=== PATIENT | male | born 1935 | race Caucasian/White ===

== ENCOUNTER → 2016-08-30 | Outpatient (CLI) | payer MEDICARE ==
[~2016-08-30] MED LIST: ADVA115A INH; ALBU0.08 INH; ALLO300T2 PO; ANAS1TAB PO; ASPI-110 PO; ASPI81TA81; CARV6.252 PO; CENTTAB PO; CEPH500C PO; CHOL1TAB42 PO; CIPR-9 PO; COMMODE 3-IN-11 MIS; CORT1SOL LEFT EAR; COZA25TA PO; FIBEPOW; FURO1TAB60 PO; FURO20TA PO; FURO40TA PO; GABA100C4 PO; GABA400C5 PO; GETGO ROLLING W1 MI1; GNP5TAB6 PO; HUMA100I3 SQ; HUMALOG SQ; HYDR-3533 PO; IRBE75TA5 PO; L-ME1CAP2; LANTINJ SQ; LANTUS2P SQ; LEVO.075 PO; MAGN400T2 PO; NAME5TAB2 PO; NIAC500T18 PO; NIAC500T67; NORC5TAB PO; OMEP20TA PO; POLY17S PO; POTA1TAB4 PO; PRED10 PO; PRED20 PO; QUET1TAB7 PO; SENN1TAB PO; SPIR25TA PO; SPIRPOW; TAMS0.4C4 PO; TAMS5CAP PO; TRAM50TA PO; WHEEMIS3; XARE10TA PO; XARE15TA PO
[2016-08-30 13:05] LABS: BLOOD, URINE SMALL (NEG); GLUCOSE,URINE NEG (NEG); KETONE, URINE NEG (NEG); NITRITE,URINE NEG (NEG); PH, URINE 6.5 (5.0-8.5); URINE COLOR LIGHT-YELLOW (YELLW/STRAW)
== END ==
LOC: CLAB 12:20
PROVIDERS: ATTEND Allergy & Immunology
DX: M47.817 Spondylosis without myelopathy or radiculopathy, lumbosacral region (principal)
CPT/HCPCS: 81001

== ENCOUNTER → 2016-09-19 | Outpatient (CLI) | payer MEDICARE ==
[2016-09-19 10:08] LABS: BLOOD, URINE NEG (NEG); GLUCOSE,URINE NEG (NEG); HYALINE CAST, URINE 4 /lpf (RARE); KETONE, URINE NEG (NEG); NITRITE,URINE NEG (NEG); URINE COLOR YELLOW (YELLW/STRAW)
[2016-09-19 10:10] LABS: AUTOMATED NEUTROPHIL # 5.3 TH/MM3 (1.8-7.7); BASOPHIL % 0.6 % (0.0-2.0); EOSINOPHIL # 0.1 TH/MM3 (0-0.4); EOSINOPHIL % 0.9 % (0.0-4.0); HEMATOCRIT 33.6 % (39.0-51.0); HEMO FLAGS DIFF FINAL; LYMPHOCYTE # 1.7 TH/MM3 (1.0-4.8); MEAN CELL VOLUME 88.4 FL (80.0-100.0); MEAN CORPUSCULAR HEMOGLOBIN 28.7 PG (27.0-34.0); MEAN CORPUSCULAR HGB CONC 32.5 % (32.0-36.0); MONO % 7.2 % (0.0-8.0); NEUT % 69.3 % (16.0-70.0); PLATELET COUNT 192 TH/MM3 (150-450); RED BLOOD COUNT 3.81 MIL/MM3 (4.50-5.90); RED CELL DISTRIBUTION WIDTH 16.7 % (11.6-17.2); WHITE BLOOD COUNT 7.7 TH/MM3 (4.0-11.0)
[2016-09-19 10:28] LABS: MAGNESIUM 2.1 MG/DL (1.5-2.5)
[2016-09-19 10:39] LABS: ALKALINE PHOSPHATASE 111 U/L (45-117); ALT (GPT) 21 U/L (12-78); ANION GAP 6 MEQ/L (5-15); AST (GOT) 12 U/L (15-37); BICARBONATE 33.8 MEQ/L (21.0-32.0); BLOOD UREA NITROGEN 49 MG/DL (7-18); CHLORIDE 98 MEQ/L (98-107); GLOMERULAR FILTRATION RATE 42 ML/MIN (>89); GLUCOSE,FASTING 187 MG/DL (74-99); POTASSIUM 4.4 MEQ/L (3.5-5.1); SODIUM (NA) 138 MEQ/L (136-145); TOTAL BILIRUBIN ADULT 0.4 MG/DL (0.2-1.0)
== END ==
LOC: CLAB 09:24
DX: H60.311 Diffuse otitis externa, right ear (principal); I12.9 Hypertensive chronic kidney disease with stage 1 through stage 4 chronic kidney disease, or unspecified chronic kidney disease; N18.3 Chronic kidney disease, stage 3 (moderate)
CPT/HCPCS: 36415; 80053; 81001; 82570; 83735; 83970; 84100; 84156; 84443; 84550; 85025

== ENCOUNTER → 2016-11-08 | Outpatient (CLI) | payer MEDICARE ==
[2016-11-08 11:53] LABS: AUTOMATED NEUTROPHIL # 5.1 TH/MM3 (1.8-7.7); BASOPHIL # 0.1 TH/MM3 (0-0.2); BASOPHIL % 0.7 % (0.0-2.0); EOSINOPHIL # 0.1 TH/MM3 (0-0.4); EOSINOPHIL % 1.4 % (0.0-4.0); HEMATOCRIT 34.8 % (39.0-51.0); HEMO FLAGS DIFF FINAL; LYMPH % 22.9 % (9.0-44.0); LYMPHOCYTE # 1.7 TH/MM3 (1.0-4.8); MEAN CELL VOLUME 91.3 FL (80.0-100.0); MEAN CORPUSCULAR HEMOGLOBIN 30.6 PG (27.0-34.0); MEAN CORPUSCULAR HGB CONC 33.5 % (32.0-36.0); MONO % 6.9 % (0.0-8.0); NEUT % 68.1 % (16.0-70.0); PLATELET COUNT 166 TH/MM3 (150-450); RED BLOOD COUNT 3.81 MIL/MM3 (4.50-5.90); RED CELL DISTRIBUTION WIDTH 20.5 % (11.6-17.2); WHITE BLOOD COUNT 7.4 TH/MM3 (4.0-11.0)
[2016-11-08 12:10] LABS: ALT (GPT) 24 U/L (12-78); ANION GAP 7 MEQ/L (5-15); AST (GOT) 21 U/L (15-37); BICARBONATE 32.4 MEQ/L (21.0-32.0); BLOOD UREA NITROGEN 42 MG/DL (7-18); CHLORIDE 101 MEQ/L (98-107); GLOMERULAR FILTRATION RATE 46 ML/MIN (>89); GLUCOSE,FASTING 173 MG/DL (74-99); POTASSIUM 4.3 MEQ/L (3.5-5.1); SODIUM (NA) 140 MEQ/L (136-145)
[2016-11-08 12:12] LABS: ALKALINE PHOSPHATASE 82 U/L (45-117); TOTAL BILIRUBIN ADULT 0.5 MG/DL (0.2-1.0)
== END ==
LOC: CLAB 11:18
PROVIDERS: ATTEND Allergy & Immunology
DX: M47.817 Spondylosis without myelopathy or radiculopathy, lumbosacral region (principal)
CPT/HCPCS: 36415; 80053; 84550; 85025

== ENCOUNTER → 2016-11-22 | Outpatient (CLI) | payer MEDICARE ==
[2016-11-22 14:29] LABS: ALKALINE PHOSPHATASE 79 U/L (45-117); ALT (GPT) 25 U/L (12-78); ANION GAP 6 MEQ/L (5-15); AST (GOT) 19 U/L (15-37); BICARBONATE 34.4 MEQ/L (21.0-32.0); BLOOD UREA NITROGEN 47 MG/DL (7-18); CHLORIDE 99 MEQ/L (98-107); GLOMERULAR FILTRATION RATE 40 ML/MIN (>89); GLUCOSE,FASTING 160 MG/DL (74-99); SODIUM (NA) 139 MEQ/L (136-145); TOTAL BILIRUBIN ADULT 0.6 MG/DL (0.2-1.0)
== END ==
LOC: CLAB 13:03
PROVIDERS: ATTEND Internal Medicine Interventional Cardiology
DX: R53.83 Other fatigue (principal); R60.9 Edema, unspecified
CPT/HCPCS: 36415; 80053; 82607; 84443

== ENCOUNTER 2016-11-28 11:35 | Emergency (ER) | payer MEDICARE ==
[~2016-11-28] VITALS: Ht 170.2 cm; Wt 106.0 kg
[~2016-11-28 11:35] MED LIST changes: -ALBU0.08 INH; -ASPI-110 PO; -ASPI81TA81; -CEPH500C PO; -COMMODE 3-IN-11 MIS; -COZA25TA PO; -FIBEPOW; -FURO20TA PO; -FURO40TA PO; -GABA400C5 PO; -GETGO ROLLING W1 MI1; -GNP5TAB6 PO; -HUMA100I3 SQ; -HYDR-3533 PO; -L-ME1CAP2; -LANTINJ SQ; -NAME5TAB2 PO; -NIAC500T67; -POLY17S PO; -PRED10 PO; -PRED20 PO; -QUET1TAB7 PO; -SENN1TAB PO; -SPIR25TA PO; -SPIRPOW; -TAMS0.4C4 PO; -WHEEMIS3; -XARE10TA PO
[2016-11-28 11:40] VITALS: BP 148/97; PULSE 87; RESP 15; TEMP 98.6
[2016-11-28] MEDS ORDERED: MORPHINE SULFATE 8 MG/ML INJ IV PUSH ONE (12:00)
[2016-11-28] MEDS ORDERED: ONDANSETRON HCL 4 MG/2 ML VIAL IV PUSH ONE (12:00)
--- NOTE | 2016-11-28 12:02 | PD ---
HPI Chief Complaint: Injury Time Seen by Provider: 11:58 Travel History International Travel<30 days: No Contact w/Intl Traveler<30days: No Traveled to known affect area: No History of Present Illness HPI 81-year-old male that presents to the ED for evaluation of injury to his right foot. Per patient he was in the shower today about 2 hours ago and the shower bear fell into his right foot. Per patient he has a bruise and pain on the area since. He denies any prior injury. He does take surrounding the. He denies any head injury or loss of consciousness. He denies any open wounds. He states that the pain is 6 out of 10 and comes and goes. Denies any numbness, tilling, weakness. No prior injuries or surgeries to this foot. He has not done anything for this. Per patient she has an appointment with his urologist who he follow up with and then came here to get checked on his foot. He has an allergy to contrast media. He has not taken anything for this. He is able to ambulate but with some limp. Denies any other medical problems at this time. No other injuries reported. Touching as well as weightbearing makes the pain worse. PFSH Past Medical History Hx Anticoagulant Therapy: Yes Arthritis: Yes Asthma: No Blood Disorders: No Anxiety: No Depression: No Heart Rhythm Problems: No Cancer: Yes (SKIN) Cardiac Catheterization: Yes Cardiovascular Problems: Yes High Cholesterol: Yes Chemotherapy: No Chest Pain: No Congestive Heart Failure: No COPD: Yes Cerebrovascular Accident: Yes Diabetes: Yes Patient Takes Glucophage: No Diminished Hearing: Yes Endocrine: Yes Gastrointestinal Disorders: No Glaucoma: No Gout: Yes Genitourinary: No Hepatitis: Yes (HX OF) Hiatal Hernia: Yes Hypertension: Yes Immune Disorder: No Implanted Vascular Access Dvce: Yes (ST MAGY [id number]) Kidney Stones: Yes Musculoskeletal: Yes (RHEUMATOID ARTHRITIS, gout) Neurologic: No Psychiatric: No Reproductive: No Respiratory: Yes Integumentary: No Immunizations Current: Yes Radiation Therapy: No Renal Failure: Yes (decreased renal function) Sleep Apnea: Yes Thyroid Disease: No Past Surgical History Appendectomy: Yes Body Medical Devices: PACER Cardiac Surgery: Yes (2008 ANGIOPLASTY; AORTIC VALVE REPLACEMENT, pacemaker right side) Cholecystectomy: Yes Coronary Artery Bypass Graft: Yes Genitourinary Surgery: Yes (TURP) Joint Replacement: Yes (RAFFI HIP, KNEE AND SHOULDER) Pacemaker: Yes (DEMAND PACEMAKER -[id number]) Thoracic Surgery: Yes Valve Replacement: Yes (AORTIC VALVE - BOVINE -2007) Other Surgery: Yes (LEFT SHOULDER RAFFI KNEES RAFFI HIPS CABG APPENDECTONSILLECT CHOLESTECTOMY) Social History Alcohol Use: No Tobacco Use: No (in 20"s cigs) Substance Use: No Allergies-Medications (Allergen,Severity, Reaction): Coded Allergies: Contrast Media (Verified Allergy, Severe, SWELLING AND SHORTNESS OF BREATH , 08/15/16) Iodine (Verified Allergy, Severe, SWELLING, 08/15/16) Shellfish (Verified Allergy, Severe, 08/15/16) Reported Meds & Prescriptions Reported Meds & Active Scripts Active Lortab (Hydrocodone-Acetaminophen) 5-325 Mg Tab 1 Tab PO Q6H PRN [place] (Hydrocodone-Acetaminophen) 5-325 mg Tab 1 Tab PO Q6H PRN Reported Spironolactone 25 Mg Tab 25 Mg PO DAILY Aspir-81 (Aspirin) 81 Mg Tabdr Synthroid (Levothyroxine Sodium) 75 Mcg Tab 75 Mcg PO DAILY Irbesartan 75 Mg Tab 75 Mg PO DAILY Gabapentin 100 Mg Cap 100 Mg PO HS Synthroid (Levothyroxine Sodium) 75 Mcg Tab 75 Mcg PO DAILY Lantus Inj (Insulin Glargine) 100 Unit/Ml Inj 22 Units SQ HS Humalog Inj (Insulin Human Lispro) 1,000 Unit/10 Ml Vial 0 SQ ACHS Max dose at bedtime:( )units; sugars< 70,(0)units; sugars 150-199,(1)unit; sugars 200-249,(3)units; sugars 250-299,(5)units; sugars 300-349,(7)units; sugars more than 349,(9)units. Centrum Silver (Multiple Vitamins W/ Minerals) 1 Tab 1 Tab PO DAILY Vitamin D-3 (Cholecalciferol) 2,000 Unit Tab 1 Tab PO DAILY Anastrozole 1 Mg Tab 1 Mg PO DAILY Lasix (Furosemide) 40 Mg Tab 40 Mg PO BID Omeprazole 20 Mg Tab 20 Mg PO BID Niacin (Niacinamide) 500 Mg Tab 250 Mg PO BID Flomax (Tamsulosin HCl) 0.4 Mg Cap 0.4 Mg PO DAILY Tramadol (Tramadol HCl) 50 Mg Tab 100 Mg PO TID PRN Allopurinol 300 Mg Tab 300 Mg PO BID Magnesium Oxide 400 Mg Tab 400 Mg PO DAILY Carvedilol 6.25 Mg Tab 6.25 Mg PO BID Xarelto (Rivaroxaban) 15 Mg Tab 15 Mg PO DAILY Advair Hfa 12 GM Inh (Fluticasone-Salmeterol 12 GM Inh) 115-21 Mcg/Act Aer 2 Puff INH BID Review of Systems Except as stated in HPI: all other systems reviewed are Neg Physical Exam Narrative GENERAL: SKIN: Warm and dry. HEAD: Atraumatic. Normocephalic. EYES: Pupils equal and round. No scleral icterus. No injection or drainage. ENT: No nasal bleeding or discharge. Mucous membranes pink and moist. Tongue is midline. No uvula deviation. NECK: Trachea midline. No JVD. CARDIOVASCULAR: Regular rate and rhythm. RESPIRATORY: No accessory muscle use. Clear to auscultation. Breath sounds equal bilaterally. GASTROINTESTINAL: Abdomen soft, non-tender, nondistended. Hepatic and splenic margins not palpable. MUSCULOSKELETAL: Extremities without clubbing, cyanosis, or edema. No obvious deformities. Full range of motion of the lower extremities bilaterally. Pupils pulses bilaterally. Patient does have a 2 cm hematoma on the dorsal aspect on the distal aspect of the right foot. Slightly tender to touch. Pupils pulses bilaterally. No obvious bony deformity noted. Good capillary refill of all toes. 2+ pulses on the dorsalis pedis as well as the posterior tibialis NEUROLOGICAL: Awake and alert. No obvious cranial nerve deficits. Motor grossly within normal limits. Five out of 5 muscle strength in the arms and legs. Normal speech. PSYCHIATRIC: Appropriate mood and affect; insight and judgment normal. Data Data Last Documented VS Vital Signs Date Time Temp Pulse Resp B/P Pulse Ox O2 Delivery O2 Flow Rate FiO2 11/28/16 11:50 96 Room Air 11/28/16 11:40 98.6 87 15 148/97 2 Orders Foot, Complete ([id number]) (11/28/16 11:54) Ice/Cold Pack (11/28/16 11:54) Morphine Inj (Morphine Inj) (11/28/16 12:00) Ondansetron Inj (Zofran Inj) (11/28/16 12:00) MDM Medical Decision Making Medical Screen Exam Complete: Yes Emergency Medical Condition: Yes Medical Record Reviewed: Yes Interpretation(s) Last Impressions Foot X-Ray 11/28/16 1154 Signed Impressions: Service Date/Time: Monday, November 28, 2016 12:41 - CONCLUSION: 1. There is no evidence of acute fracture. Bong Romeo MD Differential Diagnosis Hematoma versus fracture versus bruise versus contusion Narrative Course 81-year-old male to presents to the ED for evaluation of right foot pain. Patient was properly examined and was found to have signs and symptoms concerning for possible fracture. X-rays were done. Patient was given pain medication IV. Patient was given ice to apply to the area. X-ray showed no sign of acute bony injury. Patient was reassured. At this time I recommend ice and elevation. Patient agrees with plan. Patient was sent home with a prescription for Lortab to use as needed. I recommend Tylenol for pain as well. Use walker as needed. See ED for any worsening symptoms. Follow with PCP. All questions were answered to the best of my ability. Diagnosis Primary Impression: Traumatic hematoma of right foot Qualified Code: S90.31XA - Traumatic hematoma of right foot, initial encounter Patient Instructions: Narcotic given in the ED, General Instructions Additional Instructions: Take medications as prescribed. Follow-up with PCP. See ED for any worsening symptoms. Do not drink or drive while taking pain medication. Apply ice as needed for pain Med/Other Pt SpecificInfo: Prescription(s) given Scripts Hydrocodone-Acetaminophen (Lortab)5-325 Mg Tab1 Tab PO Q6H PRN (PAIN) #15 TAB Prov:Naya Tanner DO 11/28/16 Disposition: 01 DISCHARGE HOME Condition: Stable Chidi Ellington Nov 28, 2016 12:02
[2016-11-28] MEDS ORDERED: SPIR25TA PO (12:03)
[2016-11-28] MEDS ORDERED: LEVO.075 PO (12:03)
[2016-11-28] MEDS ORDERED: ASPI81TA81 (12:03)
[2016-11-28] MEDS ORDERED: IRBE75TA5 PO (12:03)
[2016-11-28] MEDS ORDERED: HYDR-3533 PO (13:23)
--- NOTE | 2016-11-28 13:51 | PD ---
Physical Exam Narrative I, Dr. Tanner, have reviewed the advance practice practitioner's documentation and am in agreement, met with the patient face to face, made the diagnosis, and the medical decision making was done by me. *My assessment and Findings: Right foot pain vs. fracture vs. contusion vs. hematoma 81yo M with right foot pain s/p dropping his shower piece on his right foot today. Denies any head trauma, LOC. Denies any other injuries. Right foot: + Hematoma on dorsum of right foot. DP 2+. Sensation intact. FROM right ankle. +Edema. Pt was given morphine and zofran. Xray right foot negative. Return precautions given. Data Data Last Documented VS Vital Signs Date Time Temp Pulse Resp B/P Pulse Ox O2 Delivery O2 Flow Rate FiO2 11/28/16 15:48 96 Nasal Cannula 2 11/28/16 11:40 98.6 87 15 148/97 Orders Foot, Complete ([id number]) (11/28/16 11:54) Ice/Cold Pack (11/28/16 11:54) Morphine Inj (Morphine Inj) (11/28/16 12:00) Ondansetron Inj (Zofran Inj) (11/28/16 12:00) MDM Supervised Visit with ZOHAIB: Yes Diagnosis Primary Impression: Contusion of right foot Qualified Code: S90.31XA - Contusion of right foot, initial encounter Scripts Hydrocodone-Acetaminophen (Lortab)5-325 Mg Tab1 Tab PO Q6H PRN (PAIN) #15 TAB Prov:Naya Tanner DO 11/28/16 Naya Tanner DO Nov 28, 2016 13:51
--- NOTE | 2016-11-28 14:18 | RADRPT ---
EXAM DATE/TIME: 11/28/2016 12:41 [facility] COMPARISON: FOOT RIGHT COMPLETE ([id number]), January 22, 2013, 12:58. INDICATIONS : Right foot pain after shower head fell on foot today. MEDICAL HISTORY : Chronic obstructive pulmonary disease. Myocardial infarction. Diabetes mellitus type II. Stroke. Gout. SURGICAL HISTORY : Pacemaker. ENCOUNTER: Initial ACUITY: 1 day PAIN SCORE: 10/10 LOCATION: Right top of foot. FINDINGS: There is prominent soft tissue swelling over the dorsum of the foot. There is no evidence of acute fr acture. Bony mineralization is normal. An inferior calcaneal spur is present. There is osteoarthritis at the tarsometatarsal junction CONCLUSION: 1. There is no evidence of acute fracture. Bong Romeo MD on November 28, 2016 at 14:16 Board Certified Radiologist. This report was verified electronically.
[2017-02-05] MEDS ORDERED: WHEEMIS3 (13:54)
[2017-02-05] MEDS ORDERED: GETGO ROLLING W1 MI1 (13:54)
[2017-02-05] MEDS ORDERED: COMMODE 3-IN-11 MIS (13:54)
[2017-02-06] MEDS ORDERED: FURO20TA PO (09:06)
[2017-02-06] MEDS ORDERED: PRED10 PO (09:06)
[2017-02-06] MEDS ORDERED: GNP5TAB6 PO (09:06)
[2017-02-06] MEDS ORDERED: LANTINJ SQ (09:06)
[2017-02-06] MEDS ORDERED: SPIR25TA PO (09:06)
[2017-02-06] MEDS ORDERED: ALLO300T2 PO (09:06)
[2017-02-06] MEDS ORDERED: TAMS0.4C4 PO (09:06)
[2017-02-06] MEDS ORDERED: GABA100C4 PO (09:06)
[2017-02-06] MEDS ORDERED: OMEP20TA PO (09:06)
[2017-02-06] MEDS ORDERED: ASPI-110 PO (09:06)
[2017-02-06] MEDS ORDERED: SENN1TAB PO (09:06)
[2017-02-06] MEDS ORDERED: NAME5TAB2 PO (09:06)
[2017-02-06] MEDS ORDERED: IRBE75TA5 PO (09:06)
[2017-02-06] MEDS ORDERED: XARE15TA PO (09:06)
[2017-02-06] MEDS ORDERED: CARV6.252 PO (09:06)
[2017-02-06] MEDS ORDERED: MAGN400T2 PO (09:06)
[2017-02-06] MEDS ORDERED: QUET1TAB7 PO (09:06)
[2017-02-06] MEDS ORDERED: HYDR-3533 PO (09:06)
[2017-02-06] MEDS ORDERED: LEVO.075 PO (09:06)
== END 2016-11-28 15:49 | disposition home or self-care (01) ==
LOC: NEPC 11:35
DX: S90.31XA Contusion of right foot, initial encounter (principal); E11.9 Type 2 diabetes mellitus without complications; I10 Essential (primary) hypertension; E78.00 Pure hypercholesterolemia, unspecified; G47.30 Sleep apnea, unspecified; H91.90 Unspecified hearing loss, unspecified ear; W20.8XXA Other cause of strike by thrown, projected or falling object, initial encounter; Y93.E1 Activity, personal bathing and showering; Z79.4 Long term (current) use of insulin; Z79.01 Long term (current) use of anticoagulants; Z87.39 Personal history of other diseases of the musculoskeletal system and connective tissue; Z86.79 Personal history of other diseases of the circulatory system; Z85.828 Personal history of other malignant neoplasm of skin; Z87.09 Personal history of other diseases of the respiratory system; Z87.448 Personal history of other diseases of urinary system
CPT/HCPCS: 73630; 96374; 96375; 99283; J2270; J2405

== ENCOUNTER 2016-12-01 20:25 | Emergency (ER) | payer MEDICARE ==
[~2016-12-01] VITALS: Ht 170.2 cm; Wt 109.6 kg
[~2016-12-01 20:25] MED LIST changes: +ASPI81TA81; -CIPR-9 PO; -CORT1SOL LEFT EAR; +HYDR-3533 PO; -POTA1TAB4 PO; +SPIR25TA PO
[2016-12-01 20:29] VITALS: BP 113/68; PULSE 83; RESP 18; TEMP 97.6; O2SAT 96
[2016-12-01] MEDS ORDERED: LIDOCAINE HCL 1% 30 ML VIAL INFIL ONE (21:00)
--- NOTE | 2016-12-01 21:12 | PD ---
HPI Chief Complaint: Injury Time Seen by Provider: 20:47 Travel History International Travel<30 days: No Contact w/Intl Traveler<30days: No Traveled to known affect area: No History of Present Illness HPI This 81-year-old male is complaining of pain in his right foot. On Sunday he dropped a metal showerhead on his foot. He developed a lot of pain. He went to [place] and had an x-ray was negative. He has had increased swelling of the foot and pain. He has been taking Lortab for the pain. He has not had fever or chills. He does have diabetes. He has history of heart valve surgery and is on Xarelto and aspirin. He does bruise easily. PFSH Past Medical History Hx Anticoagulant Therapy: Yes Arthritis: Yes Asthma: No Blood Disorders: No Anxiety: No Depression: No Heart Rhythm Problems: No Cancer: Yes (SKIN) Cardiac Catheterization: Yes Cardiovascular Problems: Yes (valve, pace maker) High Cholesterol: Yes Chemotherapy: No Chest Pain: No Congestive Heart Failure: No COPD: Yes Cerebrovascular Accident: Yes Diabetes: Yes Patient Takes Glucophage: No Diminished Hearing: Yes Endocrine: Yes Gastrointestinal Disorders: No Glaucoma: No Gout: Yes Genitourinary: No Hepatitis: Yes (HX OF) Hiatal Hernia: Yes Hypertension: Yes Immune Disorder: No Implanted Vascular Access Dvce: Yes (ST MAGY [id number]) Kidney Stones: Yes Musculoskeletal: Yes (RHEUMATOID ARTHRITIS, gout) Neurologic: No Psychiatric: No Reproductive: No Respiratory: Yes (copd) Integumentary: No Immunizations Current: Yes Radiation Therapy: No Renal Failure: Yes (decreased renal function) Sleep Apnea: Yes Thyroid Disease: No Tetanus Vaccination: < 5 Years Influenza Vaccination: Yes Past Surgical History Appendectomy: Yes Body Medical Devices: PACER Cardiac Surgery: Yes (2008 ANGIOPLASTY; AORTIC VALVE REPLACEMENT, pacemaker right side) Cholecystectomy: Yes Coronary Artery Bypass Graft: Yes Eye Surgery: Yes (Cataracts) Genitourinary Surgery: Yes (TURP) Joint Replacement: Yes (RAFFI HIP, KNEE AND SHOULDER) Pacemaker: Yes (DEMAND PACEMAKER -[id number]) Thoracic Surgery: Yes Valve Replacement: Yes (AORTIC VALVE - BOVINE -2008) Other Surgery: Yes (LEFT SHOULDER RAFFI KNEES RAFFI HIPS CABG APPENDECTONSILLECT CHOLESTECTOMY) Social History Alcohol Use: No Tobacco Use: No (in 20"s cigs) Substance Use: No Allergies-Medications (Allergen,Severity, Reaction): Coded Allergies: Contrast Media (Verified Allergy, Severe, SWELLING AND SHORTNESS OF BREATH , 12/01/16) Iodine (Verified Allergy, Severe, SWELLING, 12/01/16) Shellfish (Verified Allergy, Severe, 12/01/16) Reported Meds & Prescriptions Reported Meds & Active Scripts Active Lortab (Hydrocodone-Acetaminophen) 5-325 Mg Tab 1 Tab PO Q6H PRN Reported Spironolactone 25 Mg Tab 25 Mg PO DAILY Aspir-81 (Aspirin) 81 Mg Tabdr Irbesartan 75 Mg Tab 75 Mg PO DAILY Gabapentin 100 Mg Cap 100 Mg PO HS Synthroid (Levothyroxine Sodium) 75 Mcg Tab 75 Mcg PO DAILY Lantus Inj (Insulin Glargine) 100 Unit/Ml Inj 22 Units SQ HS Humalog Inj (Insulin Human Lispro) 1,000 Unit/10 Ml Vial 0 SQ ACHS Max dose at bedtime:( )units; sugars< 70,(0)units; sugars 150-199,(1)unit; sugars 200-249,(3)units; sugars 250-299,(5)units; sugars 300-349,(7)units; sugars more than 349,(9)units. Centrum Silver (Multiple Vitamins W/ Minerals) 1 Tab 1 Tab PO DAILY Anastrozole 1 Mg Tab 1 Mg PO DAILY Lasix (Furosemide) 40 Mg Tab 40 Mg PO BID Omeprazole 20 Mg Tab 20 Mg PO BID Niacin (Niacinamide) 500 Mg Tab 250 Mg PO BID Flomax (Tamsulosin HCl) 0.4 Mg Cap 0.4 Mg PO DAILY Tramadol (Tramadol HCl) 50 Mg Tab 100 Mg PO TID PRN Allopurinol 300 Mg Tab 300 Mg PO DAILY Magnesium Oxide 400 Mg Tab 400 Mg PO DAILY Carvedilol 6.25 Mg Tab 6.25 Mg PO BID Xarelto (Rivaroxaban) 15 Mg Tab 15 Mg PO DAILY Review of Systems General / Constitutional: No: Fever, Chills Eyes: No: Diploplia HENT: No: Headaches Cardiovascular: No: Chest Pain or Discomfort Respiratory: No: Shortness of Breath Gastrointestinal: No: Vomiting, Diarrhea Musculoskeletal: Positive: Pain Skin: No Rash Endocrine: No: Heat Intolerance, Cold Intolerance Hematologic/Lymphatic: Positive: Easy Bruising Physical Exam Narrative GENERAL: Well-developed male SKIN: Focused skin assessment warm/dry. Multiple ecchymoses vomited HEAD: Atraumatic. Normocephalic. EYES: Pupils equal and round. No scleral icterus. No injection or drainage. ENT: No nasal bleeding or discharge. Mucous membranes pink and moist. NECK: Trachea midline. No JVD. MUSCULOSKELETAL: No obvious deformities. No clubbing. No cyanosis. No edema. On the dorsum of the right foot there is a swollen erythematous area that is fluctuant to palpation. It measures about 2 cm in diameter is quite tender it is not erythematous. There is no lymphangitis NEUROLOGICAL: Awake and alert. No obvious cranial nerve deficits. Motor grossly within normal limits. Normal speech. PSYCHIATRIC: Appropriate mood and affect; insight and judgment normal. Data Data Last Documented VS Vital Signs Date Time Temp Pulse Resp B/P Pulse Ox O2 Delivery O2 Flow Rate FiO2 12/01/16 20:29 97.6 83 18 113/68 96 Orders Lidocaine 1% Inj (Xylocaine 1% Inj) (12/01/16 21:00) [facility] Medical Decision Making Medical Screen Exam Complete: Yes Emergency Medical Condition: Yes Medical Record Reviewed: Yes Differential Diagnosis Differential includes hematoma of the foot, abscess of contusion of foot Narrative Course X-ray from [facility] [place] was negative for fracture. Concern is that this may represent an abscess as it did feel fluctuant anesthetized the area and made incision. The blood was obtained there was no evidence of any pus. This is a hematoma. As much blood as possible was expressed from the wound and a pressure dressing applied Procedures Procedure Narrative After verbal consent was obtained the area of maximum fluctuance was anesthetized with a 1% lidocaine. A 1 cm incision was made and only blood was obtained. Bleeding was controlled with pressure and is dressing applied Diagnosis Primary Impression: Traumatic hematoma of right foot Qualified Code: S90.31XD - Traumatic hematoma of right foot, subsequent encounter Additional Instructions: Keep foot elevated Scripts Hydrocodone-Acetaminophen (Lortab)5-325 Mg Tab1-2 Tab PO Q6H PRN (PAIN) #30 TAB Ref 0 Prov:Gerhard Mendes MD 12/01/16 Disposition: 01 DISCHARGE HOME Condition: Stable Gerhard Mendes MD Dec 01, 2016 21:12
[2016-12-01] MEDS ORDERED: HYDR-3533 PO (21:19)
[2016-12-01 21:45] VITALS: BP 143/61; PULSE 82; RESP 20; O2SAT 97
[2016-12-01 22:11] VITALS: TEMP 97.8
[2017-02-05] MEDS ORDERED: WHEEMIS3 (13:54)
[2017-02-05] MEDS ORDERED: COMMODE 3-IN-11 MIS (13:54)
[2017-02-05] MEDS ORDERED: GETGO ROLLING W1 MI1 (13:54)
[2017-02-06] MEDS ORDERED: XARE15TA PO (09:06)
[2017-02-06] MEDS ORDERED: SPIR25TA PO (09:06)
[2017-02-06] MEDS ORDERED: IRBE75TA5 PO (09:06)
[2017-02-06] MEDS ORDERED: GABA100C4 PO (09:06)
[2017-02-06] MEDS ORDERED: GNP5TAB6 PO (09:06)
[2017-02-06] MEDS ORDERED: LEVO.075 PO (09:06)
[2017-02-06] MEDS ORDERED: ASPI-110 PO (09:06)
[2017-02-06] MEDS ORDERED: CARV6.252 PO (09:06)
[2017-02-06] MEDS ORDERED: PRED10 PO (09:06)
[2017-02-06] MEDS ORDERED: LANTINJ SQ (09:06)
[2017-02-06] MEDS ORDERED: NAME5TAB2 PO (09:06)
[2017-02-06] MEDS ORDERED: QUET1TAB7 PO (09:06)
[2017-02-06] MEDS ORDERED: MAGN400T2 PO (09:06)
[2017-02-06] MEDS ORDERED: SENN1TAB PO (09:06)
[2017-02-06] MEDS ORDERED: TAMS0.4C4 PO (09:06)
[2017-02-06] MEDS ORDERED: HYDR-3533 PO (09:06)
[2017-02-06] MEDS ORDERED: FURO20TA PO (09:06)
[2017-02-06] MEDS ORDERED: OMEP20TA PO (09:06)
[2017-02-06] MEDS ORDERED: ALLO300T2 PO (09:06)
== END 2016-12-01 22:11 | disposition home or self-care (01) ==
LOC: PHED 20:25
DX: S90.31XD Contusion of right foot, subsequent encounter (principal); E11.9 Type 2 diabetes mellitus without complications; E78.00 Pure hypercholesterolemia, unspecified; J44.9 Chronic obstructive pulmonary disease, unspecified; I10 Essential (primary) hypertension; Z79.01 Long term (current) use of anticoagulants; Z95.0 Presence of cardiac pacemaker; Z95.2 Presence of prosthetic heart valve; Z86.73 Personal history of transient ischemic attack (TIA), and cerebral infarction without residual deficits; Z87.891 Personal history of nicotine dependence; W20.8XXD Other cause of strike by thrown, projected or falling object, subsequent encounter; Y93.E1 Activity, personal bathing and showering; Y92.002 Bathroom of unspecified non-institutional (private) residence as the place of occurrence of the external cause; Y99.8 Other external cause status
CPT/HCPCS: 10140

== ENCOUNTER 2017-01-18 18:13 | Inpatient (IN) | payer MEDICARE ==
[~2017-01-18] VITALS: Ht 172.7 cm; Wt 104.5 kg
[2017-01-18 18:05] VITALS: O2SAT 95
[~2017-01-18 18:13] MED LIST changes: -ADVA115A INH; -CHOL1TAB42 PO; -NORC5TAB PO
[2017-01-18] MEDS ORDERED: RESP: ALBUTEROL 2.5 MG/IPRATROPIUM 0.5 MG NEB (SCH) ONE (18:20)
--- NOTE | 2017-01-18 18:40 | RADRPT ---
EXAM DATE/TIME: 01/18/2017 18:11 [facility] COMPARISON: No previous studies available for comparison. INDICATIONS : Trauma alert; fall. MEDICAL HISTORY : Unobtainable. SURGICAL HISTORY : Unobtainable. ENCOUNTER: Initial ACUITY: 1 day PAIN SCORE: Non-responsive. LOCATION: Bilateral pelvis FINDINGS: A single frontal view of the pelvis demonstrates no evidence of fracture. The bony pelvic ring is in tact. Bony mineralization is normal. The soft tissues are intact. Bilateral total hip arthroplasties are noted. No evidence of dislocation or fracture or hardware fail ure/loosening. CONCLUSION: Intact pelvis. Ben Gtz MD on January 18, 2017 at 18:38 Board Certified Radiologist. This report was verified electronically.
--- NOTE | 2017-01-18 18:41 | RADRPT ---
EXAM DATE/TIME: 01/18/2017 18:11 [facility] COMPARISON: No previous studies available for comparison. INDICATIONS : Trauma alert; fall. MEDICAL HISTORY : Unobtainable. SURGICAL HISTORY : Unobtainable. ENCOUNTER: Initial ACUITY: 1 day PAIN SCORE: Non-responsive. LOCATION: Bilateral chest FINDINGS: There is mild consolidation and/or contusion of the left lung. There is small left pleural effusion s uspected as well. I believe there are several left posterolateral rib fractures. No evidence of mediastinal widening. Patient has had previous median sternotomy. Cardiac pacer presen t. CONCLUSION: Probable left rib fractures. Mild contusion/consolidation and small effusion on the left. Ben Gtz MD on January 18, 2017 at 18:39 Board Certified Radiologist. This report was verified electronically.
[2017-01-18] MEDS ORDERED: diphenhydrAMINE HCL 50 MG/ML VIAL ONE (18:54)
[2017-01-18 18:55] LABS: I-STAT POTASSIUM 5.1 MMOL/L (3.5-4.9)
[2017-01-18] MEDS ORDERED: DEXAMETHASONE SOD PHOS 20 MG/5 ML VIAL IV PUSH ONE (19:00)
[2017-01-18 19:01] LABS: AUTOMATED NEUTROPHIL # 6.8 TH/MM3 (1.8-7.7); BASOPHIL # 0.1 TH/MM3 (0-0.2); BASOPHIL % 0.9 % (0.0-2.0); EOSINOPHIL # 0.1 TH/MM3 (0-0.4); EOSINOPHIL % 1.2 % (0.0-4.0); HEMATOCRIT 36.5 % (39.0-51.0); HEMO FLAGS DIFF FINAL; LYMPH % 21.7 % (9.0-44.0); LYMPHOCYTE # 2.2 TH/MM3 (1.0-4.8); MEAN CELL VOLUME 96.5 FL (80.0-100.0); MEAN CORPUSCULAR HEMOGLOBIN 31.8 PG (27.0-34.0); MONO % 8.2 % (0.0-8.0); PLATELET COUNT 190 TH/MM3 (150-450); RED BLOOD COUNT 3.79 MIL/MM3 (4.50-5.90); RED CELL DISTRIBUTION WIDTH 16.5 % (11.6-17.2)
[2017-01-18 19:06] LABS: APTT (PATIENT) 30.6 SEC (24.3-30.1); INTERNATIONAL NORMALIZED RATIO 1.1 RATIO; PROTHROMBIN TIME - PATIENT 12.4 SEC (9.8-11.6)
[2017-01-18] MEDS ORDERED: IOHEXOL 350 MG/ML 10 ML VIAL (for RAD DIAG) IV ONE (19:08)
[2017-01-18] MEDS ORDERED: MIDAZOLAM HCL 5 MG/ML VIAL (1 ML) ONE (19:10)
[2017-01-18] MEDS ORDERED: fentaNYL CITRATE 250 MCG/5 ML AMP ONE (19:11)
--- NOTE | 2017-01-18 19:17 | RADRPT ---
EXAM DATE/TIME: 01/18/2017 18:51 [facility] COMPARISON: No previous studies available for comparison. INDICATIONS : Trauma alert, fall. RADIATION DOSE: 62.18 CTDIvol (mGy) MEDICAL HISTORY : Non-responsive. SURGICAL HISTORY : Non-responsive. ENCOUNTER: Initial ACUITY: 1 day PAIN SCALE: Non-responsive LOCATION: cranial TECHNIQUE: Multiple contiguous axial images were obtained of the head. Using automated exposure control and adj ustment of the mA and/or kV according to patient size, radiation dose was kept as low as reasonably a chievable to obtain optimal diagnostic quality images. FINDINGS: CEREBRUM: The ventricles are normal for age. No evidence of midline shift, mass lesion, hemorrhage or acute in farction. No extra-axial fluid collections are seen. POSTERIOR FOSSA: The cerebellum and brainstem are intact. The 4th ventricle is midline. The cerebellopontine angle i s unremarkable. EXTRACRANIAL: The visualized portion of the orbits is intact. SKULL: The calvaria is intact. No evidence of skull fracture. CONCLUSION: No bleed or other acute intracranial abnormality. Ben Gtz MD on January 18, 2017 at 19:15 Board Certified Radiologist. This report was verified electronically.
[2017-01-18] MEDS ORDERED: LIDOCAINE 1%/EPINEPHrine 1:100,000 SOLN 50 ML VIAL ONE (19:18)
[2017-01-18 19:20] VITALS: O2SAT 99
--- NOTE | 2017-01-18 19:25 | RADRPT ---
EXAM DATE/TIME: 01/18/2017 19:03 [facility] COMPARISON: No previous studies available for comparison. INDICATIONS : Trauma alert, fall. IV CONTRAST: 75 cc Omnipaque 350 (iohexol) IV ; Cumulative dose for multiple exams. RADIATION DOSE: 20.50 CTDIvol (mGy) ; Combined studies - Thorax/Abdomen/Pelvis MEDICAL HISTORY : Non-responsive. SURGICAL HISTORY : Non-responsive. ENCOUNTER: Initial ACUITY: 1 day PAIN SCALE: Non-responsive LOCATION: chest Patient was premedicated for underlying contrast media allergy. TECHNIQUE: Volumetric scanning of the chest was performed. Using automated exposure control and adjustment of t he mA and/or kV according to patient size, radiation dose was kept as low as reasonably achievable to obtain optimal diagnostic quality images. FINDINGS: Small pneumothorax and small hemothorax on the left. Mild parenchymal consolidation of the left lung, mainly at the base. No mediastinal shift demonstrated. Mild atelectasis of the right lung base. Left fifth through ninth ribs are fractured laterally. Displacement is minimal. No mediastinal hematoma. Coronary artery calcification noted patient has had previous median sternoto my. CONCLUSION: Minimally displaced displaced left rib fractures as above. There is a mild left pulmonary contusion, small left anterior/apical pneumothorax and small dependently layering hemothorax. Ben Gtz MD on January 18, 2017 at 19:20 Board Certified Radiologist. This report was verified electronically.
--- NOTE | 2017-01-18 19:26 | RADRPT ---
EXAM DATE/TIME: 01/18/2017 18:51 [facility] COMPARISON: No previous studies available for comparison. INDICATIONS : Trauma alert, fall. RADIATION DOSE: 26.64 CTDIvol (mGy) MEDICAL HISTORY : Non-responsive. SURGICAL HISTORY : Non-responsive. ENCOUNTER: Initial ACUITY: 1 day PAIN SCALE: Non-responsive LOCATION: neck TECHNIQUE: Volumetric scanning of the cervical spine was performed. Multiplanar reconstructions in the sagittal, coronal and oblique axial planes were performed. Using automated exposure control and adjustment o f the mA and/or kV according to patient size, radiation dose was kept as low as reasonably achievable to obtain optimal diagnostic quality images. FINDINGS: Cervical spine alignment within normal limits. Vertebral bodies have normal height. No cortical break or trabecular disruption demonstrated. Multilevel disc space narrowing with uncovertebral and facet osteoarthritis, most severe at C5/C6, C6 /C7 and C7/T1. Juxtavertebral soft tissues are within normal limits. CONCLUSION: 1. No fracture or subluxation demonstrated of the cervical spine. 2. Multilevel degenerative changes, very severe at C5/C6 and C6/C7 and C7/T1. Ben Gtz MD on January 18, 2017 at 19:24 Board Certified Radiologist. This report was verified electronically.
--- NOTE | 2017-01-18 19:27 | RADRPT ---
EXAM DATE/TIME: 01/18/2017 18:51 [facility] COMPARISON: No previous studies available for comparison. INDICATIONS : Trauma alert, fall. RADIATION DOSE: 65.64 CTDIvol (mGy) MEDICAL HISTORY : Non-responsive. SURGICAL HISTORY : Non-responsive. ENCOUNTER: Initial ACUITY: 1 day PAIN SCORE: Non-responsive LOCATION: facial TECHNIQUE: Volumetric scanning of the facial bones was performed. Using automated exposure control and adjustme nt of the mA and/or kV according to patient size, radiation dose was kept as low as reasonably achiev able to obtain optimal diagnostic quality images. FINDINGS: ORBITS: The orbital and infraorbital osseous structures are intact. The retroconal structures have a normal configuration. No radiopaque foreign bodies are seen. NASAL BONE: The nasal bone and maxillary spine are intact ZYGOMATIC ARCHES: Symmetric without evidence of fracture. SINUSES: The maxillary, ethmoid and frontal sinuses are intact. No air-fluid levels seen. NASAL CAVITY: The nasal septum is intact and midline. The lacrimal ducts are intact. SOFT TISSUES: No radiopaque foreign bodies seen. No soft-tissue swelling is seen. INTRACRANIAL: No intracranial air seen. CRIBIFORM PLATE: Grossly intact. CONCLUSION: Intact facial bones. Ben Gtz MD on January 18, 2017 at 19:26 Board Certified Radiologist. This report was verified electronically.
[2017-01-18 19:30] VITALS: O2SAT 95
--- NOTE | 2017-01-18 19:31 | RADRPT ---
EXAM DATE/TIME: 01/18/2017 19:03 [facility] COMPARISON: CT THORAX W CONTRAST, January 18, 2017, 19:03. INDICATIONS : Trauma alert, fall. IV CONTRAST: 75 cc Omnipaque 350 (iohexol) IV ; Cumulative dose for multiple exams. ORAL CONTRAST: No oral contrast ingested. RADIATION DOSE: 16.64 CTDIvol (mGy) MEDICAL HISTORY : Non-responsive. SURGICAL HISTORY : Non-responsive. ENCOUNTER: Initial ACUITY: 1 day PAIN SCALE: Non-responsive LOCATION: abdomen Patient was premedicated for underlying contrast media allergy. TECHNIQUE: Volumetric scanning of the abdomen and pelvis was performed. Using automated exposure control and ad justment of the mA and/or kV according to patient size, radiation dose was kept as low as reasonably achievable to obtain optimal diagnostic quality images. FINDINGS: LIVER: Homogeneous density without lesion. There is no dilation of the biliary tree. No calcified gallston es. SPLEEN: Normal size without lesion. PANCREAS: Within normal limits. KIDNEYS: Intact. 8 mm cyst on the left. ADRENAL GLANDS: Within normal limits. VASCULAR: Intact aorta. Diffuse aortoiliac atherosclerosis. No aneurysm. BOWEL/MESENTERY: The stomach, small bowel, and colon demonstrate no acute abnormality. There is no free intraperitone al air or fluid. ABDOMINAL WALL: Within normal limits. RETROPERITONEUM: There is no lymphadenopathy. BLADDER: No wall thickening or mass. REPRODUCTIVE: Within normal limits. INGUINAL: There is no lymphadenopathy or hernia. MUSCULOSKELETAL: No fracture seen of the visualized osseous structures. There are degenerative changes of the spine. P bart has had previous bilateral hip arthroplasties with associated metallic streak artifact. CONCLUSION: No visceral organ injury or other acute abnormality within the abdomen or pelvis. Ben Gtz MD on January 18, 2017 at 19:27 Board Certified Radiologist. This report was verified electronically.
[2017-01-18] MEDS ORDERED: BISACODYL 10 MG SUPP RECTAL PRN (19:45)
[2017-01-18] MEDS ORDERED: SODIUM CHLORIDE 0.9% FLUSH 10 ML FLUSH IV FLUSH PRN (19:45)
[2017-01-18] MEDS ORDERED: MISCELLANEOUS NURSING INFORMATION XX SCH (19:45)
[2017-01-18] MEDS ORDERED: LACTULOSE SYRUP 20 GM/30 ML CUP PO PRN (19:45)
[2017-01-18] MEDS ORDERED: SENNOSIDES 8.6 MG TAB PO PRN (19:45)
[2017-01-18] MEDS ORDERED: MAGNESIUM HYDROXIDE SUSP 30 ML CUP PO PRN (19:45)
[2017-01-18] MEDS ORDERED: CHLORHEXIDINE GLUCONATE 2 % 1 PACK (2 CLOTHS) TOP PRN (19:45)
--- NOTE | 2017-01-18 19:48 | PD ---
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 Patient notes pain to his left chest after a fall. Quality pain is sharp. It is severe in nature. Patient is holding that area. He denies other complaints but significant history is limited on initial evaluation secondary to pain and clinical acuity. PFSH Past Medical History Narrative Medical htn, dm- very limited on initial evaluation Past Surgical History Narrative Surgical valve replacement, very limited on initial evaluation Social History Tobacco Use: No (uto) Allergies-Medications (Allergen,Severity, Reaction): Coded Allergies: Contrast Media (Verified Allergy, Severe, SWELLING AND SHORTNESS OF BREATH , 12/01/16) Iodine (Verified Allergy, Severe, SWELLING, 12/01/16) Shellfish (Verified Allergy, Severe, 12/01/16) Reported Meds & Prescriptions Reported Meds & Active Scripts Active Lortab (Hydrocodone-Acetaminophen) 5-325 Mg Tab 1-2 Tab PO Q6H PRN Lortab (Hydrocodone-Acetaminophen) 5-325 Mg Tab 1 Tab PO Q6H PRN Reported Spironolactone 25 Mg Tab 25 Mg PO DAILY Aspir-81 (Aspirin) 81 Mg Tabdr Irbesartan 75 Mg Tab 75 Mg PO DAILY Gabapentin 100 Mg Cap 100 Mg PO HS Synthroid (Levothyroxine Sodium) 75 Mcg Tab 75 Mcg PO DAILY Lantus Inj (Insulin Glargine) 100 Unit/Ml Inj 22 Units SQ HS Humalog Inj (Insulin Human Lispro) 1,000 Unit/10 Ml Vial 0 SQ ACHS Max dose at bedtime:( )units; sugars< 70,(0)units; sugars 150-199,(1)unit; sugars 200-249,(3)units; sugars 250-299,(5)units; sugars 300-349,(7)units; sugars more than 349,(9)units. Centrum Silver (Multiple Vitamins W/ Minerals) 1 Tab 1 Tab PO DAILY Anastrozole 1 Mg Tab 1 Mg PO DAILY Lasix (Furosemide) 40 Mg Tab 40 Mg PO BID Omeprazole 20 Mg Tab 20 Mg PO BID Niacin (Niacinamide) 500 Mg Tab 250 Mg PO BID Flomax (Tamsulosin HCl) 0.4 Mg Cap 0.4 Mg PO DAILY Tramadol (Tramadol HCl) 50 Mg Tab 100 Mg PO TID PRN Allopurinol 300 Mg Tab 300 Mg PO DAILY Magnesium Oxide 400 Mg Tab 400 Mg PO DAILY Carvedilol 6.25 Mg Tab 6.25 Mg PO BID Xarelto (Rivaroxaban) 15 Mg Tab 15 Mg PO DAILY Review of Systems ROS Limitations: Clinical Condition Physical Exam Exam Limitations: Clinical Condition Narrative General: 81 y/o patient who appears uncomfortable Skin: Warm and dry Eyes: Pupils equal NECK: C-collar in place Cardiovascular: Regular rate and rhythm Respiratory: Increased respiratory effort noted, clear to auscultation bilaterally at apices Abdomen: soft, tender left upper quadrant, nondistended Neuro: awake, moves all extremities, clear speech Data Data Last Documented VS Orders Albuterol-Ipratropium Neb (Duoneb Neb) (01/18/17 18:20) I-Stat Profile (01/18/17 18:17) I-Stat Creatinine (01/18/17 18:17) Complete Blood Count With Diff (01/18/17 18:17) Prothrombin Time / Inr (Pt) (01/18/17 18:17) Act Partial Throm Time (Ptt) (01/18/17 18:17) Type And Screen (01/18/17 18:17) Chest, Single Ap (01/18/17 18:17) Pelvis, Ap Only (Routine) (01/18/17 18:17) Ct Brain W/O Iv Contrast(Rout) (01/18/17 18:17) Ct Cerv Spine W/O Contrast (01/18/17 18:17) Ct Abd/Pel W Iv Contrast(Rout) (01/18/17 18:17) Ct Thorax/ Chest W Iv Contrast (01/18/17 18:17) Ct Facial Bones W/O Iv Cont (01/18/17 18:17) Iv Access Insert/Monitor (01/18/17 18:17) Ecg Monitoring (01/18/17 18:17) Oximetry (01/18/17 18:17) Oxygen Administration (01/18/17 18:17) Fentanyl Inj (Fentanyl Inj) (01/18/17 18:41) Dexamethasone Inj (Decadron Inj) (01/18/17 19:00) Collar [place] (01/18/17 ) Diphenhydramine Inj (Benadryl Inj) (01/18/17 18:54) Iohexol 350 Inj (Omnipaque 350 Inj) (01/18/17 19:08) Midazolam Inj (Versed Inj) (01/18/17 19:10) Fentanyl Inj (Fentanyl Inj) (01/18/17 19:11) Lidocai-Epi 1%-1:100,000 Inj (Xylocaine- (01/18/17 19:18) Admit Order (Ed Use Only) (01/18/17 19:30) Chest, Single Ap (01/18/17 ) Labs Laboratory Tests Test 01/18/17 18:32 Blood Type O POSITIVE Antibody Screen NEGATIVE MDM Medical Decision Making Medical Screen Exam Complete: Yes Emergency Medical Condition: Yes Interpretation(s) Last 24 hours Impressions Pelvis X-Ray 01/18/171816 Signed Impressions: Service Date/Time: December 18:11 - CONCLUSION: Intact pelvis. Ben Gtz MD Maxillofacial CT 01/18/171816 Signed Impressions: Service Date/Time: December 18:51 - CONCLUSION: Intact facial bones. Ben Gtz MD Head CT 01/18/171816 Signed Impressions: Service Date/Time: December 18:51 - CONCLUSION: No bleed or other acute intracranial abnormality. Ben Gtz MD Chest X-Ray 01/18/171816 Signed Impressions: Service Date/Time: December 18:11 - CONCLUSION: Probable left rib fractures. Mild contusion/consolidation and small effusion on the left. Ben Gtz MD Chest CT 01/18/171816 Signed Impressions: Service Date/Time: December 19:03 - CONCLUSION: Minimally displaced displaced left rib fractures as above. There is a mild left pulmonary contusion, small left anterior/apical pneumothorax and small dependently layering hemothorax. Ben tGz MD Cervical Spine CT 01/18/171816 Signed Impressions: Service Date/Time: December 18:51 - CONCLUSION: 1. No fracture or subluxation demonstrated of the cervical spine. 2. Multilevel degenerative changes, very severe at C5/C6 and C6/C7 and C7/T1. Ben Gtz MD Abdomen/Pelvis CT 01/18/17 1817 Signed Impressions: Service Date/Time: December 19:03 - CONCLUSION: No visceral organ injury or other acute abnormality within the abdomen or pelvis. Ben Gtz MD Chest X-Ray 01/18/17 0000 Signed Impressions: Service Date/Time: December 19:35 - CONCLUSION: Left chest tube with tip projecting over the hilum. Mild and not significantly changed parenchymal consolidation of the left lung but no hemothorax or pneumothorax demonstrated. Ben Gtz MD I stats reviewed Differential Diagnosis Fracture, pneumothorax, contusion, bleed, syncope Narrative Course Patient arrived as a trauma alert and was evaluated in the trauma bay of the trauma surgeon. Patient had stable oxygenation with nasal cannula. Mainly noting left chest pain. Patient given Decadron with iodine allergy for CTs. Patient's workup found multiple rib fractures and pneumothorax. When patient came back from CT scan provided patient with procedural sedation with fentanyl and Versed for chest tube placement by trauma surgeon. Patient will be admitted to the ICU for close monitoring. Patient updated. Critical Care Narrative Aggregate critical care time was 45 minutes. Time to perform other separately billable procedures was not included in the critical care time. My time did not include minutes spent treating any other patients simultaneously or on activities that did not directly contribute to the patient's treatment. The services I provided to this patient were to treat and/or prevent clinically significant deterioration that could result in: respiratory failure I provided critical care services requiring my management, as noted below: Chart data review, documentation time, medication orders and management, vital sign assessments/reviewing monitor data, ordering and reviewing lab tests, ordering and interpreting/reviewing x-rays and diagnostic studies, care of the patient and discussion of the patient with the admitting physicians. Procedures Procedure Narrative After the risks and benefits were discussed the following procedure was performed: MODERATE SEDATION: The patient was placed on a monitoring engineer and pulse oximetry/ end tidal co2 monitoring. An ambu bag and suction was immediately available at bedside. The patient was monitored by the nurse/RT. Oxygen saturation, heart rate and blood pressure were monitored. Procedural sedation was acheived using 1 mg of Versed, 50 mcg of fentanyl. The patient was observed until awake and alert. Procedural Sedation time in attendance was 18 minutes. Physician Communication Physician Communication dr gomez was in department with another trauma alert and saw this patient on arrival dr gomez requested sedation for chest tube dr gomez agrees to icu admit Diagnosis Primary Impression: Pneumothorax Qualified Code: J93.9 - Pneumothorax, unspecified type Additional Impressions: Rib fractures Qualified Code: S22.42XA - Closed fracture of multiple ribs of left side, initial encounter Fall Qualified Code: W19.XXXA - Fall, initial encounter Pulmonary contusion Qualified Code: S27.321A - Contusion of left lung, initial encounter Admitting Information Admitting Physician Requests: Admit Izabella Ayala MD January 18, 2017 19:48
--- NOTE | 2017-01-18 19:51 | RADRPT ---
EXAM DATE/TIME: 01/18/2017 19:35 [facility] COMPARISON: CHEST SINGLE AP, January 18, 2017, 18:11. INDICATIONS : Trauma alert, post chest tube placement. MEDICAL HISTORY : None. SURGICAL HISTORY : None. ENCOUNTER: Initial ACUITY: 1 day PAIN SCORE: 10/10 LOCATION: Left chest. FINDINGS: Left chest tube placed in the interim, tip projecting over the left hilum. There is mild left parench ymal consolidation again noted. No significant effusion or pneumothorax demonstrated. Left fifth thro ugh ninth rib fractures, minimally displaced. CONCLUSION: Left chest tube with tip projecting over the hilum. Mild and not significantly changed parenchymal co nsolidation of the left lung but no hemothorax or pneumothorax demonstrated. Ben Gtz MD on January 18, 2017 at 19:48 Board Certified Radiologist. This report was verified electronically.
[2017-01-18 20:00] VITALS: BP 141/94; PULSE 112; RESP 32; TEMP 98.7; O2SAT 96
[2017-01-18 20:18] LABS: BLOOD, URINE NEG (NEG); GLUCOSE,URINE NEG (NEG); HYALINE CAST, URINE 36 /lpf (RARE); KETONE, URINE NEG (NEG); NITRITE,URINE NEG (NEG); PH, URINE 5.5 (5.0-8.5); SQUAMOUS EPITHELIAL CELL URINE <1 /hpf (0-5); URINE COLOR YELLOW (YELLW/STRAW)
[2017-01-18 20:19] LABS: COMMENT (UR) CATH-CULT NOT IND; CULTURE IF INDICATED CATH CULTURE NOT IND
--- NOTE | 2017-01-18 20:50 | PD.CONS ---
HPI Service Critical Care Medicine Consult Requested By Trauma Service Reason for Consult Chest Trauma / Pulmonary Contusion / Bi-Basilar Consolidation Primary Care Physician Non-Staff History of Present Illness 81 y/o man with advanced osteoarthritis fell on left side causing multiple lateral rib fractures, left pneumothorax, and lung contusion. There are bi- basilar areas of consolidation. His lab and UA indicate moderate to severe dehydration. CT Head and neck negative for acute injury but severe degenerative cervical disease. CT abdomen benign. Facial bones benign. Review of Systems Constitutional: DENIES: Diaphoretic episodes, Fatigue, Fever, Weight gain, Weight loss, Chills, Dizziness, Change in appetite, Night Sweats Endocrine: DENIES: Heat/cold intolerance, Polydipsia, Polyuria, Polyphagia Eyes: DENIES: Blurred vision, Diplopia, Eye inflammation, Eye pain, Vision loss , Photosensitivity, Double Vision Ears, nose, mouth, throat: DENIES: Tinnitus, Hearing loss, Vertigo, Nasal discharge, Oral lesions, Throat pain, Hoarseness, Ear Pain, Running Nose, Epistaxis, Sinus Pain, Toothache, Odynophagia Gastrointestinal: DENIES: Abdominal pain, Black stools, Bloody stools, Constipation, Diarrhea, Nausea, Vomiting, Difficulty Swallowing, Anorexia Neurologic: COMPLAINS OF: Poor Balance, DENIES: Abnormal gait, Headache, Localized weakness, Paresthesias, Seizures, Speech Problems, Tremor Psychiatric: DENIES: Anxiety, Confusion, Mood changes, Depression, Hallucinations, Agitation, Suicidal Ideation, Homicidal Ideation, Delusions ROS Considerable left chest wall pain. No abdominal pain. Past Family Social History Allergies: Coded Allergies: Iodine (Verified Allergy, Severe, Anaphylaxis, 01/18/17) throat swells Shellfish (Verified Allergy, Severe, Anaphylaxis, 01/18/17) throat swells Past Medical History Past Medical History Medical History: Unable to Obtain Past Surgical History Surgical History: Unable to Obtain Allergies-Medications Allergies-Medications (Allergen,Severity, Reaction): Coded Allergies: UNOBTAINABLE (Unverified , 01/18/17) Physical Exam Vital Signs Vital Signs Date Time Temp Pulse Resp B/P Pulse Ox O2 Delivery O2 Flow Rate FiO2 01/18/17 19:30 95 Nasal Cannula 4.00 01/18/17 19:20 15.00 100 01/18/17 19:20 99 01/18/17 18:05 95 5.00 Physical Exam Gen: Ill - appearing, elderly man. Head: Normal. Neck: No tenderness or discomfort to palpation or motion. Cervical collar removed. Airway widely patent. Lungs: Clear, no wheezes or crackles. Splinting with inspiration, but acceptable mario alberto air movement. Heart: Distant tones. RRR. No JVD. Abdomen: Soft, nontender, no guarding, BS active. Extremities: Warm, well perfused. Neuro: Anxious. Conversant, cooperative. Follows commands. Moves 4 limbs. Laboratory Laboratory Tests Test 01/18/17 01/18/17 18:32 20:00 White Blood Count 10.0 Red Blood Count 3.79 Hemoglobin 12.1 Bedside Hemoglobin 12.6 Hematocrit 36.5 Bedside Hematocrit 37.0 Mean Corpuscular Volume 96.5 Mean Corpuscular Hemoglobin 31.8 Mean Corpuscular Hemoglobin 33.0 Concent Red Cell Distribution Width 16.5 Platelet Count 190 Mean Platelet Volume 7.8 Neutrophils (%) (Auto) 68.0 Lymphocytes (%) (Auto) 21.7 Monocytes (%) (Auto) 8.2 Eosinophils (%) (Auto) 1.2 Basophils (%) (Auto) 0.9 Neutrophils # (Auto) 6.8 Lymphocytes # (Auto) 2.2 Monocytes # (Auto) 0.8 Eosinophils # (Auto) 0.1 Basophils # (Auto) 0.1 CBC Comment DIFF FINAL Differential Comment Prothrombin Time 12.4 Prothromb Time International 1.1 Ratio Activated Partial 30.6 Thromboplast Time Bedside Sodium 136 Bedside Potassium 5.1 Bedside Chloride 96 Bedside Blood Urea Nitrogen 67 Bedside Creatinine 1.7 Bedside Glucose 206 Blood Type O POSITIVE Antibody Screen NEGATIVE Urine Color YELLOW Urine Turbidity CLEAR Urine pH 5.5 Urine Specific [place] 1.032 Urine Protein TRACE Urine Glucose (UA) NEG Urine Ketones NEG Urine Occult Blood NEG Urine Nitrite NEG Urine Bilirubin NEG Urine Urobilinogen LESS THAN 2.0 Urine Leukocyte Esterase NEG Urine RBC LESS THAN 1 Urine WBC LESS THAN 1 Urine Squamous Epithelial <1 Cells Urine Hyaline Casts 36 Microscopic Urinalysis Comment CATH-CULT NOT IND Result Diagram: 01/18/171831 Assessment and Plan Assessment and Plan Assessment: 1. Fall. 2. Left lateral rib fractures 5 total. 3. Left traumatic pneumothorax. 4. Left lung contusions. 5. Bi-basilar lung consolidations. Plan: 1. IS q2h. 2. Bronchodilators. 3. D/C cervical collar - no neck tenderness or discomfort to exam. CT negative for acute injury. 4. Aggressive hydration tonight. Overall impression: Severe chest trauma in elderly man. There appears to be a chronicity to the basilar infiltrates - possibly chronic aspiration. Watch closely for fever, cough. Airway widely patent and respiratory effort comfortable. Alonzo Euceda MD January 18, 2017 20:50
[2017-01-18] MEDS ORDERED: FAMOTIDINE 20 MG/2 ML VIAL IV PUSH SCH (21:00)
[2017-01-18] MEDS: DOCUSATE SODIUM 50 MG/SENNA 8.6 MG TAB PO SCH (21:00)
--- NOTE | 2017-01-18 21:46 | HHI.HP ---
History of Present Illness Primary Care Physician Non-Staff Admission Diagnosis pneumothorax Diagnoses: History of Present Illness 81-year-old male with complex past medical history including including oxygen dependency was brought here as a trauma alert after a fall. Patient is diaphoretic complaints of left thoracic pain his oxygen saturation is with 5 L oxygen around the mid 90s, he remained hemodynamically stable neurologically intact and was brought to CT scan for a trauma workup. Review of Systems Constitutional: DENIES: Diaphoretic episodes, Fatigue, Fever, Weight gain, Weight loss, Chills, Dizziness, Change in appetite, Night Sweats Endocrine: DENIES: Heat/cold intolerance, Polydipsia, Polyuria, Polyphagia Eyes: DENIES: Blurred vision, Eye pain Ears, nose, mouth, throat: DENIES: Tinnitus, Hearing loss, Vertigo, Nasal discharge, Oral lesions, Throat pain, Hoarseness, Ear Pain, Running Nose, Epistaxis, Sinus Pain, Toothache, Odynophagia Respiratory: DENIES: Apneas, Cough, Snoring, Wheezing, Hemoptysis, Sputum production, Shortness of breath Cardiovascular: DENIES: Chest pain, Palpitations, Syncope, Dyspnea on Exertion , PND, Lower Extremity Edema, Orthopnea, Claudication Gastrointestinal: DENIES: Abdominal pain, Black stools, Bloody stools, Constipation, Diarrhea, Nausea, Vomiting, Difficulty Swallowing, Anorexia Genitourinary: DENIES: Sexual dysfunction, Urinary frequency, Urinary incontinence, Urgency, Hematuria, Dysuria, Nocturia, Penile Discharge, Testicular Pain, Testicular Swelling Musculoskeletal: DENIES: Joint pain, Muscle aches, Stiffness, Joint Swelling, Back pain, Neck pain Integumentary: DENIES: Abnormal pigmentation, Nail changes, Pruritus, Rash Hematologic/lymphatic: DENIES: Bruising, Lymphadenopathy Immunologic/allergic: DENIES: Eczema, Urticaria Psychiatric: DENIES: Anxiety, Confusion, Mood changes, Depression, Hallucinations, Agitation, Suicidal Ideation, Homicidal Ideation, Delusions Past Family Social History Allergies: Coded Allergies: Iodine (Verified Allergy, Severe, Anaphylaxis, 01/18/17) throat swells Shellfish (Verified Allergy, Severe, Anaphylaxis, 01/18/17) throat swells Past Medical History osteo arthritis ,[id number] otherwise limited historian Past Surgical History b Lateral hip replacement Reported Medications xarelto,carvedilol Family History cannot remember Social History no etoh or drugs Physical Exam Vital Signs Vital Signs Date Time Temp Pulse Resp B/P Pulse Ox O2 Delivery O2 Flow Rate FiO2 01/18/17 19:30 95 Nasal Cannula 4.00 01/18/17 19:20 15.00 100 01/18/17 19:20 99 01/18/17 18:05 95 5.00 Physical Exam GENERAL: This is a well-nourished, well-developed patient, in mild distress SKIN: No rashes, ecchymoses or lesions. Cool and dry. HEAD: Atraumatic. Normocephalic. No temporal or scalp tenderness. EYES: Pupils equal round and reactive. Extraocular motions intact. No scleral icterus. No injection or drainage. ENT: Nose without bleeding, purulent drainage or septal hematoma.. Airway patent. NECK: Trachea midline. No JVD or lymphadenopathy. Supple, nontender, no meningeal signs. CARDIOVASCULAR: Regular rate and rhythm without murmurs, gallops, or rubs. RESPIRATORY: Clear to auscultation. Breath sounds equal bilaterally. mild wheezes, rales. GASTROINTESTINAL: Abdomen soft, non-tender, nondistended. No hepato-splenomegaly , or palpable masses. No guarding.small umblical hernia MUSCULOSKELETAL: Extremities without clubbing, cyanosis, or edema. No joint tenderness, effusion, or edema noted.. NEUROLOGICAL: Awake and alert. Cranial nerves II through XII intact. Motor and sensory grossly within normal limits. Five out of 5 muscle strength in all muscle groups. Normal speech. Laboratory Laboratory Tests Test 01/18/17 01/18/17 18:32 20:00 White Blood Count 10.0 Red Blood Count 3.79 Hemoglobin 12.1 Bedside Hemoglobin 12.6 Hematocrit 36.5 Bedside Hematocrit 37.0 Mean Corpuscular Volume 96.5 Mean Corpuscular Hemoglobin 31.8 Mean Corpuscular Hemoglobin 33.0 Concent Red Cell Distribution Width 16.5 Platelet Count 190 Mean Platelet Volume 7.8 Neutrophils (%) (Auto) 68.0 Lymphocytes (%) (Auto) 21.7 Monocytes (%) (Auto) 8.2 Eosinophils (%) (Auto) 1.2 Basophils (%) (Auto) 0.9 Neutrophils # (Auto) 6.8 Lymphocytes # (Auto) 2.2 Monocytes # (Auto) 0.8 Eosinophils # (Auto) 0.1 Basophils # (Auto) 0.1 CBC Comment DIFF FINAL Differential Comment Prothrombin Time 12.4 Prothromb Time International 1.1 Ratio Activated Partial 30.6 Thromboplast Time Bedside Sodium 136 Bedside Potassium 5.1 Bedside Chloride 96 Bedside Blood Urea Nitrogen 67 Bedside Creatinine 1.7 Bedside Glucose 206 Blood Type O POSITIVE Antibody Screen NEGATIVE Urine Color YELLOW Urine Turbidity CLEAR Urine pH 5.5 Urine Specific [place] 1.032 Urine Protein TRACE Urine Glucose (UA) NEG Urine Ketones NEG Urine Occult Blood NEG Urine Nitrite NEG Urine Bilirubin NEG Urine Urobilinogen LESS THAN 2.0 Urine Leukocyte Esterase NEG Urine RBC LESS THAN 1 Urine WBC LESS THAN 1 Urine Squamous Epithelial <1 Cells Urine Hyaline Casts 36 Microscopic Urinalysis Comment CATH-CULT NOT IND Result Diagram: 01/18/171831 Imaging Last Impressions Pelvis X-Ray 01/18/171816 Signed Impressions: Service Date/Time: December 18:11 - CONCLUSION: Intact pelvis. Ben Gtz MD Maxillofacial CT 01/18/171816 Signed Impressions: Service Date/Time: December 18:51 - CONCLUSION: Intact facial bones. Ben Gtz MD Head CT 01/18/171816 Signed Impressions: Service Date/Time: December 18:51 - CONCLUSION: No bleed or other acute intracranial abnormality. Ben Gtz MD Chest X-Ray 01/18/171816 Signed Impressions: Service Date/Time: December 18:11 - CONCLUSION: Probable left rib fractures. Mild contusion/consolidation and small effusion on the left. Ben Gtz MD Chest CT 01/18/171816 Signed Impressions: Service Date/Time: December 19:03 - CONCLUSION: Minimally displaced displaced left rib fractures as above. There is a mild left pulmonary contusion, small left anterior/apical pneumothorax and small dependently layering hemothorax. Ben Gtz MD Cervical Spine CT 01/18/171816 Signed Impressions: Service Date/Time: December 18:51 - CONCLUSION: 1. No fracture or subluxation demonstrated of the cervical spine. 2. Multilevel degenerative changes, very severe at C5/C6 and C6/C7 and C7/T1. Ben Gtz MD Abdomen/Pelvis CT 01/18/17 1817 Signed Impressions: Service Date/Time: December 19:03 - CONCLUSION: No visceral organ injury or other acute abnormality within the abdomen or pelvis. Ben Gtz MD Assessment and Plan Assessment and Plan Multiple left-sided rib fractures 5-9 Moderate-sized pneumothorax small size hemopneumothorax Pulmonary contusion left side Likely chronic renal failure Admit to ICU Pain control Supplemental oxygen IV fluid hydration Pulmonary toilet Chest tube thoracostomy performed in the trauma bay-moderate sedation Given patient's multiple comorbidities ,O2 dependency this is morbid injury pattern Patient is certainly high risk for orotracheal intubation and mechanical ventilation-closely observed Analy Trevizo MD January 18, 2017 21:46
--- NOTE | 2017-01-18 21:50 | PD.OP ---
Operative Report Pneumothorax hemothorax left thorax Postoperative Diagnosis: Pneumothorax hemothorax left thorax Procedure: Chest tube thoracostomy Anesthesia: Fentanyl ,versed standard monitor Surgeon: Analy Trevizo Corner Former(s): none Operation and Findings: 81-year-old male with multiple rib fractures moderate-sized pneumothorax small hemothorax on the left side -proceeded to chest tube thoracostomy. Patient's left chest was sterilely prepped and draped using the usual technique. 10 cc of lidocaine was given as local anesthesia. 5 the ICR- transverse incision was placed, incision carried out subcutaneous tissue until rib margin was felt ,penetration was performed superior to the rib, pleural space was entered and 32 [place] chest tube was inserted and secured to skin with 0 silk. Postprocedure x-ray shows good placement of the chest tube. Analy Trevizo MD January 18, 2017 21:50
--- NOTE | 2017-01-18 21:53 | PD.PROCEDR ---
Central Line Procedure REASON FOR PROCEDURE Central venous access-Critically ill trauma patient PROCEDURE PERFORMED Central line placement: [ right femoral vein] CONSENT emergency procedure ANESTHESIA Local injection of 1% Lidocaine DESCRIPTION OF THE PROCEDURE The patient was placed in supine, mild Trendelenburg position. The area left inguinal was exposed and cleansed with ChloraPrep, times two. Large sterile drape was used to cover the patient, with the site exposed, under sterile conditions including cap, face mask, sterile gown, and sterile gloves. On single attempt, the introducer needle was inserted with negative pressure in syringe and venous flash was obtained. The guide wire was then advanced without any restriction and the needle was removed. The dilator was used without any complications. Using Seldinger technique the [3tlc ] catheter was advanced over the guide wire to a depth of [20 ] centimeters. The guide wire was removed. All ports were aspirated with dark venous blood return and flushed easily with sterile saline. All ports were capped. Antibiotic disc was placed around central line at puncture site. The central line was secured to the skin with two interrupted 2.0 silk sutures. The area was bandaged with sterile see-through central line bandage. RADIOLOGICAL DATA landmark technique used COMPLICATIONS: No apparent complications ESTIMATED BLOOD LOSS: Less than 1 cc. Analy Trevizo MD January 18, 2017 21:53
[2017-01-18 22:00] VITALS: PULSE 108
[2017-01-18] MEDS: SODIUM CHLORIDE 0.9% FLUSH 10 ML FLUSH IV FLUSH SCH (23:04)
[2017-01-18] MEDS: SODIUM CHLOR 0.9% 1000 ML INJ 1,000 ML IV SCH (23:04)
[2017-01-19] VITALS (14 sets, daily range): BP systolic 120–163; BP diastolic 64–95; PULSE 100–112; RESP 19–30; TEMP 97.3–98.8; O2SAT 94–100
[2017-01-19 04:26] LABS: BICARBONATE 30.1 MEQ/L (21.0-32.0); POTASSIUM 4.7 MEQ/L (3.5-5.1)
[2017-01-19] MEDS: RESP: ALBUTEROL 2.5 MG/IPRATROPIUM 0.5 MG NEB (SCH) INH ×4 (04:34→22:23)
[2017-01-19] MEDS: CHLORHEXIDINE GLUCONATE 2 % 1 PACK (2 CLOTHS) TOP SCH (04:34)
--- NOTE | 2017-01-19 04:47 | RADRPT ---
EXAM DATE/TIME: 01/19/2017 04:00 [facility] COMPARISON: No previous studies available for comparison. INDICATIONS : Evaluate for pneumothorax. MEDICAL HISTORY : None. SURGICAL HISTORY : None. ENCOUNTER: Subsequent ACUITY: 2 days PAIN SCORE: Non-responsive. LOCATION: chest FINDINGS: A single view of the chest demonstrates the right subclavian pacer, left-sided chest tube and sternal wires are intact. Persistent consolidation left lung base. No visible pneumothorax. Small lung findi ngs remain. The cardiomediastinal contours are unremarkable. Osseous structures are intact. CONCLUSION: Mild increase consolidation left lower lobe Nabil Shah MD on January 19, 2017 at 4:45 Board Certified Radiologist. This report was verified electronically.
[2017-01-19 04:49] LABS: PROTHROMBIN TIME - PATIENT 11.4 SEC (9.8-11.6)
[2017-01-19 06:53] LABS: AUTOMATED NEUTROPHIL # 9.6 TH/MM3 (1.8-7.7); BASOPHIL % 0.2 % (0.0-2.0); HEMATOCRIT 33.9 % (39.0-51.0); HEMO FLAGS DIFF FINAL; LYMPH % 3.7 % (9.0-44.0); LYMPHOCYTE # 0.4 TH/MM3 (1.0-4.8); MEAN CELL VOLUME 96.6 FL (80.0-100.0); MEAN CORPUSCULAR HEMOGLOBIN 31.1 PG (27.0-34.0); MEAN CORPUSCULAR HGB CONC 32.1 % (32.0-36.0); MONO % 1.7 % (0.0-8.0); NEUT % 94.4 % (16.0-70.0); PLATELET COUNT 153 TH/MM3 (150-450); RED BLOOD COUNT 3.51 MIL/MM3 (4.50-5.90); RED CELL DISTRIBUTION WIDTH 16.1 % (11.6-17.2); WHITE BLOOD COUNT 10.1 TH/MM3 (4.0-11.0)
[2017-01-19] MEDS ORDERED: DEXTROSE 50% IN WATER 50 ML VIAL(D50) IV PRN (07:45)
[2017-01-19] MEDS ORDERED: GLUCAGON 1 MG/ML VIAL OTHER PRN (07:45)
[2017-01-19] MEDS ORDERED: METHOCARBAMOL 500 MG TAB PO SCH (09:00)
[2017-01-19] MEDS: INSULIN NovoLIN REGULAR SUPPLEMENTAL SCALE SQ SCH ×3 (11:00→20:01)
[2017-01-19] MEDS ORDERED: LANTUS2P SQ (11:04)
[2017-01-19] MEDS ORDERED: GABA400C5 PO (11:04)
[2017-01-19] MEDS ORDERED: MAGN400T2 PO (11:04)
[2017-01-19] MEDS ORDERED: LEVO.075 PO (11:04)
[2017-01-19] MEDS ORDERED: NIAC500T67 (11:04)
[2017-01-19] MEDS ORDERED: OMEP20TA PO (11:04)
[2017-01-19] MEDS ORDERED: FURO40TA PO (11:04)
[2017-01-19] MEDS ORDERED: CARV6.252 PO (11:04)
[2017-01-19] MEDS ORDERED: TAMS0.4C4 PO (11:04)
[2017-01-19] MEDS ORDERED: SPIRPOW (11:04)
[2017-01-19] MEDS ORDERED: ALLO300T2 PO (11:04)
[2017-01-19] MEDS ORDERED: ASPI-110 PO (11:04)
[2017-01-19] MEDS ORDERED: CEPH500C PO (11:04)
[2017-01-19] MEDS ORDERED: IRBE75TA5 PO (11:04)
[2017-01-19] MEDS ORDERED: XARE10TA PO (11:04)
[2017-01-19] MEDS ORDERED: FIBEPOW (11:04)
[2017-01-19] MEDS ORDERED: L-ME1CAP2 (11:04)
[2017-01-19] MEDS ORDERED: HUMA100I3 SQ (11:05)
[2017-01-19] MEDS: LIDOCAINE HCL 5% PATCH T-DERMAL SCH (12:11)
[2017-01-19] MEDS: ACETAMINOPHEN 1000 MG/100 ML VIAL IV SCH ×3 (12:13→22:57)
[2017-01-19] MEDS: SODIUM CHLOR 0.9% 1000 ML INJ 1,000 ML IV SCH ×2 (12:14→19:43)
[2017-01-19] MEDS: SODIUM CHLORIDE 0.9% FLUSH 10 ML FLUSH IV FLUSH SCH ×2 (12:14→19:42)
[2017-01-19] MEDS: DOCUSATE SODIUM 50 MG/SENNA 8.6 MG TAB PO SCH ×2 (12:15→19:42)
[2017-01-19] MEDS: FAMOTIDINE 20 MG TAB PO SCH ×2 (12:15→19:42)
[2017-01-19] MEDS: POLYETHYLENE GLYCOL 17 GM PKG PO SCH (12:18)
--- NOTE | 2017-01-19 14:23 | MB ---
cc: ROMA LAMBERT DATE OF CONSULTATION 01/19/2017 REASON FOR CONSULTATION Mr. Calderon is an 81 year-old white male with multiple medical problems. He lost balance and fell at home. He broke seven ribs and this lead to pneumothorax. He underwent placement of a left chest tube. He has refused procedures and had to be Siegel Acted. He complains of left chest discomfort secondary to pneumothorax, rib fractures and chest tubes. He has not had any angina. He has minimal dyspnea at this time. PAST MEDICAL HISTORY Positive for: 1. Atrial flutter with rapid ventricular response. 2. Coronary artery disease with coronary artery stenting 3. History of aortic valve replacement 4. Hypertension 5. History of atrial flutter/ablation in 2012. 6. Tonsillectomy 7. Pacemaker placement 8. Appendectomy 9. Cholecystectomy 10. Right wrist surgery 11. Left shoulder surgery 12. Knee surgery 13. Hip replacement 14. Pacemaker change out in 2015 MEDICATIONS AT HOME Included: 1. Xarelto 15 mg a day 2. Carvedilol 3. Tramadol 4. Magnesium 5. Allopurinol 6. Niaspan 7. Lasix 8. Irbesartan 9. Flomax 10. Lantus insulin 11. Vitamin D3 12. Multivitamin 13. Anastrozole 14. Humalog 15. Synthroid 16. Aspirin 17. Omeprazole 18. Gabapentin 19. Spironolactone ALLERGIES SHELLFISH AND IODINE. SOCIAL HISTORY The patient does not smoke. He does not drink alcohol. FAMILY HISTORY Negative for heart disease. REVIEW OF SYSTEMS Otherwise negative. PHYSICAL EXAM Blood pressure 154/95, pulse 110 and regular. HEAD, EYES, EARS, NOSE, AND THROAT: Negative. 2+carotid upstrokes. No bruits. LUNGS: Clear. HEART: Regular with no murmur, gallop, rub. ABDOMEN: Soft, obese, no bruits. EXTREMITIES: With trace edema. 1 to 2+ distal pulses. NEUROLOGIC: Grossly nonfocal. EKG showed sinus rhythm and ventricular pacing. LABS Hemoglobin 10.9, potassium 4.7, creatinine 1.5. DIAGNOSIS 1. Recent fall resulting in rib fracture and left sided pneumothorax. 2. Non-cardiac chest pain 3. Coronary artery disease, history of LAD stenting. 4. Sick sinus syndrome, status post [facility] [facility] pacemaker placement. 5. Status post aortic valve replacement. 6. History of GI bleeding. 7. History of TIA. 8. Atrial flutter, status post ablation. 9. Hypertension 10. Renal insufficiency 11. Mild to moderate carotid stenosis. DISPOSITION Mr. Calderon will be admitted to the ICU. At this time, he has had no angina or heart failure symptoms. I will follow him for cardiology during his hospitalization. I will also see him back in our office after discharge. I recommend to restart his Xarelto 15 mg a day as soon as possible once his chest tube is removed and the risk of bleeding is minimal. MD JAMIL Dinero/FOREIGN /1:26 PM /2:00 PM MTDAnuj
--- NOTE | 2017-01-19 14:28 | HHI.CCPN ---
Subjective Brief History 81-year-old gentleman who fell on his left side sustained multiple left rib fractures and left hemopneumothorax. Patient was resuscitated its prior to run trauma alert. Had a chest tube placed Patient is now in the ICU for observation I have had a long discussion with the patient and brother neuropsychologist to evaluated the patient as well. Patient this point very hostile and unhappy that he has to be in the hospital and has been very hostile toward a neuropsychologist. He wants to leave hospital and I tried to explain to him that the injuries are such that he cannot leave Patient's family is at the bedside trying to convince him to the same There is no question my mind that the patient has somewhat demented and combination is impaired to neurocognitive deficits related to the age 24 Hour Review/Hospital Course Patient doing well at this time Awake alert and oriented with bilateral breath sounds Very noncompliant with care refuses pain medication refuses his home medications and basically wants to leave the hospital Patient has some limited neurocognitive deficits consistent with dementia He is at high risk of developing pneumonia and ending up on the ventilator in face of his lung contusion however right now is doing ok Objective Vital Signs Date Time Temp Pulse Resp B/P Pulse Ox O2 Delivery O2 Flow Rate FiO2 01/19/17 12:43 28 01/19/17 12:00 98.5 107 163/77 100 01/19/17 11:44 Nasal Cannula 4.00 01/18/17 19:20 100 Intake and Output 01/18/17 01/18/17 01/19/17 08:00 16:00 00:00 Intake Total 1000 ml Balance 1000 ml Result Diagram: 01/19/17 0400 01/19/17 0400 Imaging Last 24 hours Impressions Chest X-Ray 01/19/17 0000 Signed Impressions: Service Date/Time: Thursday, January 19, 2017 04:00 - CONCLUSION: Mild increase consolidation left lower lobe Nabil Shah MD Pelvis X-Ray 01/18/171816 Signed Impressions: Service Date/Time: December 18:11 - CONCLUSION: Intact pelvis. Ben Gtz MD Maxillofacial CT 01/18/171816 Signed Impressions: Service Date/Time: December 18:51 - CONCLUSION: Intact facial bones. Ben Gtz MD Head CT 01/18/171816 Signed Impressions: Service Date/Time: December 18:51 - CONCLUSION: No bleed or other acute intracranial abnormality. Ben Gtz MD Chest X-Ray 01/18/171816 Signed Impressions: Service Date/Time: December 18:11 - CONCLUSION: Probable left rib fractures. Mild contusion/consolidation and small effusion on the left. Ben Gtz MD Chest CT 01/18/171816 Signed Impressions: Service Date/Time: December 19:03 - CONCLUSION: Minimally displaced displaced left rib fractures as above. There is a mild left pulmonary contusion, small left anterior/apical pneumothorax and small dependently layering hemothorax. Ben Gtz MD Cervical Spine CT 01/18/171816 Signed Impressions: Service Date/Time: December 18:51 - CONCLUSION: 1. No fracture or subluxation demonstrated of the cervical spine. 2. Multilevel degenerative changes, very severe at C5/C6 and C6/C7 and C7/T1. Ben Gtz MD Abdomen/Pelvis CT 01/18/171816 Signed Impressions: Service Date/Time: December 19:03 - CONCLUSION: No visceral organ injury or other acute abnormality within the abdomen or pelvis. Ben Gtz MD Exam [employer] Awake alert and oriented Mcintosh Coma Scale 15 Hemodynamic/Cardiac Hemodynamically intact Pulmonary/Respiratory Bilateral breath sounds decreased over the left lung field and splinting Chest tube with minimal drainage and no air leak Patient has left lower lobe consolidation consistent with a contusion and probably some aspiration Patient is a high risk candidate for pneumonia at this point especially in the face of his refusal of therapy noncompliance Abdomen/GI Nutrition Abdomen is soft patient's back diet Assessment and Plan Attestation Transfer patient to floor Aggressive physical therapy Pain management The exam, history, and the medical decision-making described in the above note were completed with the assistance of the mid-level provider. I reviewed and agree with the findings presented. I attest that I had a [id number] encounter with the patient on the same day, and personally performed and documented my assessment and findings in the medical record. Critical care time 38 minutes. Debra Lala MD January 19, 2017 14:28
[2017-01-19] MEDS ORDERED: PILL SPLITTER OTHER PRN (15:00)
[2017-01-19] MEDS: LOSARTAN 25 MG TAB PO SCH (15:27)
[2017-01-19] MEDS: FUROSEMIDE 40 MG TAB PO SCH ×2 (15:27→19:42)
[2017-01-19] MEDS: ALLOPURINOL 300 MG TAB PO SCH (15:27)
[2017-01-19] MEDS: CARVEDILOL 6.25 MG TAB PO SCH ×2 (15:28→19:43)
[2017-01-19] MEDS: MORPHINE SULFATE 4 MG/ML INJ IV PUSH PRN ×3 (18:01→22:56)
[2017-01-19 18:22] LABS: CREATINE KINASE 122 U/L (39-308)
[2017-01-19 18:34] LABS: CKMB 1.1 NG/ML (0.5-3.6)
[2017-01-19] MEDS: GABAPENTIN 400 MG CAP PO SCH (19:42)
[2017-01-19] MEDS: METHOCARBAMOL 500 MG TAB PO SCH (19:42)
[2017-01-19] MEDS: TAMSULOSIN HCL 0.4 MG CAP PO SCH (19:42)
[2017-01-20] VITALS (7 sets, daily range): BP systolic 117–169; BP diastolic 64–81; PULSE 93–106; RESP 13–21; TEMP 95.9–97.5; O2SAT 94–100
[2017-01-20] MEDS: RESP: ALBUTEROL 2.5 MG/IPRATROPIUM 0.5 MG NEB (SCH) INH ×4 (03:50→20:44)
[2017-01-20] MEDS: CHLORHEXIDINE GLUCONATE 2 % 1 PACK (2 CLOTHS) TOP SCH (04:00)
[2017-01-20] MEDS: LEVOTHYROXINE SODIUM 75 MCG TAB PO SCH (06:00)
[2017-01-20] MEDS: ACETAMINOPHEN 1000 MG/100 ML VIAL IV SCH (06:11)
[2017-01-20] MEDS: METHOCARBAMOL 500 MG TAB PO SCH ×2 (06:11→11:07)
[2017-01-20] MEDS: INSULIN NovoLIN REGULAR SUPPLEMENTAL SCALE SQ SCH ×4 (07:00→21:00)
[2017-01-20] MEDS: ALLOPURINOL 300 MG TAB PO SCH (07:35)
[2017-01-20] MEDS: FUROSEMIDE 40 MG TAB PO SCH ×2 (07:35→15:56)
[2017-01-20] MEDS: DOCUSATE SODIUM 50 MG/SENNA 8.6 MG TAB PO SCH (07:35)
[2017-01-20] MEDS: CARVEDILOL 6.25 MG TAB PO SCH ×2 (07:35→21:00)
[2017-01-20] MEDS: LOSARTAN 25 MG TAB PO SCH (07:35)
[2017-01-20] MEDS: SODIUM CHLOR 0.9% 1000 ML INJ 1,000 ML IV SCH (07:36)
[2017-01-20] MEDS: POLYETHYLENE GLYCOL 17 GM PKG PO SCH (07:36)
[2017-01-20] MEDS: FAMOTIDINE 20 MG TAB PO SCH (07:37)
[2017-01-20] MEDS: SODIUM CHLORIDE 0.9% FLUSH 10 ML FLUSH IV FLUSH SCH (07:37)
[2017-01-20] MEDS: LIDOCAINE HCL 5% PATCH T-DERMAL SCH (07:37)
--- NOTE | 2017-01-20 12:51 | HHI.PR ---
Subjective Subjective Notes PTD: 2 Patient asleep in bed. No distress noted. Objective Vitals/I&O Vital Signs Date Time Temp Pulse Resp B/P Pulse Ox O2 Delivery O2 Flow Rate FiO2 01/20/17 08:00 96.7 93 13 117/64 98 01/20/17 07:58 Nasal Cannula 3.00 01/18/17 19:20 100 Labs Laboratory Tests Test 01/18/17 01/18/17 01/18/17 01/19/17 18:32 19:48 20:00 04:00 Bedside Hemoglobin 12.6 G/DL Bedside Hematocrit 37.0 % Activated Partial 30.6 SEC Thromboplast Time Bedside Sodium 136 MMOL/L Bedside Potassium 5.1 MMOL/L Bedside Chloride 96 MMOL/L Bedside Blood Urea Nitrogen 67 MG/DL Bedside Creatinine 1.7 MG/DL Bedside Glucose 206 MG/DL Blood Type O POSITIVE Antibody Screen NEGATIVE Nasal Screen MRSA (PCR) MRSA NOT DETECTED Urine Color YELLOW Urine Turbidity CLEAR Urine pH 5.5 Urine Specific [place] 1.032 Urine Protein TRACE mg/dL Urine Glucose (UA) NEG mg/dL Urine Ketones NEG mg/dL Urine Occult Blood NEG Urine Nitrite NEG Urine Bilirubin NEG Urine Urobilinogen LESS THAN 2.0 MG/DL Urine Leukocyte Esterase NEG Urine RBC LESS THAN 1 /hpf Urine WBC LESS THAN 1 /hpf Urine Squamous Epithelial <1 /hpf Cells Urine Hyaline Casts 36 /lpf Microscopic Urinalysis Comment CATH-CULT NOT IND White Blood Count 10.1 TH/MM3 Red Blood Count 3.51 MIL/MM3 Hemoglobin 10.9 GM/DL Hematocrit 33.9 % Mean Corpuscular Volume 96.6 FL Mean Corpuscular Hemoglobin 31.1 PG Mean Corpuscular Hemoglobin 32.1 % Concent Red Cell Distribution Width 16.1 % Platelet Count 153 TH/MM3 Mean Platelet Volume 7.8 FL Neutrophils (%) (Auto) 94.4 % Lymphocytes (%) (Auto) 3.7 % Monocytes (%) (Auto) 1.7 % Eosinophils (%) (Auto) 0.0 % Basophils (%) (Auto) 0.2 % Neutrophils # (Auto) 9.6 TH/MM3 Lymphocytes # (Auto) 0.4 TH/MM3 Monocytes # (Auto) 0.2 TH/MM3 Eosinophils # (Auto) 0.0 TH/MM3 Basophils # (Auto) 0.0 TH/MM3 CBC Comment DIFF FINAL Differential Comment Prothrombin Time 11.4 SEC Prothromb Time International 1.0 RATIO Ratio Sodium Level 139 MEQ/L Potassium Level 4.7 MEQ/L Chloride Level 103 MEQ/L Carbon Dioxide Level 30.1 MEQ/L Anion Gap 6 MEQ/L Blood Urea Nitrogen 44 MG/DL Creatinine 1.52 MG/DL Estimat Glomerular Filtration 40 ML/MIN Rate Random Glucose 271 MG/DL Calcium Level 9.5 MG/DL Total Creatine Kinase 122 U/L Creatine Kinase MB 1.1 NG/ML Troponin I LESS THAN 0.02 NG/ML Radiology Last Impressions Chest X-Ray 01/19/17 0000 Signed Impressions: Service Date/Time: Thursday, January 19, 2017 04:00 - CONCLUSION: Mild increase consolidation left lower lobe Nabil Shah MD Pelvis X-Ray 01/18/171816 Signed Impressions: Service Date/Time: December 18:11 - CONCLUSION: Intact pelvis. Ben Gtz MD Maxillofacial CT 01/18/171816 Signed Impressions: Service Date/Time: December 18:51 - CONCLUSION: Intact facial bones. Ben Gtz MD Head CT 01/18/171816 Signed Impressions: Service Date/Time: December 18:51 - CONCLUSION: No bleed or other acute intracranial abnormality. Ben Gtz MD Chest CT 01/18/171816 Signed Impressions: Service Date/Time: December 19:03 - CONCLUSION: Minimally displaced displaced left rib fractures as above. There is a mild left pulmonary contusion, small left anterior/apical pneumothorax and small dependently layering hemothorax. Ben Gtz MD Cervical Spine CT 01/18/171816 Signed Impressions: Service Date/Time: December 18:51 - CONCLUSION: 1. No fracture or subluxation demonstrated of the cervical spine. 2. Multilevel degenerative changes, very severe at C5/C6 and C6/C7 and C7/T1. Ben Gtz MD Abdomen/Pelvis CT 01/18/171816 Signed Impressions: Service Date/Time: December 19:03 - CONCLUSION: No visceral organ injury or other acute abnormality within the abdomen or pelvis. Ben Gtz MD Narrative Exam GENERAL: This is a 81-year-old male sound asleep in bed. No distress noted. SKIN: Warm and dry. HEAD: Atraumatic. Normocephalic. EYES: PERRLA ENT: No nasal bleeding or discharge. Mucous membranes pink and moist. NECK: Trachea midline. No JVD. CARDIOVASCULAR: Regular rate and rhythm. RESPIRATORY: No accessory muscle use. Lungs are clear to auscultation. Breath sounds equal bilaterally. No distress or dyspnea. Left lateral chest tube in place to Pleur-evac drainage system. No air leak noted. Placed to waterseal on rounds. GASTROINTESTINAL: BS + x 4 quads. Abdomen soft, non-tender, nondistended. MUSCULOSKELETAL: Extremities without cyanosis, or edema. + peripheral pulses x 4 extremities. Warm with good capillary refill and sensation. MAEW. NEUROLOGICAL: Asleep. A/P Problem List: (1) Pneumothorax (2) Rib fractures (3) Fall Assessment and Plan NULATO: This is a 81-year-old male who sustained a fall. He fell onto his left side. He takes Xaralto at home. PMHx: Advanced arthritis, COPD with O2 dependence, hypothyroidism, PACEMAKER, CAD, stents, Afib, Ablation, AVR, HLD, HTN, GERD, CRF, DM, gout. INJURIES: LEFT rib fxs (5-9) LEFT PTX with small hemothorax w/ CT placement LEFT pulmonary contusion Bibasilar lung consolidation Procedures: 01/18 left chest tube placed Consults: CCM. Cardiology. Diet: Regular heart healthy diet. Tolerating po diet. Encourage good po intake with each meal. Pulmonary: Encourage good pulmonary toileting. IS at bedside and pt encouraged to use. Rationale for use explained to patient, and verbalized understanding. Left lateral chest tube in place to Pleur-evac drainage system. Decreased to water seal. Daily dressings to chest tube . Follow up chest x-ray in the morning. PAIN Management: Percocet 5 mg q 4 h PRN. Morphine 4 mg q2h for breakthrough pain. Robaxin 500q8h. Neurontin 400 hs. lidocaine patch. Restart home medications. Activity: OOB. PT and OT ordered. GI prophylaxis: Pepcid po. Bowel regimen: Bhargavi-colace and MOM PRN. MiraLAX daily. Lactulose. Senna PRN. LBM: 0. DVT prophylaxis: Mechanical VTE with SCDs. Chemical management TBD. ( Tentative plan to restart Xarelto once chest tube has been removed.) DC Planning: Case management consulted for assistance with final discharge disposition. Emotional support provided to patient at bedside and plan of care discussed. Discussed with RN at bedside. Patient is hemodynamically stable and being managed on the med/surg floor. - LEFT rib fxs (5-9) - LEFT PTX with small hemothorax w/ CT placement - LEFT pulmonary contusion - Bibasilar lung consolidation Left chest tube placed - to Pleur-evac drainage system Chest x-ray - mild increasing consolidation left lower lobe Follow-up chest x-ray in the AM Discuss and encouraged the importance of Good pulmonary toileting CDB Respiratory rate even and unlabored. Good Pain control - Percocet, morphine, Robaxin, Neurontin, and lidocaine patch PT ordered Encourage out of bed Afebrile VSS Problem Qualifiers (1) Pneumothorax: Qualified Code: S27.0XXA - Traumatic pneumothorax, initial encounter (2) Rib fractures: Qualified Code: S22.42XA - Closed fracture of multiple ribs of left side, initial encounter (3) Fall: Qualified Code: W19.XXXA - Fall, initial encounter Ashleigh Stevens January 20, 2017 12:51
[2017-01-21] VITALS (8 sets, daily range): BP systolic 113–145; BP diastolic 43–70; PULSE 90–115; RESP 17–20; TEMP 95.9–99.1; O2SAT 93–98
[2017-01-21] MEDS: TAMSULOSIN HCL 0.4 MG CAP PO SCH ×2 (00:27→20:41)
[2017-01-21] MEDS: GABAPENTIN 400 MG CAP PO SCH ×2 (00:27→20:42)
[2017-01-21] MEDS: FAMOTIDINE 20 MG TAB PO SCH ×3 (00:27→20:42)
[2017-01-21] MEDS: METHOCARBAMOL 500 MG TAB PO SCH ×4 (00:27→20:41)
[2017-01-21] MEDS: SODIUM CHLORIDE 0.9% FLUSH 10 ML FLUSH IV FLUSH SCH ×3 (00:28→20:42)
[2017-01-21] MEDS: DOCUSATE SODIUM 50 MG/SENNA 8.6 MG TAB PO SCH ×3 (00:28→20:42)
[2017-01-21] MEDS: RESP: ALBUTEROL 2.5 MG/IPRATROPIUM 0.5 MG NEB (SCH) INH ×5 (03:32→21:42)
--- NOTE | 2017-01-21 06:25 | RADRPT ---
EXAM DATE/TIME: 01/21/2017 05:31 [facility] COMPARISON: CHEST SINGLE AP, January 19, 2017, 4:00. INDICATIONS : Evaluate left side chest tube. MEDICAL HISTORY : None. SURGICAL HISTORY : None. ENCOUNTER: Subsequent ACUITY: 3 days PAIN SCORE: 7/10 LOCATION: Bilateral chest FINDINGS: Pacer leads overlying right atrium and right ventricle. Left chest tube present without significant p neumothorax. Mild basilar airspace disease. Previous median sternotomy. Postoperative left shoulder r eplacement. CONCLUSION: 1. Left chest tube without pneumothorax. Pacer leads unchanged. Mild basilar airspace disease similar to January 19. Julio Ogden MD on January 21, 2017 at 6:21 Board Certified Radiologist. This report was verified electronically.
[2017-01-21] MEDS: LEVOTHYROXINE SODIUM 75 MCG TAB PO SCH (07:00)
[2017-01-21] MEDS: INSULIN NovoLIN REGULAR SUPPLEMENTAL SCALE SQ SCH ×4 (07:09→20:50)
[2017-01-21] MEDS: FUROSEMIDE 40 MG TAB PO SCH ×2 (08:06→16:01)
[2017-01-21] MEDS: ALLOPURINOL 300 MG TAB PO SCH (08:07)
[2017-01-21] MEDS: CARVEDILOL 6.25 MG TAB PO SCH ×2 (08:07→20:42)
[2017-01-21] MEDS: LOSARTAN 25 MG TAB PO SCH (08:07)
[2017-01-21] MEDS: POLYETHYLENE GLYCOL 17 GM PKG PO SCH (08:12)
[2017-01-21] MEDS: LIDOCAINE HCL 5% PATCH T-DERMAL SCH (08:13)
[2017-01-21] MEDS ORDERED: BISACODYL EC 5 MG TABEC PO ONE (09:00)
[2017-01-21] MEDS ORDERED: BISACODYL 10 MG SUPP RECTAL ONE (09:00)
--- NOTE | 2017-01-21 12:04 | HHI.PR ---
Subjective Subjective Notes PTD: 3 Patient remains confused. No complaints offered. at bedside. Objective Vitals/I&O Vital Signs Date Time Temp Pulse Resp B/P Pulse Ox O2 Delivery O2 Flow Rate FiO2 01/21/17 09:57 97 Nasal Cannula 3.00 01/21/17 08:00 97.7 104 17 124/60 01/18/17 19:20 100 Labs Laboratory Tests Test 01/18/17 01/18/17 01/18/17 01/19/17 18:32 19:48 20:00 04:00 Bedside Hemoglobin 12.6 G/DL Bedside Hematocrit 37.0 % Activated Partial 30.6 SEC Thromboplast Time Bedside Sodium 136 MMOL/L Bedside Potassium 5.1 MMOL/L Bedside Chloride 96 MMOL/L Bedside Blood Urea Nitrogen 67 MG/DL Bedside Creatinine 1.7 MG/DL Bedside Glucose 206 MG/DL Blood Type O POSITIVE Antibody Screen NEGATIVE Nasal Screen MRSA (PCR) MRSA NOT DETECTED Urine Color YELLOW Urine Turbidity CLEAR Urine pH 5.5 Urine Specific [place] 1.032 Urine Protein TRACE mg/dL Urine Glucose (UA) NEG mg/dL Urine Ketones NEG mg/dL Urine Occult Blood NEG Urine Nitrite NEG Urine Bilirubin NEG Urine Urobilinogen LESS THAN 2.0 MG/DL Urine Leukocyte Esterase NEG Urine RBC LESS THAN 1 /hpf Urine WBC LESS THAN 1 /hpf Urine Squamous Epithelial <1 /hpf Cells Urine Hyaline Casts 36 /lpf Microscopic Urinalysis Comment CATH-CULT NOT IND White Blood Count 10.1 TH/MM3 Red Blood Count 3.51 MIL/MM3 Hemoglobin 10.9 GM/DL Hematocrit 33.9 % Mean Corpuscular Volume 96.6 FL Mean Corpuscular Hemoglobin 31.1 PG Mean Corpuscular Hemoglobin 32.1 % Concent Red Cell Distribution Width 16.1 % Platelet Count 153 TH/MM3 Mean Platelet Volume 7.8 FL Neutrophils (%) (Auto) 94.4 % Lymphocytes (%) (Auto) 3.7 % Monocytes (%) (Auto) 1.7 % Eosinophils (%) (Auto) 0.0 % Basophils (%) (Auto) 0.2 % Neutrophils # (Auto) 9.6 TH/MM3 Lymphocytes # (Auto) 0.4 TH/MM3 Monocytes # (Auto) 0.2 TH/MM3 Eosinophils # (Auto) 0.0 TH/MM3 Basophils # (Auto) 0.0 TH/MM3 CBC Comment DIFF FINAL Differential Comment Prothrombin Time 11.4 SEC Prothromb Time International 1.0 RATIO Ratio Sodium Level 139 MEQ/L Potassium Level 4.7 MEQ/L Chloride Level 103 MEQ/L Carbon Dioxide Level 30.1 MEQ/L Anion Gap 6 MEQ/L Blood Urea Nitrogen 44 MG/DL Creatinine 1.52 MG/DL Estimat Glomerular Filtration 40 ML/MIN Rate Random Glucose 271 MG/DL Calcium Level 9.5 MG/DL Total Creatine Kinase 122 U/L Creatine Kinase MB 1.1 NG/ML Troponin I LESS THAN 0.02 NG/ML Radiology Last Impressions Chest X-Ray 01/19/17 0000 Signed Impressions: Service Date/Time: Thursday, January 19, 2017 04:00 - CONCLUSION: Mild increase consolidation left lower lobe Nabil Shah MD Pelvis X-Ray 01/18/171816 Signed Impressions: Service Date/Time: December 18:11 - CONCLUSION: Intact pelvis. Ben Gtz MD Maxillofacial CT 01/18/171816 Signed Impressions: Service Date/Time: December 18:51 - CONCLUSION: Intact facial bones. Ben Gtz MD Head CT 01/18/171816 Signed Impressions: Service Date/Time: December 18:51 - CONCLUSION: No bleed or other acute intracranial abnormality. Ben Gtz MD Chest CT 01/18/171816 Signed Impressions: Service Date/Time: December 19:03 - CONCLUSION: Minimally displaced displaced left rib fractures as above. There is a mild left pulmonary contusion, small left anterior/apical pneumothorax and small dependently layering hemothorax. Ben Gtz MD Cervical Spine CT 01/18/171816 Signed Impressions: Service Date/Time: December 18:51 - CONCLUSION: 1. No fracture or subluxation demonstrated of the cervical spine. 2. Multilevel degenerative changes, very severe at C5/C6 and C6/C7 and C7/T1. Ben Gtz MD Abdomen/Pelvis CT 01/18/171816 Signed Impressions: Service Date/Time: December 19:03 - CONCLUSION: No visceral organ injury or other acute abnormality within the abdomen or pelvis. Ben Gtz MD Narrative Exam GENERAL: This is a 81-year-old male in bed. No distress noted. SKIN: Warm and dry. HEAD: Atraumatic. Normocephalic. EYES: PERRLA ENT: No nasal bleeding or discharge. Mucous membranes pink and moist. NECK: Trachea midline. No JVD. CARDIOVASCULAR: Regular rate and rhythm. RESPIRATORY: No accessory muscle use. Lungs are clear to auscultation. Breath sounds equal bilaterally. No distress or dyspnea. Left lateral chest tube in place to Pleur-evac drainage system - waterseal. No air leak noted. Plan for removal. GASTROINTESTINAL: BS + x 4 quads. Abdomen soft, non-tender, nondistended. Solares catheter in place to bedside drainage bag MUSCULOSKELETAL: Extremities without cyanosis, or edema. + peripheral pulses x 4 extremities. Warm with good capillary refill and sensation. MAEW. NEUROLOGICAL: Awake, but confused at times. Normal speech and pattern. A/P Problem List: (1) Pneumothorax (2) Rib fractures (3) Fall Assessment and Plan [place]: This is a 81-year-old male who sustained a fall. He fell onto his left side. He takes Xaralto at home. PMHx: Advanced arthritis, COPD with O2 dependence, hypothyroidism, PACEMAKER, CAD, stents, Afib, Ablation, AVR, HLD, HTN, GERD, CRF, DM, gout. INJURIES: LEFT rib fxs (5-9) LEFT PTX with small hemothorax w/ CT placement LEFT pulmonary contusion Bibasilar lung consolidation Procedures: 01/18 left chest tube placed Consults: CCM. Cardiology. Diet: Regular heart healthy diet. Tolerating po diet. Encourage good po intake with each meal. Pulmonary: Encourage good pulmonary toileting. IS at bedside and pt encouraged to use. Rationale for use explained to patient, and verbalized understanding. Left lateral chest tube in place to Pleur-evac drainage system to water seal . Chest x-ray this morning shows no PTX. Left chest tube removed at bedside without incident. Vaseline gauze and 4 x 4 applied. Secured with Elastoplast tape. Patient tolerated procedure well. Follow up chest x-ray in the morning to evaluate post chest tube removal. Follow-up labs in the morning. PAIN Management: Percocet 5 mg q 4 h PRN. Morphine 4 mg q2h for breakthrough pain. Robaxin 500q8h. Neurontin 400 hs. lidocaine patch. Activity: OOB. PT and OT ordered. GI prophylaxis: Pepcid po. Bowel regimen: Bhargavi-colace and MOM PRN. MiraLAX daily. Lactulose. Senna PRN. LBM: 0. Intensified with bisacodyl P0/AL 1 dose today. DVT prophylaxis: Mechanical VTE with SCDs. Chemical management resumed with Xarelto post chest tube removal. DC Planning: Case management consulted for assistance with final discharge disposition. Emotional support provided to patient at bedside and plan of care discussed. Discussed with RN at bedside. Patient is hemodynamically stable and being managed on the med/surg floor. - LEFT rib fxs (5-9) - LEFT PTX with small hemothorax w/ CT placement - LEFT pulmonary contusion - Bibasilar lung consolidation Left chest tube placed - to Pleur-evac drainage system Chest x-ray - mild increasing consolidation left lower lobe Left lateral chest tube removed at bedside today Follow-up chest x-ray in the AM Discuss and encouraged the importance of Good pulmonary toileting CDB Respiratory rate even and unlabored. Good Pain control - Percocet, morphine, Robaxin, Neurontin, and lidocaine patch PT ordered Encourage out of bed Afebrile VSS Attending Statement The exam, history, and the medical decision-making described in the above note were completed with the assistance of the mid-level provider. I reviewed and agree with the findings presented. I attest that I had a [id number] encounter with the patient on the same day, and personally performed and documented my assessment and findings in the medical record. s/p chest injury, pulmonary status stable, mildly confused, continue supportive care, pulmonary toilet d/w at bedside Problem Qualifiers (1) Pneumothorax: Qualified Code: J93.9 - Pneumothorax, unspecified type (2) Rib fractures: Qualified Code: S22.42XA - Closed fracture of multiple ribs of left side, initial encounter (3) Fall: Qualified Code: W19.XXXA - Fall, initial encounter Ashleigh Stevens January 21, 2017 12:04 Fabian Brown MD January 23, 2017 17:31
[2017-01-21] MEDS ORDERED: RIVAROXABAN 10 MG TAB PO SCH (13:15)
[2017-01-21] MEDS ORDERED: RIVAROXABAN 10 MG TAB PO ONE (17:00)
[2017-01-22] VITALS (10 sets, daily range): BP systolic 106–153; BP diastolic 49–67; PULSE 102–108; RESP 17–21; TEMP 96.4–98.3; O2SAT 92–100
[2017-01-22] MEDS: RESP: ALBUTEROL 2.5 MG/IPRATROPIUM 0.5 MG NEB (SCH) INH ×4 (04:00→20:21)
[2017-01-22] MEDS: METHOCARBAMOL 500 MG TAB PO SCH ×4 (04:29→20:51)
[2017-01-22] MEDS: LEVOTHYROXINE SODIUM 75 MCG TAB PO SCH (06:36)
--- NOTE | 2017-01-22 06:37 | RADRPT ---
EXAM DATE/TIME: 01/22/2017 04:45 [facility] COMPARISON: CHEST SINGLE AP, January 21, 2017, 5:31. INDICATIONS : Pneumothorax. MEDICAL HISTORY : Cardiovascular disease. SURGICAL HISTORY : Pacemaker. Open heart. ENCOUNTER: Subsequent ACUITY: 3 days PAIN SCORE: 0/10 LOCATION: Bilateral chest FINDINGS: Left chest tube appears to been retracted since previous exam. There is no evidence of pneumothorax. Mild persistent left base parenchymal opacity. Pacemaker device is noted with control pack over the r ight chest. Cardiac contours are stable. CONCLUSION: Interval migration of left chest tube. Otherwise stable. Ben Avina MD on January 22, 2017 at 6:34 Board Certified Radiologist. This report was verified electronically.
[2017-01-22 06:43] LABS: AUTOMATED NEUTROPHIL # 9.3 TH/MM3 (1.8-7.7); BASOPHIL % 0.4 % (0.0-2.0); EOSINOPHIL # 0.2 TH/MM3 (0-0.4); EOSINOPHIL % 1.3 % (0.0-4.0); HEMATOCRIT 23.8 % (39.0-51.0); HEMO FLAGS DIFF FINAL; LYMPH % 11.5 % (9.0-44.0); LYMPHOCYTE # 1.4 TH/MM3 (1.0-4.8); MEAN CORPUSCULAR HEMOGLOBIN 30.5 PG (27.0-34.0); MEAN CORPUSCULAR HGB CONC 32.4 % (32.0-36.0); NEUT % 78.8 % (16.0-70.0); PLATELET COUNT 124 TH/MM3 (150-450); RED BLOOD COUNT 2.54 MIL/MM3 (4.50-5.90); RED CELL DISTRIBUTION WIDTH 15.7 % (11.6-17.2); WHITE BLOOD COUNT 11.8 TH/MM3 (4.0-11.0)
[2017-01-22] MEDS: INSULIN NovoLIN REGULAR SUPPLEMENTAL SCALE SQ SCH ×4 (06:43→22:29)
[2017-01-22 07:16] LABS: ALKALINE PHOSPHATASE 63 U/L (45-117); ALT (GPT) 20 U/L (12-78); ANION GAP 6 MEQ/L (5-15); AST (GOT) 34 U/L (15-37); BICARBONATE 31.7 MEQ/L (21.0-32.0); BLOOD UREA NITROGEN 50 MG/DL (7-18); CHLORIDE 100 MEQ/L (98-107); GLOMERULAR FILTRATION RATE 32 ML/MIN (>89); POTASSIUM 3.9 MEQ/L (3.5-5.1); SODIUM (NA) 138 MEQ/L (136-145); TOTAL BILIRUBIN ADULT 0.6 MG/DL (0.2-1.0)
[2017-01-22] MEDS: RIVAROXABAN 15 MG TAB PO SCH (09:00)
[2017-01-22] MEDS: CARVEDILOL 6.25 MG TAB PO SCH ×2 (09:00→20:52)
[2017-01-22] MEDS: LOSARTAN 25 MG TAB PO SCH (09:00)
[2017-01-22] MEDS: LIDOCAINE HCL 5% PATCH T-DERMAL SCH (09:00)
[2017-01-22] MEDS: FUROSEMIDE 40 MG TAB PO SCH ×2 (09:21→17:09)
[2017-01-22] MEDS: POLYETHYLENE GLYCOL 17 GM PKG PO SCH (09:21)
[2017-01-22] MEDS: SODIUM CHLORIDE 0.9% FLUSH 10 ML FLUSH IV FLUSH SCH ×2 (09:21→20:52)
[2017-01-22] MEDS: ALLOPURINOL 300 MG TAB PO SCH (09:22)
[2017-01-22] MEDS: DOCUSATE SODIUM 50 MG/SENNA 8.6 MG TAB PO SCH ×2 (09:22→20:54)
[2017-01-22] MEDS: FAMOTIDINE 20 MG TAB PO SCH ×2 (09:23→20:53)
--- NOTE | 2017-01-22 10:16 | HHI.PR ---
Subjective Subjective Notes PTD: 4 Patient resting comfortably in bed on rounds. Patient is on a 50% Ventimask. Spoke with the respiratory therapist. Sats were 74% on nasal cannula, therefore O2 increased. Patient arouses easily, no complaints offered. Denies shortness of breath. No distress noted. Objective Vitals/I&O Vital Signs Date Time Temp Pulse Resp B/P Pulse Ox O2 Delivery O2 Flow Rate FiO2 01/22/17 09:28 Room Air 01/22/17 08:00 97.0 102 19 107/67 100 01/21/17 16:15 3.00 01/18/17 19:20 100 Labs Laboratory Tests Test 01/22/17 06:00 White Blood Count 11.8 Red Blood Count 2.54 Hemoglobin 7.7 Hematocrit 23.8 Mean Corpuscular Volume 94.0 Mean Corpuscular Hemoglobin 30.5 Mean Corpuscular Hemoglobin 32.4 Concent Red Cell Distribution Width 15.7 Platelet Count 124 Mean Platelet Volume 7.3 Neutrophils (%) (Auto) 78.8 Lymphocytes (%) (Auto) 11.5 Monocytes (%) (Auto) 8.0 Eosinophils (%) (Auto) 1.3 Basophils (%) (Auto) 0.4 Neutrophils # (Auto) 9.3 Lymphocytes # (Auto) 1.4 Monocytes # (Auto) 0.9 Eosinophils # (Auto) 0.2 Basophils # (Auto) 0.0 CBC Comment DIFF FINAL Differential Comment Sodium Level 138 Potassium Level 3.9 Chloride Level 100 Carbon Dioxide Level 31.7 Anion Gap 6 Blood Urea Nitrogen 50 Creatinine 1.99 Estimat Glomerular Filtration 32 Rate Random Glucose 237 Calcium Level 9.8 Total Bilirubin 0.6 Aspartate Amino Transf 34 (AST/SGOT) Alanine Aminotransferase 20 (ALT/SGPT) Alkaline Phosphatase 63 Total Protein 5.4 Albumin 2.7 Radiology Last Impressions Chest X-Ray 01/19/17 0000 Signed Impressions: Service Date/Time: Thursday, January 19, 2017 04:00 - CONCLUSION: Mild increase consolidation left lower lobe Nabil Shah MD Pelvis X-Ray 01/18/171816 Signed Impressions: Service Date/Time: December 18:11 - CONCLUSION: Intact pelvis. Ben Gtz MD Maxillofacial CT 01/18/171816 Signed Impressions: Service Date/Time: December 18:51 - CONCLUSION: Intact facial bones. Ben Gtz MD Head CT 01/18/171816 Signed Impressions: Service Date/Time: December 18:51 - CONCLUSION: No bleed or other acute intracranial abnormality. Ben Gtz MD Chest CT 01/18/171816 Signed Impressions: Service Date/Time: December 19:03 - CONCLUSION: Minimally displaced displaced left rib fractures as above. There is a mild left pulmonary contusion, small left anterior/apical pneumothorax and small dependently layering hemothorax. Ben Gtz MD Cervical Spine CT 01/18/171816 Signed Impressions: Service Date/Time: December 18:51 - CONCLUSION: 1. No fracture or subluxation demonstrated of the cervical spine. 2. Multilevel degenerative changes, very severe at C5/C6 and C6/C7 and C7/T1. Ben Gtz MD Abdomen/Pelvis CT 01/18/171816 Signed Impressions: Service Date/Time: December 19:03 - CONCLUSION: No visceral organ injury or other acute abnormality within the abdomen or pelvis. Ben Gtz MD Narrative Exam GENERAL: This is a 81-year-old male in bed. No distress noted. SKIN: Warm and dry. HEAD: Atraumatic. Normocephalic. EYES: PERRLA ENT: No nasal bleeding or discharge. Mucous membranes pink and moist. NECK: Trachea midline. No JVD. CARDIOVASCULAR: Regular rate and rhythm. RESPIRATORY: 50% Ventimask. No accessory muscle use. Lungs are clear to auscultation. Breath sounds equal bilaterally. No distress or dyspnea. GASTROINTESTINAL: BS + x 4 quads. Abdomen soft, non-tender, nondistended. Solares catheter in place to bedside drainage bag MUSCULOSKELETAL: Extremities without cyanosis, or edema. + peripheral pulses x 4 extremities. Warm with good capillary refill and sensation. MAEW. NEUROLOGICAL: Awake, but confused at times. Normal speech and pattern. A/P Assessment and Plan [place]: This is a 81-year-old male who sustained a fall. He fell onto his left side. He takes Xaralto at home. PMHx: Advanced arthritis, COPD with O2 dependence, hypothyroidism, PACEMAKER, CAD, stents, Afib, Ablation, AVR, HLD, HTN, GERD, CRF, DM, gout. INJURIES: LEFT rib fxs (5-9) LEFT PTX with small hemothorax w/ CT placement LEFT pulmonary contusion Bibasilar lung consolidation Procedures: 01/18 left chest tube placed Consults: [facility]. Cardiology. Pulmonology. Diet: Regular heart healthy diet. Tolerating po diet. Encourage good po intake with each meal. Pulmonary: Encourage good pulmonary toileting. IS at bedside and pt encouraged to use. Rationale for use explained to patient, and verbalized understanding. Chest x-ray this morning post chest tube removal = no pneumothorax. Sats = 74% on nasal cannula. Increased to Ventimask 50%. Obtain Stat ABG - pH = 7.43, PCO2 =44, PO2= 7, sats = 92% on a 50% Ventimask Consulted pulmonology - patient sees Dr. Ebony Merritt. - Appreciate pulmonary input. (added steriods) H & H = 7.7 / 23.8. Transfuse 1 unit packed red blood cells now. PAIN Management: Percocet 5 mg q 4 h PRN. Morphine 4 mg q2h for breakthrough pain. Robaxin 500q8h. Neurontin 400 hs. Lidocaine patch. Activity: OOB. PT and OT ordered. GI prophylaxis: Pepcid po. Bowel regimen: Bhargavi-colace and MOM PRN. MiraLAX daily. Lactulose. Senna PRN. LBM: 01/22. DVT prophylaxis: Mechanical VTE with SCDs. Chemical management resumed with Xarelto 15 mg daily (clarified pts home dose with ) DC Planning: Case management consulted for assistance with final discharge disposition. PT and OT both recommend rehabilitation placement. Emotional support provided to patient at bedside and plan of care discussed. Discussed with RN at bedside. Patient is hemodynamically stable and being managed on the med/surg floor. - LEFT rib fxs (5-9) - LEFT PTX with small hemothorax w/ CT placement - LEFT pulmonary contusion - Bibasilar lung consolidation Left chest tube placed - to Pleur-evac drainage system Chest x-ray post chest tube removal shows no PTX Discuss and encouraged the importance of Good pulmonary toileting CDB Respiratory rate even and unlabored. Sats 74% this morning - increased to 2-50% Ventimask Stat ABG Consulted pulmonology - patient sees Dr. Ebony Merritt. Good Pain control - Percocet, morphine, Robaxin, Neurontin, and lidocaine patch PT ordered Encourage out of bed Afebrile VSS - Post trauma blood loss anemia H&H equals 7.7/23.8 Transfuse 1 unit PRBCs today Follow-up H&H post blood administration The exam, history, and the medical decision-making described in the above note were completed with the assistance of the mid-level provider. I reviewed and agree with the findings presented. I attest that I had a [id number] encounter with the patient on the same day, and personally performed and documented my assessment and findings in the medical record. Ashleigh Stevens January 22, 2017 10:16 Yovanny Painter MD Feb 20, 2017 10:57 Qualified Code: S22.42XA - Closed fracture of multiple ribs of left side, initial encounter (3) Fall: Qualified Code: W19.XXXA - Fall, initial encounter Ashleigh Stevens January 22, 2017 10:16
[2017-01-22] MEDS ORDERED: SODIUM CHLOR 0.9% 250 ML INJ 250 ML IV ONE (10:45)
[2017-01-22 10:58] LABS: BLOOD GAS BASE EXCESS 4.3 mmol/L (-2-2); BLOOD GAS CARBOXYHEMOGLOBIN 1.6 % (0-4); BLOOD GAS HCO3 28 mmol/L (22-26); BLOOD GAS METHEMOGLOBIN 0.7 % (0-2); BLOOD GAS O2 HGB SATURATION 92 % (90-100); BLOOD GAS OXYGEN CONTENT 14.3 Vol % (12.0-20.0); BLOOD GAS PCO2 44 mmHg (38-42); BLOOD GAS PO2 71 mmHg (61-120); TEMP CORR TO 98.6
[2017-01-22 10:59] LABS: CRITICAL VALUE NO; DRAW SITE RT RADIAL; FIO2 50 %; NUMBER OF ARTERIAL PUNCTURES 1; OXYGEN DEVICE Venti Mask; STAT NO; ULNAR PULSE PRESENT
[2017-01-22] MEDS: methylPREDNISolone SOD SUCC 40 MG/1 ML VIAL IV PUSH SCH ×2 (14:44→20:55)
--- NOTE | 2017-01-22 14:54 | MB ---
cc: BLANCO FULTON DATE OF CONSULTATION: 01/22/[address] Painter. REASON FOR CONSULTATION Shortness of breath and hypoxia. HISTORY OF PRESENT ILLNESS Kishor Calderon is a elderly male who had a fall and he had multiple left rib fractures and a left pneumothorax, he had Pulmonary contusion. He had a chest tube placed. The chest tube was removed yesterday. He is getting short of breath. He is on Venti-mask. He has cough and he coughed up small amount of blood tinged sputum today. Did not have fever or chills. He has some chest pain. He had a chest x-ray done which shows no pneumothorax. He has mild left basilar parenchymal opacities, pacemaker is in place. The CBC showed WBC count 11.8, hemoglobin 7.7, hematocrit 23.8, MCV 94, platelet count 124. His INR is 1.0, sodium 130, potassium 3.9, chloride 100, CO2 32, BUN 50, creatinine 1.99. Blood gas on 50% Venti-mask pH 7.43, pCO2 44, pO2 71, bicarb 28. PAST MEDICAL HISTORY Past medical history significant for: 1. History of aortic valve replacement with a bovine valve. 2. Hypertension. 3. Diabetes mellitus. 4. Cholecystectomy. 5. Hip surgery. 6. Knee surgery. 7. Shoulder surgery. MEDICATIONS He is currently takin. Xarelto 15 mg a day. 2. Famotidine 10 mg a day. 3. Levothyroxine 75 mcg a day. 4. Neurontin 400 mg at nighttime. 5. Flomax 0.4 mg at nighttime. 6. Robaxin 500 mg q. 8-hours. 7. Cozaar 12.5 mg a day. 8. Allopurinol 300 mg a day. 9. Coreg 6.25 twice a day. 10. Lasix 40 mg twice a day. 11. Morphine for pain. 12. Albuterol/Atrovent nebulizer treatment. ALLERGIES IODINE AND SHELLFISH. SOCIAL HISTORY He has history of smoking which he quit 20 years ago. He is for the 4th time, now for 10 years. He has one child. 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 REVIEW OF SYSTEMS Normally he is up, around and active. Weight is stable. No malignancy. No DVT or pulmonary embolism. No seizure, stroke or epilepsy. No liver or gallbladder problem. It does have chronic kidney disease. PHYSICAL EXAMINATION GENERAL: Obese elderly male, mild shortness of breath. VITAL SIGNS: Blood pressure 106/49, heart rate 103, respirations 19, temperature 97.1. HEENT: Pupils are equal and reactive. He has bilateral cataract surgery done. Oral mucosa normal. NECK: Supple. JVP not raised. CHEST: He has few basilar rales. CVS: S1, S2 normal. ABDOMEN: Benign. EXTREMITIES: 1+ pedal edema. He has recent right ankle surgery. IMPRESSION 1. Shortness of breath, mild hypoxia secondary to pulmonary contusion. 2. Multiple rib fractures. 3. Pneumothorax status post chest tube removal, pneumothorax has resolved. 4. COPD. 5. Aortic valve replacement. 6. Pacemaker placement. 7. Diabetes mellitus. 8. Hypertension. PLAN I have discussed with the patient and his , we will supplement his oxygen to keep saturation greater than 90%. Give him aerosol treatment, also give him short course of steroids. Monitor his hemoptysis. Further treatment will depend on the course in the hospital. Thank you Dr. Painetr for this consultation. MD TAMMI Foote/BUBBA /12:59 PM /2:12 PM NORA
[2017-01-22] MEDS: GABAPENTIN 400 MG CAP PO SCH (20:53)
[2017-01-22] MEDS: TAMSULOSIN HCL 0.4 MG CAP PO SCH (20:53)
[2017-01-23] VITALS (7 sets, daily range): BP systolic 112–143; BP diastolic 65–80; PULSE 100–113; RESP 17–24; TEMP 95.7–99.3; O2SAT 95–98
[2017-01-23 00:16] LABS: HEMATOCRIT 28.7 % (39.0-51.0); REVIEW FLAG FINAL
[2017-01-23] MEDS: oxyCODONE/ACETAMINOPHEN 5 MG/325 MG TAB PO PRN ×2 (01:31→01:34)
[2017-01-23] MEDS: LEVOTHYROXINE SODIUM 75 MCG TAB PO SCH (05:07)
[2017-01-23] MEDS: METHOCARBAMOL 500 MG TAB PO SCH ×3 (05:08→20:00)
[2017-01-23] MEDS: methylPREDNISolone SOD SUCC 40 MG/1 ML VIAL IV PUSH SCH ×3 (05:08→23:25)
[2017-01-23] MEDS: INSULIN NovoLIN REGULAR SUPPLEMENTAL SCALE SQ SCH ×4 (05:33→22:47)
[2017-01-23 05:55] LABS: AUTOMATED NEUTROPHIL # 10.5 TH/MM3 (1.8-7.7); BASOPHIL % 0.1 % (0.0-2.0); HEMATOCRIT 29.2 % (39.0-51.0); HEMO FLAGS DIFF FINAL; LYMPH % 5.4 % (9.0-44.0); LYMPHOCYTE # 0.6 TH/MM3 (1.0-4.8); MEAN CELL VOLUME 94.9 FL (80.0-100.0); MEAN CORPUSCULAR HEMOGLOBIN 32.3 PG (27.0-34.0); MONO % 1.7 % (0.0-8.0); NEUT % 92.8 % (16.0-70.0); PLATELET COUNT 153 TH/MM3 (150-450); RED BLOOD COUNT 3.08 MIL/MM3 (4.50-5.90); RED CELL DISTRIBUTION WIDTH 15.7 % (11.6-17.2); WHITE BLOOD COUNT 11.4 TH/MM3 (4.0-11.0)
[2017-01-23 06:16] LABS: ALT (GPT) 21 U/L (12-78); ANION GAP 9 MEQ/L (5-15); AST (GOT) 32 U/L (15-37); BICARBONATE 28.8 MEQ/L (21.0-32.0); BLOOD UREA NITROGEN 50 MG/DL (7-18); CHLORIDE 97 MEQ/L (98-107); GLOMERULAR FILTRATION RATE 39 ML/MIN (>89); SODIUM (NA) 135 MEQ/L (136-145)
[2017-01-23 06:18] LABS: ALKALINE PHOSPHATASE 72 U/L (45-117); TOTAL BILIRUBIN ADULT 0.9 MG/DL (0.2-1.0)
--- NOTE | 2017-01-23 06:39 | RADRPT ---
EXAM DATE/TIME: 01/23/2017 05:35 [facility] COMPARISON: CHEST SINGLE AP, January 22, 2017, 4:45. INDICATIONS : Short of breath, pain left chest MEDICAL HISTORY : Cardiovascular disease. trauma, pneumothorax SURGICAL HISTORY : Pacemaker. CABG. chest tube, left shoulder ENCOUNTER: Subsequent ACUITY: 4 - 6 days PAIN SCORE: 8/10 LOCATION: Bilateral chest FINDINGS: Pacemaker device is noted with control pack over the right chest. Lungs are symmetrically aerated and grossly clear. Cardiac contours are satisfactory. Sternotomy wires are present. Left total shoulder arthroplasty is noted. CONCLUSION: Satisfactory chest appearance. Ben Avina MD on January 23, 2017 at 6:36 Board Certified Radiologist. This report was verified electronically.
[2017-01-23] MEDS: DOCUSATE SODIUM 50 MG/SENNA 8.6 MG TAB PO SCH ×2 (09:24→21:00)
[2017-01-23] MEDS: LIDOCAINE HCL 5% PATCH T-DERMAL SCH (09:24)
[2017-01-23] MEDS: CARVEDILOL 6.25 MG TAB PO SCH ×2 (09:25→21:00)
[2017-01-23] MEDS: LOSARTAN 25 MG TAB PO SCH (09:25)
[2017-01-23] MEDS: FAMOTIDINE 20 MG TAB PO SCH ×2 (09:25→21:00)
[2017-01-23] MEDS: SODIUM CHLORIDE 0.9% FLUSH 10 ML FLUSH IV FLUSH SCH ×2 (09:25→22:31)
[2017-01-23] MEDS: POLYETHYLENE GLYCOL 17 GM PKG PO SCH (09:25)
[2017-01-23] MEDS: RIVAROXABAN 15 MG TAB PO SCH (09:25)
[2017-01-23] MEDS: FUROSEMIDE 40 MG TAB PO SCH ×2 (09:25→18:06)
[2017-01-23] MEDS: ALLOPURINOL 300 MG TAB PO SCH (09:25)
--- NOTE | 2017-01-23 10:10 | HHI.PR ---
Subjective Subjective Notes PTD: 5 Patient lying in bed. at bedside. states that patient was awake all night. Patient remains very confused. Objective Vitals/I&O Vital Signs Date Time Temp Pulse Resp B/P Pulse Ox O2 Delivery O2 Flow Rate FiO2 01/23/17 08:00 97.0 105 20 124/80 98 01/22/17 21:00 Nasal Cannula 4.00 Humidified 01/22/17 20:21 21 Labs Laboratory Tests Test 01/22/17 01/22/17 01/22/17 01/22/17 10:34 10:43 11:02 23:42 Crossmatch Leukocyte-Reduced Red Blood Cells Blood Bank Comment Blood Gas Puncture Site RT RADIAL Blood Gas Patient Temperature 98.6 Blood Gas HCO3 28 Blood Gas Base Excess 4.3 Blood Gas Oxygen Saturation 92 Arterial Blood pH 7.43 Arterial Blood Partial 44 Pressure CO2 Arterial Blood Partial 71 Pressure O2 Arterial Blood Oxygen Content 14.3 Arterial Blood 1.6 Carboxyhemoglobin Arterial Blood Methemoglobin 0.7 Blood Gas Hemoglobin 11.0 Oxygen Delivery Device Venti Mask Blood Gas Inspired Oxygen 50 Blood Type O POSITIVE Antibody Screen NEGATIVE Hemoglobin 9.8 Hematocrit 28.7 Test 01/23/17 05:30 White Blood Count 11.4 Red Blood Count 3.08 Hemoglobin 9.9 Hematocrit 29.2 Mean Corpuscular Volume 94.9 Mean Corpuscular Hemoglobin 32.3 Mean Corpuscular Hemoglobin 34.0 Concent Red Cell Distribution Width 15.7 Platelet Count 153 Mean Platelet Volume 8.0 Neutrophils (%) (Auto) 92.8 Lymphocytes (%) (Auto) 5.4 Monocytes (%) (Auto) 1.7 Eosinophils (%) (Auto) 0.0 Basophils (%) (Auto) 0.1 Neutrophils # (Auto) 10.5 Lymphocytes # (Auto) 0.6 Monocytes # (Auto) 0.2 Eosinophils # (Auto) 0.0 Basophils # (Auto) 0.0 CBC Comment DIFF FINAL Differential Comment Sodium Level 135 Potassium Level 4.0 Chloride Level 97 Carbon Dioxide Level 28.8 Anion Gap 9 Blood Urea Nitrogen 50 Creatinine 1.70 Estimat Glomerular Filtration 39 Rate Random Glucose 309 Calcium Level 10.3 Total Bilirubin 0.9 Aspartate Amino Transf 32 (AST/SGOT) Alanine Aminotransferase 21 (ALT/SGPT) Alkaline Phosphatase 72 Total Protein 6.2 Albumin 2.9 Radiology Last Impressions Chest X-Ray 01/19/17 0000 Signed Impressions: Service Date/Time: Thursday, January 19, 2017 04:00 - CONCLUSION: Mild increase consolidation left lower lobe Nabil Shah MD Pelvis X-Ray 01/18/171816 Signed Impressions: Service Date/Time: December 18:11 - CONCLUSION: Intact pelvis. Ben Gtz MD Maxillofacial CT 01/18/171816 Signed Impressions: Service Date/Time: December 18:51 - CONCLUSION: Intact facial bones. Ben Gtz MD Head CT 01/18/171816 Signed Impressions: Service Date/Time: December 18:51 - CONCLUSION: No bleed or other acute intracranial abnormality. Ben Gtz MD Chest CT 01/18/171816 Signed Impressions: Service Date/Time: December 19:03 - CONCLUSION: Minimally displaced displaced left rib fractures as above. There is a mild left pulmonary contusion, small left anterior/apical pneumothorax and small dependently layering hemothorax. Ben Gtz MD Cervical Spine CT 01/18/171816 Signed Impressions: Service Date/Time: December 18:51 - CONCLUSION: 1. No fracture or subluxation demonstrated of the cervical spine. 2. Multilevel degenerative changes, very severe at C5/C6 and C6/C7 and C7/T1. Ben Gtz MD Abdomen/Pelvis CT 01/18/171816 Signed Impressions: Service Date/Time: December 19:03 - CONCLUSION: No visceral organ injury or other acute abnormality within the abdomen or pelvis. Ben Gtz MD Narrative Exam GENERAL: This is a 81-year-old male in bed. No distress noted. SKIN: Warm and dry. HEAD: Atraumatic. Normocephalic. EYES: PERRLA ENT: No nasal bleeding or discharge. Mucous membranes pink and moist. NECK: Trachea midline. No JVD. CARDIOVASCULAR: Regular rate and rhythm. RESPIRATORY: O2 nasal cannula. No accessory muscle use. Lungs are clear to auscultation. Breath sounds equal bilaterally. No distress or dyspnea. GASTROINTESTINAL: BS + x 4 quads. Abdomen soft, non-tender, nondistended. Solares catheter in place to bedside drainage bag MUSCULOSKELETAL: Bilateral Extremities with scattered ecchymosis. + peripheral pulses x 4 extremities. Warm with good capillary refill and sensation. MAEW. NEUROLOGICAL: Awake, but very confused. Normal speech and pattern. A/P Problem List: (1) Pneumothorax (2) Rib fractures (3) Fall Assessment and Plan [place]: This is a 81-year-old male who sustained a fall. He fell onto his left side. He takes Xaralto at home. PMHx: Advanced arthritis, COPD with O2 dependence, hypothyroidism, PACEMAKER, CAD, stents, Afib, Ablation, AVR, HLD, HTN, GERD, CRF, DM, gout. INJURIES: LEFT rib fxs (5-9) LEFT PTX with small hemothorax w/ CT placement LEFT pulmonary contusion Bibasilar lung consolidation Procedures: 01/18 left chest tube placed 01/22: CT removed at bedside. Consults: CCM. Cardiology. Pulmonology. Hospitalist. Request hospitalist consult to assist in medical management. Diet: Regular heart healthy diet. Tolerating po diet. Encourage good po intake with each meal. Pulmonary: Encourage good pulmonary toileting. IS at bedside and pt encouraged to use. Rationale for use explained to patient, and verbalized understanding. Chest x-ray this morning - stable. H & H = 9.9 / 29.2. (Post PRBC 1 yesterday) PAIN Management: Percocet 5 mg q 4 h PRN. Morphine 4 mg q2h for breakthrough pain. Robaxin 500q8h. Neurontin 400 hs. Lidocaine patch. Activity: OOB. PT and OT ordered. GI prophylaxis: Pepcid po. Bowel regimen: Bhargavi-colace and MOM PRN. MiraLAX daily. Lactulose. Senna PRN. LBM: 01/22. DVT prophylaxis: Mechanical VTE with SCDs. Chemical management resumed with Xarelto 15 mg daily (clarified pts home dose with ) DC Planning: Case management consulted for assistance with final discharge disposition. PT and OT both recommend rehabilitation placement. Patient remains very confused, and is worried she feels she cannot take care of him at home in this manner. Requested case management to talk to his and consider long-term placement for him. Emotional support provided to patient at bedside and plan of care discussed. Discussed with RN at bedside. Patient is hemodynamically stable and being managed on the med/surg floor. - LEFT rib fxs (5-9) - LEFT PTX with small hemothorax w/ CT placement - LEFT pulmonary contusion - Bibasilar lung consolidation Left chest tube placed - to Pleur-evac drainage system Chest x-ray post chest tube removal shows no PTX Discuss and encouraged the importance of Good pulmonary toileting CDB Returned to O2 nasal cannula. Respiratory rate even and unlabored. Consulted pulmonology - patient sees Dr. Ebony Merritt. Good Pain control - Percocet, morphine, Robaxin, Neurontin, and lidocaine patch PT ordered Encourage out of bed Afebrile VSS - Post trauma blood loss anemia H&H equals 9.9 / 29.9 - post PRBC 1 yesterday Problem Qualifiers (1) Pneumothorax: Qualified Code: J93.9 - Pneumothorax, unspecified type (2) Rib fractures: Qualified Code: S22.42XA - Closed fracture of multiple ribs of left side, initial encounter (3) Fall: Qualified Code: W19.XXXA - Fall, initial encounter Ashleigh Stevens January 23, 2017 10:10
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
--- NOTE | 2017-01-23 14:10 | PD.CONS ---
HPI Service [facility] Hospitalists Consult Requested By Dr. Ware Reason for Consult Medical management Primary Care Physician Cm Everett Diagnoses: History of Present Illness This is an 81-year-old elderly male with significant past medical history of TIA , a flutter post-ablation, COPD oxygen dependent , CAD and stent, hypertension, hyperlipidemia, type 2 diabetes, aortic valve replacement. Patient presented to the emergency room on 01/18/2017 after he had a fall sustaining multiple lateral rib fractures, left thorax and lung contusion. There were also areas of bibasilar areas of consolidation. Patient was noted dehydrated. Patient was admitted to trauma services, had a left chest tube place which has now been removed.. His hemoglobin did drop to 7.7 and he received 1 unit of packed cells , hemoglobin came up to 9.9. Patient has been evaluated by cardiology Dr. angel for complaint of chest pain which is been treated medically and the cause was likely musculoskeletal. He has been restarted on Xarelto. Pulmonology also following, he has been put on IV Solu-Medrol and continued on oxygen. Hospital services are requested for medical management and increased confusion. Unable to obtain any information from the patient as he is confused. Attempt to call bed the phone number provided was incorrect. Discussed with the nursing staff, apparently patient has been extremely confused and having visual hallucinations since yesterday. Laboratory workup completed today is essentially unremarkable other than renal function that appears to be improving. Chest x-ray completed yesterday is negative. Patient did have an initial CT of the head on admission which was normal. Review of Systems ROS Limitations: Altered Mental Status Past Family Social History Past Medical History Hypertension Diabetes COPD CAD and stent Hyperlipidemia Aortic valve replacementbovine valve Kidney stones Rheumatoid arthritissees Dr. Soto Gout Skin cancermelanoma of back Neuropathy aflutter and ablation PPM TIA 2015 Past Surgical History Open cholecystectomy Open appendectomy CABG TURP Pacemaker placement Aortic valve replacement Partial left shoulder replacement Bilateral total hip replacements Bilateral total knee replacements Right wrist fusion Reported Medications Reported Meds & Active Scripts Active Lortab (Hydrocodone-Acetaminophen) 5-325 Mg Tab 1-2 Tab PO Q6H PRN Lortab (Hydrocodone-Acetaminophen) 5-325 Mg Tab 1 Tab PO Q6H PRN Reported Spironolactone 25 Mg Tab 25 Mg PO DAILY Aspir-81 (Aspirin) 81 Mg Tabdr Irbesartan 75 Mg Tab 75 Mg PO DAILY Gabapentin 100 Mg Cap 100 Mg PO HS Synthroid (Levothyroxine Sodium) 75 Mcg Tab 75 Mcg PO DAILY Lantus Inj (Insulin Glargine) 100 Unit/Ml Inj 22 Units SQ HS Humalog Inj (Insulin Human Lispro) 1,000 Unit/10 Ml Vial 0 SQ ACHS Max dose at bedtime:( )units; sugars< 70,(0)units; sugars 150-199,(1)unit; sugars 200-249,(3)units; sugars 250-299,(5)units; sugars 300-349,(7)units; sugars more than 349,(9)units. Centrum Silver (Multiple Vitamins W/ Minerals) 1 Tab 1 Tab PO DAILY Anastrozole 1 Mg Tab 1 Mg PO DAILY Lasix (Furosemide) 40 Mg Tab 40 Mg PO BID Omeprazole 20 Mg Tab 20 Mg PO BID Niacin (Niacinamide) 500 Mg Tab 250 Mg PO BID Flomax (Tamsulosin HCl) 0.4 Mg Cap 0.4 Mg PO DAILY Tramadol (Tramadol HCl) 50 Mg Tab 100 Mg PO TID PRN Allopurinol 300 Mg Tab 300 Mg PO DAILY Magnesium Oxide 400 Mg Tab 400 Mg PO DAILY Carvedilol 6.25 Mg Tab 6.25 Mg PO BID Xarelto (Rivaroxaban) 15 Mg Tab 15 Mg PO DAILY Humalog Kwikpen Pen Inj (Insulin Lispro (Human) Inj) 300 Unit/3 Ml Pen 1 Units SQ DAILY PRN Lantus Inj (Insulin Glargine) 100 Unit/Ml Inj 50 SQ HS PRN Cephalexin 500 Mg Cap 500 Mg PO Q8H Aspirin 81 (Aspirin) 81 Mg Tabdr 81 Mg PO DAILY Fiber 1 Pow Pow Metanx (c-Oafrvqrhonbn-Nkseo) 1 Cap Gabapentin 400 Mg Cap 400 Cap PO HS Spironolactone (Spironolactone, Micronized) 1 Gm Powder Synthroid (Levothyroxine Sodium) 75 Mcg Tab 75 Mcg PO DAILY Irbesartan 75 Mg Tab 37.5 Mg PO DAILY Furosemide 40 Mg Tab 40 Mg PO BID Omeprazole 20 Mg Tab 20 Mg PO DAILY Niacin (Niacinamide) 500 Mg Tablet 250 Mg DAILY Tamsulosin (Tamsulosin HCl) 0.4 Mg Cap 0.4 Mg PO HS Allopurinol 300 Mg Tab 300 Mg PO DAILY Magnesium Oxide 400 Mg Tab 400 Mg PO DAILY Carvedilol 6.25 Mg Tab 6.25 Mg PO BID Xarelto (Rivaroxaban) 10 Mg Tab 5 Mg PO DAILY Allergies: Coded Allergies: Contrast Media (Verified Allergy, Severe, SWELLING AND SHORTNESS OF BREATH , 12/01/16) Iodine (Verified Allergy, Severe, SWELLING, 12/01/16) Shellfish (Verified Allergy, Severe, 12/01/16) Active Ordered Medications Inpatient Medications Acetaminophen (Ofirmev Inj) 1,000 mg Q6H IV Last administered on 01/20/17 06: 11; Start 01/19/17 at 09:00; Stop 01/20/17 at 08:59; Status DC Albuterol/ Ipratropium (Duoneb Neb) 1 ampule Q6HR NEB INH Last administered on 01/22/17 20:21; Start 01/18/17 at 22:00; Stop 01/22/17 at 22:00; Status DC Allopurinol (Zyloprim) 300 mg DAILY PO Last administered on 01/23/17 09:25; Start 01/19/17 at 14:45 Bisacodyl (Dulcolax Ec) 10 mg ONCE ONCE PO Last administered on 01/21/17 10: 47; Start 01/21/17 at 09:00; Stop 01/21/17 at 09:01; Status DC Bisacodyl (Dulcolax Supp) 10 mg ONCE ONCE RECTAL Last administered on 10:42; Start 01/21/17 at 09:00; Stop 01/21/17 at 09:01; Status DC Carvedilol (Coreg) 6.25 mg BID PO Last administered on 01/23/17 09:25; Start 01/19/17 at 14:45 Chlorhexidine Gluconate (Chlorhexidine 2% Cloth) 3 pack UNSCH PRN TOP HYGIENIC CARE; Start 01/18/17 at 19:45; Stop 01/20/17 at 12:36; Status DC Dexamethasone Sodium Phosphate 10 mg 10 mg ONCE ONCE IV PUSH ; Start 01/18/17 at 19:00; Stop 01/18/17 at 19:01; Status DC Dextrose (D50w (Vial) Inj) 50 ml UNSCH PRN IV HYPOGLYCEMIA-SEE COMMENTS; Start 01/19/17 at 07:45 Famotidine (Pepcid Inj) 20 mg Q12HR IV PUSH Last administered on 01/18/17 23: 04; Start 01/18/17 at 21:00; Stop 01/19/17 at 07:38; Status DC Famotidine (Pepcid) 10 mg BID PO Last administered on 01/23/17 09:25; Start at 21:00 Fentanyl Citrate (fentaNYL INJ) 50 mcg Q1H PRN IV PUSH PAIN SCALE 1 TO 10 Last administered on 01/19/17 06:38; Start 01/18/17 at 20:00; Stop 01/19/17 at 14:12 ; Status DC Furosemide (Lasix) 40 mg BID@09,18 PO Last administered on 01/23/17 09:25; Start 01/19/17 at 14:45 Gabapentin (Neurontin) 400 mg HS PO Last administered on 01/22/17 20:53; Start 01/19/17 at 21:00 Glucagon (Glucagon Inj) 1 mg UNSCH PRN OTHER HYPOGLYCEMIA-SEE COMMENTS; Start 01/19/17 at 07:45 Haloperidol Lactate (Haldol Inj) 2 mg Q6H PRN IM AGITATION ; Start 01/23/17 at 14:15; Status UNV Insulin Human Regular (NovoLIN R SUPPLEMENTAL SCALE) 1 ACHS SLIDING SCALE SQ Last administered on 01/23/17 13:21; Start 01/19/17 at 11:00 Lactulose (Lactulose Liq) 30 ml DAILY PRN PO SEVERE CONSITIPATION; Start at 19:45 Levothyroxine Sodium (Synthroid) 75 mcg DAILY@0600 PO Last administered on 01/23 05:07; Start 01/20/17 at 06:00 Lidocaine HCl (Lidoderm 5% Patch.12 Hr) 1 patch DAILY T-DERMAL Last administered on 01/23/17 09:24; Start 01/19/17 at 09:00 Losartan Potassium (Cozaar) 12.5 mg DAILY PO Last administered on 01/23/17 09: 25; Start 01/19/17 at 15:00 Magnesium Hydroxide (Milk Of Magnesia Liq) 30 ml Q12H PRN PO MILD - MODERATE CONSTIPATION; Start 01/18/17 at 19:45 Methocarbamol (Robaxin) 500 mg Q8H PO Last administered on 01/23/17 13:14; Start 01/19/17 at 20:00 Methylprednisolone Sodium Succinate (SoluMEDROL INJ) 40 mg Q8HR IV PUSH Last administered on 01/23/17 13:12; Start 01/22/17 at 14:00 Miscellaneous (Pill Splitter) 1 ea UNSCH PRN OTHER SEE LABEL COMMENTS; Start at 15:00 Miscellaneous Information 1 Q361D XX Last administered on 01/18/17 23:04; Start 01/18/17 at 19:45; Stop 01/20/17 at 12:36; Status DC Morphine Sulfate (Morphine Inj) 4 mg Q2H PRN IV PUSH breaktrough Last administered on 01/19/17 22:56; Start 01/19/17 at 14:15 Ondansetron HCl (Zofran Inj) 4 mg Q6H PRN IV NAUSEA OR VOMITING; Start at 19:45 Oxycodone/ Acetaminophen (Percocet 5-325 Mg) 1 tab Q4H PRN PO pain 1-10 Last administered on 01/23/17 01:31; Start 01/19/17 at 14:15 Polyethylene Glycol (Miralax) 17 gm DAILY PO Last administered on 01/23/17 09: 25; Start 01/19/17 at 09:00 Rivaroxaban (Xarelto) 15 mg DAILY PO Last administered on 01/23/17 09:25; Start 01/22/17 at 09:00 Rivaroxaban 10 mg 10 mg ONCE ONCE PO Last administered on 01/21/17 17:12; Start 01/21/17 at 17:00; Stop 01/21/17 at 17:09; Status DC Senna/Docusate Sodium (Bhargavi-Colace) 1 tab BID PO Last administered on 09:24; Start 01/18/17 at 21:00 Sennosides (Senokot) 17.2 mg Q12H PRN PO MODERATE - SEVERE CONSTIPATION; Start 01/18/17 at 19:45 Sodium Chloride (NS 1000 ml Inj) 1,000 ml @ 84 mls/hr [id number] IV Last administered on 01/20/17 07:36; Start 01/18/17 at 20:00; Stop 01/20/17 at 12:36 ; Status DC Sodium Chloride (NS 250 ml Inj) 250 ml @ 15 mls/hr ONCE ONCE IV Last administered on 01/22/17 10:45; Start 01/22/17 at 10:45; Stop 01/23/17 at 03:24 ; Status DC Sodium Chloride (NS Flush) 2 ml BID IV FLUSH Last administered on 01/23/17 09: 25; Start 01/18/17 at 21:00 Tamsulosin HCl (Flomax) 0.4 mg HS PO Last administered on 01/22/17 20:53; Start 01/19/17 at 21:00 Family History unable to obtain Social History per EMR-no alcohol abuse/drug abuse. was a smoker, 1 pack a week. No longer smoking Physical Exam Vital Signs Vital Signs Date Time Temp Pulse Resp B/P Pulse Ox O2 Delivery O2 Flow Rate FiO2 01/23/17 08:00 97.0 105 20 124/80 98 01/23/17 04:00 96.6 113 17 112/67 97 01/23/17 00:00 95.7 100 17 143/80 97 01/22/17 21:00 97 Nasal Cannula 4.00 Humidified 01/22/17 20:21 92 21 01/22/17 20:00 106 01/22/17 20:00 97.0 107 17 153/65 97 01/22/17 16:00 98.3 105 19 142/67 98 01/22/17 14:10 97.1 105 17 129/58 98 Physical Exam GENERAL: This is a well-nourished, well-developed patient, in no apparent distress. SKIN: Bruising arms and legs. Dressing to right foot. HEAD: Atraumatic. Normocephalic. No temporal or scalp tenderness. EYES: Pupils equal round and reactive. Extraocular motions intact. No scleral icterus. No injection or drainage. ENT: Nose without bleeding, purulent drainage or septal hematoma. Throat without erythema, tonsillar hypertrophy or exudate. Uvula midline. Airway patent. NECK: Trachea midline. No JVD or lymphadenopathy. Supple, nontender, no meningeal signs. CARDIOVASCULAR: Regular rate and rhythm without murmurs, gallops, or rubs. RESPIRATORY: Diminished at bases. Left chest wall with dressing intact. GASTROINTESTINAL: Abdomen soft, non-tender, nondistended. No hepato-splenomegaly , or palpable masses. No guarding. MUSCULOSKELETAL: Extremities without clubbing, cyanosis, or edema. Pedal pulses 1+ bilat. No joint tenderness, effusion, or edema noted. No calf tenderness. Negative Homans sign bilaterally. NEUROLOGICAL: Awake, disoriented, doesn't know where he is. Follows simple commands. Speech clear. Attempting to get out of bed. Laboratory Laboratory Tests Test 01/22/17 01/23/17 23:42 05:30 Hemoglobin 9.8 9.9 Hematocrit 28.7 29.2 White Blood Count 11.4 Red Blood Count 3.08 Mean Corpuscular Volume 94.9 Mean Corpuscular Hemoglobin 32.3 Mean Corpuscular Hemoglobin 34.0 Concent Red Cell Distribution Width 15.7 Platelet Count 153 Mean Platelet Volume 8.0 Neutrophils (%) (Auto) 92.8 Lymphocytes (%) (Auto) 5.4 Monocytes (%) (Auto) 1.7 Eosinophils (%) (Auto) 0.0 Basophils (%) (Auto) 0.1 Neutrophils # (Auto) 10.5 Lymphocytes # (Auto) 0.6 Monocytes # (Auto) 0.2 Eosinophils # (Auto) 0.0 Basophils # (Auto) 0.0 CBC Comment DIFF FINAL Differential Comment Sodium Level 135 Potassium Level 4.0 Chloride Level 97 Carbon Dioxide Level 28.8 Anion Gap 9 Blood Urea Nitrogen 50 Creatinine 1.70 Estimat Glomerular Filtration 39 Rate Random Glucose 309 Calcium Level 10.3 Total Bilirubin 0.9 Aspartate Amino Transf 32 (AST/SGOT) Alanine Aminotransferase 21 (ALT/SGPT) Alkaline Phosphatase 72 Total Protein 6.2 Albumin 2.9 Result Diagram: 01/23/1752901/23/17529 Imaging Last Impressions Chest X-Ray 01/23/17 0600 Signed Impressions: Service Date/Time: Monday, January 23, 2017 05:35 - CONCLUSION: Satisfactory chest appearance. Ben Avina MD Pelvis X-Ray 01/18/171816 Signed Impressions: Service Date/Time: December 18:11 - CONCLUSION: Intact pelvis. Ben Gtz MD Maxillofacial CT 01/18/171816 Signed Impressions: Service Date/Time: December 18:51 - CONCLUSION: Intact facial bones. Ben Gtz MD Head CT 01/18/171816 Signed Impressions: Service Date/Time: December 18:51 - CONCLUSION: No bleed or other acute intracranial abnormality. Ben Gtz MD Chest CT 01/18/171816 Signed Impressions: Service Date/Time: December 19:03 - CONCLUSION: Minimally displaced displaced left rib fractures as above. There is a mild left pulmonary contusion, small left anterior/apical pneumothorax and small dependently layering hemothorax. Ben Gtz MD Cervical Spine CT 01/18/171816 Signed Impressions: Service Date/Time: , January 18, 2017 18:51 - CONCLUSION: 1. No fracture or subluxation demonstrated of the cervical spine. 2. Multilevel degenerative changes, very severe at C5/C6 and C6/C7 and C7/T1. Ben Gtz MD Abdomen/Pelvis CT 01/18/171816 Signed Impressions: Service Date/Time: December 19:03 - CONCLUSION: No visceral organ injury or other acute abnormality within the abdomen or pelvis. Ben Gtz MD A/P Diagnosis: (1) Altered mental status (2) Fall (3) Rib fractures (4) CKD (chronic kidney disease) stage 3, GFR 30-59 ml/min (5) Acute renal failure (6) CAD (coronary artery disease) (7) DM (diabetes mellitus screen) (8) History of DVT (deep vein thrombosis) (9) Hx of CABG (10) History of CVA (cerebrovascular accident) (11) Pulmonary contusion Assessment and Plan Thank you for this consultation, we will assist with medical management 81-year-old elderly male status post fall causing multiple lateral rib fractures and left pneumothorax requiring chest tube that has now been resolved. Also noted with lung contusion. Unclear as to the mechanics of the fall Post fall with rib fractures and pneumothorax Continue to monitor -Trauma service is following patient -IS every 2 while awake -Increase activity, physical therapy for evaluation -Continue with pain management, use by mouth narcotics and sedative IV Altered mental status, etiology unclear, possibly metabolic encephalopathy, rule out CVA, possible delirium. -Neuro checks We will check TSH, cortisol level, ammonia, B12 UA/UC CT of the head -We'll use Haldol 2 mg IM every 6 when necessary for severe agitation -Frequent reorientation -Decreased gabapentin 200 mg by mouth daily at bedtime Acute renal injury, superimposed on chronic kidney disease Renal function improving Encourage by mouth intake Follow BMP COPD, stable Continue with supplemental oxygen Continue with IV Solu-Medrol Continue with DuoNeb's History of TIA Continue with Xarelto History of a flutter, currently sinus tach Continue with Xarelto Continue Coreg 6.25 mg by mouth twice a day Hypertension, stable Continue home medications Monitor blood pressure closely Type 2 diabetes Continue with Accu-Cheks before meals and at bedtime and insulin therapy Blood glucose poorly controlled-add Levemir 10 units subcutaneous daily at bedtime Home medications reviewed Continue with Xarelto for DVT prophylaxis Continue with PT OT Continue mobilizing patient and reorient frequently Patient will likely need SNF placement Plan of care has been discussed with the attending and RN. Further management of the patient will be dependent on the hospital course This patient was seen by myself and Dr. Valenzuela, this consultation is written on her behalf Problem Qualifiers (1) Altered mental status: Qualified Code: R41.0 - Delirium (2) Fall: Qualified Code: W19.XXXA - Fall, initial encounter (3) Rib fractures: Qualified Code: S22.42XA - Closed fracture of multiple ribs of left side, initial encounter (4) Acute renal failure: Qualified Code: N17.9 - Acute renal failure, unspecified acute renal failure type (5) CAD (coronary artery disease): Qualified Code: I25.10 - Coronary artery disease involving [place] coronary artery of [place] heart without angina pectoris (6) Pulmonary contusion: Qualified Code: S27.321A - Contusion of left lung, initial encounter Tanja Bryan January 23, 2017 14:10
[2017-01-23 14:37] LABS: BACTERIA, URINE RARE /hpf; BLOOD, URINE NEG (NEG); GLUCOSE,URINE 300 mg/dL (NEG); HYALINE CAST, URINE 16 /lpf (RARE); KETONE, URINE NEG (NEG); MUCUS URINE FEW /lpf (OCC); NITRITE,URINE NEG (NEG); URINE COLOR YELLOW (YELLW/STRAW)
[2017-01-23 14:38] LABS: COMMENT (UR) CATH-CULTURE IND; CULTURE IF INDICATED CATH CULTURE IND
--- NOTE | 2017-01-23 15:58 | RADRPT ---
EXAM DATE/TIME: 01/23/2017 15:33 [facility] COMPARISON: CT BRAIN W/O CONTRAST, January 18, 2017, 18:51. INDICATIONS : Altered mental status. RADIATION DOSE: 47.16 CTDIvol (mGy) MEDICAL HISTORY : Hypertension. Chronic obstructive pulmonary disease. CVA. SURGICAL HISTORY : Cholecystectomy. ENCOUNTER: Initial ACUITY: 1 day PAIN SCALE: 0/10 LOCATION: cranial TECHNIQUE: Multiple contiguous axial images were obtained of the head. Using automated exposure control and adj ustment of the mA and/or kV according to patient size, radiation dose was kept as low as reasonably a chievable to obtain optimal diagnostic quality images. FINDINGS: CEREBRUM: The ventricles are normal for age. Stable bilateral cortical atrophy. No evidence of midline shift, mass lesion, hemorrhage or acute infarction. No extra-axial fluid collections are seen. POSTERIOR FOSSA: The cerebellum and brainstem are intact. The 4th ventricle is midline. The cerebellopontine angle i s unremarkable. EXTRACRANIAL: The visualized portion of the orbits is intact. SKULL: The calvaria is intact. No evidence of skull fracture. CONCLUSION: Stable examination compared to the prior study. No focal or acute intracranial hemorrhage. Brendan Marrero MD on January 23, 2017 at 15:55 Board Certified Radiologist. This report was verified electronically.
[2017-01-23] MEDS: HALOPERIDOL LACTATE 5 MG/ML AMP IM PRN (16:25)
[2017-01-23] MEDS: ONDANSETRON HCL 4 MG/2 ML VIAL IV PRN (18:37)
--- NOTE | 2017-01-23 19:25 | HHI.PR ---
Subjective Remarks 81 YOWM with Rib fracture,PTX, pulm contusion Feels much better Weaned to RA Anxious to go home at BS Objective Vital Signs Vital Signs Date Time Temp Pulse Resp B/P Pulse Ox O2 Delivery O2 Flow Rate FiO2 01/23/17 16:00 96.8 106 20 128/72 98 01/23/17 12:00 96.9 100 20 136/71 95 01/23/17 08:00 97.0 105 20 124/80 98 01/23/17 04:00 96.6 113 17 112/67 97 01/23/17 00:00 95.7 100 17 143/80 97 01/22/17 21:00 97 Nasal Cannula 4.00 Humidified 01/22/17 20:21 92 21 01/22/17 20:00 106 01/22/17 20:00 97.0 107 17 153/65 97 I/O 01/22/17 01/22/17 01/22/17 01/23/17 01/23/17 01/23/17 07:00 15:00 23:00 07:00 15:00 23:00 Intake Total 240 ml 180 ml 607 ml 340 ml 800 ml Output Total 2000 ml 875 ml 1250 ml 900 ml 1200 ml Balance -1760 ml -695 ml -643 ml -560 ml -400 ml Intake Oral 240 ml 180 ml 240 ml 240 ml 800 ml IV Total 367 ml 100 ml Output Urine Total 2000 ml 875 ml 1250 ml 900 ml 1200 ml # Bowel Movements 0 0 Result Diagram: 01/23/1752901/23/17529 Objective Remarks GENERAL: Elderly male ,NAD SKIN: Warm and dry. HEAD: Normocephalic. EYES: No scleral icterus. No injection or drainage. NECK: Supple, trachea midline. No JVD or lymphadenopathy. CARDIOVASCULAR: Regular rate and rhythm without murmurs, gallops, or rubs. RESPIRATORY: Breath sounds equal bilaterally. No accessory muscle use. GASTROINTESTINAL: Abdomen soft, non-tender, nondistended. MUSCULOSKELETAL: No cyanosis, or edema. BACK: Nontender without obvious deformity. No CVA tenderness. A/P Assessment and Plan Ribs Fracture Pulm contusion PTX resolved Hypoxia improved COPD DM PLAN: Aerosol nebs IV Solumedrol pain controll DC plans for home. Romeo Payne MD January 23, 2017 19:25
[2017-01-23 19:47] LABS: BLOOD GAS CARBOXYHEMOGLOBIN 1.5 % (0-4); BLOOD GAS HCO3 25 mmol/L (22-26); BLOOD GAS METHEMOGLOBIN 0.7 % (0-2); BLOOD GAS O2 HGB SATURATION 85 % (90-100); BLOOD GAS OXYGEN CONTENT 14.2 Vol % (12.0-20.0); BLOOD GAS PCO2 35 mmHg (38-42); BLOOD GAS PO2 52 mmHg (61-120); BLOOD GAS TOTAL HGB 11.8 G/DL (12.0-16.0); TEMP CORR TO 98.6
[2017-01-23 19:48] LABS: CRITICAL VALUE YES; DRAW SITE RT RADIAL; LITER FLOW 7 L/M; NUMBER OF ARTERIAL PUNCTURES 2; OXYGEN DEVICE SIMPLE MASK; STAT YES; ULNAR PULSE PRESENT
--- NOTE | 2017-01-23 19:56 | HHI.FPPN ---
Addendum to progress note ADDENDUM Reason for addendum: Additonal documentation Additional information Subjective: Residents responded to a [facility] overhead page pm. Patient is an 81y/o male in the hospital for multiple lateral rib fractures, left pneumothorax, and lung contusion that developed respiratory distress after vomiting stool-like material. He has a past medical history of COPD with O2 dependence, CAD, pacemaker, A. fib. Recently had a chest tube removed on 01/22 for a pneumothorax. Chest X-ray this a.m. was stable. Patient denied chest pain on review of systems Objective: General: 81 year old male of stated age appears in moderate respiratory distress, on simple mask Cardiac: Regular rate and rhythm Respiratory: Some wheezing in bilateral airfields Abdomen: Obese abdomen but soft to palpation Neuro: Awake but confused Assessment/Plan: -Stat EKG and chest x-ray -Stat ABG -Albuterol nebulizer and DuoNebs -CT abdomen and pelvis per hospital team -Transferred to the surgical ICU -Patient's hospital team was consulted for further management Mckenzie Streeter MD R1 January 23, 2017 19:56
--- NOTE | 2017-01-23 20:03 | RADRPT ---
EXAM DATE/TIME: 01/23/2017 19:26 [facility] COMPARISON: CHEST SINGLE AP, January 23, 2017, 5:35. INDICATIONS : Short of breath. MEDICAL HISTORY : None. SURGICAL HISTORY : Pacemaker. ENCOUNTER: Initial ACUITY: 1 day PAIN SCORE: 0/10 LOCATION: Bilateral chest FINDINGS: A single portable frontal view the chest is blurred by motion artifact. The patient's chin and soft t issues obscure the apices bilaterally. Low lung volumes noted. Heart is enlarged. No discrete infiltr ate or effusion. Bronchovascular crowding due to the degree of inspiration. Right-sided pacing device . Median sternotomy wires. Left humeral head prosthesis. Cholecystectomy clips. CONCLUSION: Cardiomegaly. No acute infiltrate or effusion. Kishor Nj Jr., MD on January 23, 2017 at 20:00 Board Certified Radiologist. This report was verified electronically.
--- NOTE | 2017-01-23 20:23 | RADRPT ---
EXAM DATE/TIME: 01/23/2017 19:58 [facility] COMPARISON: CT ABDOMEN & PELVIS W/O CONTRAST, March 03, 2015, 16:38. INDICATIONS : Vomiting. ORAL CONTRAST: No oral contrast ingested. RADIATION DOSE: 16.73 CTDIvol (mGy) MEDICAL HISTORY : Diabetes mellitus type 2. Hypertension. Renal calculi.Arthritis. SURGICAL HISTORY : Appendectomy. CABGCholecystectomy.TURP. Aortic valve. Bilateral hip replacement. ENCOUNTER: Initial ACUITY: 1 day PAIN SCALE: 2/10 LOCATION: upper quadrant TECHNIQUE: Volumetric scanning of the abdomen and pelvis was performed. Using automated exposure control and ad justment of the mA and/or kV according to patient size, radiation dose was kept as low as reasonably achievable to obtain optimal diagnostic quality images. FINDINGS: LOWER LUNGS: A small left pleural effusion with bibasilar atelectasis. The atelectasis is more pronounced on the l eft. LIVER: Homogeneous density without lesion. There is no dilation of the biliary tree. Prior cholecystectomy. SPLEEN: Normal size without lesion. PANCREAS: Within normal limits. KIDNEYS: Normal in size and shape. There is no mass, stone, or hydronephrosis. ADRENAL GLANDS: Within normal limits. VASCULAR: There is no aortic aneurysm. BOWEL/MESENTERY: Dilated air filled and fluid filled small bowel. The small bowel slowly tapers within the distal aspe ct just proximal to the terminal ileum. No focal transition observed. No striking lesion or mass. The colon is decompressed. Scattered colonic diverticuli. No acute inflammatory change seen throughout t he abdomen. No free air or free fluid. ABDOMINAL WALL: Umbilical hernia containing omental fat. RETROPERITONEUM: There is no lymphadenopathy. BLADDER: No wall thickening or mass. REPRODUCTIVE: Within normal limits. INGUINAL: There is no lymphadenopathy or hernia. MUSCULOSKELETAL: Bilateral hip implants obscures some of the pelvis. The degenerative lumbar spine. CONCLUSION: 1. Dilated small bowel which slowly tapers just proximal to the terminal ileum. No obstructing mass o r lesion observed. No free air or free fluid. 2. Prior cholecystectomy. 3. Small left effusion with bibasilar atelectasis. 4. Umbilical hernia containing fat. Kishor Nj Jr., MD on January 23, 2017 at 20:17 Board Certified Radiologist. This report was verified electronically.
[2017-01-23] MEDS: RESP: ALBUTEROL 2.5 MG/IPRATROPIUM 0.5 MG NEB (SCH) INH (20:53)
[2017-01-23] MEDS: GABAPENTIN 100 MG CAP PO SCH (21:00)
[2017-01-23] MEDS: TAMSULOSIN HCL 0.4 MG CAP PO SCH (21:00)
[2017-01-23] MEDS ORDERED: GABAPENTIN 400 MG CAP PO SCH (21:00)
[2017-01-23] MEDS: SODIUM CHLOR 0.9% 1000 ML INJ 1,000 ML IV SCH (22:30)
[2017-01-23] MEDS: INSULIN DETEMIR 100 UNITS/ML VIAL SQ SCH (22:46)
[2017-01-23] MEDS: REMOVE OLD LIDOCAINE PATCH T-DERMAL SCH (23:26)
[2017-01-24] VITALS (15 sets, daily range): BP systolic 76–149; BP diastolic 53–76; PULSE 84–113; RESP 12–21; TEMP 96.4–99; O2SAT 93–100
[2017-01-24] MEDS: HALOPERIDOL LACTATE 5 MG/ML AMP IM PRN (00:10)
[2017-01-24] MEDS: RESP: ALBUTEROL 2.5 MG/IPRATROPIUM 0.5 MG NEB (SCH) INH ×7 (00:35→23:17)
[2017-01-24] MEDS: MORPHINE SULFATE 4 MG/ML INJ IV PUSH PRN ×2 (00:38→23:51)
[2017-01-24] MEDS ORDERED: SODIUM CHLOR 0.9% 1000 ML INJ 2,000 ML IV SCH (04:00)
[2017-01-24] MEDS: METHOCARBAMOL 500 MG TAB PO SCH ×3 (04:00→21:11)
[2017-01-24] MEDS: methylPREDNISolone SOD SUCC 40 MG/1 ML VIAL IV PUSH SCH ×3 (06:16→22:04)
[2017-01-24] MEDS: LEVOTHYROXINE SODIUM 75 MCG TAB PO SCH (06:16)
[2017-01-24] MEDS: INSULIN NovoLIN REGULAR SUPPLEMENTAL SCALE SQ SCH ×4 (06:18→21:48)
[2017-01-24] MEDS ORDERED: ALBUMIN HUMAN 5% 25 GM/500 ML BOTTLE IV SCH (06:30)
[2017-01-24] MEDS ORDERED: NOREPINEPHRINE-DEXTROSE DRIP 250 ML IV ONE (06:57)
[2017-01-24 07:04] LABS: BLOOD GAS BASE EXCESS 1.1 mmol/L (-2-2); BLOOD GAS CARBOXYHEMOGLOBIN 1.3 % (0-4); BLOOD GAS HCO3 26 mmol/L (22-26); BLOOD GAS METHEMOGLOBIN 0.8 % (0-2); BLOOD GAS O2 HGB SATURATION 97 % (90-100); BLOOD GAS OXYGEN CONTENT 13.3 Vol % (12.0-20.0); BLOOD GAS PCO2 47 mmHg (38-42); BLOOD GAS PO2 147 mmHg (61-120); BLOOD GAS TOTAL HGB 9.5 G/DL (12.0-16.0); CRITICAL VALUE NO; TEMP CORR TO 98.6
[2017-01-24 07:05] LABS: DRAW SITE LT RADIAL; LITER FLOW 6 L/M; NUMBER OF ARTERIAL PUNCTURES 1; OXYGEN DEVICE MASK; STAT NO; ULNAR PULSE PRESENT
[2017-01-24 07:14] LABS: AUTOMATED NEUTROPHIL # 14.8 TH/MM3 (1.8-7.7); BASOPHIL % 0.1 % (0.0-2.0); HEMATOCRIT 28.2 % (39.0-51.0); HEMO FLAGS DIFF FINAL; LYMPH % 5.7 % (9.0-44.0); MEAN CELL VOLUME 95.4 FL (80.0-100.0); MEAN CORPUSCULAR HGB CONC 32.5 % (32.0-36.0); MONO % 6.6 % (0.0-8.0); NEUT % 87.6 % (16.0-70.0); PLATELET COUNT 185 TH/MM3 (150-450); RED BLOOD COUNT 2.95 MIL/MM3 (4.50-5.90); RED CELL DISTRIBUTION WIDTH 16.1 % (11.6-17.2); WHITE BLOOD COUNT 16.9 TH/MM3 (4.0-11.0)
[2017-01-24 07:27] LABS: BICARBONATE 32.2 MEQ/L (21.0-32.0); POTASSIUM 4.2 MEQ/L (3.5-5.1)
[2017-01-24] MEDS ORDERED: NOREPINEPHRINE 4 MG/D5W 250 ML IV SCH (08:00)
[2017-01-24] MEDS ORDERED: SODIUM CHLOR 0.9% 1000 ML INJ 1,000 ML IV ONE ×2 (08:00→08:45)
--- NOTE | 2017-01-24 08:16 | HHI.PR ---
Subjective Remarks Resting in the bed O2 mask on Lethargic occasionally opens his eyes randomly in room Color pale Temperature high noted, 99.3 Tachycardic at rest (hSu Ayala) Objective Objective Results - Vital Signs Date Time Temp Pulse Resp B/P Pulse Ox O2 Delivery O2 Flow Rate FiO2 01/24/17 07:44 100 Simple Mask 6.00 01/24/17 06:00 110 01/24/17 04:00 97.5 107 16 101/61 98 01/24/17 04:00 107 01/24/17 02:00 110 01/24/17 00:43 25 01/24/17 00:37 97 Simple Mask 6.00 01/24/17 00:00 103 01/24/17 00:00 99.0 113 19 130/76 93 01/23/17 22:00 104 01/23/17 22:00 96 Simple Mask 6.00 01/23/17 20:15 99.3 102 24 114/65 98 01/23/17 20:15 102 01/23/17 19:00 98 Simple Mask 6.00 01/23/17 16:00 96.8 106 20 128/72 98 01/23/17 12:00 96.9 100 20 136/71 95 01/23/17 09:15 Nasal Cannula 4.00 I/O 01/23/17 01/23/17 01/23/17 01/24/17 01/24/17 01/24/17 07:00 15:00 23:00 07:00 15:00 23:00 Intake Total 340 ml 800 ml 172 ml 1560 ml Output Total 900 ml 1200 ml 500 ml 600 ml Balance -560 ml -400 ml -328 ml 960 ml Intake Oral 240 ml 800 ml 0 ml 0 ml IV Total 100 ml 172 ml 1560 ml Output Urine Total 900 ml 1200 ml 200 ml 100 ml Gastric Drainage Total 300 ml 500 ml # Bowel Movements 0 0 0 (Shu Ayala) Result Diagram: 01/24/17 0600 01/24/17 0600 ROS General: Fatigue, Weakness, Other (10 point ROS done positives noted other systems negative or unremarkable) Pulmonary: SOB (low volumes), Other (using O2 per mask) GI: Other (NG draining brown liquid) /CEMENT [employer]ER: Other (to the catheter still in) Neuro/MS: Other (lethargy) Skin: Other (pale with thin turgor) (Shu Ayala) Physical Exam Physical Exam PHYSICAL EXAMINATION GENERAL: This is a elderly male resting in the bed, head of bed elevated 30 He is lethargic HEAD: Normocephalic Facial features appear symmetric. OROPHARYNGEAL: Oropharynx without erythema or edema. Dry mucous membranes NECK: Supple Trachea midline without deviation. CARDIAC: Regular rhythm, regular rate, S1 and S2 are heard. Distant LUNGS: Diminished to auscultation bilaterally. With low volumes. No acute wheeze or rhonchi noted ABDOMEN: Soft, taut,nontender, Bowel sounds are heard No rebound. No guarding. NG tube draining brown liquid, Solares catheter in EXTREMITIES: Trace edema. Pulses intact NEUROLOGICAL: Lethargic and randomly opens eyes to voice. SKIN:Warm , pale, dry (Shu Ayala) A/P Assessment and Plan (1) Altered mental status (2) Fall (3) Rib fractures (4) CKD (chronic kidney disease) stage 3, GFR 30-59 ml/min (5) Acute renal failure (6) CAD (coronary artery disease) (7) DM (diabetes mellitus screen) (8) History of DVT (deep vein thrombosis) (9) Hx of CABG (10) History of CVA (cerebrovascular accident) (11) Pulmonary contusion Labs reviewed, mild leukocytosis probably secondary to steroids, blood sugar 174 also may be elevated due to steroids Acute kidney injury with chronic kidney disease continues with BUNs 64 and creatinine 2.6 Post fall with rib fractures and pneumothorax -IS every 2 while awake -Increase activity, physical therapy for evaluation, patient is still very debilitated and weak Questionable swallow and possible aspiration, we'll have speech eval and make recommendations Altered mental status continues with lethargy. We'll randomly open eyes to voice and family -Neuro checks Solares catheter, UA positive, culture to follow -We'll use Haldol 2 mg IM every 6 when necessary for severe agitation -Frequent reorientation -Decreased gabapentin 200 mg by mouth daily at bedtime Acute renal injury, superimposed on chronic kidney disease Renal function improving, continue with IV fluids COPD, stable Continue with supplemental oxygen IV Solu-Medrol, Frank's appreciate pulm consult and input History of a flutter, currently sinus tach, heart rate continues to be 110 at rest, paced rhythm Continue with Xarelto Continue Coreg 6.25 mg by mouth twice a day Hypertension, stable IV drip to stablize, Norepi. Monitor blood pressure closely, continues this a.m. to have low normal BP 101/ 61 Type 2 diabetes Continue with Accu-Cheks before meals and at bedtime and insulin therapy Continue with Xarelto for DVT prophylaxis Continue with PT OT Patient will likely need SNF placement if he does not improve Discussed discharge planning and goals of care for patient. Patient is discussing possible CODE STATUS changes. is tearful this morning, after speaking with patient's physician this morning. Condition is serious and guarded. Palliative care consult for their expert opinion to assist patient with information so she can make good decisions. is waiting on daughter to call in assist with this information. Plan of care has been discussed with RN. seen by myself and Dr. Valenzuela, (Shu Ayala) Assessment and Plan patient seen and examined still confused sitting in chair NG tube to low intermittent suction NPO on levo, low BP hold coreg and Losartan change I/v fluids to D5NS start clindamycin consult ID for Antibiotic management discussed with ...still thinking about code status palliative care following (Mary Valenzuela MD) Shu Ayala January 24, 2017 08:16 Mary Valenzuela MD January 24, 2017 15:20
[2017-01-24] MEDS: SODIUM CHLORIDE 0.9% FLUSH 10 ML FLUSH IV FLUSH SCH ×2 (08:29→22:03)
--- NOTE | 2017-01-24 08:29 | RADRPT ---
EXAM DATE/TIME: 01/24/2017 07:03 [facility] COMPARISON: CHEST SINGLE AP, January 23, 2017, 19:26. INDICATIONS : Short of breath. MEDICAL HISTORY : Diabetes mellitus type 2. Hypertension. Renal calculi. Arthritis. SURGICAL HISTORY : Appendectomy. CABG. Cholecystectomy. TURP. Aortic valve. Bilateral hip replacement. ENCOUNTER: Subsequent ACUITY: 4 - 6 days PAIN SCORE: Non-responsive. LOCATION: Bilateral chest FINDINGS: Nasogastric tube, pacer in good position. Left shoulder arthroplasty is present. Mild interstitial edema is present. This has improved from 01/23/17. Heart remains enlarged. CONCLUSION: 1. Improvement with less interstitial edema. 2. There is no pneumothorax. Sony Ibarra MD FACR on January 24, 2017 at 7:48 Board Certified Radiologist. This report was verified electronically.
[2017-01-24] MEDS: SODIUM CHLOR 0.9% 1000 ML INJ 1,000 ML IV SCH (08:50)
[2017-01-24] MEDS: LOSARTAN 25 MG TAB PO SCH (09:00)
[2017-01-24] MEDS: DOCUSATE SODIUM 50 MG/SENNA 8.6 MG TAB PO SCH ×2 (09:13→21:11)
[2017-01-24] MEDS: CARVEDILOL 6.25 MG TAB PO SCH (09:13)
[2017-01-24] MEDS: ALLOPURINOL 300 MG TAB PO SCH (09:13)
[2017-01-24] MEDS: POLYETHYLENE GLYCOL 17 GM PKG PO SCH (09:13)
[2017-01-24] MEDS: FAMOTIDINE 20 MG TAB PO SCH ×2 (09:14→21:10)
[2017-01-24] MEDS: RIVAROXABAN 15 MG TAB PO SCH (09:14)
[2017-01-24] MEDS: QUEtiapine FUMARATE 25 MG TAB PO SCH ×2 (09:15→21:11)
[2017-01-24] MEDS: FUROSEMIDE 20 MG/2 ML VIAL IV PUSH SCH (09:15)
[2017-01-24] MEDS: LIDOCAINE HCL 5% PATCH T-DERMAL SCH (09:17)
--- NOTE | 2017-01-24 09:18 | EKG ---
Date Performed: 01/23/2017 Time Performed: 19:43:28 PTAGE: 81 years EKG: SINUS TACHYCARDIA RIGHT BUNDLE BRANCH BLOCK LEFT ANTERIOR FASCICULAR BLOCK ABNORMAL ECG PREVIOUS TRACING : 06/19/2016 10.44 DOCTOR: Nabil Johns Interpretating Date/Time 01/24/2017 09:15:28
[2017-01-24] MEDS: CEFEPIME INJ 1,000 MG in SODIUM CHLORIDE 0.9% INJ 100 ML IV SCH (11:20)
--- NOTE | 2017-01-24 11:24 | PD.CONS ---
Consult Service Palliative Care Consult Requested By Dr Valenzuela Primary Care Physician Reason for Consultation a. To assist with evaluation and management of symptoms including: Dyspnea, anxiety b. To assist medical decision maker(s) with: better understanding of current medical conditions; weighing benefits/burdens of medical treatment options; making medical treatment decisions. HPI History of Present Illness this 81-year-old male presented to the ED on 01/18/17 status post fall, via EMS. Was called as trauma due to age, respirations. Reporting pain to the left chest, severe and sharp. Denied other complaints. * In the ED patient noted to be stable on nasal cannula. Still reporting left- sided chest pain. Imaging: CXR notes probable left rib fractures with mild contusion and consolidation left. Chest CT notable for minimally displaced less rib fractures, left pulmonary contusion small left anterior apical pneumothorax, small dependently layering hemothorax. And CT negative for fracture, multilevel degenerative changes severe at C5, C6, C7. CT abdomen pelvis benign. *Chest tube was placed to the left. Patient was admitted to the ICU for further evaluation and management. * Patient felt to possibly have chronic aspiration secondary to recent in basilar infiltrates. ++ Aggressive pulmonary toileting. + chronic renal failure. Due to advanced age and significant injury patient high risk for oral tracheal intubation and mechanical vent. * Cardiology was consulted: Notes patient with mild to moderate carotid stenosis. Patient with no angina or heart failure symptoms. Will follow as needed from a cardiovascular standpoint. Recommend resuming Xarelto when chest tube is removed and risk of bleeding is minimal. * 01/22 difficulty maintaining O2 sats, 74% on nasal cannula, change to 50% Venturi mask. He is awake, has no complaints denies shortness of breath. Pulmonology is consulted. Steroids have been added per pulmonology. H&H trending down 7.7/23.8, transfused 1 unit RBC. PT and OT following; patient recommended for rehabilitation. PT notes patient has difficulty following commands, requires repetition and repeated direction some agitation reported ( reporting to PT this is normal behavior for him also reporting patient with previous falls in the home setting) requiring assistance for short ambulation, minimal assist for in bed mobility. * 01/23transferred out of the ICU. Hospitalist consulted for medical management , increased confusion. prn Haldol added for severe agitation. B12, additional labs pending. Rule out CVACT brain= stable exam compared to prior study no focal or acute hemorrhage. CXR with no acute infiltrate or effusion. In the evening on 01/23 patient was called as HALICAT due to respiratory distress following episode of emesis of stool-like material medical team responded and him in mild respiratory distress on a simple mask with a regular cardiac rhythm , some wheezing. He was awake but confused. Transferred back to the ICU. * 01/24 Patient febrile. Tachycardic. Lethargic. Still on simple mask O2.+ UA positive, culture pending. Blood cultures pending. CODE STATUS was discussed with patient's . Repeat CXR= mild interstitial edema, improvement. No pneumothorax. Palliative care was consulted to assist with clarification of goals of treatment. Patient seen in room. He is lethargic, intermittently awake.. Limited ability to participate. Nursing and daughter informed me that has gone home to rest she has been up with patient all night for many days. Met with daughter at length at bedside, she will speak with later, and find out when would be best for to meet with palliative as well. Patient is partially oriented, he does know he is in the hospital, knows he is here for fractured rib however easily loses focus, repeats "ready to go home" does not appear to have any insight into gravity of conditions. --- Later notified patient has returned met with her at length at bedside. . Function/Cognitive Trajectory Previously lives at home with his . Apparently also recently referred for home health care following admission at [facility] 2 or 3 weeks ago. Patient was apparently referred [facility] a few different times. He had 2 ED presentations here November 28, December 01 of this year for foot pain following an injury in the shower to the same foot. Ambulatory at home without assistive devices. Family reports frequent falls. O2 dependent for "long time ". Review of Systems ROS Limitations: Altered Mental Status, Poor Historian (fluctuating mental status) Constitutional: COMPLAINS OF: Pain (Lt rib per reports) Respiratory: COMPLAINS OF: Shortness of breath Past Family Social History Coded Allergies: Contrast Media (Verified Allergy, Severe, SWELLING AND SHORTNESS OF BREATH , 01/23/17) Iodine (Verified Allergy, Severe, SWELLING, 01/23/17) Shellfish (Verified Allergy, Severe, 01/23/17) Past Medical History Prior left sixth rib fracture 2014 Hypertension Diabetes [address] [employer] pacemaker Atrial flutter status post ablation 2012 CAD status post stenting History of GI bleed History TIA COPD . Past Surgical History Coronary artery stenting Aortic valve replacement Tonsillectomy Pacemaker placement, ([employer] )with exchange in 2016 Appendectomy Cholecystectomy Right wrist surgery Left shoulder surgery Bilateral Hip replacement Bilateral total knee replacement . Reported Medications Lortab (Hydrocodone-Acetaminophen) 5-325 Mg Tab 1-2 Tab PO Q6H PRN Lortab (Hydrocodone-Acetaminophen) 5-325 Mg Tab 1 Tab PO Q6H PRN Spironolactone 25 Mg Tab 25 Mg PO DAILY Aspir-81 (Aspirin) 81 Mg Tabdr Irbesartan 75 Mg Tab 75 Mg PO DAILY Gabapentin 100 Mg Cap 100 Mg PO HS Synthroid (Levothyroxine Sodium) 75 Mcg Tab 75 Mcg PO DAILY Lantus Inj (Insulin Glargine) 100 Unit/Ml Inj 22 Units SQ HS Humalog Inj (Insulin Human Lispro) 1,000 Unit/10 Ml Vial 0 SQ ACHS Max dose at bedtime:( )units; sugars< 70,(0)units; sugars 150-199,(1)unit; sugars 200-249,(3)units; sugars 250-299,(5)units; sugars 300-349,(7)units; sugars more than 349,(9)units. Centrum Silver (Multiple Vitamins W/ Minerals) 1 Tab 1 Tab PO DAILY Anastrozole 1 Mg Tab 1 Mg PO DAILY Lasix (Furosemide) 40 Mg Tab 40 Mg PO BID Omeprazole 20 Mg Tab 20 Mg PO BID Niacin (Niacinamide) 500 Mg Tab 250 Mg PO BID Flomax (Tamsulosin HCl) 0.4 Mg Cap 0.4 Mg PO DAILY Tramadol (Tramadol HCl) 50 Mg Tab 100 Mg PO TID PRN Allopurinol 300 Mg Tab 300 Mg PO DAILY Magnesium Oxide 400 Mg Tab 400 Mg PO DAILY Carvedilol 6.25 Mg Tab 6.25 Mg PO BID Xarelto (Rivaroxaban) 15 Mg Tab 15 Mg PO DAILY . Current Medications Medications (Trade) Dose Ordered Sig/Leida Route Start Time Stop Time Status Last Admin (NS Flush) 2 ml UNSCH PRN IV FLUSH 01/18/17 19:45 (NS Flush) 2 ml BID IV FLUSH 01/18/17 21:00 01/24/17 08:29 (Zofran Inj) 4 mg Q6H PRN IV 01/18/17 19:45 01/23/17 18:37 (Bhargavi-Colace) 1 tab BID PO 01/18/17 21:00 01/24/17 09:13 (Milk Of Magnesia Liq) 30 ml Q12H PRN PO 01/18/17 19:45 (Senokot) 17.2 mg Q12H PRN PO 01/18/17 19:45 (Dulcolax Supp) 10 mg DAILY PRN RECTAL 01/18/17 19:45 (Lactulose Liq) 30 ml DAILY PRN PO 01/18/17 19:45 (Miralax) 17 gm DAILY PO 01/19/17 09:00 01/24/17 09:13 (Lidoderm 5% Patch.12 Hr) 1 patch DAILY T-DERMAL 01/19/17 09:00 01/24/17 09:17 (D50w (Vial) Inj) 50 ml UNSCH PRN IV 01/19/17 07:45 (Glucagon Inj) 1 mg UNSCH PRN OTHER 01/19/17 07:45 (Robaxin) 500 mg Q8H PO 01/19/17 20:00 01/23/17 13:14 (Morphine Inj) 4 mg Q2H PRN IV PUSH 01/19/17 14:15 01/24/17 00:38 (Percocet 5-325 Mg) 1 tab Q4H PRN PO 01/19/17 14:15 01/23/17 01:31 (Zyloprim) 300 mg DAILY PO 01/19/17 14:45 01/24/17 09:13 (Coreg) 6.25 mg BID PO 01/19/17 14:45 01/24/17 09:13 (Synthroid) 75 mcg DAILY@0600 PO 01/20/17 06:00 01/24/17 06:16 (Flomax) 0.4 mg HS PO 01/19/17 21:00 01/22/17 20:53 (Cozaar) 12.5 mg DAILY PO 01/19/17 15:00 01/23/17 09:25 (Pill Splitter) 1 ea UNSCH PRN OTHER 01/19/17 15:00 01/24/17 09:14 (Pepcid) 10 mg BID PO 01/20/17 21:00 01/24/17 09:14 (Xarelto) 15 mg DAILY PO 01/22/17 09:00 01/24/17 09:14 (SoluMEDROL INJ) 40 mg Q8HR IV PUSH 01/22/17 14:00 01/24/17 06:16 (Levemir Inj) 10 units HS SQ 01/23/17 21:00 01/23/17 22:46 Gabapentin 200 mg 200 mg HS PO 01/23/17 21:00 (NS 1000 ml Inj) 1,000 ml @ 84 mls/hr [id number] IV 01/23/17 21:00 01/24/17 08:50 Miscellaneous Information 1 1 HS T-DERMAL 01/23/17 21:00 01/23/17 23:26 Norepinephrine Bitartrate 250 ml @ 0 mls/hr TITRATE IV 01/24/17 08:00 (Maxipime Inj/NS Inj) 100 ml @ 200 mls/hr DAILY IV 01/24/17 09:15 (SEROquel) 25 mg BID PO 01/24/17 09:15 (Lasix Inj) 20 mg DAILY IV PUSH 01/24/17 09:15 Family History Per EMR: mother at 89 with cancer. Father at age 60 with heart problems. Substance Use Tobacco: Former smoker, quit 30 years ago. 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 Psychosocial History . originally from [facility] [place]. 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 Retired to [place] 10+ yrs ago, has always traveled to [facility] for racing events. Has 2 adult children, 1 stepchild. Living Will: Completed, but not made available Health Care Surrogate: Completed, but not made available Documented care wishes: details in the usual verbiage requesting to not have artificial prolonging measures in the event of a terminal or end-stage condition of which she would not make a reasonable recovery. It is dated 2009 Ethical and Legal Issues Mental status fluctuates this is likely multifactorial related to his multiple medical conditions. . Reported to have a living will but is not ready to provide copies. She would be appropriate legal proxy, family reports she is designated decision maker. Physical Exam Vital Signs Date Time Temp Pulse Resp B/P Pulse Ox O2 Delivery O2 Flow Rate FiO2 01/24/17 10:00 106 01/24/17 08:00 105 01/24/17 08:00 96.6 105 12 76/53 100 01/24/17 07:44 100 Simple Mask 6.00 01/24/17 07:00 100 Simple Mask 6.00 21 01/24/17 06:00 110 01/24/17 04:00 97.5 107 16 101/61 98 01/24/17 04:00 107 01/24/17 02:00 110 01/24/17 00:43 25 01/24/17 00:37 97 Simple Mask 6.00 01/24/17 00:00 103 01/24/17 00:00 99.0 113 19 130/76 93 01/23/17 22:00 104 01/23/17 22:00 96 Simple Mask 6.00 01/23/17 20:15 99.3 102 24 114/65 98 01/23/17 20:15 102 01/23/17 19:00 98 Simple Mask 6.00 01/23/17 16:00 96.8 106 20 128/72 98 01/23/17 12:00 96.9 100 20 136/71 95 01/23/17 01/24/17 19:00 07:00 Intake Total 800 ml 1732 ml Output Total 1200 ml 1100 ml Balance -400 ml 632 ml Intake Oral 800 ml 0 ml IV Total 1732 ml Output Urine Total 1200 ml 300 ml Gastric Drainage Total 800 ml # Bowel Movements 0 0 Exam CONSTITUTIONAL/GENERAL: This is an adequately nourished patient, lethargic, no apparent distress TUBES/LINES/DRAINS: Peripheral IV left upper extremity, Solares catheter, simple mask O2, SCD left lower extremity, NGT SKIN: No jaundice, rashes, or lesions. Multiple areas of ecchymosis lateral lower extremities, bilateral upper extremities. Left cheek with bandaid intact. + acewrap dressing rt ankle/foot clean and dry. + chronic vascular changes BLE. HEAD: Atraumatic. Normocephalic. EYES: Pupils equal and round and reactive. Extraocular motions intact. No scleral icterus. No injection or drainage. Fundi not examined. ENT: Hard of hearing. Nose without bleeding or purulent drainage. + dried secretions around mouth. NECK: Trachea midline. thick neck. Supple, nontender. No palpable thyroid enlargement or nodularity. CARDIOVASCULAR: Regular rate and rhythm. No JVD. Peripheral pulses symmetric- pedal pulses faint. RESPIRATORY/CHEST: Symmetric, unlabored respirations on simple FM. Clear to auscultation, diminished air movement throughout. Lt chest dressing clean and dry. GASTROINTESTINAL: Abdomen soft,obese/round, non-tender, nondistended. No palpable masses. No guarding. Bowel sounds hypoactive. NGT to wall sx GENITOURINARY: Without palpable bladder distension. Solares catheter in place. MUSCULOSKELETAL: Extremities without clubbing, cyanosis. Edema upper and lower extremities. + dressing RLE. No mottling or clubbing. NEUROLOGICAL: Awake at times, lethargic at times. Oriented x2. Follows simple commands. Moves all 4 extremities. Poor insight to hospitalization. PSYCHIATRIC: No obvious anxiety/depression. no apparent hallucinations or other psychotic thought process. Diagnostic Tests Laboratory Laboratory Tests Test 01/22/17 01/22/17 01/22/17 01/22/17 06:00 10:34 10:43 11:02 White Blood Count 11.8 TH/MM3 (4.0-11.0) Red Blood Count 2.54 MIL/MM3 (4.50-5.90) Hemoglobin 7.7 GM/DL (13.0-17.0) Hematocrit 23.8 % (39.0-51.0) Mean Corpuscular Volume 94.0 FL (80.0-100.0) Mean Corpuscular Hemoglobin 30.5 PG (27.0-34.0) Mean Corpuscular Hemoglobin 32.4 % Concent (32.0-36.0) Red Cell Distribution Width 15.7 % (11.6-17.2) Platelet Count 124 TH/MM3 (150-450) Mean Platelet Volume 7.3 FL (7.0-11.0) Neutrophils (%) (Auto) 78.8 % (16.0-70.0) Lymphocytes (%) (Auto) 11.5 % (9.0-44.0) Monocytes (%) (Auto) 8.0 % (0.0-8.0) Eosinophils (%) (Auto) 1.3 % (0.0-4.0) Basophils (%) (Auto) 0.4 % (0.0-2.0) Neutrophils # (Auto) 9.3 TH/MM3 (1.8-7.7) Lymphocytes # (Auto) 1.4 TH/MM3 (1.0-4.8) Monocytes # (Auto) 0.9 TH/MM3 (0-0.9) Eosinophils # (Auto) 0.2 TH/MM3 (0-0.4) Basophils # (Auto) 0.0 TH/MM3 (0-0.2) CBC Comment DIFF FINAL Differential Comment Sodium Level 138 MEQ/L (136-145) Potassium Level 3.9 MEQ/L (3.5-5.1) Chloride Level 100 MEQ/L (98-107) Carbon Dioxide Level 31.7 MEQ/L (21.0-32.0) Anion Gap 6 MEQ/L (5-15) Blood Urea Nitrogen 50 MG/DL (7-18) Creatinine 1.99 MG/DL (0.60-1.30) Estimat Glomerular Filtration 32 ML/MIN (>89) Rate Random Glucose 237 MG/DL (74-106) Calcium Level 9.8 MG/DL (8.5-10.1) Total Bilirubin 0.6 MG/DL (0.2-1.0) Aspartate Amino Transf 34 U/L (15-37) (AST/SGOT) Alanine Aminotransferase 20 U/L (12-78) (ALT/SGPT) Alkaline Phosphatase 63 U/L (45-117) Total Protein 5.4 GM/DL (6.4-8.2) Albumin 2.7 GM/DL (3.4-5.0) Crossmatch Leukocyte-Reduced Red Blood Cells Blood Bank Comment Blood Gas Puncture Site RT RADIAL Blood Gas Patient Temperature 98.6 Blood Gas HCO3 28 mmol/L (22-26) Blood Gas Base Excess 4.3 mmol/L (-2-2) Blood Gas Oxygen Saturation 92 % (90-100) Arterial Blood pH 7.43 (7.380-7.420) Arterial Blood Partial 44 mmHg (38-42) Pressure CO2 Arterial Blood Partial 71 mmHg Pressure O2 (61-120) Arterial Blood Oxygen Content 14.3 Vol % (12.0-20.0) Arterial Blood 1.6 % (0-4) Carboxyhemoglobin Arterial Blood Methemoglobin 0.7 % (0-2) Blood Gas Hemoglobin 11.0 G/DL (12.0-16.0) Oxygen Delivery Device Venti Mask Blood Gas Inspired Oxygen 50 % Blood Type O POSITIVE Antibody Screen NEGATIVE Test 01/22/17 01/23/17 01/23/17 01/23/17 23:42 05:30 14:19 14:22 Hemoglobin 9.8 GM/DL 9.9 GM/DL (13.0-17.0) (13.0-17.0) Hematocrit 28.7 % 29.2 % (39.0-51.0) (39.0-51.0) White Blood Count 11.4 TH/MM3 (4.0-11.0) Red Blood Count 3.08 MIL/MM3 (4.50-5.90) Mean Corpuscular Volume 94.9 FL (80.0-100.0) Mean Corpuscular Hemoglobin 32.3 PG (27.0-34.0) Mean Corpuscular Hemoglobin 34.0 % Concent (32.0-36.0) Red Cell Distribution Width 15.7 % (11.6-17.2) Platelet Count 153 TH/MM3 (150-450) Mean Platelet Volume 8.0 FL (7.0-11.0) Neutrophils (%) (Auto) 92.8 % (16.0-70.0) Lymphocytes (%) (Auto) 5.4 % (9.0-44.0) Monocytes (%) (Auto) 1.7 % (0.0-8.0) Eosinophils (%) (Auto) 0.0 % (0.0-4.0) Basophils (%) (Auto) 0.1 % (0.0-2.0) Neutrophils # (Auto) 10.5 TH/MM3 (1.8-7.7) Lymphocytes # (Auto) 0.6 TH/MM3 (1.0-4.8) Monocytes # (Auto) 0.2 TH/MM3 (0-0.9) Eosinophils # (Auto) 0.0 TH/MM3 (0-0.4) Basophils # (Auto) 0.0 TH/MM3 (0-0.2) CBC Comment DIFF FINAL Differential Comment Sodium Level 135 MEQ/L (136-145) Potassium Level 4.0 MEQ/L (3.5-5.1) Chloride Level 97 MEQ/L (98-107) Carbon Dioxide Level 28.8 MEQ/L (21.0-32.0) Anion Gap 9 MEQ/L (5-15) Blood Urea Nitrogen 50 MG/DL (7-18) Creatinine 1.70 MG/DL (0.60-1.30) Estimat Glomerular Filtration 39 ML/MIN (>89) Rate Random Glucose 309 MG/DL (74-106) Calcium Level 10.3 MG/DL (8.5-10.1) Total Bilirubin 0.9 MG/DL (0.2-1.0) Aspartate Amino Transf 32 U/L (15-37) (AST/SGOT) Alanine Aminotransferase 21 U/L (12-78) (ALT/SGPT) Alkaline Phosphatase 72 U/L (45-117) Total Protein 6.2 GM/DL (6.4-8.2) Albumin 2.9 GM/DL (3.4-5.0) Vitamin B12 Level 1174 PG/ML (193-986) Ammonia 15 MCMOL/L (11-32) Thyroid Stimulating Hormone 0.969 uIU/ML 3rd Gen (0.358-3.740) Random Cortisol 16.6 MCG/DL Urine Color YELLOW (YELLW/STRAW) Urine Turbidity CLEAR (CLEAR) Urine pH 5.0 (5.0-8.5) Urine Specific [place] 1.012 (1.002-1.035) Urine Protein NEG mg/dL (NEG-TRACE) Urine Glucose (UA) 300 mg/dL (NEG) Urine Ketones NEG mg/dL (NEG) Urine Occult Blood NEG (NEG) Urine Nitrite NEG (NEG) Urine Bilirubin NEG (NEG) Urine Urobilinogen LESS THAN 2.0 MG/DL (LESS THAN 2.0) Urine Leukocyte Esterase TRACE (NEG) Urine RBC 1 /hpf (0-3) Urine WBC 3 /hpf (0-5) Urine Bacteria RARE /hpf (NONE) Urine Hyaline Casts 16 /lpf (RARE) Urine Mucus FEW /lpf (OCC) Microscopic Urinalysis Comment CATH-CULTURE IND Test 01/23/17 01/24/17 01/24/17 19:40 06:00 06:39 Blood Gas Puncture Site RT RADIAL LT RADIAL Blood Gas Patient Temperature 98.6 98.6 Blood Gas HCO3 25 mmol/L 26 mmol/L (22-26) (22-26) Blood Gas Base Excess 1.0 mmol/L 1.1 mmol/L (-2-2) (-2-2) Blood Gas Oxygen Saturation 85 % (90-100) 97 % (90-100) Arterial Blood pH 7.46 7.36 (7.380-7.420) (7.380-7.420) Arterial Blood Partial 35 mmHg (38-42) 47 mmHg (38-42) Pressure CO2 Arterial Blood Partial 52 mmHg 147 mmHg Pressure O2 (61-120) (61-120) Arterial Blood Oxygen Content 14.2 Vol % 13.3 Vol % (12.0-20.0) (12.0-20.0) Arterial Blood 1.5 % (0-4) 1.3 % (0-4) Carboxyhemoglobin Arterial Blood Methemoglobin 0.7 % (0-2) 0.8 % (0-2) Blood Gas Hemoglobin 11.8 G/DL 9.5 G/DL (12.0-16.0) (12.0-16.0) Oxygen Delivery Device SIMPLE MASK MASK Blood Gas Liter Flow 7 L/M 6 L/M White Blood Count 16.9 TH/MM3 (4.0-11.0) Red Blood Count 2.95 MIL/MM3 (4.50-5.90) Hemoglobin 9.1 GM/DL (13.0-17.0) Hematocrit 28.2 % (39.0-51.0) Mean Corpuscular Volume 95.4 FL (80.0-100.0) Mean Corpuscular Hemoglobin 31.0 PG (27.0-34.0) Mean Corpuscular Hemoglobin 32.5 % Concent (32.0-36.0) Red Cell Distribution Width 16.1 % (11.6-17.2) Platelet Count 185 TH/MM3 (150-450) Mean Platelet Volume 8.4 FL (7.0-11.0) Neutrophils (%) (Auto) 87.6 % (16.0-70.0) Lymphocytes (%) (Auto) 5.7 % (9.0-44.0) Monocytes (%) (Auto) 6.6 % (0.0-8.0) Eosinophils (%) (Auto) 0.0 % (0.0-4.0) Basophils (%) (Auto) 0.1 % (0.0-2.0) Neutrophils # (Auto) 14.8 TH/MM3 (1.8-7.7) Lymphocytes # (Auto) 1.0 TH/MM3 (1.0-4.8) Monocytes # (Auto) 1.1 TH/MM3 (0-0.9) Eosinophils # (Auto) 0.0 TH/MM3 (0-0.4) Basophils # (Auto) 0.0 TH/MM3 (0-0.2) CBC Comment DIFF FINAL Differential Comment Sodium Level 141 MEQ/L (136-145) Potassium Level 4.2 MEQ/L (3.5-5.1) Chloride Level 101 MEQ/L (98-107) Carbon Dioxide Level 32.2 MEQ/L (21.0-32.0) Anion Gap 8 MEQ/L (5-15) Blood Urea Nitrogen 64 MG/DL (7-18) Creatinine 2.60 MG/DL (0.60-1.30) Estimat Glomerular Filtration 24 ML/MIN (>89) Rate Random Glucose 174 MG/DL (74-106) Calcium Level 9.8 MG/DL (8.5-10.1) Blood Gas Ventilator Setting Result Diagram: 01/24/17 0600 01/24/17 0600 Microbiology Microbiology Date/Time Procedure Status Source Growth 01/23/17 14:22 Urine Culture Received Urine Catheterized Urine Pending 01/24/17 10:20 Aerobic Blood Culture Received Blood Peripheral Pending 01/24/17 10:20 Anaerobic Blood Culture Received Blood Peripheral Pending 01/24/17 10:27 Aerobic Blood Culture Received Blood Peripheral Pending 01/24/17 10:27 Anaerobic Blood Culture Received Blood Peripheral Pending Imaging Last Impressions Chest X-Ray 01/23/17 0600 Signed Impressions: Service Date/Time: Monday, January 23, 2017 05:35 - CONCLUSION: Satisfactory chest appearance. Ben Avina MD Head CT 01/23/17 0000 Signed Impressions: Service Date/Time: Monday, January 23, 2017 15:33 - CONCLUSION: Stable examination compared to the prior study. No focal or acute intracranial hemorrhage. Brendan Marrero MD Abdomen/Pelvis CT 01/23/17 0000 Signed Impressions: Service Date/Time: Monday, January 23, 2017 19:58 - CONCLUSION: 1. Dilated small bowel which slowly tapers just proximal to the terminal ileum. No obstructing mass or lesion observed. No free air or free fluid. 2. Prior cholecystectomy. 3. Small left effusion with bibasilar atelectasis. 4. Umbilical hernia containing fat. Kishor Nj Jr., MD Pelvis X-Ray 01/18/171816 Signed Impressions: Service Date/Time: December 18:11 - CONCLUSION: Intact pelvis. Ben Gtz MD Maxillofacial CT 01/18/171816 Signed Impressions: Service Date/Time: , January 18, 2017 18:51 - CONCLUSION: Intact facial bones. Ben Gtz MD Chest CT 01/18/171816 Signed Impressions: Service Date/Time: December 19:03 - CONCLUSION: Minimally displaced displaced left rib fractures as above. There is a mild left pulmonary contusion, small left anterior/apical pneumothorax and small dependently layering hemothorax. Ben Gtz MD Cervical Spine CT 01/18/171816 Signed Impressions: Service Date/Time: December 18:51 - CONCLUSION: 1. No fracture or subluxation demonstrated of the cervical spine. 2. Multilevel degenerative changes, very severe at C5/C6 and C6/C7 and C7/T1. Ben Gtz MD Patient/Family Conference Present at Family Conference: daughter, Family Conference Time (mins): 60 Family Conference Location: Bedside Issues Discussed: Met with daughter at bedside. has gone home to rest. Will need additional meeting with . Discussion included the following: * Palliative care role, purpose, approach * Additional medical, psychosocial, and spiritual history * Patients general health, functional status, and cognitive changes in the months leading up to the current hospitalization * Patient/family understanding of the current medical problems * Patient/family understanding of prognosis; review multiple potential complications/setbacks that could occur due to patient's advanced age, multiple chronic medical conditions * Patients goals of care as best understood from advance directives and/or conversations and/or values-patient has a living will, is reluctant to bring it in at this time * CODE STATUS * Legal decision maker * Current medical treatment options and benefits/burdens of those options * Questions answered to the best of my ability * Palliative care contact information provided Spoke with daughter and son-in-law at length at bedside. Patient with limited ability to participate. Much review of conditions, underlying medical history, hospital course thus far. Much review of overall prognosis patient is high risk for ongoing complications and issues secondary to acute on chronic problems. Daughter indicates patient also felt to have a very mild/early dementia with some very mild cognitive changes. Patient has been overwhelmed staying at the hospital bedside for most of the day and night, she has gone home to rest. Daughter indicates is reluctant to read or bring in his living will. Daughter appears to have a good understanding of conditions and overall prognosis. She will talk to later today after she awakens, is currently home sleeping. They will notify palliative if they're able to meet again today, otherwise will plan follow-up meeting with and daughter and patient tomorrow. 1500 Later in the day met with patient at length at the bedside. Discussed the above bulleted point items. She appears distressed over patient condition-- indicates she has not been eating well or sleeping well since his hospitalization. Supportive listening provided recommended she care for herself as well. She appears to have a reasonable understanding of conditions and prognosis. She has been hoping that he would improve. Review of CODE STATUS overall prognosis. She is provided copy of his living will document which details in the usual verbiage requesting to not have artificial prolonging measures in the event of a terminal or end-stage condition of which she would not make a reasonable recovery. It is dated 2009. She was hoping this document would include specifics regarding CODE STATUS. We reviewed what resuscitation entails and that if the patient did end up on a ventilator or warranted further cardiac interventions that would make his prognosis worse in further diminish any potential recovery. She wishes to talk more to his children as she indicates that she is not their mother, and wishes to include the and any important decisions. She will talk more in the next day about CODE STATUS with family and advised nursing or medical team if she wishes for DNR status. Plan to follow-up with her tomorrow. Assessment and Plan Disease Oriented Problem List: (1) COPD (chronic obstructive pulmonary disease) (2) Pneumothorax (3) CKD (chronic kidney disease) stage 4, GFR 15-29 ml/min (4) Chest pain (5) CAD (coronary artery disease) (6) Altered mental status (7) Pulmonary contusion (8) SOB (shortness of breath) (9) Diabetes Symptom Scale: (1) Dyspnea (2) Pain (3) Anxiety (4) Confusion Pertinent Non-Medical Issues Psychosocial:. originally from [facility] [place]. 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 Retired to [place] 10+ yrs ago , has always traveled to [facility] for racing events. Has 2 adult children, 1 stepchild. Spiritual: Legal:Mental status fluctuates this is likely multifactorial related to his multiple medical conditions. . Reported to have a living will but is not ready to provide copies. She would be appropriate legal proxy, family reports she is designated decision maker. Ethical issues impacting care: Important Contacts Elizabeth Calderon([phone]) Daughter . Prognosis This patient was admitted on 01/18 after reported mechanical fall with left rib pain. He had findings of multiple left-sided rib fractures as well as pneumothorax requiring chest tube placement. He has multiple chronic medical conditions, as well as family reports of a mild/early dementia diagnoses. He has had recent recurrent falls. Given advanced age, multiple chronic medical conditions, and now acute rib injury patient remains very high risk for further pulmonary and other complications and continued decline. If he is able to get through acute hospitalization will likely require rehabilitation and potentially long-term care placement. Code Status: Full Code Plan * Legal decision maker:Mental status fluctuates this is likely multifactorial related to his multiple medical conditions. . Reported to have a living will but is not ready to provide copies. She would be appropriate legal proxy, family reports she is designated decision maker. * Goals: Met with patient daughter at length today. Patient has been overwhelmed staying at the hospital bedside for most of the day and night, she has gone home to rest. Daughter indicates is reluctant to read or bring in his living will. Daughter appears to have a good understanding of conditions and overall prognosis. She will talk to later today after she awakens, is currently home sleeping. They will notify palliative if they're able to meet again today, otherwise will plan follow-up meeting with and daughter and patient tomorrow. -----1500 later met again with patient at bedside. She wishes to talk more to his children as she indicates that she is not their mother, and wishes to include them in any important decisions. She will talk more in the next day about CODE STATUS with family and advised nursing or medical team if she wishes for DNR status. Palliative follow-up with tomorrow 01/25. * CODE STATUS: Full code * SYMPTOMS: --Dyspnea-admitted with rib pain status post fall. + Initially required chest tubes has since been removed. Long history of COPD, O2 dependent in the home setting. CXR stable, mild interstitial edema. High FiO2 requirements, requiring simple mass 6 L. Could potentially require intubation/mechanical vent. --Pain-frequent fall history. Most recent fall resulting in multiple left rib fractures. Recent removal of chest tube. Cautious use of opiates due to fragile neuro/respiratory status; as well as potential to worsen confusion/ delirium. Has prn morphine 4mg IV (used x1 today) , percocet 5m (last dose yesterday). --anxiety/confusion- possible dx early/mild dementia. + episodes agitation/ confusion during hospital course likely multifactorialpoor oxygenation, kidney disease, medications. Cautious use of opioids and benzodiazepines as this could potentially worsen an acute delirium. Consider low-dose Haldol prn for agitation. * Palliative care will continue to follow during hospital course as condition evolves, to assist patient/decision-maker with understanding of medical conditions, weighing benefits/burdens of treatment options, for clarification of goals of treatment. Additionally will assist with any symptoms of palliative concern . Thank you for the opportunity to participate in the care of Mr. Calderon. Attestation To help prompt me to consider important information that might be impacting today's encounter and assessment, information from prior notes written by myself or my colleagues may have been "brought forward" into today's note. My signature on this note, however, is an attestation that I personally performed the exam, history, and/or decision-making noted today, and, unless otherwise indicated, the interactions with patient, family, and staff as well as the review of records all occurred today. I also attest that the listed assessment and stated plan reflect my best clinical judgment today based on the combination of historical information, prior notes, and today's exam/ interactions. When time spent is documented, it refers only to time spent today by the signer, or if indicated, combined time spent today by collaborating physician/nurse practitioner. Tamela Rodriguez January 24, 2017 11:24
[2017-01-24] MEDS: DEXT 5%-NACL 0.9% 1000 ML INJ 1,000 ML IV SCH (15:32)
[2017-01-24] MEDS: CLINDAMYCIN INJ 300 MG in SODIUM CHLORIDE 0.9% INJ 100 ML IV SCH ×2 (16:57→23:52)
--- NOTE | 2017-01-24 17:03 | HHI.CCPN ---
Subjective Brief History 81-year-old gentleman who fell on his left side sustained multiple left rib fractures and left hemopneumothorax. Patient was resuscitated its prior to run trauma alert. Had a chest tube placed Patient is now in the ICU for observation I have had a long discussion with the patient and brother neuropsychologist to evaluated the patient as well. Patient this point very hostile and unhappy that he has to be in the hospital and has been very hostile toward a neuropsychologist. He wants to leave hospital and I tried to explain to him that the injuries are such that he cannot leave Patient's family is at the bedside trying to convince him to the same There is no question my mind that the patient has somewhat demented and combination is impaired to neurocognitive deficits related to the age 24 Hour Review/Hospital Course Patient doing well at this time Awake alert and oriented with bilateral breath sounds Very noncompliant with care refuses pain medication refuses his home medications and basically wants to leave the hospital Patient has some limited neurocognitive deficits consistent with dementia He is at high risk of developing pneumonia and ending up on the ventilator in face of his lung contusion however right now is doing ok 01/24/17 Patient was admitted by the week ago with left-sided rib fractures and small hemopneumothorax which was treated with chest tube in the meantime chest was removed Patient the apparently started deteriorating yesterday afternoon became tachypneic and slightly hypotensive as well as tachycardic Patient was transferred to ICU for further care He underwent battery of studies and was found to have gastroparesis with retention a large amount of gastric contents, had nasogastric tube placed with return of about thousand cc of gastric contents. Patient now somewhat somnolent and lethargic but improving hemodynamic parameters Appropriate services have been consult Objective Vital Signs Date Time Temp Pulse Resp B/P Pulse Ox O2 Delivery O2 Flow Rate FiO2 01/24/17 16:00 97 01/24/17 16:00 96.4 16 136/64 100 01/24/17 07:44 Simple Mask 6.00 01/24/17 07:00 21 Intake and Output 01/23/17 01/23/17 01/24/17 08:00 16:00 00:00 Intake Total 340 ml 800 ml 172 ml Output Total 900 ml 1200 ml 500 ml Balance -560 ml -400 ml -328 ml Result Diagram: 01/24/17 0600 01/24/17 0600 Other Results Laboratory Tests Test 01/23/17 01/24/17 19:40 06:39 Blood Gas Puncture Site RT RADIAL LT RADIAL Blood Gas Patient Temperature 98.6 98.6 Blood Gas HCO3 25 mmol/L 26 mmol/L (22-26) (22-26) Blood Gas Base Excess 1.0 mmol/L 1.1 mmol/L (-2-2) (-2-2) Blood Gas Oxygen Saturation 85 % (90-100) 97 % (90-100) Arterial Blood pH 7.46 7.36 (7.380-7.420) (7.380-7.420) Arterial Blood Partial 35 mmHg (38-42) 47 mmHg (38-42) Pressure CO2 Arterial Blood Partial 52 mmHg 147 mmHg Pressure O2 (61-120) (61-120) Arterial Blood Oxygen Content 14.2 Vol % 13.3 Vol % (12.0-20.0) (12.0-20.0) Arterial Blood 1.5 % (0-4) 1.3 % (0-4) Carboxyhemoglobin Arterial Blood Methemoglobin 0.7 % (0-2) 0.8 % (0-2) Blood Gas Hemoglobin 11.8 G/DL 9.5 G/DL (12.0-16.0) (12.0-16.0) Oxygen Delivery Device SIMPLE MASK MASK Blood Gas Liter Flow 7 L/M 6 L/M Blood Gas Ventilator Setting Exam IMPROVEMENT LEAD Patient is arousable but the remains somnolent and confused from ICU Moves all 4 extremities and answer simple questions appropriately however then goes tangent with non-connected sentences Hemodynamic/Cardiac Patient is hemodynamically stabilizing. Throughout the night patient several episodes of hypotension which were corrected by fluid administration and it was clear that patient had the volume deficit and intravascular hypovolemia. In face of patient's age and frail status cardiac status as well as comorbidities this fluid deficit had to be corrected somewhat slower than I would like to see it in order to prevent sudden increase in interstitial fluid causing pulmonary edema After 4 L of saline and 500 cc of 5% albumin patient's hemoglobin barely botched tell him that the majority of the fluid is gone extracellular Patient is now holding hemodynamic values and not requiring any vasopressors Pulmonary/Respiratory Bilateral breath sounds patient is on nasal cannula and has been saturating 100% Abdomen/GI Nutrition Abdomen is soft somewhat distended The CT scan shows diffuse ileus and the gastroparesis which is not uncommon in elderly patients, bedridden especially with diabetes and narcotics administration Nasogastric tube was placed in about thousand cc of gastric contents was readily obtained We will keep the NG tube in total patient's ileus resolves for this gentleman is a high risk of aspiration Right now I don't see any signs of aspiration but I would not be surprised patient's silently aspirating and sooner later this is going shop as a pulmonary infiltrate Renal/I&O Worsening renal function with prerenal hypovolemia and volume deficit. Patient is acting hyperdynamic and septic in the face of this antibiotics and started Assessment and Plan Attestation Patient with sudden worsening of clinical status hypotension and possible brewing sepsis Infectious disease has been consult didn't athlete marketing agent will see the patient Echocardiogram has been ordered this morning my don't see the results yet The exam, history, and the medical decision-making described in the above note were completed with the assistance of the mid-level provider. I reviewed and agree with the findings presented. I attest that I had a [id number] encounter with the patient on the same day, and personally performed and documented my assessment and findings in the medical record. Critical care time 40 minutes. Debra Lala MD January 24, 2017 17:03
--- NOTE | 2017-01-24 17:10 | EC ---
Study Study Date:01/24/2017 STUDY CONCLUSIONS SUMMARY - Left ventricle: The cavity size was normal. Wall thickness was normal. Systolic function was normal. The estimated ejection fraction was in the range of 50% to 55%. Wall motion was normal; there were no regional wall motion abnormalities. - Aortic valve: Valve area: 0.83cm^2 (Vmax). - Mitral valve: Mildly calcified annulus. - Pulmonic valve: Peak gradient: 17mm Hg (S). If LV function is below 40, please consider prescribing an ACEI or ARB or document rationale for non-use. PROCEDURE DATA STUDY STATUS: Elective. Procedure: Transthoracic echocardiography. Image quality was poor. Scanning was performed from the parasternal, apical, and subcostal acoustic windows. Study completion: The patient tolerated the procedure well. Transthoracic echocardiography. M-mode, complete 2D, complete spectral Doppler, and color Doppler. Height: Height: 67in. Weight: Weight: 232.5lb. Body mass index: BMI: 36.5kg/m^2. Body surface area: BSA: 2.16m^2. Patient status: Inpatient. CARDIAC ANATOMY LEFT VENTRICLE: The cavity size was normal. Wall thickness was normal. Systolic function was normal. The estimated ejection fraction was in the range of 50% to 55%. Wall motion was normal; there were no regional wall motion abnormalities. AORTIC VALVE: mean gradient = 19 mm hg c/w mild to moderate aortic valve stenosis Trileaflet; normal thickness leaflets. Doppler: Transvalvular velocity was within the normal range. There was no stenosis. No regurgitation. Valve area: 0.83cm^2 (Vmax). Indexed valve area: 0.38cm^2/m^2 (Vmax). Mean gradient: 16mm Hg (S). Peak gradient: 28mm Hg (S). AORTA: Aortic root: The aortic root was normal in size. MITRAL VALVE: Mildly calcified annulus. Doppler: Transvalvular velocity was within the normal range. There was no evidence for stenosis. No regurgitation. LEFT ATRIUM: The atrium was normal in size. RIGHT VENTRICLE: The cavity size was normal. Wall thickness was normal. PULMONIC VALVE: Doppler: Transvalvular velocity was within the normal range. There was no evidence for stenosis. No regurgitation. Peak gradient: 17mm Hg (S). TRICUSPID VALVE: Structurally normal valve. Doppler: Transvalvular velocity was within the normal range. Trace to mild regurgitation. PULMONARY ARTERY: The main pulmonary artery was normal-sized. Systolic pressure was within the normal range. RIGHT ATRIUM: The atrium was normal in size. PERICARDIUM: There was no pericardial effusion. SYSTEMIC VEINS: Inferior vena cava: The vessel was normal in size. Patient weight: 232.5lb _Ejection fraction:_ 65-75% _Fractional shortening:_ 32% up to 5Kg 5-11.5Kg 11.6-22.9Kg 23-45Kg 45-57Kg Aortic Root 7-13 <17 13-22 17-27 17-27 LA diam 6-13 <23 24-38 33-47 37-40 RVID 10-17 7-15 7-15 7-18 8-17 LVIDd 12-22 <32 24-38 33-47 37-40 LVPW 2-4 3-6 5-7 6-8 7-8 IVS 2-4 3-6 5-7 6-8 7-8 BASIC MEASUREMENTS ADULT NORMAL Left ventricle LV internal dimension, ED, chordal 49.5 mm 43-52 level, PLAX LV internal dimension, ES, chordal 37.7 mm 23-38 level, PLAX Fractional shortening, chordal level, *24 % >29 PLAX LV posterior wall thickness, ED 11.6 mm IVS/LVPW ratio, ED 0.99 <1.3 Ventricular septum Septal thickness, ED 11.5 mm Aortic valve Leaflet separation 22 mm 15-26 BASIC MEASUREMENTS ADULT NORMAL Aortic valve Leaflet separation 22 mm 15-26 Aorta Root diameter, ED 34 mm 20-37 Left atrium Anterior-posterior dimension, ES 37 mm 19-40 Anterior-posterior dimension index, ES 1.71 cm/m^2 <2.2 LA/aortic root ratio 1.09 DOPPLER MEASUREMENTS ADULT NORMAL Main pulmonary artery Pressure, S 22 mm Hg =30 Aortic valve Peak velocity, S 264 cm/s Mean velocity, S 184 cm/s VTI, S 53.6 cm Mean gradient, S 16 mm Hg Peak gradient, S 28 mm Hg Valve area, Vmax 0.83 cm^2 Valve area index, Vmax 0.38 cm^2/m^2 Tricuspid valve Regurgitant peak velocity 198 cm/s Peak RV-RA gradient, S 16 mm Hg Maximal regurgitant velocity 198 cm/s Systemic veins Estimated CVP 10 mm Hg Right ventricle RV pressure, S *39 mm Hg <30 Pulmonic valve Peak velocity, S 205 cm/s Peak gradient, S 17 mm Hg LEGEND: Mean values are shown as u=mean value. Asterisk (*) smith values outside specified normal range. Prepared and signed by Derek Weathers [id number]
--- NOTE | 2017-01-24 20:33 | HHI.PR ---
Subjective Remarks 81 YOWM with Rib fracture,PTX, pulm contusion Feels much better Was tr to [facility]SC Had abd distension NGT drained 1 lit Anxious to go home at BS Objective Vital Signs Vital Signs Date Time Temp Pulse Resp B/P Pulse Ox O2 Delivery O2 Flow Rate FiO2 01/24/17 18:09 96 01/24/17 16:00 97 01/24/17 16:00 96.4 97 16 136/64 100 01/24/17 14:00 84 01/24/17 12:00 97.9 94 16 137/65 100 01/24/17 12:00 94 01/24/17 10:00 106 01/24/17 08:00 105 01/24/17 08:00 96.6 105 12 76/53 100 01/24/17 07:44 100 Simple Mask 6.00 01/24/17 07:00 100 Simple Mask 6.00 21 01/24/17 06:00 110 01/24/17 04:00 97.5 107 16 101/61 98 01/24/17 04:00 107 01/24/17 02:00 110 01/24/17 00:43 25 01/24/17 00:37 97 Simple Mask 6.00 01/24/17 00:00 103 01/24/17 00:00 99.0 113 19 130/76 93 01/23/17 22:00 104 01/23/17 22:00 96 Simple Mask 6.00 I/O 01/23/17 01/23/17 01/23/17 01/24/17 01/24/17 01/24/17 07:00 15:00 23:00 07:00 15:00 23:00 Intake Total 340 ml 800 ml 172 ml 1560 ml 1804 ml Output Total 900 ml 1200 ml 500 ml 600 ml 700 ml Balance -560 ml -400 ml -328 ml 960 ml 1104 ml Intake Oral 240 ml 800 ml 0 ml 0 ml IV Total 100 ml 172 ml 1560 ml 1764 ml Other 40 ml Output Urine Total 900 ml 1200 ml 200 ml 100 ml 550 ml Gastric Drainage Total 300 ml 500 ml 150 ml # Bowel Movements 0 0 0 Result Diagram: 01/24/1759901/24/17 06 Objective Remarks GENERAL: Elderly male ,NAD SKIN: Warm and dry. HEAD: Normocephalic. EYES: No scleral icterus. No injection or drainage. NECK: Supple, trachea midline. No JVD or lymphadenopathy. CARDIOVASCULAR: Regular rate and rhythm without murmurs, gallops, or rubs. RESPIRATORY: Breath sounds equal bilaterally. No accessory muscle use. GASTROINTESTINAL: Abdomen soft, non-tender, nondistended. MUSCULOSKELETAL: No cyanosis, or edema. BACK: Nontender without obvious deformity. No CVA tenderness. A/P Assessment and Plan Ribs Fracture Pulm contusion PTX resolved Hypoxia improved COPD DM PLAN: Supplement 02 with VM to keep sat >90% Aerosol nebs IV Solumedrol pain controll NGT to suction Romeo Payne MD January 24, 2017 20:33
[2017-01-24] MEDS: REMOVE OLD LIDOCAINE PATCH T-DERMAL SCH (21:00)
[2017-01-24] MEDS: TAMSULOSIN HCL 0.4 MG CAP PO SCH (21:00)
[2017-01-24] MEDS: GABAPENTIN 100 MG CAP PO SCH (21:11)
[2017-01-24] MEDS: INSULIN DETEMIR 100 UNITS/ML VIAL SQ SCH (21:15)
[2017-01-24] MEDS: ONDANSETRON HCL 4 MG/2 ML VIAL IV PRN (23:51)
[2017-01-25] VITALS (14 sets, daily range): BP systolic 121–168; BP diastolic 61–86; PULSE 92–109; RESP 12–20; TEMP 97.1–98.9; O2SAT 91–100
[2017-01-25] MEDS: RESP: ALBUTEROL 2.5 MG/IPRATROPIUM 0.5 MG NEB (SCH) INH ×6 (03:34→23:09)
--- NOTE | 2017-01-25 04:49 | RADRPT ---
EXAM DATE/TIME: 01/25/2017 03:03 [facility] COMPARISON: CHEST SINGLE AP, January 24, 2017, 7:03. INDICATIONS : Short of breath. MEDICAL HISTORY : Diabetes mellitus type II. Hypertension SURGICAL HISTORY : CABG. Pacemaker. ENCOUNTER: Subsequent ACUITY: 1 week PAIN SCORE: Non-responsive. LOCATION: Bilateral chest FINDINGS: Nasogastric tube is again noted. Pacemaker device is noted with control pack over the right chest. Ae ration is improved with improved lung volumes. Slight hazy opacity at the left base. Cardiac contours are grossly stable. CONCLUSION: Improving aeration Ben Avnia MD on January 25, 2017 at 4:46 Board Certified Radiologist. This report was verified electronically.
--- NOTE | 2017-01-25 04:50 | RADRPT ---
EXAM DATE/TIME: 01/25/2017 03:05 [facility] COMPARISON: CT ABDOMEN & PELVIS W/O CONTRAST, January 23, 2017, 19:58. INDICATIONS : Abdominal pain. MEDICAL HISTORY : Diabetes mellitus type II. Renal calculi. SURGICAL HISTORY : Cholecystectomy. Appendectomy. ENCOUNTER: Subsequent ACUITY: 1 week PAIN SCORE: Non-responsive. LOCATION: abdomen. FINDINGS: Nasogastric tube is present. There is gaseous distention of bowel loops throughout the abdomen and pe lvis, mostly small bowel. Loops are dilated to close to 4 cm. There are surgical clips in the right u p quadrant from previous cholecystectomy. A right groin central catheters present. Bilateral total hi p arthroplasties are noted. Severe degenerative change of the spine. CONCLUSION: Moderate gaseous distention of bowel throughout Ben Avina MD on January 25, 2017 at 4:47 Board Certified Radiologist. This report was verified electronically.
[2017-01-25 04:55] LABS: AUTOMATED NEUTROPHIL # 4.3 TH/MM3 (1.8-7.7); BASOPHIL % 0.1 % (0.0-2.0); HEMATOCRIT 25.9 % (39.0-51.0); HEMO FLAGS DIFF FINAL; LYMPH % 5.7 % (9.0-44.0); LYMPHOCYTE # 0.3 TH/MM3 (1.0-4.8); MEAN CELL VOLUME 95.4 FL (80.0-100.0); MEAN CORPUSCULAR HEMOGLOBIN 31.8 PG (27.0-34.0); MEAN CORPUSCULAR HGB CONC 33.3 % (32.0-36.0); MONO % 9.7 % (0.0-8.0); NEUT % 84.5 % (16.0-70.0); PLATELET COUNT 154 TH/MM3 (150-450); RED BLOOD COUNT 2.72 MIL/MM3 (4.50-5.90); WHITE BLOOD COUNT 5.1 TH/MM3 (4.0-11.0)
[2017-01-25] MEDS: METHOCARBAMOL 500 MG TAB PO SCH ×3 (05:31→19:56)
[2017-01-25] MEDS: CLINDAMYCIN INJ 300 MG in SODIUM CHLORIDE 0.9% INJ 100 ML IV SCH ×2 (05:31→10:16)
[2017-01-25] MEDS: methylPREDNISolone SOD SUCC 40 MG/1 ML VIAL IV PUSH SCH ×3 (05:31→22:11)
[2017-01-25] MEDS: LEVOTHYROXINE SODIUM 75 MCG TAB PO SCH (05:31)
[2017-01-25 05:33] LABS: ALKALINE PHOSPHATASE 55 U/L (45-117); ALT (GPT) 22 U/L (12-78); ANION GAP 7 MEQ/L (5-15); AST (GOT) 18 U/L (15-37); BICARBONATE 29.1 MEQ/L (21.0-32.0); BLOOD UREA NITROGEN 57 MG/DL (7-18); CHLORIDE 111 MEQ/L (98-107); GLOMERULAR FILTRATION RATE 44 ML/MIN (>89); POTASSIUM 3.9 MEQ/L (3.5-5.1); SODIUM (NA) 147 MEQ/L (136-145); TOTAL BILIRUBIN ADULT 0.5 MG/DL (0.2-1.0)
[2017-01-25] MEDS: DEXT 5%-NACL 0.9% 1000 ML INJ 1,000 ML IV SCH (05:41)
[2017-01-25] MEDS: INSULIN NovoLIN REGULAR SUPPLEMENTAL SCALE SQ SCH ×4 (06:16→21:00)
[2017-01-25] MEDS: POLYETHYLENE GLYCOL 17 GM PKG PO SCH (07:55)
[2017-01-25] MEDS: LIDOCAINE HCL 5% PATCH T-DERMAL SCH (07:55)
[2017-01-25] MEDS: SODIUM CHLORIDE 0.9% FLUSH 10 ML FLUSH IV FLUSH SCH ×2 (07:56→21:00)
[2017-01-25] MEDS: CEFEPIME INJ 1,000 MG in SODIUM CHLORIDE 0.9% INJ 100 ML IV SCH (07:56)
[2017-01-25] MEDS: FUROSEMIDE 20 MG/2 ML VIAL IV PUSH SCH (07:57)
[2017-01-25] MEDS: RIVAROXABAN 15 MG TAB PO SCH (07:58)
[2017-01-25] MEDS: DOCUSATE SODIUM 50 MG/SENNA 8.6 MG TAB PO SCH ×2 (07:58→19:57)
[2017-01-25] MEDS: ALLOPURINOL 300 MG TAB PO SCH (07:59)
[2017-01-25] MEDS: FAMOTIDINE 20 MG TAB PO SCH ×2 (08:01→19:56)
[2017-01-25] MEDS: QUEtiapine FUMARATE 25 MG TAB PO SCH ×2 (08:01→19:56)
--- NOTE | 2017-01-25 09:18 | HHI.PR ---
Subjective Remarks Resting in the bed O2 mask on, weaning today. patient randomly taken it off Drowsy but more responsive to verbal stimuli in room NGT clamp today Off Levophed Objective Objective Results - Vital Signs Date Time Temp Pulse Resp B/P Pulse Ox O2 Delivery O2 Flow Rate FiO2 01/25/17 08:00 97.2 98 12 167/79 100 01/25/17 08:00 97 01/25/17 07:00 100 Simple Mask 6.00 21 01/25/17 06:00 94 01/25/17 04:00 98 01/25/17 04:00 98.1 94 14 135/77 94 01/25/17 02:00 92 01/25/17 00:00 97.9 93 16 121/61 97 01/25/17 00:00 98 01/24/17 22:00 93 01/24/17 21:46 96 Simple Mask 6.00 01/24/17 20:00 98.9 96 21 149/72 96 01/24/17 20:00 93 01/24/17 19:00 99 Simple Mask 6.00 01/24/17 18:09 96 01/24/17 16:00 97 01/24/17 16:00 96.4 97 16 136/64 100 01/24/17 14:00 84 01/24/17 12:00 97.9 94 16 137/65 100 01/24/17 12:00 94 01/24/17 10:00 106 I/O 01/24/17 01/24/17 01/24/17 01/25/17 01/25/17 01/25/17 06:59 14:59 22:59 06:59 14:59 22:59 Intake Total 1560 ml 1804 ml 820 ml 542 ml Output Total 600 ml 700 ml 1350 ml 800 ml Balance 960 ml 1104 ml -530 ml -258 ml Intake Oral 0 ml IV Total 1560 ml 1764 ml 820 ml 542 ml Other 40 ml Output Urine Total 100 ml 550 ml 850 ml 750 ml Gastric Drainage Total 500 ml 150 ml 500 ml 50 ml # Bowel Movements 0 Result Diagram: 01/25/1734601/25/17346 ROS General: Fatigue, Weakness, Other (10 point ROS done positives noted) Cardiac: Edema (generalized extremity) Pulmonary: Cough (occasional), SOB (mild) GI: Other (NGT clamped) Neuro/MS: Confusion (pleasant, drowsy) Skin: Other (multiple bruising and very thin skin turgor) Physical Exam Physical Exam PHYSICAL EXAMINATION GENERAL: This is an elderly obese male resting in the bed opens his eyes to verbal stimuli HEAD: Normocephalic without any lesion or mass noted. Facial features appear symmetric. OROPHARYNGEAL: Oropharynx without erythema or edema., Dry NECK: Supple. Short obese Trachea midline without deviation. CARDIAC: Regular rhythm, regular rate, S1 and S2 distant LUNGS: Diminished to auscultation bilaterally. No wheeze, few rhonchi , decreased breath sounds. Volumes are low ABDOMEN: Soft, obese, nontender, Bowel sounds are Soft NGT clamped EXTREMITIES: Trace edema. Bruising noted on all extremities with thin turgor NEUROLOGICAL: Patient drowsy but does respond to verbal stimuli , trying to randomly talk SKIN:Warm , thin A/P Assessment and Plan (1) Altered mental status (2) Fall (3) Rib fractures (4) CKD (chronic kidney disease) stage 3, GFR 30-59 ml/min (5) Acute renal failure (6) CAD (coronary artery disease) (7) DM (diabetes mellitus screen) (8) History of DVT (deep vein thrombosis) (9) Hx of CABG (10) History of CVA (cerebrovascular accident) (11) Pulmonary contusion Labs reviewed, leukocytosis resolved WBC count 5.1 today Acute kidney injury improving, IV fluids D5NS over past 24 hours, blood sugars 174 and 254 with some hypernatremia Patient is now off Levophed and maintain him BP systolic in the point 40s 150s, pulse rate down below 100, predominantly in the 90s labs ordered for the a.m. Post fall with rib fractures and pneumothorax -Increase activity, physical therapy for evaluation, patient is still very debilitated and weak, turn cough and deep breathe in bed Questionable swallow and possible aspiration, we'll have speech eval and make recommendations. Feels patient can eat once NG tube was DC'd Altered mental status continues with drowsiness but improved today -Neuro checks continue for any acute issues Solares catheter, UA positive, culture negative the patient is on multiple IV antibiotics, planned within the next day or 2 to remove Solares catheter if patient continues to be alert mild pain management monitor for his drowsiness -Frequent reorientation, supportive care to Acute renal injury, superimposed on chronic kidney disease Renal function improving, continue with IV fluids COPD, stable Continue with supplemental oxygen, currently on mask plan to wean back to nasal cannula if at all possible. IV Solu-Medrol, Frank's appreciate pulm consult and input History of a flutter, currently sinus tach, heart rate continues to be 110 at rest, paced rhythm Continue with Xarelto Continue Coreg 6.25 mg by mouth twice a day Hypertension, stable IV drip to stablize, Norepi. Monitor blood pressure closely, continues this a.m. to have low normal BP 101/ 61 Type 2 diabetes Continue with Accu-Cheks before meals and at bedtime and insulin therapy Continue with Xarelto for DVT prophylaxis Continue with PT OT, should be able to work with patient today Right foot wrapped in dressing secured from previous I&D. Will do wound care consult to eval and treat for needed dressing changes as well as multiple skin tears. Patient will likely need SNF placement if he does not improve Discussed discharge planning and goals of care for patient. Palliative care consult done was able to speak to and daughter. Goals of care explained as well as discussion of CODE STATUS. PCP team plans to follow up today for any further questions or needs Plan of care has been discussed with RN. seen by myself and Jamie Fraser Susan M. ARNP Jan 25, 2017 09:18
[2017-01-25] MEDS ORDERED: SODIUM CHLOR 0.9% 1000 ML INJ 1,000 ML IV SCH (09:30)
[2017-01-25] MEDS ORDERED: BISACODYL 10 MG SUPP RECTAL ONE (09:30)
--- NOTE | 2017-01-25 14:00 | HHI.HCPN ---
Reason for visit a. To assist with evaluation and management of symptoms including: Dyspnea, anxiety, pain, dysphasia, confusion b. To assist medical decision maker(s) with: better understanding of current medical conditions; weighing benefits/burdens of medical treatment options; making medical treatment decisions. Subjective/Interval History Admitted 01/18 status post fall found to have 5 fractured ribs, small apical pneumothorax, dependently layering hemothorax, requiring chest tube which has since been removed, moderate to severe dehydration, bibasilar lung consolidation , concerning for chronic aspiration. He is seen today to support family with medical updates, evaluate symptoms and revisit CODE STATUS. Legal decision maker is the supported by her 2 step children, the patient's children from a previous marriage. The children are deferring to the for decision- making. * Cardiology was consulted: Notes patient with mild to moderate carotid stenosis. Patient with no angina or heart failure symptoms. Will follow as needed from a cardiovascular standpoint. Recommend resuming Xarelto, which he is taking due to a previous TIA, when chest tube is removed and risk of bleeding is minimal. * 01/22 difficulty maintaining O2 sats, 74% on nasal cannula, change to 50% Venturi mask. He is awake, has no complaints denies shortness of breath. Pulmonology is consulted. Steroids have been added per pulmonology. H&H trending down 7.7/23.8, transfused 1 unit RBC. PT and OT following; patient recommended for rehabilitation. PT notes patient has difficulty following commands, requires repetition and repeated direction some agitation reported ( reporting to PT this is normal behavior for him also reporting patient with previous falls in the home setting) requiring assistance for short ambulation, minimal assist for in bed mobility. * 01/23transferred out of the ICU. Hospitalist consulted for medical management , increased confusion. prn Haldol added for severe agitation. B12, additional labs pending. Rule out CVACT brain= stable exam compared to prior study no focal or acute hemorrhage. CXR with no acute infiltrate or effusion. In the evening on 01/23 patient was called as HALICAT due to respiratory distress following episode of emesis of stool-like material medical team responded and him in mild respiratory distress on a simple mask with a regular cardiac rhythm , some wheezing. He was awake but confused. Transferred back to the ICU. * 01/24 Patient febrile. Tachycardic. Lethargic. Still on simple mask O2.+ UA positive, culture pending. Blood cultures pending. CODE STATUS was discussed with patient's . Repeat CXR= mild interstitial edema, improvement. No pneumothorax. Palliative care was consulted to assist with clarification of goals of treatment. * 01/25 afebrile today requiring less oxygen with an improved chest x-ray. Blood and urine cultures show no growth thus far. NG tube remains clamped. Abdominal x-ray shows diffuse ileus and gastroparesis. Patient remains nothing by mouth except medications. Off Levophed, antihypertensives not yet resumed. On clindamycin and cefepime, sepsis protocol. His white blood cell count has declined to 5.1 from 16.9 yesterday, hemoglobin 8.6, hematocrit 25.9, platelet count 154. Chemistry shows sodium of 147, potassium 3.9, creatinine 1.53, BUN 57. His agitation has resolved and today he is pleasant and happy. Patient is up in chair today pleasant, mild confusion but cooperative and able to make his needs known. He complains of buttocks pain from sitting in the chair too long but otherwise doses off and arouses with stimulation. His NG tube was clamped and he denies any pain, including pain with deep inspiration. He is on 4 L nasal cannula without dyspnea or tachypnea. He remains NPO, NG tube clamped pending resolution of ileus. He has been cleared by speech therapy for thin liquids, mechanical soft diet. . Family/friend interactions and son-in-law at bedside. Did extensive education regarding code procedures and potential benefits and burdens. At this time the feels that the patient is improving and is intermittently more alert and she wishes to discuss this with him prior to choosing a CODE STATUS. Advance Directives Living Will: Completed, but not made available Health Care Surrogate: Completed, but not made available Advance Directive Specifics Documented care wishes: details in the usual verbiage requesting to not have artificial prolonging measures in the event of a terminal or end-stage condition of which she would not make a reasonable recovery. It is dated 2009 Objective Vital Signs Date Time Temp Pulse Resp B/P Pulse Ox O2 Delivery O2 Flow Rate FiO2 01/25/17 12:00 98.1 100 16 148/86 100 01/25/17 12:00 100 01/25/17 10:15 100 Nasal Cannula 4.00 6/1/17 10:00 98 01/25/17 09:32 100 Simple Mask 6.00 01/25/17 08:00 97.2 98 12 167/79 100 01/25/17 08:00 97 01/25/17 07:00 100 Simple Mask 6.00 21 01/25/17 06:00 94 01/25/17 04:00 98 01/25/17 04:00 98.1 94 14 135/77 94 01/25/17 02:00 92 01/25/17 00:00 97.9 93 16 121/61 97 01/25/17 00:00 98 01/24/17 22:00 93 01/24/17 21:46 96 Simple Mask 6.00 01/24/17 20:00 98.9 96 21 149/72 96 01/24/17 20:00 93 01/24/17 19:00 99 Simple Mask 6.00 01/24/17 18:09 96 01/24/17 16:00 97 01/24/17 16:00 96.4 97 16 136/64 100 01/24/17 14:00 84 Intake & Output 01/25/17 01/25/17 07:00 19:00 Intake Total 1362 ml Output Total 2150 ml Balance -788 ml IV Total 1362 ml Output Urine Total 1600 ml Gastric Drainage Total 550 ml Physical Exam CONSTITUTIONAL/GENERAL: This is an adequately nourished patient, lethargic, no apparent distress TUBES/LINES/DRAINS: Peripheral IV left upper extremity, Solares catheter, simple mask O2, SCD left lower extremity, NGT SKIN: No jaundice, rashes, or lesions. Multiple areas of ecchymosis lateral lower extremities, bilateral upper extremities. Left cheek with bandaid intact. + Gauze dressing rt ankle/foot clean and dry. + chronic vascular changes BLE. HEAD: Atraumatic. Normocephalic. Skin cancer to right forehead EYES: Pupils equal and round and reactive. Extraocular motions intact. No scleral icterus. No injection or drainage. Fundi not examined. ENT: Hard of hearing. NG tube to right nare. NECK: Trachea midline. thick neck. Supple, nontender. CARDIOVASCULAR: Regular rate and rhythm. No JVD. Peripheral pulses symmetric- pedal pulses faint. RESPIRATORY/CHEST: Symmetric, unlabored respirations on nasal cannula. Clear to auscultation, diminished air movement throughout. Lt chest dressing clean and dry. GASTROINTESTINAL: Abdomen soft,obese/round, non-tender, nondistended. Bowel sounds hypoactive. NGT clamped. GENITOURINARY: Without palpable bladder distension. Solares catheter in place. MUSCULOSKELETAL: Extremities without clubbing, cyanosis. Edema upper and lower extremities. + dressing BLE. No mottling or clubbing. NEUROLOGICAL: Awake at times, lethargic at times. Oriented x2. Follows simple commands. Moves all 4 extremities. Poor insight to hospitalization. PSYCHIATRIC: No obvious anxiety/depression. no apparent hallucinations or other psychotic thought process. Diagnostic Tests Laboratory Laboratory Tests Test 01/22/17 01/23/17 01/23/17 01/23/17 23:42 05:30 14:19 14:22 Hemoglobin 9.8 GM/DL 9.9 GM/DL (13.0-17.0) (13.0-17.0) Hematocrit 28.7 % 29.2 % (39.0-51.0) (39.0-51.0) White Blood Count 11.4 TH/MM3 (4.0-11.0) Red Blood Count 3.08 MIL/MM3 (4.50-5.90) Mean Corpuscular Volume 94.9 FL (80.0-100.0) Mean Corpuscular Hemoglobin 32.3 PG (27.0-34.0) Mean Corpuscular Hemoglobin 34.0 % Concent (32.0-36.0) Red Cell Distribution Width 15.7 % (11.6-17.2) Platelet Count 153 TH/MM3 (150-450) Mean Platelet Volume 8.0 FL (7.0-11.0) Neutrophils (%) (Auto) 92.8 % (16.0-70.0) Lymphocytes (%) (Auto) 5.4 % (9.0-44.0) Monocytes (%) (Auto) 1.7 % (0.0-8.0) Eosinophils (%) (Auto) 0.0 % (0.0-4.0) Basophils (%) (Auto) 0.1 % (0.0-2.0) Neutrophils # (Auto) 10.5 TH/MM3 (1.8-7.7) Lymphocytes # (Auto) 0.6 TH/MM3 (1.0-4.8) Monocytes # (Auto) 0.2 TH/MM3 (0-0.9) Eosinophils # (Auto) 0.0 TH/MM3 (0-0.4) Basophils # (Auto) 0.0 TH/MM3 (0-0.2) CBC Comment DIFF FINAL Differential Comment Sodium Level 135 MEQ/L (136-145) Potassium Level 4.0 MEQ/L (3.5-5.1) Chloride Level 97 MEQ/L (98-107) Carbon Dioxide Level 28.8 MEQ/L (21.0-32.0) Anion Gap 9 MEQ/L (5-15) Blood Urea Nitrogen 50 MG/DL (7-18) Creatinine 1.70 MG/DL (0.60-1.30) Estimat Glomerular Filtration 39 ML/MIN (>89) Rate Random Glucose 309 MG/DL (74-106) Calcium Level 10.3 MG/DL (8.5-10.1) Total Bilirubin 0.9 MG/DL (0.2-1.0) Aspartate Amino Transf 32 U/L (15-37) (AST/SGOT) Alanine Aminotransferase 21 U/L (12-78) (ALT/SGPT) Alkaline Phosphatase 72 U/L (45-117) Total Protein 6.2 GM/DL (6.4-8.2) Albumin 2.9 GM/DL (3.4-5.0) Vitamin B12 Level 1174 PG/ML (193-986) Ammonia 15 MCMOL/L (11-32) Thyroid Stimulating Hormone 0.969 uIU/ML 3rd Gen (0.358-3.740) Random Cortisol 16.6 MCG/DL Urine Color YELLOW (YELLW/STRAW) Urine Turbidity CLEAR (CLEAR) Urine pH 5.0 (5.0-8.5) Urine Specific [place] 1.012 (1.002-1.035) Urine Protein NEG mg/dL (NEG-TRACE) Urine Glucose (UA) 300 mg/dL (NEG) Urine Ketones NEG mg/dL (NEG) Urine Occult Blood NEG (NEG) Urine Nitrite NEG (NEG) Urine Bilirubin NEG (NEG) Urine Urobilinogen LESS THAN 2.0 MG/DL (LESS THAN 2.0) Urine Leukocyte Esterase TRACE (NEG) Urine RBC 1 /hpf (0-3) Urine WBC 3 /hpf (0-5) Urine Bacteria RARE /hpf (NONE) Urine Hyaline Casts 16 /lpf (RARE) Urine Mucus FEW /lpf (OCC) Microscopic Urinalysis Comment CATH-CULTURE IND Test 01/23/17 01/24/17 01/24/17 01/25/17 19:40 06:00 06:39 03:47 Blood Gas Puncture Site RT RADIAL LT RADIAL Blood Gas Patient Temperature 98.6 98.6 Blood Gas HCO3 25 mmol/L 26 mmol/L (22-26) (22-26) Blood Gas Base Excess 1.0 mmol/L 1.1 mmol/L (-2-2) (-2-2) Blood Gas Oxygen Saturation 85 % (90-100) 97 % (90-100) Arterial Blood pH 7.46 7.36 (7.380-7.420) (7.380-7.420) Arterial Blood Partial 35 mmHg (38-42) 47 mmHg (38-42) Pressure CO2 Arterial Blood Partial 52 mmHg 147 mmHg Pressure O2 (61-120) (61-120) Arterial Blood Oxygen Content 14.2 Vol % 13.3 Vol % (12.0-20.0) (12.0-20.0) Arterial Blood 1.5 % (0-4) 1.3 % (0-4) Carboxyhemoglobin Arterial Blood Methemoglobin 0.7 % (0-2) 0.8 % (0-2) Blood Gas Hemoglobin 11.8 G/DL 9.5 G/DL (12.0-16.0) (12.0-16.0) Oxygen Delivery Device SIMPLE MASK MASK Blood Gas Liter Flow 7 L/M 6 L/M White Blood Count 16.9 TH/MM3 5.1 TH/MM3 (4.0-11.0) (4.0-11.0) Red Blood Count 2.95 MIL/MM3 2.72 MIL/MM3 (4.50-5.90) (4.50-5.90) Hemoglobin 9.1 GM/DL 8.6 GM/DL (13.0-17.0) (13.0-17.0) Hematocrit 28.2 % 25.9 % (39.0-51.0) (39.0-51.0) Mean Corpuscular Volume 95.4 FL 95.4 FL (80.0-100.0) (80.0-100.0) Mean Corpuscular Hemoglobin 31.0 PG 31.8 PG (27.0-34.0) (27.0-34.0) Mean Corpuscular Hemoglobin 32.5 % 33.3 % Concent (32.0-36.0) (32.0-36.0) Red Cell Distribution Width 16.1 % 16.0 % (11.6-17.2) (11.6-17.2) Platelet Count 185 TH/MM3 154 TH/MM3 (150-450) (150-450) Mean Platelet Volume 8.4 FL 8.1 FL (7.0-11.0) (7.0-11.0) Neutrophils (%) (Auto) 87.6 % 84.5 % (16.0-70.0) (16.0-70.0) Lymphocytes (%) (Auto) 5.7 % 5.7 % (9.0-44.0) (9.0-44.0) Monocytes (%) (Auto) 6.6 % (0.0-8.0) 9.7 % (0.0-8.0) Eosinophils (%) (Auto) 0.0 % (0.0-4.0) 0.0 % (0.0-4.0) Basophils (%) (Auto) 0.1 % (0.0-2.0) 0.1 % (0.0-2.0) Neutrophils # (Auto) 14.8 TH/MM3 4.3 TH/MM3 (1.8-7.7) (1.8-7.7) Lymphocytes # (Auto) 1.0 TH/MM3 0.3 TH/MM3 (1.0-4.8) (1.0-4.8) Monocytes # (Auto) 1.1 TH/MM3 0.5 TH/MM3 (0-0.9) (0-0.9) Eosinophils # (Auto) 0.0 TH/MM3 0.0 TH/MM3 (0-0.4) (0-0.4) Basophils # (Auto) 0.0 TH/MM3 0.0 TH/MM3 (0-0.2) (0-0.2) CBC Comment DIFF FINAL DIFF FINAL Differential Comment Sodium Level 141 MEQ/L 147 MEQ/L (136-145) (136-145) Potassium Level 4.2 MEQ/L 3.9 MEQ/L (3.5-5.1) (3.5-5.1) Chloride Level 101 MEQ/L 111 MEQ/L (98-107) (98-107) Carbon Dioxide Level 32.2 MEQ/L 29.1 MEQ/L (21.0-32.0) (21.0-32.0) Anion Gap 8 MEQ/L (5-15) 7 MEQ/L (5-15) Blood Urea Nitrogen 64 MG/DL (7-18) 57 MG/DL (7-18) Creatinine 2.60 MG/DL 1.53 MG/DL (0.60-1.30) (0.60-1.30) Estimat Glomerular Filtration 24 ML/MIN (>89) 44 ML/MIN (>89) Rate Random Glucose 174 MG/DL 254 MG/DL (74-106) (74-106) Calcium Level 9.8 MG/DL 8.8 MG/DL (8.5-10.1) (8.5-10.1) Blood Gas Ventilator Setting Phosphorus Level 4.0 MG/DL (2.5-4.9) Magnesium Level 2.0 MG/DL (1.5-2.5) Total Bilirubin 0.5 MG/DL (0.2-1.0) Aspartate Amino Transf 18 U/L (15-37) (AST/SGOT) Alanine Aminotransferase 22 U/L (12-78) (ALT/SGPT) Alkaline Phosphatase 55 U/L (45-117) Total Protein 5.4 GM/DL (6.4-8.2) Albumin 2.8 GM/DL (3.4-5.0) Result Diagram: 01/25/17 0347 01/25/17 0347 Microbiology Microbiology Date/Time Procedure Status Source Growth 01/23/17 14:22 Urine Culture - Final Complete Urine Catheterized Urine NO GROWTH IN 48 HOURS. 01/24/17 10:20 Aerobic Blood Culture - Preliminary Resulted Blood Peripheral NO GROWTH IN 1 DAY 01/24/17 10:20 Anaerobic Blood Culture - Preliminary Resulted Blood Peripheral NO GROWTH IN 1 DAY 01/24/17 10:27 Aerobic Blood Culture - Preliminary Resulted Blood Peripheral NO GROWTH IN 1 DAY 01/24/17 10:27 Anaerobic Blood Culture - Preliminary Resulted Blood Peripheral NO GROWTH IN 1 DAY Imaging Last Impressions Chest X-Ray 01/25/17 0600 Signed Impressions: Service Date/Time: January 03:03 - CONCLUSION: Improving aeration Ben Avina MD Abdomen X-Ray 01/25/17 0600 Signed Impressions: Service Date/Time: January 03:05 - CONCLUSION: Moderate gaseous distention of bowel throughout Ben Avina MD Head CT 01/23/17 0000 Signed Impressions: Service Date/Time: Monday, January 23, 2017 15:33 - CONCLUSION: Stable examination compared to the prior study. No focal or acute intracranial hemorrhage. Brendan Marrero MD Abdomen/Pelvis CT 01/23/17 0000 Signed Impressions: Service Date/Time: Monday, January 23, 2017 19:58 - CONCLUSION: 1. Dilated small bowel which slowly tapers just proximal to the terminal ileum. No obstructing mass or lesion observed. No free air or free fluid. 2. Prior cholecystectomy. 3. Small left effusion with bibasilar atelectasis. 4. Umbilical hernia containing fat. Kishor Nj Jr., MD Pelvis X-Ray 01/18/171816 Signed Impressions: Service Date/Time: December 18:11 - CONCLUSION: Intact pelvis. Ben Gtz MD Maxillofacial CT 01/18/171816 Signed Impressions: Service Date/Time: December 18:51 - CONCLUSION: Intact facial bones. Ben Gtz MD Chest CT 01/18/171816 Signed Impressions: Service Date/Time: December 19:03 - CONCLUSION: Minimally displaced displaced left rib fractures as above. There is a mild left pulmonary contusion, small left anterior/apical pneumothorax and small dependently layering hemothorax. Ben Gtz MD Cervical Spine CT 01/18/171816 Signed Impressions: Service Date/Time: December 18:51 - CONCLUSION: 1. No fracture or subluxation demonstrated of the cervical spine. 2. Multilevel degenerative changes, very severe at C5/C6 and C6/C7 and C7/T1. Ben Gtz MD Assessment and Plan Disease Oriented Problem List: (1) COPD (chronic obstructive pulmonary disease) (2) Pneumothorax (3) CKD (chronic kidney disease) stage 4, GFR 15-29 ml/min (4) Chest pain (5) CAD (coronary artery disease) (6) Altered mental status (7) Pulmonary contusion (8) SOB (shortness of breath) (9) Diabetes Symptom Scale: (1) Dyspnea 0-10 Scale: Unable to quantify (2) Pain 0-10 Scale: Unable to quantify (3) Anxiety 0-10 Scale: Unable to quantify (4) Confusion 0-10 Scale: Unable to quantify (5) Dysphasia 0-10 Scale: Unable to quantify Pertinent Non-Medical Issues Psychosocial:. originally from [facility] [facility] [place]. 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 Retired to [place] 10+ yrs ago , has always traveled to [facility] for racing events. Has 2 adult children, 1 stepchild. Spiritual: Legal:Mental status fluctuates this is likely multifactorial related to his multiple medical conditions. . Reported to have a living will but is not ready to provide copies. She would be appropriate legal proxy, family reports she is designated decision maker. Ethical issues impacting care: Important Contacts Elizabeth Calderon([phone]) Daughter . Prognosis This patient was admitted on 01/18 after reported mechanical fall with left rib pain. He had findings of multiple left-sided rib fractures as well as pneumothorax requiring chest tube placement. He has multiple chronic medical conditions, as well as family reports of a mild/early dementia diagnoses. He has had recent recurrent falls. Given advanced age, multiple chronic medical conditions, and now acute rib injury patient remains very high risk for further pulmonary and other complications and continued decline. If he is able to get through acute hospitalization will likely require rehabilitation and potentially long-term care placement. Code Status: Full Code Plan * Legal decision maker: Intermittently confused, likely multifactorial due to his clinical condition. Discussed with who states she reviewed his living will and it did not provide her with the guidance she wished. She attempted to defer to the daughter who stated she did not wish to be the decision-maker. She would be appropriate legal proxy, family reports she is designated decision maker. She states the patient has been more alert and she wishes to discuss with him prior to considering a DNR status. * Goals: Met with patient daughter at length today. Patient has been overwhelmed staying at the hospital bedside for most of the day and night, she has gone home to rest. Daughter indicates is reluctant to read or bring in his living will. Daughter appears to have a good understanding of conditions and overall prognosis. She will talk to later today after she awakens, is currently home sleeping. They will notify palliative if they're able to meet again today, otherwise will plan follow-up meeting with and daughter and patient tomorrow. -----1500 later met again with patient at bedside. She wishes to talk more to his children as she indicates that she is not their mother, and wishes to include them in any important decisions. She will talk more in the next day about CODE STATUS with family and advised nursing or medical team if she wishes for DNR status. Palliative follow-up with tomorrow 01/25. Follow-up with family per above, met with and son-in-law. Discussed CODE STATUS with possible scenarios and states she is not ready to make any decision. I did make her aware of the legal obligations of the hospital to perform full resuscitative measures including CPR, compressions, intubation and mechanical ventilation. She is continuing to discuss with family and is hopeful that the patient will regain ability to assist in this decision-making. * CODE STATUS: Full code * SYMPTOMS: --Dyspnea-admitted with rib pain status post fall. + Initially required chest tubes has since been removed. Long history of COPD, O2 dependent in the home setting. CXR with improved aeration. Initially requiring simple mask now weaned to 4 L nasal cannula. Could potentially require intubation/mechanical vent. --Pain-frequent fall history. Most recent fall resulting in multiple left rib fractures. Recent removal of chest tube. Last opiate use 01/24. Denies pain at this visit. --anxiety/confusion- possible dx early/mild dementia. + episodes agitation/ confusion during hospital course likely multifactorialpoor oxygenation, kidney disease, medications. Receiving Seroquel 25 mg by mouth twice a day pleasant, happy today. Oriented to person and place. --Dysphasia-he is currently nothing by mouth except meds pending speech therapy evaluation. * Palliative care will continue to follow during hospital course as condition evolves, to assist patient/decision-maker with understanding of medical conditions, weighing benefits/burdens of treatment options, for clarification of goals of treatment. Additionally will assist with any symptoms of palliative concern . Attestation To help prompt me to consider important information that might be impacting today's encounter and assessment, information from prior notes written by myself or my colleagues may have been "brought forward" into today's note. My signature on this note, however, is an attestation that I personally performed the exam, history, and/or decision-making noted today, and, unless otherwise indicated, the interactions with patient, family, and staff as well as the review of records all occurred today. I also attest that the listed assessment and stated plan reflect my best clinical judgment today based on the combination of historical information, prior notes, and today's exam/ interactions. When time spent is documented, it refers only to time spent today by the signer, or if indicated, combined time spent today by collaborating physician/nurse practitioner. Perri Thorne Jan 25, 2017 2:00 pm
--- NOTE | 2017-01-25 14:17 | HHI.CCPN ---
Subjective Brief History 81-year-old gentleman who fell on his left side sustained multiple left rib fractures and left hemopneumothorax. Patient was resuscitated its prior to run trauma alert. Had a chest tube placed Patient is now in the ICU for observation I have had a long discussion with the patient and brother neuropsychologist to evaluated the patient as well. Patient this point very hostile and unhappy that he has to be in the hospital and has been very hostile toward a neuropsychologist. He wants to leave hospital and I tried to explain to him that the injuries are such that he cannot leave Patient's family is at the bedside trying to convince him to the same There is no question my mind that the patient has somewhat demented and combination is impaired to neurocognitive deficits related to the age 24 Hour Review/Hospital Course Patient doing well at this time Awake alert and oriented with bilateral breath sounds Very noncompliant with care refuses pain medication refuses his home medications and basically wants to leave the hospital Patient has some limited neurocognitive deficits consistent with dementia He is at high risk of developing pneumonia and ending up on the ventilator in face of his lung contusion however right now is doing ok 01/24/17 Patient was admitted by the week ago with left-sided rib fractures and small hemopneumothorax which was treated with chest tube in the meantime chest was removed Patient the apparently started deteriorating yesterday afternoon became tachypneic and slightly hypotensive as well as tachycardic Patient was transferred to ICU for further care He underwent battery of studies and was found to have gastroparesis with retention a large amount of gastric contents, had nasogastric tube placed with return of about thousand cc of gastric contents. Patient now somewhat somnolent and lethargic but improving hemodynamic parameters Appropriate services have been consult 01/25/17 Patient greatly improved since yesterday He is now awake alert but somewhat disoriented and confused although answering simple questions appropriately Was taken out of bed by physical therapy today was able to walk with a walker It is still unclear what exactly caused hypoxia and hypotension and his gentleman few days ago at its most likely aspiration due to paralytic ileus and gastroparesis brought on by combination of narcotics, limited mobility and diabetes mellitus as well as the age and inability to well protect the upper airway Nonetheless patient is doing much better now White count has decreased to normal levels patient is afebrile Objective Vital Signs Date Time Temp Pulse Resp B/P Pulse Ox O2 Delivery O2 Flow Rate FiO2 01/25/17 12:00 98.1 100 16 148/86 100 01/25/17 10:15 Nasal Cannula 4.00 01/25/17 07:00 21 Intake and Output 01/24/17 01/24/17 01/25/17 08:00 16:00 00:00 Intake Total 1560 ml 1804 ml 820 ml Output Total 600 ml 700 ml 1350 ml Balance 960 ml 1104 ml -530 ml Result Diagram: 01/25/17 0347 01/25/17 0347 Other Results Microbiology Date/Time Procedure Status Source Growth 01/23/17 14:22 Urine Culture - Final Complete Urine Catheterized Urine NO GROWTH IN 48 HOURS. Imaging Last 24 hours Impressions Chest X-Ray 01/25/17 06 Signed Impressions: Service Date/Time: January 03:03 - CONCLUSION: Improving aeration Ben Avina MD Abdomen X-Ray 01/25/17 06 Signed Impressions: Service Date/Time: January 03:05 - CONCLUSION: Moderate gaseous distention of bowel throughout Ben Avina MD Exam RESERVATION AGENT Awake alert but somewhat disoriented answering simple questions appropriately but trailing off Hemodynamic/Cardiac Hemodynamically stable with good blood pressure good hemodynamic values Pulmonary/Respiratory Bilateral good breath sounds and actually lungs appear to be clear Abdomen/GI Nutrition Abdomen is soft. Somewhat distended and no bowel movement Patient has paralytic ileus and gastroparesis brought on by like of mobility, long-standing diabetes mellitus with gastroparesis and narcotics administration in face of rib fractures Renal/I&O Good urine output and improving renal function Assessment and Plan Attestation The exam, history, and the medical decision-making described in the above note were completed with the assistance of the mid-level provider. I reviewed and agree with the findings presented. I attest that I had a [id number] encounter with the patient on the same day, and personally performed and documented my assessment and findings in the medical record. Critical care time 35 minutes. Debra Lala MD Jan 25, 2017 14:17
--- NOTE | 2017-01-25 14:59 | PD.ID.CON ---
History of Present Illness Service ID Consult Requested By Dr Lala Reason for Consult leukocytosis Primary Care Physician Diagnoses: History of Present Illness 81-year-old male with complex past medical history including including oxygen dependency was brought here as a trauma alert after a fall. He sustained multiple rib fractures and L sided pneumothorax. He had a chest tube placed which was discontinued on01/19 He was transferred to ICU 2days ago2/2 vomiting , resp distress and aspiration CXR showed hazy infiltrates CT abd/pel showed Dilated small bowel which slowly tapers just proximal to the terminal ileum. No obstructing mass or lesion observed His WBC went up to 16 K yday but is down to 5 today He was started on clindamycin+ cefepime He has no BM and still requirring NG t suctioning He is off pressorsand his UOPis adequate with improving creatinine Review of Systems Except as stated in HPI: all other systems reviewed are Neg Past Family Social History Allergies: Coded Allergies: Contrast Media (Verified Allergy, Severe, SWELLING AND SHORTNESS OF BREATH , 01/23/17) Iodine (Verified Allergy, Severe, SWELLING, 01/23/17) Shellfish (Verified Allergy, Severe, 01/23/17) Past Medical History Prior left sixth rib fracture 2014 Hypertension Diabetes 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 )with exchange in 2015 Appendectomy Cholecystectomy Right wrist surgery Left shoulder surgery Bilateral Hip replacement Bilateral total knee replacement Past Surgical History Coronary artery stenting Aortic valve replacement Tonsillectomy Pacemaker placement, ([employer] )with exchange in 2015 Appendectomy Cholecystectomy Right wrist surgery Left shoulder surgery Bilateral Hip replacement Bilateral total knee replacement Active Ordered Medications Medications where reviewed in EMR Antibiotics Include: clindamycin cefepime Family History mother - cancer father - hert disease Social History + remote tobacco: quite 30 rs ago no ETOH no illit drugs Physical Exam Vital Signs Vital Signs Date Time Temp Pulse Resp B/P Pulse Ox O2 Delivery O2 Flow Rate FiO2 01/25/17 14:00 102 01/25/17 12:00 98.1 100 16 148/86 100 01/25/17 12:00 100 01/25/17 10:15 100 Nasal Cannula 4.00 01/25/17 10:00 98 01/25/17 09:32 100 Simple Mask 6.00 01/25/17 08:00 97.2 98 12 167/79 100 01/25/17 08:00 97 01/25/17 07:00 100 Simple Mask 6.00 21 01/25/17 06:00 94 01/25/17 04:00 98 01/25/17 04:00 98.1 94 14 135/77 94 01/25/17 02:00 92 01/25/17 00:00 97.9 93 16 121/61 97 01/25/17 00:00 98 01/24/17 22:00 93 01/24/17 21:46 96 Simple Mask 6.00 01/24/17 20:00 98.9 96 21 149/72 96 01/24/17 20:00 93 01/24/17 19:00 99 Simple Mask 6.00 01/24/17 18:09 96 01/24/17 16:00 97 01/24/17 16:00 96.4 97 16 136/64 100 Physical Exam CONSTITUTIONAL/GENERAL: This is an obese elderly patient, in no apparent distress. TUBES/LINES/DRAINS: SKIN: No jaundice, rashes, or lesions. Ecchymoses on upper extremities. No wounds seen anteriorly. Skin temperature appropriate. Not diaphoretic. HEAD: Atraumatic. Normocephalic. EYES: Pupils equal and round and reactive. Extraocular motions intact. No scleral icterus. No injection or drainage. Fundi not examined. ENT: Hearing grossly normal. Nose without bleeding or purulent drainage. Oral muclsea without visible erythema, exudates, masses, or lesions. NECK: Trachea midline. Supple, nontender. CARDIOVASCULAR: Regular rate and rhythm without murmurs, gallops, or rubs. No JVD. Peripheral pulses symmetric. RESPIRATORY/CHEST: Symmetric, unlabored respirations. Clear to auscultation. Breath sounds equal bilaterally. No wheezes, rales, or rhonchi. GASTROINTESTINAL: Abdomen soft, non-tender, markedly distended,tympanic to palpation. No hepato-splenomegaly, or palpable masses. No guarding. Bowel sounds present. GENITOURINARY: Without palpable bladder distension. Solares catheter in place withclear yellow urine MUSCULOSKELETAL: Extremities without clubbing, cyanosis, or edema. No joint tenderness or effusion noted. No calf tenderness. No mottling or clubbing. LYMPHATICS: No palpable cervical or supraclavicular adenopathy. NEUROLOGICAL: Awake and alert. Motor and sensory grossly within normal limits. Follows commands. Speech . Moves all extremities. PSYCHIATRIC: No obvious anxiety/depression. no apparent hallucinations or other psychotic thought process. Laboratory Laboratory Tests Test 01/25/17 03:47 White Blood Count 5.1 Red Blood Count 2.72 Hemoglobin 8.6 Hematocrit 25.9 Mean Corpuscular Volume 95.4 Mean Corpuscular Hemoglobin 31.8 Mean Corpuscular Hemoglobin 33.3 Concent Red Cell Distribution Width 16.0 Platelet Count 154 Mean Platelet Volume 8.1 Neutrophils (%) (Auto) 84.5 Lymphocytes (%) (Auto) 5.7 Monocytes (%) (Auto) 9.7 Eosinophils (%) (Auto) 0.0 Basophils (%) (Auto) 0.1 Neutrophils # (Auto) 4.3 Lymphocytes # (Auto) 0.3 Monocytes # (Auto) 0.5 Eosinophils # (Auto) 0.0 Basophils # (Auto) 0.0 CBC Comment DIFF FINAL Differential Comment Sodium Level 147 Potassium Level 3.9 Chloride Level 111 Carbon Dioxide Level 29.1 Anion Gap 7 Blood Urea Nitrogen 57 Creatinine 1.53 Estimat Glomerular Filtration 44 Rate Random Glucose 254 Calcium Level 8.8 Phosphorus Level 4.0 Magnesium Level 2.0 Total Bilirubin 0.5 Aspartate Amino Transf 18 (AST/SGOT) Alanine Aminotransferase 22 (ALT/SGPT) Alkaline Phosphatase 55 Total Protein 5.4 Albumin 2.8 Date/Time Procedure Status Source Growth 01/24/17 10:27 Aerobic Blood Culture - Preliminary Resulted Blood Peripheral NO GROWTH IN 1 DAY 01/24/17 10:27 Anaerobic Blood Culture - Preliminary Resulted Blood Peripheral NO GROWTH IN 1 DAY 01/23/17 14:22 Urine Culture - Final Complete Urine Catheterized Urine NO GROWTH IN 48 HOURS. Result Diagram: 01/25/1734601/25/17346 Imaging Last Impressions Chest X-Ray 01/25/17 06 Signed Impressions: Service Date/Time: January 03:03 - CONCLUSION: Improving aeration Ben Avina MD Abdomen X-Ray 01/25/17 0600 Signed Impressions: Service Date/Time: January 03:05 - CONCLUSION: Moderate gaseous distention of bowel throughout Ben Avina MD Head CT 01/23/17 0000 Signed Impressions: Service Date/Time: Monday, January 23, 2017 15:33 - CONCLUSION: Stable examination compared to the prior study. No focal or acute intracranial hemorrhage. Brendan Marrero MD Abdomen/Pelvis CT 01/23/17 0000 Signed Impressions: Service Date/Time: Monday, January 23, 2017 19:58 - CONCLUSION: 1. Dilated small bowel which slowly tapers just proximal to the terminal ileum. No obstructing mass or lesion observed. No free air or free fluid. 2. Prior cholecystectomy. 3. Small left effusion with bibasilar atelectasis. 4. Umbilical hernia containing fat. Kishor Nj Jr., MD Pelvis X-Ray 01/18/171816 Signed Impressions: Service Date/Time: December 18:11 - CONCLUSION: Intact pelvis. Ben Gtz MD Maxillofacial CT 01/18/171816 Signed Impressions: Service Date/Time: December 18:51 - CONCLUSION: Intact facial bones. Ben Gtz MD Chest CT 01/18/171816 Signed Impressions: Service Date/Time: December 19:03 - CONCLUSION: Minimally displaced displaced left rib fractures as above. There is a mild left pulmonary contusion, small left anterior/apical pneumothorax and small dependently layering hemothorax. Ben Gtz MD Cervical Spine CT 01/18/171816 Signed Impressions: Service Date/Time: December 18:51 - CONCLUSION: 1. No fracture or subluxation demonstrated of the cervical spine. 2. Multilevel degenerative changes, very severe at C5/C6 and C6/C7 and C7/T1. Ben Gtz MD Assessment and Plan Assessment and Plan L side traumatic pneumothorax Ileus with vomiting ? AspirationPNA Leukocytosis - improved dc cefepime,clinda - zosyn - anticipate short abx couse monitor clinically - fu WBC Discussed Condition With @ b/s Mariya Chung MD Jan 25, 2017 14:59
[2017-01-25] MEDS: PIPERACIL-TAZO 3.375 GM PREMIX 50 ML IV SCH ×2 (15:18→20:25)
[2017-01-25] MEDS: SODIUM CHLOR 0.45% 1000 ML INJ 1,000 ML IV SCH (15:47)
[2017-01-25] MEDS: TAMSULOSIN HCL 0.4 MG CAP PO SCH (19:56)
[2017-01-25] MEDS: GABAPENTIN 100 MG CAP PO SCH (19:57)
[2017-01-25] MEDS: ACETAMINOPHEN 325 MG TAB PO PRN (19:57)
--- NOTE | 2017-01-25 20:25 | HHI.PR ---
Subjective Remarks 81 YOWM with Rib fracture,PTX, pulm contusion Feels much better Had abd distension NGT drained 1 lit, better now Anxious to go home On NC at BS Objective Vital Signs Vital Signs Date Time Temp Pulse Resp B/P Pulse Ox O2 Delivery O2 Flow Rate FiO2 01/25/17 19:35 91 21 01/25/17 18:00 109 01/25/17 16:00 104 01/25/17 16:00 97.1 104 13 168/86 96 01/25/17 14:00 102 01/25/17 12:00 98.1 100 16 148/86 100 01/25/17 12:00 100 01/25/17 10:15 100 Nasal Cannula 4.00 01/25/17 10:00 98 01/25/17 09:32 100 Simple Mask 6.00 01/25/17 08:00 97.2 98 12 167/79 100 01/25/17 08:00 97 01/25/17 07:00 100 Simple Mask 6.00 21 01/25/17 06:00 94 01/25/17 04:00 98 01/25/17 04:00 98.1 94 14 135/77 94 01/25/17 02:00 92 01/25/17 00:00 97.9 93 16 121/61 97 01/25/17 00:00 98 01/24/17 22:00 93 01/24/17 21:46 96 Simple Mask 6.00 I/O 01/24/17 01/24/17 01/24/17 01/25/17 01/25/17 01/25/17 07:00 15:00 23:00 07:00 15:00 23:00 Intake Total 1560 ml 1804 ml 820 ml 542 ml 978 ml Output Total 600 ml 700 ml 1350 ml 800 ml 1210 ml Balance 960 ml 1104 ml -530 ml -258 ml -232 ml Intake Oral 0 ml IV Total 1560 ml 1764 ml 820 ml 542 ml 778 ml Other 40 ml 200 ml Output Urine Total 100 ml 550 ml 850 ml 750 ml 1200 ml Gastric Drainage Total 500 ml 150 ml 500 ml 50 ml 10 ml # Bowel Movements 0 Result Diagram: 01/25/1734601/25/17346 Objective Remarks GENERAL: Elderly male ,NAD SKIN: Warm and dry. HEAD: Normocephalic. EYES: No scleral icterus. No injection or drainage. NECK: Supple, trachea midline. No JVD or lymphadenopathy. CARDIOVASCULAR: Regular rate and rhythm without murmurs, gallops, or rubs. RESPIRATORY: Breath sounds equal bilaterally. No accessory muscle use. GASTROINTESTINAL: Abdomen soft, non-tender, nondistended. MUSCULOSKELETAL: No cyanosis, or edema. BACK: Nontender without obvious deformity. No CVA tenderness. A/P Assessment and Plan Ribs Fracture Pulm contusion PTX resolved Hypoxia improved COPD DM PLAN: Supplement 02 , keep sat >92% Aerosol nebs IV Solumedrol pain controll NGT to suction Romeo Payne MD Jan 25, 2017 20:25
[2017-01-25] MEDS: INSULIN DETEMIR 100 UNITS/ML VIAL SQ SCH (21:51)
[2017-01-25] MEDS: REMOVE OLD LIDOCAINE PATCH T-DERMAL SCH (22:11)
--- NOTE | 2017-01-25 23:57 | PD.CONS ---
History of Present Illness Service Podiatry Consult Requested By Dai Reason for Consult R leg/foot ulcers Primary Care Physician Diagnoses: History of Present Illness 81-year-old male with history of chronic ulcers R leg/foot. Very poor historian. Currently bandaged Past Family Social History Allergies: Coded Allergies: Contrast Media (Verified Allergy, Severe, SWELLING AND SHORTNESS OF BREATH , 01/23/17) Iodine (Verified Allergy, Severe, SWELLING, 01/23/17) Shellfish (Verified Allergy, Severe, 01/23/17) Past Medical History DM HTN Past Surgical History aortic valve replacement with a bovine valve. Cholecystectomy. Hip surgery. Knee surgery. Shoulder surgery. Reported Medications 1. Xarelto 15 mg a day. 2. Famotidine 10 mg a day. 3. Levothyroxine 75 mcg a day. 4. Neurontin 400 mg at nighttime. 5. Flomax 0.4 mg at nighttime. 6. Robaxin 500 mg q. 8-hours. 7. Cozaar 12.5 mg a day. 8. Allopurinol 300 mg a day. 9. Coreg 6.25 twice a day. 10. Lasix 40 mg twice a day. 11. Morphine for pain. 12. Albuterol/Atrovent nebulizer treatment. Active Ordered Medications Current Medications Medications (Trade) Dose Ordered Sig/Leida Route Start Time Stop Time Status Last Admin (NS Flush) 2 ml UNSCH PRN IV FLUSH 01/18/17 19:45 (NS Flush) 2 ml BID IV FLUSH 01/18/17 21:00 01/25/17 21:00 (Zofran Inj) 4 mg Q6H PRN IV 01/18/17 19:45 01/24/17 23:51 (Bhargavi-Colace) 1 tab BID PO 01/18/17 21:00 01/25/17 19:57 (Milk Of Magnesia Liq) 30 ml Q12H PRN PO 01/18/17 19:45 (Senokot) 17.2 mg Q12H PRN PO 01/18/17 19:45 (Dulcolax Supp) 10 mg DAILY PRN RECTAL 01/18/17 19:45 (Lactulose Liq) 30 ml DAILY PRN PO 01/18/17 19:45 (Miralax) 17 gm DAILY PO 01/19/17 09:00 01/25/17 07:55 (Lidoderm 5% Patch.12 Hr) 1 patch DAILY T-DERMAL 01/19/17 09:00 01/25/17 07:55 (D50w (Vial) Inj) 50 ml UNSCH PRN IV 01/19/17 07:45 (Glucagon Inj) 1 mg UNSCH PRN OTHER 01/19/17 07:45 (Robaxin) 500 mg Q8H PO 01/19/17 20:00 01/25/17 19:56 (Zyloprim) 300 mg DAILY PO 01/19/17 14:45 01/25/17 07:59 (Synthroid) 75 mcg DAILY@0600 PO 01/20/17 06:00 01/25/17 05:31 (Flomax) 0.4 mg HS PO 01/19/17 21:00 01/25/17 19:56 (Pill Splitter) 1 ea UNSCH PRN OTHER 01/19/17 15:00 01/24/17 09:14 (Pepcid) 10 mg BID PO 01/20/17 21:00 01/25/17 19:56 (Xarelto) 15 mg DAILY PO 01/22/17 09:00 01/25/17 07:58 (SoluMEDROL INJ) 40 mg Q8HR IV PUSH 01/22/17 14:00 01/25/17 22:11 (Levemir Inj) 10 units HS SQ 01/23/17 21:00 01/25/17 21:51 (Neurontin) 200 mg HS PO 01/23/17 21:00 01/25/17 19:57 Miscellaneous Information 1 1 HS T-DERMAL 01/23/17 21:00 01/25/17 22:11 (Levophed-Dextrose Drip) 250 ml @ 0 mls/hr TITRATE IV 01/24/17 08:00 (SEROquel) 25 mg BID PO 01/24/17 09:15 01/25/17 19:56 (Lasix Inj) 20 mg DAILY IV PUSH 01/24/17 09:15 01/25/17 07:57 Acetaminophen 650 mg 650 mg Q4H PRN PO 01/25/17 09:30 01/25/17 19:57 Piperacillin Sod/ Tazobactam Sod 50 ml @ 100 mls/hr Q6H IV 01/25/17 15:00 01/25/17 20:25 (1/2 NS 1000 ml Inj) 1,000 ml @ 84 mls/hr [id number] IV 01/25/17 16:00 01/25/17 15:47 Social History He has history of smoking which he quit 20 years ago. He is for the 4th time, now for 10 years. He has one child. 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 Physical Exam Vital Signs Vital Signs Date Time Temp Pulse Resp B/P Pulse Ox O2 Delivery O2 Flow Rate FiO2 01/25/17 19:35 91 21 01/25/17 18:00 109 01/25/17 16:00 104 01/25/17 16:00 97.1 104 13 168/86 96 01/25/17 14:00 102 01/25/17 12:00 98.1 100 16 148/86 100 01/25/17 12:00 100 01/25/17 10:15 100 Nasal Cannula 4.00 01/25/17 10:00 98 01/25/17 09:32 100 Simple Mask 6.00 01/25/17 08:00 97.2 98 12 167/79 100 01/25/17 08:00 97 01/25/17 07:00 100 Simple Mask 6.00 21 01/25/17 06:00 94 01/25/17 04:00 98 01/25/17 04:00 98.1 94 14 135/77 94 01/25/17 02:00 92 01/25/17 00:00 97.9 93 16 121/61 97 01/25/17 00:00 98 Physical Exam R foot diminished pedal pulses and dorsal forefoot ulceration 1cm x 0.5cm x 0.2cm depth, fibrotic base. No erythema, no edema, no sign of infection. 2nd ulcer to R posterior calf. 1.5cm x 1cm x 0.1cm depth, granular base. Minimal serous drainage. No erythema, no edema, no sign of infection. Laboratory Laboratory Tests Test 01/25/17 03:47 White Blood Count 5.1 Red Blood Count 2.72 Hemoglobin 8.6 Hematocrit 25.9 Mean Corpuscular Volume 95.4 Mean Corpuscular Hemoglobin 31.8 Mean Corpuscular Hemoglobin 33.3 Concent Red Cell Distribution Width 16.0 Platelet Count 154 Mean Platelet Volume 8.1 Neutrophils (%) (Auto) 84.5 Lymphocytes (%) (Auto) 5.7 Monocytes (%) (Auto) 9.7 Eosinophils (%) (Auto) 0.0 Basophils (%) (Auto) 0.1 Neutrophils # (Auto) 4.3 Lymphocytes # (Auto) 0.3 Monocytes # (Auto) 0.5 Eosinophils # (Auto) 0.0 Basophils # (Auto) 0.0 CBC Comment DIFF FINAL Differential Comment Sodium Level 147 Potassium Level 3.9 Chloride Level 111 Carbon Dioxide Level 29.1 Anion Gap 7 Blood Urea Nitrogen 57 Creatinine 1.53 Estimat Glomerular Filtration 44 Rate Random Glucose 254 Calcium Level 8.8 Phosphorus Level 4.0 Magnesium Level 2.0 Total Bilirubin 0.5 Aspartate Amino Transf 18 (AST/SGOT) Alanine Aminotransferase 22 (ALT/SGPT) Alkaline Phosphatase 55 Total Protein 5.4 Albumin 2.8 Date/Time Procedure Status Source Growth 01/24/17 10:27 Aerobic Blood Culture - Preliminary Resulted Blood Peripheral NO GROWTH IN 1 DAY 01/24/17 10:27 Anaerobic Blood Culture - Preliminary Resulted Blood Peripheral NO GROWTH IN 1 DAY 01/23/17 14:22 Urine Culture - Final Complete Urine Catheterized Urine NO GROWTH IN 48 HOURS. Result Diagram: 01/25/17 0347 01/25/17 0347 Assessment and Plan Assessment and Plan Ulcers R dorsal foot and posterior calf. Ordered santyl ointment to wounds and compression from toes to below knee every other day. Continue local wound care. Thank you for consultation. No further treatment planned at this time. Garrett Paredes DPM Jan 25, 2017 23:57
[2017-01-26] VITALS (14 sets, daily range): BP systolic 138–185; BP diastolic 78–93; PULSE 102–119; RESP 14–21; TEMP 96.8–98.9; O2SAT 92–100
[2017-01-26] MEDS: ACETAMINOPHEN 325 MG TAB PO PRN (01:17)
[2017-01-26] MEDS: RESP: ALBUTEROL 2.5 MG/IPRATROPIUM 0.5 MG NEB (SCH) INH ×6 (03:21→23:27)
[2017-01-26] MEDS: PIPERACIL-TAZO 3.375 GM PREMIX 50 ML IV SCH ×4 (03:31→21:34)
[2017-01-26] MEDS: METHOCARBAMOL 500 MG TAB PO SCH ×3 (03:43→21:33)
[2017-01-26] MEDS: SODIUM CHLOR 0.45% 1000 ML INJ 1,000 ML IV SCH (03:55)
[2017-01-26 06:08] LABS: AUTOMATED NEUTROPHIL # 5.9 TH/MM3 (1.8-7.7); BASOPHIL % 0.1 % (0.0-2.0); HEMATOCRIT 25.6 % (39.0-51.0); HEMO FLAGS DIFF FINAL; LYMPHOCYTE # 0.3 TH/MM3 (1.0-4.8); MEAN CELL VOLUME 97.4 FL (80.0-100.0); MEAN CORPUSCULAR HEMOGLOBIN 33.3 PG (27.0-34.0); MEAN CORPUSCULAR HGB CONC 34.2 % (32.0-36.0); MONO % 8.3 % (0.0-8.0); NEUT % 86.6 % (16.0-70.0); PLATELET COUNT 160 TH/MM3 (150-450); RED BLOOD COUNT 2.63 MIL/MM3 (4.50-5.90); WHITE BLOOD COUNT 6.8 TH/MM3 (4.0-11.0)
[2017-01-26] MEDS: methylPREDNISolone SOD SUCC 40 MG/1 ML VIAL IV PUSH SCH ×3 (06:27→21:32)
[2017-01-26] MEDS: LEVOTHYROXINE SODIUM 75 MCG TAB PO SCH (06:28)
[2017-01-26 06:51] LABS: ALKALINE PHOSPHATASE 56 U/L (45-117); ALT (GPT) 21 U/L (12-78); ANION GAP 6 MEQ/L (5-15); AST (GOT) 21 U/L (15-37); BICARBONATE 30.5 MEQ/L (21.0-32.0); BLOOD UREA NITROGEN 42 MG/DL (7-18); CHLORIDE 111 MEQ/L (98-107); GLOMERULAR FILTRATION RATE 57 ML/MIN (>89); POTASSIUM 3.8 MEQ/L (3.5-5.1); SODIUM (NA) 147 MEQ/L (136-145); TOTAL BILIRUBIN ADULT 0.7 MG/DL (0.2-1.0)
[2017-01-26] MEDS: INSULIN NovoLIN REGULAR SUPPLEMENTAL SCALE SQ SCH ×4 (06:58→22:07)
[2017-01-26] MEDS ORDERED: COLLAGENASE OINT 30 GM TUBE TOPICAL ONE ×2 (09:00)
[2017-01-26] MEDS ORDERED: LACTULOSE SYRUP 20 GM/30 ML CUP PO ONE (09:15)
[2017-01-26] MEDS: SODIUM CHLORIDE 0.9% FLUSH 10 ML FLUSH IV FLUSH SCH ×2 (10:09→21:33)
[2017-01-26] MEDS: FAMOTIDINE 20 MG TAB PO SCH ×2 (10:10→21:33)
[2017-01-26] MEDS: POLYETHYLENE GLYCOL 17 GM PKG PO SCH (10:10)
[2017-01-26] MEDS: DOCUSATE SODIUM 50 MG/SENNA 8.6 MG TAB PO SCH ×2 (10:10→21:34)
[2017-01-26] MEDS: FUROSEMIDE 20 MG/2 ML VIAL IV PUSH SCH (10:10)
[2017-01-26] MEDS: ALLOPURINOL 300 MG TAB PO SCH (10:11)
[2017-01-26] MEDS: QUEtiapine FUMARATE 25 MG TAB PO SCH ×2 (10:11→21:33)
[2017-01-26] MEDS: LIDOCAINE HCL 5% PATCH T-DERMAL SCH (10:11)
[2017-01-26] MEDS: RIVAROXABAN 15 MG TAB PO SCH (10:11)
[2017-01-26] MEDS: MEMANTINE HCL 5 MG TAB PO SCH (11:38)
--- NOTE | 2017-01-26 12:22 | HHI.HCPN ---
Reason for visit a. To assist with evaluation and management of symptoms including: Dyspnea, anxiety, pain, dysphasia, confusion b. To assist medical decision maker(s) with: better understanding of current medical conditions; weighing benefits/burdens of medical treatment options; making medical treatment decisions. Subjective/Interval History He is seen today to support family with medical updates, evaluate symptoms and revisit CODE STATUS. ID was consulted for leukocytosis, WBC up to 16 01/24, down to 5 yesterday (now 6.8). Clindamycin and cefepime were changed to Zosyn for possible aspiration pneumonia. NG tube was clamped, has since been DC'd. KUB yesterday 01/25 indicated moderate amount of gaseous distention. 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 ST following recommended and liquids, mechanical soft diet. Patient stable overnight, tolerating nasal cannula from 2-5 L. Has been up in a chair this morning. Patient seen in room was son-in-law at bedside, sleeping in couch. (I did not wake her as she is previously reported not eating or sleeping well since his hospitalization) with son-in-law at bedside who has been present at bedside with patient daughter Izabella, he was present when I met with her at length previously. He indicates they all have a good understanding of conditions and prognosis. They have continued to discuss resuscitation status and at this point he says family decided he should remain a full code until it is possible if he could weigh in on resuscitation status himself. Review the patient continues to remain high risk for further pulmonary complications as previously discussed. Patient is currently seen up in chair. He is awake and partially oriented however very poor insight hospitalization. knows he in hospital, knows has rib fx, however otherwise poor understanding. He tells me he is ready to go home and no one is taking care of things here and rambles on about unrelated things. Limited ROS due ot his rambling. He does endorse "not much" pain, "a little" to his sides, back. Family has my #, or Izabella will call if they have additional questions. D/w RN . Advance Directives Living Will: Completed, but not made available Health Care Surrogate: Completed, but not made available Advance Directive Specifics Documented care wishes: details in the usual verbiage requesting to not have artificial prolonging measures in the event of a terminal or end-stage condition of which she would not make a reasonable recovery. It is dated 2009 Objective Vital Signs Date Time Temp Pulse Resp B/P Pulse Ox O2 Delivery O2 Flow Rate FiO2 01/26/17 08:56 96 Nasal Cannula 5.00 01/26/17 06:00 106 01/26/17 04:00 106 01/26/17 04:00 98.9 102 20 146/84 99 01/26/17 02:00 104 01/26/17 00:00 105 01/26/17 00:00 98.6 102 14 145/79 95 01/25/17 22:00 106 01/25/17 20:00 98 01/25/17 20:00 98.9 104 20 157/71 95 01/25/17 19:35 91 21 01/25/17 19:15 98 Nasal Cannula 2.00 01/25/17 18:00 109 01/25/17 16:00 104 01/25/17 16:00 97.1 104 13 168/86 96 01/25/17 14:00 102 Intake & Output 01/26/17 01/26/17 07:00 19:00 Intake Total 1529 ml Output Total 1775 ml Balance -246 ml IV Total 1529 ml Output Urine Total 1750 ml Gastric Drainage Total 25 ml Physical Exam CONSTITUTIONAL/GENERAL: This is an adequately nourished patient, lethargic, no apparent distress TUBES/LINES/DRAINS: Peripheral IV left upper extremity, Solares catheter, NC 4L, SCD left lower extremity SKIN: No jaundice, rashes, or lesions. Multiple areas of ecchymosis lateral lower extremities, bilateral upper extremities. Left cheek with bandaid intact. + dressing rt ankle/foot clean and dry. + chronic vascular changes BLE. CARDIOVASCULAR: Regular rate and rhythm. No JVD. Peripheral pulses symmetric- pedal pulses faint. RESPIRATORY/CHEST: Symmetric, unlabored respirations on nasal cannula. Clear to auscultation, diminished air movement throughout. Lt chest dressing clean and dry. NEUROLOGICAL: Awake at times, Oriented x2. Poor insight. Follows simple commands. Moves all 4 extremities. PSYCHIATRIC: No obvious anxiety/depression. Diagnostic Tests Laboratory Laboratory Tests Test 01/23/17 01/23/17 01/23/17 01/24/17 14:19 14:22 19:40 06:00 Ammonia 15 MCMOL/L (11-32) Thyroid Stimulating Hormone 0.969 uIU/ML 3rd Gen (0.358-3.740) Random Cortisol 16.6 MCG/DL Urine Color YELLOW (YELLW/STRAW) Urine Turbidity CLEAR (CLEAR) Urine pH 5.0 (5.0-8.5) Urine Specific Dougherty 1.012 (1.002-1.035) Urine Protein NEG mg/dL (NEG-TRACE) Urine Glucose (UA) 300 mg/dL (NEG) Urine Ketones NEG mg/dL (NEG) Urine Occult Blood NEG (NEG) Urine Nitrite NEG (NEG) Urine Bilirubin NEG (NEG) Urine Urobilinogen LESS THAN 2.0 MG/DL (LESS THAN 2.0) Urine Leukocyte Esterase TRACE (NEG) Urine RBC 1 /hpf (0-3) Urine WBC 3 /hpf (0-5) Urine Bacteria RARE /hpf (NONE) Urine Hyaline Casts 16 /lpf (RARE) Urine Mucus FEW /lpf (OCC) Microscopic Urinalysis Comment CATH-CULTURE IND Blood Gas Puncture Site RT RADIAL Blood Gas Patient Temperature 98.6 Blood Gas HCO3 25 mmol/L (22-26) Blood Gas Base Excess 1.0 mmol/L (-2-2) Blood Gas Oxygen Saturation 85 % (90-100) Arterial Blood pH 7.46 (7.380-7.420) Arterial Blood Partial 35 mmHg (38-42) Pressure CO2 Arterial Blood Partial 52 mmHg Pressure O2 (61-120) Arterial Blood Oxygen Content 14.2 Vol % (12.0-20.0) Arterial Blood 1.5 % (0-4) Carboxyhemoglobin Arterial Blood Methemoglobin 0.7 % (0-2) Blood Gas Hemoglobin 11.8 G/DL (12.0-16.0) Oxygen Delivery Device SIMPLE MASK Blood Gas Liter Flow 7 L/M White Blood Count 16.9 TH/MM3 (4.0-11.0) Red Blood Count 2.95 MIL/MM3 (4.50-5.90) Hemoglobin 9.1 GM/DL (13.0-17.0) Hematocrit 28.2 % (39.0-51.0) Mean Corpuscular Volume 95.4 FL (80.0-100.0) Mean Corpuscular Hemoglobin 31.0 PG (27.0-34.0) Mean Corpuscular Hemoglobin 32.5 % Concent (32.0-36.0) Red Cell Distribution Width 16.1 % (11.6-17.2) Platelet Count 185 TH/MM3 (150-450) Mean Platelet Volume 8.4 FL (7.0-11.0) Neutrophils (%) (Auto) 87.6 % (16.0-70.0) Lymphocytes (%) (Auto) 5.7 % (9.0-44.0) Monocytes (%) (Auto) 6.6 % (0.0-8.0) Eosinophils (%) (Auto) 0.0 % (0.0-4.0) Basophils (%) (Auto) 0.1 % (0.0-2.0) Neutrophils # (Auto) 14.8 TH/MM3 (1.8-7.7) Lymphocytes # (Auto) 1.0 TH/MM3 (1.0-4.8) Monocytes # (Auto) 1.1 TH/MM3 (0-0.9) Eosinophils # (Auto) 0.0 TH/MM3 (0-0.4) Basophils # (Auto) 0.0 TH/MM3 (0-0.2) CBC Comment DIFF FINAL Differential Comment Sodium Level 141 MEQ/L (136-145) Potassium Level 4.2 MEQ/L (3.5-5.1) Chloride Level 101 MEQ/L (98-107) Carbon Dioxide Level 32.2 MEQ/L (21.0-32.0) Anion Gap 8 MEQ/L (5-15) Blood Urea Nitrogen 64 MG/DL (7-18) Creatinine 2.60 MG/DL (0.60-1.30) Estimat Glomerular Filtration 24 ML/MIN (>89) Rate Random Glucose 174 MG/DL (74-106) Calcium Level 9.8 MG/DL (8.5-10.1) Test 01/24/17 01/25/17 01/26/17 06:39 03:47 05:39 Blood Gas Puncture Site LT RADIAL Blood Gas Patient Temperature 98.6 Blood Gas HCO3 26 mmol/L (22-26) Blood Gas Base Excess 1.1 mmol/L (-2-2) Blood Gas Oxygen Saturation 97 % (90-100) Arterial Blood pH 7.36 (7.380-7.420) Arterial Blood Partial 47 mmHg (38-42) Pressure CO2 Arterial Blood Partial 147 mmHg Pressure O2 (61-120) Arterial Blood Oxygen Content 13.3 Vol % (12.0-20.0) Arterial Blood 1.3 % (0-4) Carboxyhemoglobin Arterial Blood Methemoglobin 0.8 % (0-2) Blood Gas Hemoglobin 9.5 G/DL (12.0-16.0) Oxygen Delivery Device MASK Blood Gas Liter Flow 6 L/M Blood Gas Ventilator Setting White Blood Count 5.1 TH/MM3 6.8 TH/MM3 (4.0-11.0) (4.0-11.0) Red Blood Count 2.72 MIL/MM3 2.63 MIL/MM3 (4.50-5.90) (4.50-5.90) Hemoglobin 8.6 GM/DL 8.8 GM/DL (13.0-17.0) (13.0-17.0) Hematocrit 25.9 % 25.6 % (39.0-51.0) (39.0-51.0) Mean Corpuscular Volume 95.4 FL 97.4 FL (80.0-100.0) (80.0-100.0) Mean Corpuscular Hemoglobin 31.8 PG 33.3 PG (27.0-34.0) (27.0-34.0) Mean Corpuscular Hemoglobin 33.3 % 34.2 % Concent (32.0-36.0) (32.0-36.0) Red Cell Distribution Width 16.0 % 16.0 % (11.6-17.2) (11.6-17.2) Platelet Count 154 TH/MM3 160 TH/MM3 (150-450) (150-450) Mean Platelet Volume 8.1 FL 7.9 FL (7.0-11.0) (7.0-11.0) Neutrophils (%) (Auto) 84.5 % 86.6 % (16.0-70.0) (16.0-70.0) Lymphocytes (%) (Auto) 5.7 % 5.0 % (9.0-44.0) (9.0-44.0) Monocytes (%) (Auto) 9.7 % (0.0-8.0) 8.3 % (0.0-8.0) Eosinophils (%) (Auto) 0.0 % (0.0-4.0) 0.0 % (0.0-4.0) Basophils (%) (Auto) 0.1 % (0.0-2.0) 0.1 % (0.0-2.0) Neutrophils # (Auto) 4.3 TH/MM3 5.9 TH/MM3 (1.8-7.7) (1.8-7.7) Lymphocytes # (Auto) 0.3 TH/MM3 0.3 TH/MM3 (1.0-4.8) (1.0-4.8) Monocytes # (Auto) 0.5 TH/MM3 0.6 TH/MM3 (0-0.9) (0-0.9) Eosinophils # (Auto) 0.0 TH/MM3 0.0 TH/MM3 (0-0.4) (0-0.4) Basophils # (Auto) 0.0 TH/MM3 0.0 TH/MM3 (0-0.2) (0-0.2) CBC Comment DIFF FINAL DIFF FINAL Differential Comment Sodium Level 147 MEQ/L 147 MEQ/L (136-145) (136-145) Potassium Level 3.9 MEQ/L 3.8 MEQ/L (3.5-5.1) (3.5-5.1) Chloride Level 111 MEQ/L 111 MEQ/L (98-107) (98-107) Carbon Dioxide Level 29.1 MEQ/L 30.5 MEQ/L (21.0-32.0) (21.0-32.0) Anion Gap 7 MEQ/L (5-15) 6 MEQ/L (5-15) Blood Urea Nitrogen 57 MG/DL (7-18) 42 MG/DL (7-18) Creatinine 1.53 MG/DL 1.22 MG/DL (0.60-1.30) (0.60-1.30) Estimat Glomerular Filtration 44 ML/MIN (>89) 57 ML/MIN (>89) Rate Random Glucose 254 MG/DL 175 MG/DL (74-106) (74-106) Calcium Level 8.8 MG/DL 9.4 MG/DL (8.5-10.1) (8.5-10.1) Phosphorus Level 4.0 MG/DL (2.5-4.9) Magnesium Level 2.0 MG/DL (1.5-2.5) Total Bilirubin 0.5 MG/DL 0.7 MG/DL (0.2-1.0) (0.2-1.0) Aspartate Amino Transf 18 U/L (15-37) 21 U/L (15-37) (AST/SGOT) Alanine Aminotransferase 22 U/L (12-78) 21 U/L (12-78) (ALT/SGPT) Alkaline Phosphatase 55 U/L (45-117) 56 U/L (45-117) Total Protein 5.4 GM/DL 5.4 GM/DL (6.4-8.2) (6.4-8.2) Albumin 2.8 GM/DL 2.8 GM/DL (3.4-5.0) (3.4-5.0) Result Diagram: 01/26/17 0539 01/26/17 0539 Microbiology Microbiology Date/Time Procedure Status Source Growth 01/23/17 14:22 Urine Culture - Final Complete Urine Catheterized Urine NO GROWTH IN 48 HOURS. 01/24/17 10:20 Aerobic Blood Culture - Preliminary Resulted Blood Peripheral NO GROWTH IN 2 DAYS 01/24/17 10:20 Anaerobic Blood Culture - Preliminary Resulted Blood Peripheral NO GROWTH IN 2 DAYS 01/24/17 10:27 Aerobic Blood Culture - Preliminary Resulted Blood Peripheral NO GROWTH IN 2 DAYS 01/24/17 10:27 Anaerobic Blood Culture - Preliminary Resulted Blood Peripheral NO GROWTH IN 2 DAYS Imaging Last Impressions Chest X-Ray 01/25/17 0600 Signed Impressions: Service Date/Time: January 03:03 - CONCLUSION: Improving aeration Ben Avina MD Abdomen X-Ray 01/25/17 0600 Signed Impressions: Service Date/Time: January 03:05 - CONCLUSION: Moderate gaseous distention of bowel throughout Ben Avina MD Head CT 01/23/17 0000 Signed Impressions: Service Date/Time: Monday, January 23, 2017 15:33 - CONCLUSION: Stable examination compared to the prior study. No focal or acute intracranial hemorrhage. Brendan Marrero MD Abdomen/Pelvis CT 01/23/17 0000 Signed Impressions: Service Date/Time: Monday, January 23, 2017 19:58 - CONCLUSION: 1. Dilated small bowel which slowly tapers just proximal to the terminal ileum. No obstructing mass or lesion observed. No free air or free fluid. 2. Prior cholecystectomy. 3. Small left effusion with bibasilar atelectasis. 4. Umbilical hernia containing fat. Kishor Nj Jr., MD Pelvis X-Ray 01/18/171816 Signed Impressions: Service Date/Time: December 18:11 - CONCLUSION: Intact pelvis. Ben Gtz MD Maxillofacial CT 01/18/171816 Signed Impressions: Service Date/Time: December 18:51 - CONCLUSION: Intact facial bones. Ben Gtz MD Chest CT 01/18/171816 Signed Impressions: Service Date/Time: December 19:03 - CONCLUSION: Minimally displaced displaced left rib fractures as above. There is a mild left pulmonary contusion, small left anterior/apical pneumothorax and small dependently layering hemothorax. Ben Gtz MD Cervical Spine CT 01/18/171816 Signed Impressions: Service Date/Time: December 18:51 - CONCLUSION: 1. No fracture or subluxation demonstrated of the cervical spine. 2. Multilevel degenerative changes, very severe at C5/C6 and C6/C7 and C7/T1. Ben Gtz MD Assessment and Plan Disease Oriented Problem List: (1) COPD (chronic obstructive pulmonary disease) (2) Pneumothorax (3) CKD (chronic kidney disease) stage 4, GFR 15-29 ml/min (4) Chest pain (5) CAD (coronary artery disease) (6) Altered mental status (7) Pulmonary contusion (8) SOB (shortness of breath) (9) Diabetes Symptom Scale: (1) Dyspnea 0-10 Scale: Unable to quantify (2) Pain 0-10 Scale: Unable to quantify (3) Anxiety 0-10 Scale: Unable to quantify (4) Confusion 0-10 Scale: Unable to quantify (5) Dysphasia 0-10 Scale: Unable to quantify Pertinent Non-Medical Issues Psychosocial:. originally from [facility]. 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 Retired to [place] 10+ yrs ago , has always traveled to [facility] for racing events. Has 2 adult children, 1 stepchild. Spiritual: Legal:Mental status fluctuates this is likely multifactorial related to his multiple medical conditions. . Reported to have a living will but is not ready to provide copies. She would be appropriate legal proxy, family reports she is designated decision maker. Ethical issues impacting care: Important Contacts Elizabeth Calderon([phone]) Daughter . Prognosis This patient was admitted on 01/18 after reported mechanical fall with left rib pain. He had findings of multiple left-sided rib fractures as well as pneumothorax requiring chest tube placement. He has multiple chronic medical conditions, as well as family reports of a mild/early dementia diagnoses. He has had recent recurrent falls. Given advanced age, multiple chronic medical conditions, and now acute rib injury patient remains very high risk for further pulmonary and other complications and continued decline. If he is able to get through acute hospitalization will likely require rehabilitation and potentially long-term care placement. Code Status: Full Code Plan * Legal decision maker: Intermittently confused, likely multifactorial due to his clinical condition. would be appropriate legal proxy, family reports she is designated decision maker. * Goals: Prev met w , dtr at length, + son in law. Today f/up with son in law ( sleeping at bedside) Patient has been overwhelmed staying at the hospital bedside for most of the day and night. Family has decided pt should remain full code for now, they are hopeful pt will improve enough to make his own decisions. Open to ongoing discussions pending clinical course. * CODE STATUS: Full code * SYMPTOMS: --Dyspnea-admitted with rib pain status post fall. + Initially required chest tubes has since been removed. Long history of COPD, O2 dependent in the home setting. CXR with improved aeration. Initially requiring simple mask now weaned to nasal cannula. Could potentially require intubation/mechanical vent. --Pain-frequent fall history. Most recent fall resulting in multiple left rib fractures. Recent removal of chest tube. Last opiate use 01/24. Denies "much pain" today, says "a little" to sides, back. Does not want pain meds. --anxiety/confusion- possible dx early/mild dementia. + episodes agitation/ confusion during hospital course likely multifactorialpoor oxygenation, kidney disease, medications. Receiving Seroquel 25 mg by mouth twice a day. still confused at times, poor insight, Oriented to person and place. --Dysphasia- s/p ST eval, tolerated thin liq, mech soft food. * Palliative care will continue to follow during hospital course as condition evolves, to assist patient/decision-maker with understanding of medical conditions, weighing benefits/burdens of treatment options, for clarification of goals of treatment. Additionally will assist with any symptoms of palliative concern . Attestation To help prompt me to consider important information that might be impacting today's encounter and assessment, information from prior notes written by myself or my colleagues may have been "brought forward" into today's note. My signature on this note, however, is an attestation that I personally performed the exam, history, and/or decision-making noted today, and, unless otherwise indicated, the interactions with patient, family, and staff as well as the review of records all occurred today. I also attest that the listed assessment and stated plan reflect my best clinical judgment today based on the combination of historical information, prior notes, and today's exam/ interactions. When time spent is documented, it refers only to time spent today by the signer, or if indicated, combined time spent today by collaborating physician/nurse practitioner. Tamela Rodriguez Jan 26, 2017 12:22
--- NOTE | 2017-01-26 14:12 | HHI.PR ---
Subjective Remarks sitting up in chair, trying to have another bm no cp no sob oriented to place, self still confused but overall improved anxious to go home family at bsd, very frustrated. no fever no pressor support waiting to transfer back to floor Objective Objective Results - Vital Signs Date Time Temp Pulse Resp B/P Pulse Ox O2 Delivery O2 Flow Rate FiO2 01/26/17 08:56 96 Nasal Cannula 5.00 01/26/17 06:00 106 01/26/17 04:00 106 01/26/17 04:00 98.9 102 20 146/84 99 01/26/17 02:00 104 01/26/17 00:00 105 01/26/17 00:00 98.6 102 14 145/79 95 01/25/17 22:00 106 01/25/17 20:00 98 01/25/17 20:00 98.9 104 20 157/71 95 01/25/17 19:35 91 21 01/25/17 19:15 98 Nasal Cannula 2.00 01/25/17 18:00 109 01/25/17 16:00 104 01/25/17 16:00 97.1 104 13 168/86 96 01/25/17 14:00 102 I/O 01/25/17 01/25/17 01/25/17 01/26/17 01/26/17 01/26/17 07:00 15:00 23:00 07:00 15:00 23:00 Intake Total 542 ml 978 ml 807 ml 722 ml Output Total 800 ml 1210 ml 1000 ml 775 ml Balance -258 ml -232 ml -193 ml -53 ml IV Total 542 ml 778 ml 807 ml 722 ml Other 200 ml Output Urine Total 750 ml 1200 ml 1000 ml 750 ml Gastric Drainage Total 50 ml 10 ml 25 ml Result Diagram: 01/26/17 0539 01/26/17 0539 Imaging Last Impressions Chest X-Ray 01/23/17 0600 Signed Impressions: Service Date/Time: Monday, January 23, 2017 05:35 - CONCLUSION: Satisfactory chest appearance. Ben Avina MD Pelvis X-Ray 01/18/171816 Signed Impressions: Service Date/Time: December 18:11 - CONCLUSION: Intact pelvis. Ben Gtz MD Maxillofacial CT 01/18/171816 Signed Impressions: Service Date/Time: December 18:51 - CONCLUSION: Intact facial bones. Ben Gtz MD Head CT 01/18/171816 Signed Impressions: Service Date/Time: December 18:51 - CONCLUSION: No bleed or other acute intracranial abnormality. Ben Gtz MD Chest CT 01/18/171816 Signed Impressions: Service Date/Time: December 19:03 - CONCLUSION: Minimally displaced displaced left rib fractures as above. There is a mild left pulmonary contusion, small left anterior/apical pneumothorax and small dependently layering hemothorax. Ben Gtz MD Cervical Spine CT 01/18/171816 Signed Impressions: Service Date/Time: December 18:51 - CONCLUSION: 1. No fracture or subluxation demonstrated of the cervical spine. 2. Multilevel degenerative changes, very severe at C5/C6 and C6/C7 and C7/T1. Ben Gtz MD Abdomen/Pelvis CT 01/18/171816 Signed Impressions: Service Date/Time: December 19:03 - CONCLUSION: No visceral organ injury or other acute abnormality within the abdomen or pelvis. Ben Gtz MD Other Results Laboratory Tests Test 01/26/17 05:39 White Blood Count 6.8 Red Blood Count 2.63 Hemoglobin 8.8 Hematocrit 25.6 Mean Corpuscular Volume 97.4 Mean Corpuscular Hemoglobin 33.3 Mean Corpuscular Hemoglobin 34.2 Concent Red Cell Distribution Width 16.0 Platelet Count 160 Mean Platelet Volume 7.9 Neutrophils (%) (Auto) 86.6 Lymphocytes (%) (Auto) 5.0 Monocytes (%) (Auto) 8.3 Eosinophils (%) (Auto) 0.0 Basophils (%) (Auto) 0.1 Neutrophils # (Auto) 5.9 Lymphocytes # (Auto) 0.3 Monocytes # (Auto) 0.6 Eosinophils # (Auto) 0.0 Basophils # (Auto) 0.0 CBC Comment DIFF FINAL Differential Comment Sodium Level 147 Potassium Level 3.8 Chloride Level 111 Carbon Dioxide Level 30.5 Anion Gap 6 Blood Urea Nitrogen 42 Creatinine 1.22 Estimat Glomerular Filtration 57 Rate Random Glucose 175 Calcium Level 9.4 Total Bilirubin 0.7 Aspartate Amino Transf 21 (AST/SGOT) Alanine Aminotransferase 21 (ALT/SGPT) Alkaline Phosphatase 56 Total Protein 5.4 Albumin 2.8 Date/Time Procedure Status Source Growth 01/24/17 10:27 Aerobic Blood Culture - Preliminary Resulted Blood Peripheral NO GROWTH IN 2 DAYS 01/24/17 10:27 Anaerobic Blood Culture - Preliminary Resulted Blood Peripheral NO GROWTH IN 2 DAYS 01/23/17 14:22 Urine Culture - Final Complete Urine Catheterized Urine NO GROWTH IN 48 HOURS. ROS General: Other (unable to obtain ROS ) Physical Exam Physical Exam GENERAL: This is a well-nourished, well-developed patient, in no apparent distress. SKIN: Bruising arms and legs. Dressing to right foot. HEAD: Atraumatic. Normocephalic. No temporal or scalp tenderness. EYES: Pupils equal round and reactive. Extraocular motions intact. No scleral icterus. No injection or drainage. ENT: Nose without bleeding, purulent drainage or septal hematoma. Throat without erythema, tonsillar hypertrophy or exudate. Uvula midline. Airway patent. NECK: Trachea midline. No JVD or lymphadenopathy. Supple, nontender, no meningeal signs. CARDIOVASCULAR: Regular rate and rhythm without murmurs, gallops, or rubs. RESPIRATORY: Diminished at bases. Left chest wall with dressing intact. GASTROINTESTINAL: Abdomen soft, non-tender, nondistended. No hepato-splenomegaly , or palpable masses. No guarding. MUSCULOSKELETAL: Extremities without clubbing, cyanosis, or edema. Pedal pulses 1+ bilat. No joint tenderness, effusion, or edema noted. No calf tenderness. Negative Homans sign bilaterally. NEUROLOGICAL: Awake, oriented x 2, confused at time, and agitated. Overall improved. NO focal deficts Urinary Catheter: Yes Assessment to: Continue Vascular Central Line Catheter: No A/P Diagnosis: (1) Altered mental status (2) Fall (3) Rib fractures (4) CKD (chronic kidney disease) stage 3, GFR 30-59 ml/min (5) Acute renal failure (6) CAD (coronary artery disease) (7) DM (diabetes mellitus screen) (8) History of DVT (deep vein thrombosis) (9) Hx of CABG (10) History of CVA (cerebrovascular accident) (11) Pulmonary contusion (12) Ileus Assessment and Plan 81-year-old elderly male status post fall causing multiple lateral rib fractures and left pneumothorax requiring chest tube that has now been resolved. Also noted with lung contusion. Unclear as to the mechanics of the fall Post fall with rib fractures and pneumothorax Continue to monitor -Trauma service is following patient -IS every 2 while awake -Increase activity, physical therapy for evaluation -Continue with pain management, use by mouth narcotics and sedative IV Resp. distress, poss aspiration, hypotension, hallicat called 01/23. Has ileus also. Transferred to ICU -continue abx and follow cultures, negative so far -no longer hypotensive -NGT removed, continue with full liquid diet -monitor for aspiration -continue with bowel regimen, having BMs now. On Lactulose Altered mental status, etiology unclear, possibly metabolic encephalopathy, rule out CVA, possible delirium. Some improvement -Neuro checks UA/UC-+ UTI, culture pending CT of the head negative -We'll use Haldol 2 mg IM every 6 when necessary for severe agitation -Frequent reorientation -Decreased gabapentin 200 mg by mouth daily at bedtime -mentation improving slowly, remains anxious, wants to go home -started on Namenda -Continue Seroquel Acute renal injury, superimposed on chronic kidney disease Renal function improving Encourage by mouth intake Follow BMP COPD, stable Continue with supplemental oxygen Continue with IV Solu-Medrol Continue with Frank's History of TIA Continue with Xarelto History of a flutter, currently sinus tach Continue with Xarelto Continue Coreg 6.25 mg by mouth twice a day Hypertension, stable -was hypotensive, meds held. Now BP up 140s, resume Coreg and Cozaar Type 2 diabetes Continue with Accu-Cheks before meals and at bedtime and insulin therapy Blood glucose poorly controlled-add Levemir 10 units subcutaneous daily at bedtime Palliative care following, input appreciated Continue with Xarelto for DVT prophylaxis Continue with PT OT Continue mobilizing patient and reorient frequently Patient will likely need SNF placement Podiatry following for leg ulcers waiting for transfer back to floor D/W pt, family D/W Dr. Valenzuela D/W pt. This patient was seen by myself and Dr. Valenzuela, this note is written on her behalf Problem Qualifiers (1) Altered mental status: Qualified Code: R41.0 - Delirium (2) Fall: Qualified Code: W19.XXXA - Fall, initial encounter (3) Rib fractures: Qualified Code: S22.42XA - Closed fracture of multiple ribs of left side, initial encounter (4) Acute renal failure: Qualified Code: N17.9 - Acute renal failure, unspecified acute renal failure type (5) CAD (coronary artery disease): Qualified Code: I25.10 - Coronary artery disease involving lummi coronary artery of lummi heart without angina pectoris (6) Pulmonary contusion: Qualified Code: S27.321A - Contusion of left lung, initial encounter Tanja Bryan [facility] Jan 26, 2017 14:12
--- NOTE | 2017-01-26 15:59 | HHI.IDPN ---
Subjective Subjective Remarks had multiple BMs with lactulose feeling better no fever on 2-5 L NC O2 Antibiotics zosyn Allergies: Coded Allergies: Contrast Media (Verified Allergy, Severe, SWELLING AND SHORTNESS OF BREATH , 01/23/17) Iodine (Verified Allergy, Severe, SWELLING, 01/23/17) Shellfish (Verified Allergy, Severe, 01/23/17) Objective . Vital Signs Date Time Temp Pulse Resp B/P Pulse Ox O2 Delivery O2 Flow Rate FiO2 01/26/17 08:56 96 Nasal Cannula 5.00 01/26/17 07:00 99 Nasal Cannula 2.00 01/26/17 06:00 106 01/26/17 04:00 106 01/26/17 04:00 98.9 102 20 146/84 99 01/26/17 02:00 104 01/26/17 00:00 105 01/26/17 00:00 98.6 102 14 145/79 95 01/25/17 22:00 106 01/25/17 20:00 98 01/25/17 20:00 98.9 104 20 157/71 95 01/25/17 19:35 91 21 01/25/17 19:15 98 Nasal Cannula 2.00 01/25/17 18:00 109 01/25/17 16:00 104 01/25/17 16:00 97.1 104 13 168/86 96 01/25/17 01/25/17 01/26/17 15:00 23:00 07:00 Intake Total 978 ml 807 ml 722 ml Output Total 1210 ml 1000 ml 775 ml Balance -232 ml -193 ml -53 ml IV Total 778 ml 807 ml 722 ml Other 200 ml Output Urine Total 1200 ml 1000 ml 750 ml Gastric Drainage Total 10 ml 25 ml . Laboratory Tests Test 01/25/17 01/26/17 03:47 05:39 White Blood Count 5.1 TH/MM3 6.8 TH/MM3 Red Blood Count 2.72 MIL/MM3 2.63 MIL/MM3 Hemoglobin 8.6 GM/DL 8.8 GM/DL Hematocrit 25.9 % 25.6 % Mean Corpuscular Volume 95.4 FL 97.4 FL Mean Corpuscular Hemoglobin 31.8 PG 33.3 PG Mean Corpuscular Hemoglobin 33.3 % 34.2 % Concent Red Cell Distribution Width 16.0 % 16.0 % Platelet Count 154 TH/MM3 160 TH/MM3 Mean Platelet Volume 8.1 FL 7.9 FL Neutrophils (%) (Auto) 84.5 % 86.6 % Lymphocytes (%) (Auto) 5.7 % 5.0 % Monocytes (%) (Auto) 9.7 % 8.3 % Eosinophils (%) (Auto) 0.0 % 0.0 % Basophils (%) (Auto) 0.1 % 0.1 % Neutrophils # (Auto) 4.3 TH/MM3 5.9 TH/MM3 Lymphocytes # (Auto) 0.3 TH/MM3 0.3 TH/MM3 Monocytes # (Auto) 0.5 TH/MM3 0.6 TH/MM3 Eosinophils # (Auto) 0.0 TH/MM3 0.0 TH/MM3 Basophils # (Auto) 0.0 TH/MM3 0.0 TH/MM3 CBC Comment DIFF FINAL DIFF FINAL Differential Comment Laboratory Tests Test 01/25/17 01/26/17 03:47 05:39 Sodium Level 147 MEQ/L 147 MEQ/L Potassium Level 3.9 MEQ/L 3.8 MEQ/L Chloride Level 111 MEQ/L 111 MEQ/L Carbon Dioxide Level 29.1 MEQ/L 30.5 MEQ/L Anion Gap 7 MEQ/L 6 MEQ/L Blood Urea Nitrogen 57 MG/DL 42 MG/DL Creatinine 1.53 MG/DL 1.22 MG/DL Estimat Glomerular Filtration 44 ML/MIN 57 ML/MIN Rate Random Glucose 254 MG/DL 175 MG/DL Calcium Level 8.8 MG/DL 9.4 MG/DL Phosphorus Level 4.0 MG/DL Magnesium Level 2.0 MG/DL Total Bilirubin 0.5 MG/DL 0.7 MG/DL Aspartate Amino Transf 18 U/L 21 U/L (AST/SGOT) Alanine Aminotransferase 22 U/L 21 U/L (ALT/SGPT) Alkaline Phosphatase 55 U/L 56 U/L Total Protein 5.4 GM/DL 5.4 GM/DL Albumin 2.8 GM/DL 2.8 GM/DL Microbiology Date/Time Procedure Status Source Growth 01/24/17 10:20 Aerobic Blood Culture - Preliminary Resulted Blood Peripheral NO GROWTH IN 2 DAYS 01/24/17 10:20 Anaerobic Blood Culture - Preliminary Resulted Blood Peripheral NO GROWTH IN 2 DAYS 01/24/17 10:27 Aerobic Blood Culture - Preliminary Resulted Blood Peripheral NO GROWTH IN 2 DAYS 01/24/17 10:27 Anaerobic Blood Culture - Preliminary Resulted Blood Peripheral NO GROWTH IN 2 DAYS Imaging Last Impressions Chest X-Ray 01/25/17 0600 Signed Impressions: Service Date/Time: January 03:03 - CONCLUSION: Improving aeration Ben Avina MD Abdomen X-Ray 01/25/17 0600 Signed Impressions: Service Date/Time: January 03:05 - CONCLUSION: Moderate gaseous distention of bowel throughout Ben Avina MD Head CT 01/23/17 0000 Signed Impressions: Service Date/Time: Monday, January 23, 2017 15:33 - CONCLUSION: Stable examination compared to the prior study. No focal or acute intracranial hemorrhage. Brendan Marrero MD Abdomen/Pelvis CT 01/23/17 0000 Signed Impressions: Service Date/Time: Monday, January 23, 2017 19:58 - CONCLUSION: 1. Dilated small bowel which slowly tapers just proximal to the terminal ileum. No obstructing mass or lesion observed. No free air or free fluid. 2. Prior cholecystectomy. 3. Small left effusion with bibasilar atelectasis. 4. Umbilical hernia containing fat. Kishor Nj Jr., MD Pelvis X-Ray 01/18/171816 Signed Impressions: Service Date/Time: December 18:11 - CONCLUSION: Intact pelvis. Ben Gtz MD Maxillofacial CT 01/18/171816 Signed Impressions: Service Date/Time: December 18:51 - CONCLUSION: Intact facial bones. Ben Gtz MD Chest CT 01/18/171816 Signed Impressions: Service Date/Time: December 19:03 - CONCLUSION: Minimally displaced displaced left rib fractures as above. There is a mild left pulmonary contusion, small left anterior/apical pneumothorax and small dependently layering hemothorax. Ben Gtz MD Cervical Spine CT 01/18/171816 Signed Impressions: Service Date/Time: December 18:51 - CONCLUSION: 1. No fracture or subluxation demonstrated of the cervical spine. 2. Multilevel degenerative changes, very severe at C5/C6 and C6/C7 and C7/T1. Ben Gtz MD Physical Exam CONSTITUTIONAL/GENERAL: This is an obese elderly patient, in no apparent distress. TUBES/LINES/DRAINS: SKIN: No jaundice, rashes, or lesions. CARDIOVASCULAR: Regular rate and rhythm without murmurs, gallops, or rubs. No JVD. Peripheral pulses symmetric. RESPIRATORY/CHEST: Symmetric, unlabored respirations. Clear to auscultation. Breath sounds equal bilaterally. No wheezes, rales, or rhonchi. GASTROINTESTINAL: Abdomen soft, minimally tender wo guarding/rebound in RLQ/LLQ mucu less distended, no longer tympanic to palpation. No hepato-splenomegaly, or palpable masses. No guarding. Bowel sounds present. GENITOURINARY: Without palpable bladder distension. Solares catheter in place withclear yellow urine MUSCULOSKELETAL: Extremities without clubbing, cyanosis, or edema. No joint tenderness or effusion noted. No calf tenderness. No mottling or clubbing. NEUROLOGICAL: Awake and alert. Motor and sensory grossly within normal limits. Follows commands. Speech . Moves all extremities. PSYCHIATRIC: No obvious anxiety/depression. no apparent hallucinations or other psychotic thought process. Assessment & Plan Remarks L side traumatic pneumothorax Ileus with vomiting ? Aspiration PNA Leukocytosis - resolved - cont zosyn thru 6/5 - chk stool for C.diiff if cont to have diarrhea monitor clinically - fu WBC and BC untill final Discussed Condition With RN dw @ b/s Mariya Weathers MD Jan 26, 2017 15:59
--- NOTE | 2017-01-26 18:39 | HHI.PR ---
Subjective Remarks 81 YOWM with Rib fracture,PTX, pulm contusion Feels much better Anxious to go home On NC at BS Started PO Objective Vital Signs Vital Signs Date Time Temp Pulse Resp B/P Pulse Ox O2 Delivery O2 Flow Rate FiO2 01/26/17 14:00 108 01/26/17 12:00 97.9 111 16 138/93 98 01/26/17 12:00 111 01/26/17 10:00 102 01/26/17 08:56 96 Nasal Cannula 5.00 01/26/17 08:00 105 01/26/17 08:00 98.6 105 20 168/81 100 01/26/17 07:00 99 Nasal Cannula 2.00 01/26/17 06:00 106 01/26/17 04:00 106 01/26/17 04:00 98.9 102 20 146/84 99 01/26/17 02:00 104 01/26/17 00:00 105 01/26/17 00:00 98.6 102 14 145/79 95 01/25/17 22:00 106 01/25/17 20:00 98 01/25/17 20:00 98.9 104 20 157/71 95 01/25/17 19:35 91 21 01/25/17 19:15 98 Nasal Cannula 2.00 I/O 01/25/17 01/25/17 01/25/17 01/26/17 01/26/17 01/26/17 07:00 15:00 23:00 07:00 15:00 23:00 Intake Total 542 ml 978 ml 807 ml 722 ml 549 ml Output Total 800 ml 1210 ml 1000 ml 775 ml 1250 ml Balance -258 ml -232 ml -193 ml -53 ml -701 ml Intake Oral 200 ml IV Total 542 ml 778 ml 807 ml 722 ml 349 ml Other 200 ml Output Urine Total 750 ml 1200 ml 1000 ml 750 ml 1250 ml Gastric Drainage Total 50 ml 10 ml 25 ml # Bowel Movements 4 Result Diagram: 01/26/17 0539 01/26/17 0539 Objective Remarks GENERAL: Elderly male ,NAD SKIN: Warm and dry. HEAD: Normocephalic. EYES: No scleral icterus. No injection or drainage. NECK: Supple, trachea midline. No JVD or lymphadenopathy. CARDIOVASCULAR: Regular rate and rhythm without murmurs, gallops, or rubs. RESPIRATORY: Breath sounds equal bilaterally. No accessory muscle use. GASTROINTESTINAL: Abdomen soft, non-tender, nondistended. MUSCULOSKELETAL: No cyanosis, or edema. BACK: Nontender without obvious deformity. No CVA tenderness. A/P Assessment and Plan Ribs Fracture Pulm contusion PTX resolved Hypoxia improved COPD DM PLAN: Supplement 02 , keep sat >92% Aerosol nebs IV Solumedrol pain controll Started PO Romeo Payne MD Jan 26, 2017 18:39
[2017-01-26] MEDS: REMOVE OLD LIDOCAINE PATCH T-DERMAL SCH (21:00)
[2017-01-26] MEDS: MELATONIN 5 MG TAB PO SCH (21:33)
[2017-01-26] MEDS: TAMSULOSIN HCL 0.4 MG CAP PO SCH (21:33)
[2017-01-26] MEDS: CARVEDILOL 6.25 MG TAB PO SCH (21:33)
[2017-01-26] MEDS: GABAPENTIN 100 MG CAP PO SCH (21:33)
[2017-01-26] MEDS: INSULIN DETEMIR 100 UNITS/ML VIAL SQ SCH (22:07)
[2017-01-27] VITALS (7 sets, daily range): BP systolic 124–189; BP diastolic 74–116; PULSE 98–109; RESP 17–22; TEMP 95.6–97.8; O2SAT 92–100
[2017-01-27] MEDS: PIPERACIL-TAZO 3.375 GM PREMIX 50 ML IV SCH ×4 (02:59→20:18)
[2017-01-27] MEDS: methylPREDNISolone SOD SUCC 40 MG/1 ML VIAL IV PUSH SCH ×2 (04:18→20:20)
[2017-01-27] MEDS: METHOCARBAMOL 500 MG TAB PO SCH ×2 (04:18→12:29)
[2017-01-27] MEDS: LEVOTHYROXINE SODIUM 75 MCG TAB PO SCH (04:18)
[2017-01-27] MEDS: RESP: ALBUTEROL 2.5 MG/IPRATROPIUM 0.5 MG NEB (SCH) INH ×4 (04:26→15:56)
[2017-01-27] MEDS: INSULIN NovoLIN REGULAR SUPPLEMENTAL SCALE SQ SCH ×4 (06:21→20:28)
[2017-01-27] MEDS: QUEtiapine FUMARATE 25 MG TAB PO SCH ×2 (08:32→20:19)
[2017-01-27] MEDS: LOSARTAN 25 MG TAB PO SCH (08:32)
[2017-01-27] MEDS: LIDOCAINE HCL 5% PATCH T-DERMAL SCH (08:32)
[2017-01-27] MEDS: ALLOPURINOL 300 MG TAB PO SCH (08:33)
[2017-01-27] MEDS: CARVEDILOL 6.25 MG TAB PO SCH (08:33)
[2017-01-27] MEDS: RIVAROXABAN 15 MG TAB PO SCH (08:33)
[2017-01-27] MEDS: FAMOTIDINE 20 MG TAB PO SCH ×2 (08:33→20:19)
[2017-01-27] MEDS: MEMANTINE HCL 5 MG TAB PO SCH (08:33)
[2017-01-27] MEDS: FUROSEMIDE 20 MG/2 ML VIAL IV PUSH SCH (08:33)
[2017-01-27] MEDS: DOCUSATE SODIUM 50 MG/SENNA 8.6 MG TAB PO SCH ×2 (08:33→20:20)
[2017-01-27] MEDS: POLYETHYLENE GLYCOL 17 GM PKG PO SCH (08:34)
[2017-01-27] MEDS: ACETAMINOPHEN 325 MG TAB PO PRN ×2 (08:35→15:54)
[2017-01-27] MEDS: SODIUM CHLORIDE 0.9% FLUSH 10 ML FLUSH IV FLUSH SCH ×2 (08:46→20:18)
--- NOTE | 2017-01-27 08:53 | HHI.PR ---
Subjective Remarks oriented to self and place remains confused at times and anxious wheezing BP up not sleeping much has no complaints when asked Objective Objective Results - Vital Signs Date Time Temp Pulse Resp B/P Pulse Ox O2 Delivery O2 Flow Rate FiO2 01/27/17 07:55 95 Nasal Cannula 2.00 01/27/17 02:06 Nasal Cannula 4.00 01/26/17 23:50 96.9 102 19 163/90 92 01/26/17 22:52 185/92 01/26/17 21:34 Nasal Cannula 2.00 01/26/17 20:07 96 Nasal Cannula 6.00 01/26/17 19:00 96.8 119 21 181/81 98 01/26/17 16:30 96.8 116 20 154/78 93 01/26/17 14:00 108 01/26/17 12:00 97.9 111 16 138/93 98 01/26/17 12:00 111 01/26/17 10:00 102 01/26/17 08:56 96 Nasal Cannula 5.00 I/O 01/26/17 01/26/17 01/26/17 01/27/17 01/27/17 01/27/17 07:00 15:00 23:00 07:00 15:00 23:00 Intake Total 722 ml 549 ml 150 ml Output Total 775 ml 1250 ml 450 ml Balance -53 ml -701 ml -300 ml Intake Oral 200 ml 150 ml IV Total 722 ml 349 ml Output Urine Total 750 ml 1250 ml 450 ml Gastric Drainage Total 25 ml # Voids 2 # Bowel Movements 4 0 Result Diagram: 01/26/17 0539 01/26/17 0539 Imaging Last Impressions Chest X-Ray 01/23/17 0600 Signed Impressions: Service Date/Time: Monday, January 23, 2017 05:35 - CONCLUSION: Satisfactory chest appearance. Ben Avina MD Pelvis X-Ray 01/18/171816 Signed Impressions: Service Date/Time: December 18:11 - CONCLUSION: Intact pelvis. Ben Gtz MD Maxillofacial CT 01/18/171816 Signed Impressions: Service Date/Time: December 18:51 - CONCLUSION: Intact facial bones. Ben Gtz MD Head CT 01/18/171816 Signed Impressions: Service Date/Time: December 18:51 - CONCLUSION: No bleed or other acute intracranial abnormality. Ben Gtz MD Chest CT 01/18/171816 Signed Impressions: Service Date/Time: December 19:03 - CONCLUSION: Minimally displaced displaced left rib fractures as above. There is a mild left pulmonary contusion, small left anterior/apical pneumothorax and small dependently layering hemothorax. Ben Gtz MD Cervical Spine CT 01/18/171816 Signed Impressions: Service Date/Time: December 18:51 - CONCLUSION: 1. No fracture or subluxation demonstrated of the cervical spine. 2. Multilevel degenerative changes, very severe at C5/C6 and C6/C7 and C7/T1. Ben Gtz MD Abdomen/Pelvis CT 01/18/171816 Signed Impressions: Service Date/Time: December 19:03 - CONCLUSION: No visceral organ injury or other acute abnormality within the abdomen or pelvis. Ben Gtz MD Other Results Date/Time Procedure Status Source Growth 01/24/17 10:27 Aerobic Blood Culture - Preliminary Resulted Blood Peripheral NO GROWTH IN 2 DAYS 01/24/17 10:27 Anaerobic Blood Culture - Preliminary Resulted Blood Peripheral NO GROWTH IN 2 DAYS 01/23/17 14:22 Urine Culture - Final Complete Urine Catheterized Urine NO GROWTH IN 48 HOURS. ROS General: Other (unable to obtain ROS) Physical Exam Physical Exam GENERAL: This is a well-nourished, well-developed patient, in no apparent distress. SKIN: Bruising arms and legs. Dressing to right foot. HEAD: Atraumatic. Normocephalic. No temporal or scalp tenderness. EYES: Pupils equal round and reactive. Extraocular motions intact. No scleral icterus. No injection or drainage. ENT: Nose without bleeding, purulent drainage or septal hematoma. Throat without erythema, tonsillar hypertrophy or exudate. Uvula midline. Airway patent. NECK: Trachea midline. No JVD or lymphadenopathy. Supple, nontender, no meningeal signs. CARDIOVASCULAR: Regular rate and rhythm without murmurs, gallops, or rubs. RESPIRATORY: Wheezes . Left chest wall with dressing intact. GASTROINTESTINAL: Abdomen soft, non-tender, nondistended. No hepato-splenomegaly , or palpable masses. No guarding. MUSCULOSKELETAL: Extremities without clubbing, cyanosis, or edema. Pedal pulses 1+ bilat. No joint tenderness, effusion, or edema noted. No calf tenderness. Negative Homans sign bilaterally. NEUROLOGICAL: Awake, oriented x 2, confused at time, and agitated. Overall improved. NO focal deficts Urinary Catheter: Yes Assessment to: Continue [place] insert reason: Obstruction/Retention Vascular Central Line Catheter: No A/P Diagnosis: (1) Altered mental status (2) Fall (3) Rib fractures (4) CKD (chronic kidney disease) stage 3, GFR 30-59 ml/min (5) Acute renal failure (6) CAD (coronary artery disease) (7) DM (diabetes mellitus screen) (8) History of DVT (deep vein thrombosis) (9) Hx of CABG (10) History of CVA (cerebrovascular accident) (11) Pulmonary contusion (12) Ileus Assessment and Plan 81-year-old elderly male status post fall causing multiple lateral rib fractures and left pneumothorax requiring chest tube that has now been resolved. Also noted with lung contusion. Unclear as to the mechanics of the fall Post fall with rib fractures and pneumothorax Continue to monitor -Trauma service is following patient -IS every 2 while awake -Increase activity, physical therapy for evaluation -Continue with pain management, use by mouth narcotics and sedative IV Resp. distress, poss aspiration, hypotension, hallicat called 01/23. Has ileus also. Transferred to ICU -continue abx and follow cultures, negative so far -no longer hypotensive -NGT removed, continue with full liquid diet -monitor for aspiration -continue with bowel regimen, having BMs now. On Lactulose Altered mental status, etiology unclear, possibly metabolic encephalopathy, rule out CVA, possible delirium. Some improvement -Neuro checks UA/UC-+ UTI, culture negative CT of the head negative -We'll use Haldol 2 mg IM every 6 when necessary for severe agitation -Frequent reorientation -continue Gabapentin 200 mg by mouth daily at bedtime -mentation improving slowly, remains anxious, wants to go home -continue Namenda -Continue Seroquel Acute renal injury, superimposed on chronic kidney disease Renal function improving Encourage by mouth intake Follow BMP COPD, stable Continue with supplemental oxygen Continue with IV Solu-Medrol Continue with DuoNeb's History of TIA Continue with Xarelto History of a flutter, currently sinus tach Continue with Xarelto Continue Coreg 6.25 mg by mouth twice a day Hypertension, stable -was hypotensive, meds held. Now BP up 140s,continue Coreg and Cozaar Hypernatremia -follow BMP Type 2 diabetes Continue with Accu-Cheks before meals and at bedtime and insulin therapy Blood glucose poorly controlled-add Levemir 10 units subcutaneous daily at bedtime Palliative care following, input appreciated Continue with Xarelto for DVT prophylaxis Continue with PT OT Continue mobilizing patient and reorient frequently will need SNF placement Podiatry following for leg ulcers Remains agitated, some improvement. Not ready for dc yet D/W Dr. Valenzuela D/W RN This patient was seen by myself and Dr. Valenzuela, this note is written on her behalf Problem Qualifiers (1) Altered mental status: Qualified Code: R41.0 - Delirium (2) Fall: Qualified Code: W19.XXXA - Fall, initial encounter (3) Rib fractures: Qualified Code: S22.42XA - Closed fracture of multiple ribs of left side, initial encounter (4) Acute renal failure: Qualified Code: N17.9 - Acute renal failure, unspecified acute renal failure type (5) CAD (coronary artery disease): Qualified Code: I25.10 - Coronary artery disease involving [place] coronary artery of [place] heart without angina pectoris (6) Pulmonary contusion: Qualified Code: S27.321A - Contusion of left lung, initial encounter Tanja Bryan Jan 27, 2017 08:53
[2017-01-27] MEDS ORDERED: ACETAMINOPHEN 325 MG TAB PO PRN (13:15)
--- NOTE | 2017-01-27 13:17 | HHI.PR ---
Subjective Subjective Notes Confused and hallucinating Not sleeping at night Objective Vitals/I&O Vital Signs Date Time Temp Pulse Resp B/P Pulse Ox O2 Delivery O2 Flow Rate FiO2 01/27/17 08:49 109 01/27/17 08:00 95.6 17 155/74 100 01/27/17 07:55 Nasal Cannula 2.00 01/25/17 19:35 21 Labs Date/Time Procedure Status Source Growth 01/24/17 10:27 Aerobic Blood Culture - Preliminary Resulted Blood Peripheral NO GROWTH IN 3 DAYS 01/24/17 10:27 Anaerobic Blood Culture - Preliminary Resulted Blood Peripheral NO GROWTH IN 3 DAYS 01/23/17 14:22 Urine Culture - Final Complete Urine Catheterized Urine NO GROWTH IN 48 HOURS. Radiology Last Impressions Chest X-Ray 01/19/17 0000 Signed Impressions: Service Date/Time: Thursday, January 19, 2017 04:00 - CONCLUSION: Mild increase consolidation left lower lobe Nabil Shah MD Pelvis X-Ray 01/18/171816 Signed Impressions: Service Date/Time: December 18:11 - CONCLUSION: Intact pelvis. Ben Gtz MD Maxillofacial CT 01/18/171816 Signed Impressions: Service Date/Time: December 18:51 - CONCLUSION: Intact facial bones. Ben Gtz MD Head CT 01/18/171816 Signed Impressions: Service Date/Time: December 18:51 - CONCLUSION: No bleed or other acute intracranial abnormality. Ben Gtz MD Chest CT 01/18/171816 Signed Impressions: Service Date/Time: December 19:03 - CONCLUSION: Minimally displaced displaced left rib fractures as above. There is a mild left pulmonary contusion, small left anterior/apical pneumothorax and small dependently layering hemothorax. Ben Gtz MD Cervical Spine CT 01/18/171816 Signed Impressions: Service Date/Time: December 18:51 - CONCLUSION: 1. No fracture or subluxation demonstrated of the cervical spine. 2. Multilevel degenerative changes, very severe at C5/C6 and C6/C7 and C7/T1. Ben Gtz MD Abdomen/Pelvis CT 5/25/17 1817 Signed Impressions: Service Date/Time: December 19:03 - CONCLUSION: No visceral organ injury or other acute abnormality within the abdomen or pelvis. Bne Gtz MD Narrative Exam GENERAL: 81-year-old obese male lying in bed. SKIN: Warm and dry. HEAD: Normocephalic. ENT: No nasal bleeding or discharge. Mucous membranes pink and moist. NECK: Trachea midline. No JVD. CARDIOVASCULAR: Regular rate and rhythm. RESPIRATORY: No accessory muscle use. Wheezes auscultated throughout lung lopez. Breath sounds equal bilaterally. GASTROINTESTINAL: Abdomen soft, non-tender, slightly distended. + BS. MUSCULOSKELETAL: Extremities without cyanosis, or edema. No obvious deformities. NEUROLOGICAL: Awake and alert. Confused. A/P Problem List: (1) Pneumothorax (2) Rib fractures (3) Fall Assessment and Plan INJURIES: LEFT rib fxs (5-9) LEFT hemopneumothorax w/ CT placement LEFT pulmonary contusion Bibasilar lung consolidation PMHx: Advanced arthritis, COPD with O2 dependence, hypothyroidism, PACEMAKER, CAD, stents, Afib, Ablation, AVR, HLD, HTN, GERD, CRF, DM, gout 01/18: Left chest tube placed 01/21: CT removed Diet: Full liquids Pulm: IS, acapella, EZ pap Pain: Tylenol, Robaxin, Neurontin, Lidocaine patch. Activity: OOB, PT and OT evaluating. GI: Pepcid Bowel: Bhargavi-colace, MOM PRN. Miralax. Lactulose. Senna PRN. LBM: 01/27 DVT: SCDs. Xaralto LEFT rib fxs, LEFT hemopneumothorax, LEFT pulmonary contusion, Bibasilar lung consolidation Chest tube removed 01/21 Continue pulmonary toileting Nasal cannula Pulmonary following Solu-Medrol 40 mg every 8 hours PRN nebulizer treatments Pain control PT- OOB Aspiration IV Zosyn x5 days Infectious disease following Afebrile Pulmonary toileting Bowel regimen Behavior management/Delirium 01/21: Christal acted for safety and continued treatment by Dr Matos Encourage patient to stay awake during the day 01/23: CT brain shows cortical atrophy Seroquel 25 QD, 50 HS. Night Seroquel dose increased Namenda Neuropsychologist following Hospitalist consulted to assist with medical management. Appreciate recommendations. Plan of care discussed with patient and at bedside. Case management consulted to assist with discharge planning. Patient will need SNF placement. The exam, history, and the medical decision-making described in the above note were completed with the assistance of the mid-level provider. I reviewed and agree with the findings presented. I attest that I had a [id number] encounter with the patient on the same day, and personally performed and documented my assessment and findings in the medical record. Problem Qualifiers (1) Pneumothorax: Qualified Code: J93.9 - Pneumothorax, unspecified type (2) Rib fractures: Qualified Code: S22.42XA - Closed fracture of multiple ribs of left side, initial encounter (3) Fall: Qualified Code: W19.XXXA - Fall, initial encounter Donya Hare Jan 27, 2017 13:17 Yovanny Painter MD Jan 27, 2017 14:02
--- NOTE | 2017-01-27 13:59 | HHI.PR ---
Subjective Remarks 81 YOWM with Rib fracture,PTX, pulm contusion Feels much better Anxious to go home On NC at BS Objective Vital Signs Vital Signs Date Time Temp Pulse Resp B/P Pulse Ox O2 Delivery O2 Flow Rate FiO2 01/27/17 12:35 96.1 98 18 189/116 96 01/27/17 08:49 109 01/27/17 08:00 95.6 102 17 155/74 100 01/27/17 07:55 95 Nasal Cannula 2.00 01/27/17 02:06 Nasal Cannula 4.00 01/26/17 23:50 96.9 102 19 163/90 92 01/26/17 22:52 185/92 01/26/17 21:34 Nasal Cannula 2.00 01/26/17 20:07 96 Nasal Cannula 6.00 01/26/17 19:00 96.8 119 21 181/81 98 01/26/17 16:30 96.8 116 20 154/78 93 01/26/17 14:00 108 I/O 01/26/17 01/26/17 01/26/17 01/27/17 01/27/17 01/27/17 07:00 15:00 23:00 07:00 15:00 23:00 Intake Total 722 ml 549 ml 150 ml Output Total 775 ml 1250 ml 450 ml Balance -53 ml -701 ml -300 ml Intake Oral 200 ml 150 ml IV Total 722 ml 349 ml Output Urine Total 750 ml 1250 ml 450 ml Gastric Drainage Total 25 ml # Voids 2 # Bowel Movements 4 0 Result Diagram: 01/26/17 0539 01/26/17 0539 Objective Remarks GENERAL: Elderly male ,NAD SKIN: Warm and dry. HEAD: Normocephalic. EYES: No scleral icterus. No injection or drainage. NECK: Supple, trachea midline. No JVD or lymphadenopathy. CARDIOVASCULAR: Regular rate and rhythm without murmurs, gallops, or rubs. RESPIRATORY: Breath sounds equal bilaterally. No accessory muscle use. GASTROINTESTINAL: Abdomen soft, non-tender, nondistended. MUSCULOSKELETAL: No cyanosis, or edema. BACK: Nontender without obvious deformity. No CVA tenderness. A/P Assessment and Plan Ribs Fracture Pulm contusion PTX resolved Hypoxia improved COPD DM PLAN: Supplement 02 , keep sat >92% Aerosol nebs IV Solumedrol pain controll Palliative care consulted. Romeo Payne MD Jan 27, 2017 13:59
[2017-01-27] MEDS ORDERED: ENALAPRILAT 1.25 MG/ML VIAL IV PUSH PRN (14:00)
[2017-01-27] MEDS ORDERED: DEXTROSE 5% IN WATE 1000ML INJ 1,000 ML IV SCH (14:30)
[2017-01-27] MEDS ORDERED: METHOCARBAMOL 500 MG TAB PO PRN (20:00)
[2017-01-27] MEDS: GABAPENTIN 100 MG CAP PO SCH (20:19)
[2017-01-27] MEDS: CARVEDILOL 12.5 MG TAB PO SCH (20:19)
[2017-01-27] MEDS: MELATONIN 5 MG TAB PO SCH (20:19)
[2017-01-27] MEDS: TAMSULOSIN HCL 0.4 MG CAP PO SCH (20:19)
[2017-01-27] MEDS: RESP: ALBUTEROL 2.5 MG/3 ML NEB (PRN) INH (20:25)
[2017-01-27] MEDS: INSULIN DETEMIR 100 UNITS/ML VIAL SQ SCH (20:38)
[2017-01-27] MEDS: REMOVE OLD LIDOCAINE PATCH T-DERMAL SCH (20:39)
[2017-01-28] VITALS (10 sets, daily range): BP systolic 116–174; BP diastolic 67–100; PULSE 69–136; RESP 18–20; TEMP 96–98.3; O2SAT 92–98
[2017-01-28] MEDS: PIPERACIL-TAZO 3.375 GM PREMIX 50 ML IV SCH ×4 (02:53→19:27)
[2017-01-28] MEDS: ACETAMINOPHEN 325 MG TAB PO PRN ×2 (06:03→22:10)
[2017-01-28] MEDS: LEVOTHYROXINE SODIUM 75 MCG TAB PO SCH (06:03)
[2017-01-28] MEDS: INSULIN NovoLIN REGULAR SUPPLEMENTAL SCALE SQ SCH ×4 (06:25→19:38)
[2017-01-28 07:42] LABS: BICARBONATE 34.4 MEQ/L (21.0-32.0); POTASSIUM 3.7 MEQ/L (3.5-5.1)
[2017-01-28] MEDS: SODIUM CHLORIDE 0.9% FLUSH 10 ML FLUSH IV FLUSH SCH ×2 (08:30→19:26)
[2017-01-28] MEDS: QUEtiapine FUMARATE 25 MG TAB PO SCH ×2 (08:31→19:25)
[2017-01-28] MEDS: MEMANTINE HCL 5 MG TAB PO SCH (08:31)
[2017-01-28] MEDS: methylPREDNISolone SOD SUCC 40 MG/1 ML VIAL IV PUSH SCH (08:31)
[2017-01-28] MEDS: FUROSEMIDE 20 MG/2 ML VIAL IV PUSH SCH (08:31)
[2017-01-28] MEDS: DOCUSATE SODIUM 50 MG/SENNA 8.6 MG TAB PO SCH ×2 (08:31→19:27)
[2017-01-28] MEDS: CARVEDILOL 12.5 MG TAB PO SCH ×2 (08:31→19:26)
[2017-01-28] MEDS: RIVAROXABAN 15 MG TAB PO SCH (08:31)
[2017-01-28] MEDS: LOSARTAN 25 MG TAB PO SCH (08:32)
[2017-01-28] MEDS: LIDOCAINE HCL 5% PATCH T-DERMAL SCH (08:32)
[2017-01-28] MEDS: ALLOPURINOL 300 MG TAB PO SCH (08:32)
[2017-01-28] MEDS: FAMOTIDINE 20 MG TAB PO SCH ×2 (08:32→19:26)
[2017-01-28] MEDS: POLYETHYLENE GLYCOL 17 GM PKG PO SCH (08:32)
--- NOTE | 2017-01-28 11:25 | HHI.PR ---
Subjective Remarks improved, less agitated, oriented x 2 more calm no cp no sob eating okay at bsd, feels that he is improving Objective Objective Results - Vital Signs Date Time Temp Pulse Resp B/P Pulse Ox O2 Delivery O2 Flow Rate FiO2 01/28/17 10:07 92 2.00 01/28/17 09:19 136 01/28/17 08:01 103 01/28/17 08:00 98.3 76 18 174/82 94 01/28/17 04:00 97.2 105 20 141/100 95 01/28/17 00:00 96.3 102 20 139/80 96 01/27/17 20:27 92 Nasal Cannula 2.00 01/27/17 20:00 97.8 104 22 124/75 94 01/27/17 16:00 97.2 102 18 150/88 96 01/27/17 12:35 96.1 98 18 189/116 96 I/O 01/27/17 01/27/17 01/27/17 01/28/17 01/28/17 01/28/17 07:00 15:00 23:00 07:00 15:00 23:00 Intake Total 150 ml 1380 ml 240 ml 749 ml Output Total 450 ml 300 ml Balance -300 ml 1380 ml -60 ml 749 ml Intake Oral 150 ml 1380 ml 240 ml IV Total 749 ml Output Urine Total 450 ml 300 ml # Voids 2 5 # Bowel Movements 0 2 0 Result Diagram: 01/26/17 0539 01/28/17 0630 Imaging Last Impressions Chest X-Ray 01/23/17 0600 Signed Impressions: Service Date/Time: Monday, January 23, 2017 05:35 - CONCLUSION: Satisfactory chest appearance. Ben Avina MD Pelvis X-Ray 01/18/171816 Signed Impressions: Service Date/Time: December 18:11 - CONCLUSION: Intact pelvis. Ben Gtz MD Maxillofacial CT 01/18/171816 Signed Impressions: Service Date/Time: December 18:51 - CONCLUSION: Intact facial bones. Ben Gtz MD Head CT 01/18/171816 Signed Impressions: Service Date/Time: December 18:51 - CONCLUSION: No bleed or other acute intracranial abnormality. Ben Gtz MD Chest CT 01/18/171816 Signed Impressions: Service Date/Time: December 19:03 - CONCLUSION: Minimally displaced displaced left rib fractures as above. There is a mild left pulmonary contusion, small left anterior/apical pneumothorax and small dependently layering hemothorax. Ben Gtz MD Cervical Spine CT 01/18/171816 Signed Impressions: Service Date/Time: December 18:51 - CONCLUSION: 1. No fracture or subluxation demonstrated of the cervical spine. 2. Multilevel degenerative changes, very severe at C5/C6 and C6/C7 and C7/T1. Ben Gtz MD Abdomen/Pelvis CT 01/18/171816 Signed Impressions: Service Date/Time: December 19:03 - CONCLUSION: No visceral organ injury or other acute abnormality within the abdomen or pelvis. Ben Gtz MD Other Results Laboratory Tests Test 01/28/17 06:30 Sodium Level 146 Potassium Level 3.7 Chloride Level 106 Carbon Dioxide Level 34.4 Anion Gap 6 Blood Urea Nitrogen 25 Creatinine 0.98 Estimat Glomerular Filtration 74 Rate Random Glucose 164 Calcium Level 9.8 Date/Time Procedure Status Source Growth 01/24/17 10:27 Aerobic Blood Culture - Preliminary Resulted Blood Peripheral NO GROWTH IN 4 DAYS 01/24/17 10:27 Anaerobic Blood Culture - Preliminary Resulted Blood Peripheral NO GROWTH IN 4 DAYS 01/23/17 14:22 Urine Culture - Final Complete Urine Catheterized Urine NO GROWTH IN 48 HOURS. ROS General: Other (12 point ROS difficult to obtain ) Physical Exam Physical Exam GENERAL: This is a well-nourished, well-developed patient, in no apparent distress. SKIN: Bruising arms and legs. Dressing to right foot. HEAD: Atraumatic. Normocephalic. No temporal or scalp tenderness. EYES: Pupils equal round and reactive. Extraocular motions intact. No scleral icterus. No injection or drainage. ENT: Nose without bleeding, purulent drainage or septal hematoma. Throat without erythema, tonsillar hypertrophy or exudate. Uvula midline. Airway patent. NECK: Trachea midline. No JVD or lymphadenopathy. Supple, nontender, no meningeal signs. CARDIOVASCULAR: Regular rate and rhythm without murmurs, gallops, or rubs. RESPIRATORY: Wheezes . Left chest wall with dressing intact. GASTROINTESTINAL: Abdomen soft, non-tender, nondistended. No hepato-splenomegaly , or palpable masses. No guarding. MUSCULOSKELETAL: Extremities without clubbing, cyanosis, or edema. Pedal pulses 1+ bilat. No joint tenderness, effusion, or edema noted. No calf tenderness. Negative Homans sign bilaterally. NEUROLOGICAL: Awake, oriented x 2, confused at time, and more calm. Overall improved. NO focal deficits Urinary Catheter: No Vascular Central Line Catheter: No A/P Diagnosis: (1) Altered mental status (2) Fall (3) Rib fractures (4) CKD (chronic kidney disease) stage 3, GFR 30-59 ml/min (5) Acute renal failure (6) CAD (coronary artery disease) (7) DM (diabetes mellitus screen) (8) History of DVT (deep vein thrombosis) (9) Hx of CABG (10) History of CVA (cerebrovascular accident) (11) Pulmonary contusion (12) Ileus Assessment and Plan 81-year-old elderly male status post fall causing multiple lateral rib fractures and left pneumothorax requiring chest tube that has now been resolved. Also noted with lung contusion. Unclear as to the mechanics of the fall Post fall with rib fractures and pneumothorax Continue to monitor -Trauma service is following patient -IS every 2 while awake -Increase activity, physical therapy for evaluation -Continue with pain management, use by mouth narcotics and sedative IV Resp. distress, poss aspiration, hypotension, hallicat called 01/23. Has ileus also. Transferred to ICU -continue abx and follow cultures, negative so far -no longer hypotensive -NGT removed, continue with full liquid diet -monitor for aspiration -continue with bowel regimen, having BMs now. On Lactulose -resolved Altered mental status, etiology unclear, possibly metabolic encephalopathy, rule out CVA, possible delirium. Some improvement -Neuro checks UA/UC-+ UTI, culture negative CT of the head negative -We'll use Haldol 2 mg IM every 6 when necessary for severe agitation -Frequent reorientation -continue Gabapentin 200 mg by mouth daily at bedtime -mentation improving slowly, remains anxious, wants to go home -continue Namenda -Continue Seroquel -mentation improving, less sedated Acute renal injury, superimposed on chronic kidney disease Renal function improving Encourage by mouth intake Follow BMP COPD, stable Continue with supplemental oxygen DC IV steroids, change to Prednisone 20 mg po daily, wean off. Continue with DuoNeb's History of TIA Continue with Xarelto History of a flutter, currently sinus tach Continue with Xarelto Coreg adjusted, HR up and BP elevated Hypertension, stable -was hypotensive, meds held. -Resumed Coreg and Cozaar-adjusted dosage. BP has been elevated Hypernatremia -follow BMP -improving -on IVF Type 2 diabetes Continue with Accu-Cheks before meals and at bedtime and insulin therapy Blood glucose poorly controlled-add Levemir 10 units subcutaneous daily at bedtime -1800 ada diet Palliative care following, input appreciated Continue with Xarelto for DVT prophylaxis Continue with PT OT Continue mobilizing patient and reorient frequently will need SNF placement, hopefully dc 1-2 days Podiatry following for leg ulcers Overall improving, hopefully dc soon D/W Dr. Valenzuela D/W RN D/W pt and This patient was seen by myself and Dr. Valenzuela, this note is written on her behalf Problem Qualifiers (1) Altered mental status: Qualified Code: R41.0 - Delirium (2) Fall: Qualified Code: W19.XXXA - Fall, initial encounter (3) Rib fractures: Qualified Code: S22.42XA - Closed fracture of multiple ribs of left side, initial encounter (4) Acute renal failure: Qualified Code: N17.9 - Acute renal failure, unspecified acute renal failure type (5) CAD (coronary artery disease): Qualified Code: I25.10 - Coronary artery disease involving [place] coronary artery of [place] heart without angina pectoris (6) Pulmonary contusion: Qualified Code: S27.321A - Contusion of left lung, initial encounter Tanja Bryan Jan 28, 2017 11:25
--- NOTE | 2017-01-28 14:44 | HHI.PR ---
Subjective Remarks 81 YOWM with Rib fracture,PTX, pulm contusion Feels much better " I feel fine" Anxious to go home On NC at BS Objective Vital Signs Vital Signs Date Time Temp Pulse Resp B/P Pulse Ox O2 Delivery O2 Flow Rate FiO2 01/28/17 13:15 94 Nasal Cannula 2.00 Humidified 01/28/17 12:00 96.0 96 18 116/67 98 01/28/17 10:07 92 2.00 01/28/17 09:19 136 01/28/17 08:01 103 01/28/17 08:00 98.3 76 18 174/82 94 01/28/17 04:00 97.2 105 20 141/100 95 01/28/17 00:00 96.3 102 20 139/80 96 01/27/17 20:27 92 Nasal Cannula 2.00 01/27/17 20:00 97.8 104 22 124/75 94 01/27/17 16:00 97.2 102 18 150/88 96 I/O 01/27/17 01/27/17 01/27/17 01/28/17 01/28/17 01/28/17 07:00 15:00 23:00 07:00 15:00 23:00 Intake Total 150 ml 1380 ml 240 ml 948 ml Output Total 450 ml 300 ml Balance -300 ml 1380 ml -60 ml 948 ml Intake Oral 150 ml 1380 ml 240 ml IV Total 948 ml Output Urine Total 450 ml 300 ml # Voids 2 5 # Bowel Movements 0 2 0 Result Diagram: 01/26/17 0539 01/28/17 0630 Objective Remarks GENERAL: Elderly male ,NAD SKIN: Warm and dry. HEAD: Normocephalic. EYES: No scleral icterus. No injection or drainage. NECK: Supple, trachea midline. No JVD or lymphadenopathy. CARDIOVASCULAR: Regular rate and rhythm without murmurs, gallops, or rubs. RESPIRATORY: Breath sounds equal bilaterally. No accessory muscle use. GASTROINTESTINAL: Abdomen soft, non-tender, nondistended. MUSCULOSKELETAL: No cyanosis, or edema. BACK: Nontender without obvious deformity. No CVA tenderness. A/P Assessment and Plan Ribs Fracture Pulm contusion PTX resolved Hypoxia improved COPD DM PLAN: Supplement 02 , keep sat >92% Aerosol nebs pain controll Palliative care consulted. Romeo Payne MD Jan 28, 2017 14:44
--- NOTE | 2017-01-28 16:50 | HHI.PR ---
Subjective Subjective Notes Pleasantly confused, less delirious OOB in chair Objective Vitals/I&O Vital Signs Date Time Temp Pulse Resp B/P Pulse Ox O2 Delivery O2 Flow Rate FiO2 01/28/17 16:00 97.3 98 18 141/79 94 01/28/17 13:15 Nasal Cannula 2.00 Humidified 01/25/17 19:35 21 Labs Laboratory Tests Test 01/28/17 06:30 Sodium Level 146 Potassium Level 3.7 Chloride Level 106 Carbon Dioxide Level 34.4 Anion Gap 6 Blood Urea Nitrogen 25 Creatinine 0.98 Estimat Glomerular Filtration 74 Rate Random Glucose 164 Calcium Level 9.8 Date/Time Procedure Status Source Growth 01/24/17 10:27 Aerobic Blood Culture - Preliminary Resulted Blood Peripheral NO GROWTH IN 4 DAYS 01/24/17 10:27 Anaerobic Blood Culture - Preliminary Resulted Blood Peripheral NO GROWTH IN 4 DAYS Radiology Last Impressions Chest X-Ray 01/19/17 0000 Signed Impressions: Service Date/Time: Thursday, January 19, 2017 04:00 - CONCLUSION: Mild increase consolidation left lower lobe Nabil Shah MD Pelvis X-Ray 01/18/171816 Signed Impressions: Service Date/Time: December 18:11 - CONCLUSION: Intact pelvis. Ben Gtz MD Maxillofacial CT 01/18/171816 Signed Impressions: Service Date/Time: December 18:51 - CONCLUSION: Intact facial bones. Ben Gtz MD Head CT 01/18/171816 Signed Impressions: Service Date/Time: December 18:51 - CONCLUSION: No bleed or other acute intracranial abnormality. Ben Gtz MD Chest CT 01/18/171816 Signed Impressions: Service Date/Time: December 19:03 - CONCLUSION: Minimally displaced displaced left rib fractures as above. There is a mild left pulmonary contusion, small left anterior/apical pneumothorax and small dependently layering hemothorax. Ben Gtz MD Cervical Spine CT 01/18/171816 Signed Impressions: Service Date/Time: December 18:51 - CONCLUSION: 1. No fracture or subluxation demonstrated of the cervical spine. 2. Multilevel degenerative changes, very severe at C5/C6 and C6/C7 and C7/T1. Ben Gtz MD Abdomen/Pelvis CT 01/18/173 Signed Impressions: Service Date/Time: December 19:03 - CONCLUSION: No visceral organ injury or other acute abnormality within the abdomen or pelvis. Ben Gtz MD Narrative Exam GENERAL: 81-year-old obese male OOB in chair. SKIN: Warm and dry. HEAD: Normocephalic. ENT: No nasal bleeding or discharge. Mucous membranes pink and moist. NECK: Trachea midline. No JVD. CARDIOVASCULAR: Regular rate and rhythm. RESPIRATORY: No accessory muscle use. Lungs clear and diminished auscultation. Breath sounds equal bilaterally. GASTROINTESTINAL: Abdomen soft, non-tender, slightly distended. + BS. MUSCULOSKELETAL: Extremities without cyanosis, or edema. No obvious deformities. NEUROLOGICAL: Awake and alert. Confused. A/P Problem List: (1) Pneumothorax (2) Rib fractures (3) Fall Assessment and Plan INJURIES: LEFT rib fxs (5-9) LEFT hemopneumothorax w/ CT placement LEFT pulmonary contusion Bibasilar lung consolidation PMHx: Advanced arthritis, COPD with O2 dependence, hypothyroidism, PACEMAKER, CAD, stents, Afib, Ablation, AVR, HLD, HTN, GERD, CRF, DM, gout 01/18: Left chest tube placed 01/21: CT removed Diet: Advance to regular diet Pulm: IS, acapella, EZ pap Pain: Tylenol, Robaxin, Neurontin, Lidocaine patch. Activity: OOB, PT and OT evaluating. GI: Pepcid Bowel: Bhargavi-colace, MOM PRN. Miralax. Lactulose. Senna PRN. LBM: 01/27 DVT: SCDs. Xaralto LEFT rib fxs, LEFT hemopneumothorax, LEFT pulmonary contusion, Bibasilar lung consolidation Chest tube removed 01/21 Continue pulmonary toileting Nasal cannula Pulmonary following Solu-Medrol 40 mg every 8 hours PRN nebulizer treatments Pain control PT- OOB Aspiration IV Zosyn x5 days Infectious disease following Afebrile Pulmonary toileting Bowel regimen Behavior management/Delirium Delirium improved 01/21: Christal acted for safety and continued treatment by Dr Matos Encourage patient to stay awake during the day 01/23: CT brain shows cortical atrophy Seroquel 25 QD, 50 HS. Night Seroquel dose increased Williams Neuropsychologist following Hospitalist consulted to assist with medical management. Appreciate recommendations. Plan of care discussed with patient and at bedside. Case management consulted to assist with discharge planning. Patient will need SNF placement. Plan to DC 1-2 days. Attending Statement The exam, history, and the medical decision-making described in the above note were completed with the assistance of the mid-level provider. I reviewed and agree with the findings presented. I attest that I had a [id number] encounter with the patient on the same day, and personally performed and documented my assessment and findings in the medical record. Problem Qualifiers (1) Pneumothorax: Qualified Code: J93.9 - Pneumothorax, unspecified type (2) Rib fractures: Qualified Code: S22.42XA - Closed fracture of multiple ribs of left side, initial encounter (3) Fall: Qualified Code: W19.XXXA - Fall, initial encounter Donya Hare Jan 28, 2017 16:50 Jacinto Sauer MD Jan 29, 2017 15:16
[2017-01-28] MEDS: MELATONIN 5 MG TAB PO SCH (19:25)
[2017-01-28] MEDS: GABAPENTIN 100 MG CAP PO SCH (19:26)
[2017-01-28] MEDS: TAMSULOSIN HCL 0.4 MG CAP PO SCH (19:27)
[2017-01-28] MEDS: INSULIN DETEMIR 100 UNITS/ML VIAL SQ SCH (19:35)
[2017-01-28] MEDS: REMOVE OLD LIDOCAINE PATCH T-DERMAL SCH (19:39)
[2017-01-28] MEDS: ONDANSETRON HCL 4 MG/2 ML VIAL IV PRN (22:10)
[2017-01-29] VITALS: BP 101/59; PULSE 82; RESP 20; TEMP 96.1; O2SAT 96
[2017-01-29] MEDS: PIPERACIL-TAZO 3.375 GM PREMIX 50 ML IV SCH ×3 (03:21→15:00)
[2017-01-29 04:00] VITALS: BP 118/60; PULSE 71; RESP 18; TEMP 96.5; O2SAT 96
[2017-01-29] MEDS: LEVOTHYROXINE SODIUM 75 MCG TAB PO SCH (06:00)
[2017-01-29] MEDS: RESP: ALBUTEROL 2.5 MG/3 ML NEB (PRN) INH ×2 (06:26→09:36)
[2017-01-29 06:32] VITALS: O2SAT 97
[2017-01-29] MEDS: INSULIN NovoLIN REGULAR SUPPLEMENTAL SCALE SQ SCH ×2 (07:00→11:51)
--- NOTE | 2017-01-29 07:49 | HHI.PR ---
Addendum to Inpatient Note Addendum Reason: Additional Documentation Additional Information SUBJECTIVE Responded to Halicat heard overhead. Nurse reports that Halicat was called due to hypoxia. Nurses were initially in the room due to hypoglycemia with a low in the 50s that responded to orange juice. Last repeat was 119. During treatment of hypoglycemia, patient was found to have O2 saturation in the upper 70s while on 2 L of nasal cannula. It was then learned that patient typically is on 5 L of nasal cannula overnight. Oxygen was then increased with appropriate response of O2. Patient reports feeling well but does endorse feeling shaky and having left-sided rib pain at the site of his chest tube that was recently removed. Patient is otherwise in good spirits and is speaking complete sentences. OBJECTIVE VS: O2 98-99% on 5L NC General: In no acute distress. Lying comfortably in bed. Speaking in complete sentences. Slightly diaphoretic Respiratory: Good air movement bilaterally. No crackles, rhonchi. Cardiac: Regular rate and rhythm. No murmur present A/P 81-year-old male is admitted for pneumothorax. Found to be hypoxic in the upper 70s. Responded to the increase in nasal cannula to his baseline of 5 L. Hypoxic episode was in conjunction to hypoglycemia. Patient is otherwise clinically stable. 1. Hypoxemia * Continue nasal cannula at 5L * If hypoxemia continues despite recent increase in O2, may need to repeat CXR. Will defer to primary team 2. Hypoglycemia has resolved. * Further management per primary team Patient's attending has been called, awaiting callback. Since patient is clinically stable. Will defer all further management to primary team eugeniow Dr. Anurag Strange,Faith Moreno MD R2 Jan 29, 2017 07:49
[2017-01-29] MEDS: LIDOCAINE HCL 5% PATCH T-DERMAL SCH (08:07)
[2017-01-29] MEDS: RIVAROXABAN 15 MG TAB PO SCH (08:07)
[2017-01-29] MEDS: CARVEDILOL 12.5 MG TAB PO SCH (08:07)
[2017-01-29] MEDS: MEMANTINE HCL 5 MG TAB PO SCH (08:07)
[2017-01-29] MEDS: FAMOTIDINE 20 MG TAB PO SCH (08:07)
[2017-01-29] MEDS: QUEtiapine FUMARATE 25 MG TAB PO SCH (08:08)
[2017-01-29] MEDS: LOSARTAN 25 MG TAB PO SCH (08:08)
[2017-01-29] MEDS: ALLOPURINOL 300 MG TAB PO SCH (08:08)
[2017-01-29] MEDS: ACETAMINOPHEN 325 MG TAB PO PRN (08:10)
[2017-01-29] MEDS: SODIUM CHLORIDE 0.9% FLUSH 10 ML FLUSH IV FLUSH SCH (08:16)
[2017-01-29] MEDS: POLYETHYLENE GLYCOL 17 GM PKG PO SCH (08:17)
[2017-01-29] MEDS: DOCUSATE SODIUM 50 MG/SENNA 8.6 MG TAB PO SCH (08:18)
[2017-01-29 08:20] VITALS: BP 134/59; PULSE 99; RESP 20; TEMP 97.4; O2SAT 79
[2017-01-29 08:32] LABS: BICARBONATE 29.9 MEQ/L (21.0-32.0); POTASSIUM 3.4 MEQ/L (3.5-5.1)
[2017-01-29] MEDS ORDERED: predniSONE 20 MG TAB PO SCH (09:00)
[2017-01-29] MEDS ORDERED: FUROSEMIDE 20 MG TAB PO SCH (09:00)
[2017-01-29 09:30] VITALS: O2SAT 100
[2017-01-29] MEDS ORDERED: PRED20 PO (11:35)
[2017-01-29] MEDS ORDERED: COZA25TA PO (11:35)
[2017-01-29] MEDS ORDERED: NAME5TAB2 PO (11:35)
[2017-01-29] MEDS ORDERED: QUET1TAB7 PO ×2 (11:35)
[2017-01-29] MEDS ORDERED: GABA100C4 PO (11:35)
[2017-01-29] MEDS ORDERED: FURO20TA PO (11:35)
[2017-01-29] MEDS ORDERED: POLY17S PO (11:35)
[2017-01-29] MEDS ORDERED: SENN1TAB PO (11:35)
[2017-01-29 12:00] VITALS: BP 126/63; PULSE 84; RESP 16; TEMP 97.4; O2SAT 100
--- NOTE | 2017-01-29 13:22 | HHI.DS ---
Discharge Summary Admission Date January 18, 2017 at 19:33 Discharge Date: Jan 29, 2017 Admitting Diagnosis pneumothorax (1) Pneumothorax (2) Rib fractures (3) Fall Brief History S/P Trauma: Fall CBC/BMP: 01/26/17 0539 01/29/17 0800 Significant Findings Laboratory Tests Test 01/28/17 01/29/17 06:30 08:00 Sodium Level 146 MEQ/L (136-145) Carbon Dioxide Level 34.4 MEQ/L (21.0-32.0) Blood Urea Nitrogen 25 MG/DL (7-18) 32 MG/DL (7-18) Estimat Glomerular Filtration 74 ML/MIN (>89) 51 ML/MIN (>89) Rate Random Glucose 164 MG/DL 167 MG/DL (74-106) (74-106) Potassium Level 3.4 MEQ/L (3.5-5.1) Creatinine 1.34 MG/DL (0.60-1.30) Imaging Last Impressions Chest X-Ray 01/25/17 0600 Signed Impressions: Service Date/Time: January 03:03 - CONCLUSION: Improving aeration Ben Avina MD Abdomen X-Ray 01/25/17 0600 Signed Impressions: Service Date/Time: January 03:05 - CONCLUSION: Moderate gaseous distention of bowel throughout Ben Avina MD Head CT 01/23/17 0000 Signed Impressions: Service Date/Time: Monday, January 23, 2017 15:33 - CONCLUSION: Stable examination compared to the prior study. No focal or acute intracranial hemorrhage. Brendan Marrero MD Abdomen/Pelvis CT 01/23/17 0000 Signed Impressions: Service Date/Time: Monday, January 23, 2017 19:58 - CONCLUSION: 1. Dilated small bowel which slowly tapers just proximal to the terminal ileum. No obstructing mass or lesion observed. No free air or free fluid. 2. Prior cholecystectomy. 3. Small left effusion with bibasilar atelectasis. 4. Umbilical hernia containing fat. Kishor Nj Jr., MD Pelvis X-Ray 01/18/171816 Signed Impressions: Service Date/Time: December 18:11 - CONCLUSION: Intact pelvis. Ben Gtz MD Maxillofacial CT 01/18/171816 Signed Impressions: Service Date/Time: December 18:51 - CONCLUSION: Intact facial bones. Ben Gtz MD Chest CT 01/18/171816 Signed Impressions: Service Date/Time: December 19:03 - CONCLUSION: Minimally displaced displaced left rib fractures as above. There is a mild left pulmonary contusion, small left anterior/apical pneumothorax and small dependently layering hemothorax. Ben Gtz MD Cervical Spine CT 01/18/171816 Signed Impressions: Service Date/Time: December 18:51 - CONCLUSION: 1. No fracture or subluxation demonstrated of the cervical spine. 2. Multilevel degenerative changes, very severe at C5/C6 and C6/C7 and C7/T1. Ben Gtz MD PE at Discharge GENERAL: 81-year-old obese male OOB in chair. SKIN: Warm and dry. HEAD: Normocephalic. ENT: No nasal bleeding or discharge. Mucous membranes pink and moist. NECK: Trachea midline. No JVD. CARDIOVASCULAR: Regular rate and rhythm. RESPIRATORY: No accessory muscle use. Lungs clear and diminished auscultation. Breath sounds equal bilaterally. GASTROINTESTINAL: Abdomen soft, non-tender, slightly distended. + BS. MUSCULOSKELETAL: Extremities without cyanosis, or edema. No obvious deformities. NEUROLOGICAL: Awake and alert. Confused. Hospital Course INJURIES: LEFT rib fxs (5-9) LEFT hemopneumothorax w/ CT placement LEFT pulmonary contusion Bibasilar lung consolidation PMHx: Advanced arthritis, COPD with O2 dependence, hypothyroidism, PACEMAKER, CAD, stents, Afib, Ablation, AVR, HLD, HTN, GERD, CRF, DM, gout 01/18: Left chest tube placed 01/21: CT removed Diet: ADA diet Pulm: IS, acapella, EZ pap Pain: Tylenol, Robaxin, Neurontin, Lidocaine patch. Activity: OOB, PT and OT evaluating and recommend rehab. GI: Pepcid Bowel: Bhargavi-colace, MOM PRN. Miralax. Lactulose. Senna PRN. LBM: 01/27 DVT: SCDs. Xaralto LEFT rib fxs, LEFT hemopneumothorax, LEFT pulmonary contusion, Bibasilar lung consolidation Chest tube removed 01/21 Continue pulmonary toileting 5L O2 dependent Pulmonary following Prednisone 20mg QD PRN nebulizer treatments Pain control PT- OOB Aspiration IV Zosyn x5 days- complete today Infectious disease following Afebrile Pulmonary toileting Bowel regimen Behavior management/Delirium Delirium improved 01/21: Christal acted for safety and continued treatment by Dr Ursula Siegel Act lifted today Encourage patient to stay awake during the day 01/23: CT brain shows cortical atrophy Seroquel 25 QD, 50 HS. Namenda Neuropsychologist following Hospitalist consulted to assist with medical management. Plan of care discussed with patient and at bedside. Case management consulted to assist with discharge planning. Patient is clear from trauma surgery standpoint to safely discharge to [facility]. Pt Condition on Discharge: Stable Discharge Disposition: Rehab Inpatient Discharge Instructions DIET: Follow Instructions for: Diabetic Diet Activities you can perform: Regular-No Restrictions Attending Statement The exam, history, and the medical decision-making described in the above note were completed with the assistance of the mid-level provider. I reviewed and agree with the findings presented. I attest that I had a [id number] encounter with the patient on the same day, and personally performed and documented my assessment and findings in the medical record. Donya Hare Jan 29, 2017 13:21 Jacinto Sauer MD Jan 29, 2017 15:21
[2017-01-29] MEDS ORDERED: ALBU0.08 INH (14:26)
[2017-01-29] MEDS ORDERED: GNP5TAB6 PO (14:26)
--- NOTE | 2017-01-29 14:32 | HHI.PR ---
Subjective Remarks hallicat this morning desated,oxygen up to 4L/NC. At home pt. usually at 5L/NC denies SOB or CP at this time oriented x 2, less delirious no pain when asked blood glucose dropped, received orange juice. Now 240 eating well Objective Objective Results - Vital Signs Date Time Temp Pulse Resp B/P Pulse Ox O2 Delivery O2 Flow Rate FiO2 01/29/17 09:30 100 Nasal Cannula 5.00 01/29/17 08:20 97.4 99 20 134/59 79 01/29/17 06:32 97 Nasal Cannula 2.00 01/29/17 04:00 96.5 71 18 118/60 96 01/29/17 00:00 96.1 82 20 101/59 96 01/28/17 20:34 93 01/28/17 20:34 94 Nasal Cannula 2.00 Humidified 01/28/17 20:00 97.0 69 18 156/99 95 01/28/17 16:00 97.3 98 18 141/79 94 I/O 01/28/17 01/28/17 01/28/17 01/29/17 01/29/17 01/29/17 07:00 15:00 23:00 07:00 15:00 23:00 Intake Total 240 ml 948 ml 1260 ml 408 ml Output Total 300 ml 400 ml Balance -60 ml 948 ml 860 ml 408 ml Intake Oral 240 ml 1260 ml 408 ml IV Total 948 ml Output Urine Total 300 ml 400 ml # Voids 3 1 # Bowel Movements 0 1 0 Result Diagram: 01/26/17 0539 01/29/17 0800 Imaging Last Impressions Chest X-Ray 01/23/17 0600 Signed Impressions: Service Date/Time: Monday, January 23, 2017 05:35 - CONCLUSION: Satisfactory chest appearance. Ben Avina MD Pelvis X-Ray 01/18/171816 Signed Impressions: Service Date/Time: December 18:11 - CONCLUSION: Intact pelvis. Ben Gtz MD Maxillofacial CT 01/18/171816 Signed Impressions: Service Date/Time: December 18:51 - CONCLUSION: Intact facial bones. Ben Gtz MD Head CT 01/18/171816 Signed Impressions: Service Date/Time: December 18:51 - CONCLUSION: No bleed or other acute intracranial abnormality. Ben Gtz MD Chest CT 01/18/171816 Signed Impressions: Service Date/Time: December 19:03 - CONCLUSION: Minimally displaced displaced left rib fractures as above. There is a mild left pulmonary contusion, small left anterior/apical pneumothorax and small dependently layering hemothorax. Ben Gtz MD Cervical Spine CT 01/18/171816 Signed Impressions: Service Date/Time: December 18:51 - CONCLUSION: 1. No fracture or subluxation demonstrated of the cervical spine. 2. Multilevel degenerative changes, very severe at C5/C6 and C6/C7 and C7/T1. Ben Gtz MD Abdomen/Pelvis CT 01/18/171816 Signed Impressions: Service Date/Time: December 19:03 - CONCLUSION: No visceral organ injury or other acute abnormality within the abdomen or pelvis. Ben Gtz MD Other Results Laboratory Tests Test 01/29/17 08:00 Sodium Level 141 Potassium Level 3.4 Chloride Level 105 Carbon Dioxide Level 29.9 Anion Gap 6 Blood Urea Nitrogen 32 Creatinine 1.34 Estimat Glomerular Filtration 51 Rate Random Glucose 167 Calcium Level 9.6 ROS General: Other (poor historian ) Cardiac: Chest Pain (rib pain ) Pulmonary: Cough, SOB, Wheezing (better) Physical Exam Physical Exam GENERAL: This is a well-nourished, well-developed patient, in no apparent distress. SKIN: Bruising arms and legs. Dressing to right foot. HEAD: Atraumatic. Normocephalic. No temporal or scalp tenderness. EYES: Pupils equal round and reactive. Extraocular motions intact. No scleral icterus. No injection or drainage. ENT: Nose without bleeding, purulent drainage or septal hematoma. Throat without erythema, tonsillar hypertrophy or exudate. Uvula midline. Airway patent. NECK: Trachea midline. No JVD or lymphadenopathy. Supple, nontender, no meningeal signs. CARDIOVASCULAR: Regular rate and rhythm without murmurs, gallops, or rubs. RESPIRATORY: Wheezes . Left chest wall with dressing intact. GASTROINTESTINAL: Abdomen soft, non-tender, nondistended. No hepato-splenomegaly , or palpable masses. No guarding. MUSCULOSKELETAL: Extremities without clubbing, cyanosis, or edema. Pedal pulses 1+ bilat. No joint tenderness, effusion, or edema noted. No calf tenderness. Negative Homans sign bilaterally. NEUROLOGICAL: Awake, oriented x 2, less delirious, pleasant, cooperative. Overall improved. NO focal deficits Urinary Catheter: No Vascular Central Line Catheter: No A/P Diagnosis: (1) Altered mental status (2) Fall (3) Rib fractures (4) CKD (chronic kidney disease) stage 3, GFR 30-59 ml/min (5) Acute renal failure (6) CAD (coronary artery disease) (7) DM (diabetes mellitus screen) (8) History of DVT (deep vein thrombosis) (9) Hx of CABG (10) History of CVA (cerebrovascular accident) (11) Pulmonary contusion (12) Ileus Assessment and Plan 81-year-old elderly male status post fall causing multiple lateral rib fractures and left pneumothorax requiring chest tube that has now been resolved. Also noted with lung contusion. Unclear as to the mechanics of the fall Post fall with rib fractures and pneumothorax Continue to monitor -Trauma service is following patient -IS every 2 while awake -Increase activity, physical therapy for evaluation -Continue with pain management, use by mouth narcotics and sedative IV Resp. distress, poss aspiration, hypotension, hallicat called 01/23. Has ileus also. Transferred to ICU -continue abx and follow cultures, negative so far -no longer hypotensive -NGT removed, continue with full liquid diet -monitor for aspiration -continue with bowel regimen, having BMs now. On Lactulose -resolved Altered mental status, etiology unclear, possibly metabolic encephalopathy, rule out CVA, possible delirium. Some improvement -Neuro checks UA/UC-+ UTI, culture negative CT of the head negative -We'll use Haldol 2 mg IM every 6 when necessary for severe agitation -Frequent reorientation -continue Gabapentin 200 mg by mouth daily at bedtime -mentation improving slowly, remains anxious, wants to go home -continue Namenda -Continue Seroquel -mentation improving, less sedated Acute renal injury, superimposed on chronic kidney disease Renal function improving Encourage by mouth intake Follow BMP COPD, stable Continue with supplemental oxygen -sob this am, hallicat called. -continue oxygen 4L/NC, continue PO prednisone -continue duonebs -improved. History of TIA Continue with Xarelto History of a flutter, currently sinus tach Continue with Xarelto Coreg adjusted, HR up and BP elevated Hypertension, stable -was hypotensive, meds held. -continue meds at current dosages -Coreg and Cozaar-were adjusted yesterday Hypernatremia -put on IVF -now resolved Type 2 diabetes Continue with Accu-Cheks before meals and at bedtime and insulin therapy dropped blood glucose this am, no Levemir -1800 ada diet Palliative care following, input appreciated pt now DNR Continue with Xarelto for DVT prophylaxis Continue with PT OT Continue mobilizing patient and reorient frequently Accepted at [facility] Stable for discharge D/W Dr. Valenzuela D/W RN D/W pt D/W CM This patient was seen by myself and Dr. Valenzuela, this note is written on her behalf Problem Qualifiers (1) Altered mental status: Qualified Code: R41.0 - Delirium (2) Fall: Qualified Code: W19.XXXA - Fall, initial encounter (3) Rib fractures: Qualified Code: S22.42XA - Closed fracture of multiple ribs of left side, initial encounter (4) Acute renal failure: Qualified Code: N17.9 - Acute renal failure, unspecified acute renal failure type (5) CAD (coronary artery disease): Qualified Code: I25.10 - Coronary artery disease involving [place] coronary artery of [place] heart without angina pectoris (6) Pulmonary contusion: Qualified Code: S27.321A - Contusion of left lung, initial encounter Tanja Bryan Jan 29, 2017 14:32
[2017-01-29] MEDS ORDERED: POTASSIUM CHLORIDE 25 MEQ EFFERVESCENT TAB PO ONE (14:45)
--- NOTE | 2017-01-29 15:45 | HHI.IDPN ---
Subjective Subjective Remarks dw RN\ pt has episode of hypoglycemia and hypoxia earlier today hypoxia resolved when O2 was put upp to 5 L (home baseline) no fever having multiple liquid BMs co abdominal cramps, diistention Antibiotics zosyn Allergies: Coded Allergies: Contrast Media (Verified Allergy, Severe, SWELLING AND SHORTNESS OF BREATH , 01/23/17) Iodine (Verified Allergy, Severe, SWELLING, 01/23/17) Shellfish (Verified Allergy, Severe, 01/23/17) Objective . Vital Signs Date Time Temp Pulse Resp B/P Pulse Ox O2 Delivery O2 Flow Rate FiO2 01/29/17 12:00 97.4 84 16 126/63 100 01/29/17 09:30 100 Nasal Cannula 5.00 01/29/17 08:20 97.4 99 20 134/59 79 01/29/17 06:32 97 Nasal Cannula 2.00 01/29/17 04:00 96.5 71 18 118/60 96 01/29/17 00:00 96.1 82 20 101/59 96 01/28/17 20:34 93 01/28/17 20:34 94 Nasal Cannula 2.00 Humidified 01/28/17 20:00 97.0 69 18 156/99 95 01/28/17 16:00 97.3 98 18 141/79 94 01/28/17 01/28/17 01/29/17 15:00 23:00 07:00 Intake Total 948 ml 1260 ml 408 ml Output Total 400 ml Balance 948 ml 860 ml 408 ml Intake Oral 1260 ml 408 ml IV Total 948 ml Output Urine Total 400 ml # Voids 3 1 # Bowel Movements 1 0 . Laboratory Tests Test 01/28/17 01/29/17 06:30 08:00 Sodium Level 146 MEQ/L 141 MEQ/L Potassium Level 3.7 MEQ/L 3.4 MEQ/L Chloride Level 106 MEQ/L 105 MEQ/L Carbon Dioxide Level 34.4 MEQ/L 29.9 MEQ/L Anion Gap 6 MEQ/L 6 MEQ/L Blood Urea Nitrogen 25 MG/DL 32 MG/DL Creatinine 0.98 MG/DL 1.34 MG/DL Estimat Glomerular Filtration 74 ML/MIN 51 ML/MIN Rate Random Glucose 164 MG/DL 167 MG/DL Calcium Level 9.8 MG/DL 9.6 MG/DL Imaging Last Impressions Chest X-Ray 01/25/17 0600 Signed Impressions: Service Date/Time: January 03:03 - CONCLUSION: Improving aeration Ben Avina MD Abdomen X-Ray 01/25/17 06 Signed Impressions: Service Date/Time: January 03:05 - CONCLUSION: Moderate gaseous distention of bowel throughout Ben Avina MD Head CT 01/23/17 0000 Signed Impressions: Service Date/Time: Monday, January 23, 2017 15:33 - CONCLUSION: Stable examination compared to the prior study. No focal or acute intracranial hemorrhage. Brendan Marrero MD Abdomen/Pelvis CT 01/23/17 0000 Signed Impressions: Service Date/Time: Monday, January 23, 2017 19:58 - CONCLUSION: 1. Dilated small bowel which slowly tapers just proximal to the terminal ileum. No obstructing mass or lesion observed. No free air or free fluid. 2. Prior cholecystectomy. 3. Small left effusion with bibasilar atelectasis. 4. Umbilical hernia containing fat. Kishor Nj Jr., MD Pelvis X-Ray 01/18/171816 Signed Impressions: Service Date/Time: December 18:11 - CONCLUSION: Intact pelvis. Ben Gtz MD Maxillofacial CT 01/18/171816 Signed Impressions: Service Date/Time: December 18:51 - CONCLUSION: Intact facial bones. Ben Gtz MD Chest CT 01/18/171816 Signed Impressions: Service Date/Time: December 19:03 - CONCLUSION: Minimally displaced displaced left rib fractures as above. There is a mild left pulmonary contusion, small left anterior/apical pneumothorax and small dependently layering hemothorax. Ben Gtz MD Cervical Spine CT 01/18/171816 Signed Impressions: Service Date/Time: December 18:51 - CONCLUSION: 1. No fracture or subluxation demonstrated of the cervical spine. 2. Multilevel degenerative changes, very severe at C5/C6 and C6/C7 and C7/T1. Ben Gtz MD Physical Exam CONSTITUTIONAL/GENERAL: This is an obese elderly patient, in no apparent distress. TUBES/LINES/DRAINS: SKIN: No jaundice, rashes, or lesions. CARDIOVASCULAR: Regular rate and rhythm without murmurs, gallops, or rubs. No JVD. Peripheral pulses symmetric. RESPIRATORY/CHEST: Symmetric, unlabored respirations. Clear to auscultation. Breath sounds equal bilaterally. GASTROINTESTINAL: Abdomen soft, minimally tender wo guarding/rebound in RLQ/LLQ moderately to markedly distended, no longer tympanic to palpation. No hepato- splenomegaly, or palpable masses. No guarding. Bowel sounds present. GENITOURINARY: Without palpable bladder distension. Solares catheter in place withclear yellow urine MUSCULOSKELETAL: Extremities without clubbing, cyanosis, or edema. No joint tenderness or effusion noted. No calf tenderness. No mottling or clubbing. NEUROLOGICAL: Awake and alert. COnfused. Motor and sensory grossly within normal limits. Follows commands. Speech . Moves all extremities. PSYCHIATRIC: No obvious anxiety/depression. no apparent hallucinations or other psychotic thought process. Assessment & Plan Remarks L side traumatic pneumothorax Ileus with vomiting ? Aspiration PNA Leukocytosis - resolved Abx associated diarrhea - complete zosyn today - chk stool for C.diiff - fu WBC and BC untill final Discussed Condition With Mariya Chung MD Jan 29, 2017 15:45
--- NOTE | 2017-01-29 15:53 | PD.CARD.PN ---
Subjective Subjective Remarks Denies CP or SOB, feels better Objective Medications Current Medications Medications (Trade) Dose Ordered Sig/Leida Route Start Time Stop Time Status Last Admin (NS Flush) 2 ml UNSCH PRN IV FLUSH 01/18/17 19:45 (NS Flush) 2 ml BID IV FLUSH 01/18/17 21:00 01/28/17 08:30 (Zofran Inj) 4 mg Q6H PRN IV 01/18/17 19:45 01/28/17 22:10 (Bhargavi-Colace) 1 tab BID PO 01/18/17 21:00 01/28/17 08:31 (Milk Of Magnesia Liq) 30 ml Q12H PRN PO 01/18/17 19:45 (Senokot) 17.2 mg Q12H PRN PO 01/18/17 19:45 (Dulcolax Supp) 10 mg DAILY PRN RECTAL 01/18/17 19:45 (Lactulose Liq) 30 ml DAILY PRN PO 01/18/17 19:45 (Miralax) 17 gm DAILY PO 01/19/17 09:00 01/28/17 08:32 (Lidoderm 5% Patch.12 Hr) 1 patch DAILY T-DERMAL 01/19/17 09:00 01/29/17 08:07 (D50w (Vial) Inj) 50 ml UNSCH PRN IV 01/19/17 07:45 (Glucagon Inj) 1 mg UNSCH PRN OTHER 01/19/17 07:45 (Zyloprim) 300 mg DAILY PO 01/19/17 14:45 01/29/17 08:08 (Synthroid) 75 mcg DAILY@0600 PO 01/20/17 06:00 01/28/17 06:03 (Flomax) 0.4 mg HS PO 01/19/17 21:00 01/28/17 19:27 (Pill Splitter) 1 ea UNSCH PRN OTHER 01/19/17 15:00 01/24/17 09:14 (Pepcid) 10 mg BID PO 01/20/17 21:00 01/29/17 08:07 (Xarelto) 15 mg DAILY PO 01/22/17 09:00 01/29/17 08:07 (Levemir Inj) 10 units HS SQ 01/23/17 21:00 01/28/17 19:35 (Neurontin) 200 mg HS PO 01/23/17 21:00 01/28/17 19:26 Miscellaneous Information 1 HS T-DERMAL 01/23/17 21:00 01/28/17 19:39 Acetaminophen 650 mg 650 mg Q4H PRN PO 01/25/17 09:30 01/29/17 08:10 (Zosyn 3.375 Gm Premix) 50 ml @ 100 mls/hr Q6H IV 01/25/17 15:00 01/29/17 23:55 01/29/17 08:06 (Melatonin) 5 mg HS PO 01/26/17 21:00 01/28/17 19:25 (Namenda) 5 mg DAILY PO 01/26/17 10:00 01/29/17 08:07 (Cozaar) 12.5 mg DAILY PO 01/27/17 09:00 01/29/17 08:08 (SEROquel) 25 mg DAILY PO 01/28/17 09:00 01/29/17 08:08 (SEROquel) 50 mg HS PO 01/27/17 21:00 01/28/17 19:25 (Robaxin) 500 mg Q8H PRN PO 01/27/17 20:00 01/28/17 22:10 (Vasotec Inj) 1.25 mg Q6H PRN IV PUSH 01/27/17 14:00 01/27/17 13:36 (Deltasone) 20 mg DAILY PO 01/29/17 09:00 01/29/17 08:08 (Lasix) 20 mg DAILY PO 01/29/17 09:00 01/29/17 08:08 (Coreg) 25 mg Q12HR PO 01/28/17 21:00 01/29/17 08:07 Vital Signs / I&O Vital Signs Date Time Temp Pulse Resp B/P Pulse Ox O2 Delivery O2 Flow Rate FiO2 01/29/17 12:00 97.4 84 16 126/63 100 01/29/17 09:30 100 Nasal Cannula 5.00 01/29/17 08:20 97.4 99 20 134/59 79 01/29/17 06:32 97 Nasal Cannula 2.00 01/29/17 04:00 96.5 71 18 118/60 96 01/29/17 00:00 96.1 82 20 101/59 96 01/28/17 20:34 93 01/28/17 20:34 94 Nasal Cannula 2.00 Humidified 01/28/17 20:00 97.0 69 18 156/99 95 01/28/17 16:00 97.3 98 18 141/79 94 I/O 01/28/17 01/28/17 01/28/17 01/29/17 01/29/17 01/29/17 07:00 15:00 23:00 07:00 15:00 23:00 Intake Total 240 ml 948 ml 1260 ml 408 ml 860 ml Output Total 300 ml 400 ml Balance -60 ml 948 ml 860 ml 408 ml 860 ml Intake Oral 240 ml 1260 ml 408 ml 860 ml IV Total 948 ml Output Urine Total 300 ml 400 ml # Voids 3 1 3 # Bowel Movements 0 1 0 Physical Exam GENERAL: In NAD SKIN: Warm and dry. HEAD: Normocephalic. EYES: No scleral icterus. No injection or drainage. NECK: Supple, trachea midline. No JVD or lymphadenopathy. CARDIOVASCULAR: Regular rate and rhythm without murmurs, gallops, or rubs. RESPIRATORY: Breath sounds equal bilaterally. No accessory muscle use. GASTROINTESTINAL: Abdomen soft, non-tender, nondistended. MUSCULOSKELETAL: No cyanosis, or edema. Laboratory Laboratory Tests Test 01/29/17 08:00 Sodium Level 141 MEQ/L Potassium Level 3.4 MEQ/L Chloride Level 105 MEQ/L Carbon Dioxide Level 29.9 MEQ/L Anion Gap 6 MEQ/L Blood Urea Nitrogen 32 MG/DL Creatinine 1.34 MG/DL Estimat Glomerular Filtration 51 ML/MIN Rate Random Glucose 167 MG/DL Calcium Level 9.6 MG/DL Imaging Last Impressions Chest X-Ray 01/25/17 0600 Signed Impressions: Service Date/Time: January 03:03 - CONCLUSION: Improving aeration Ben Avina MD Abdomen X-Ray 01/25/17 0600 Signed Impressions: Service Date/Time: January 03:05 - CONCLUSION: Moderate gaseous distention of bowel throughout Ben Avina MD Head CT 01/23/17 0000 Signed Impressions: Service Date/Time: Monday, January 23, 2017 15:33 - CONCLUSION: Stable examination compared to the prior study. No focal or acute intracranial hemorrhage. Brendan Marrero MD Abdomen/Pelvis CT 01/23/17 0000 Signed Impressions: Service Date/Time: Monday, January 23, 2017 19:58 - CONCLUSION: 1. Dilated small bowel which slowly tapers just proximal to the terminal ileum. No obstructing mass or lesion observed. No free air or free fluid. 2. Prior cholecystectomy. 3. Small left effusion with bibasilar atelectasis. 4. Umbilical hernia containing fat. Kishor Nj Jr., MD Pelvis X-Ray 01/18/171816 Signed Impressions: Service Date/Time: December 18:11 - CONCLUSION: Intact pelvis. Ben Gtz MD Maxillofacial CT 01/18/171816 Signed Impressions: Service Date/Time: December 18:51 - CONCLUSION: Intact facial bones. Ben Gtz MD Chest CT 01/18/171816 Signed Impressions: Service Date/Time: December 19:03 - CONCLUSION: Minimally displaced displaced left rib fractures as above. There is a mild left pulmonary contusion, small left anterior/apical pneumothorax and small dependently layering hemothorax. Ben Gtz MD Cervical Spine CT 01/18/171816 Signed Impressions: Service Date/Time: December 18:51 - CONCLUSION: 1. No fracture or subluxation demonstrated of the cervical spine. 2. Multilevel degenerative changes, very severe at C5/C6 and C6/C7 and C7/T1. Ben Gtz MD Assessment and Plan Problem List: (1) Fall (2) Rib fractures (3) Pneumothorax (4) Altered mental status (5) CKD (chronic kidney disease) stage 4, GFR 15-29 ml/min (6) History of DVT (deep vein thrombosis) (7) History of CVA (cerebrovascular accident) (8) CKD (chronic kidney disease) stage 3, GFR 30-59 ml/min (9) DM (diabetes mellitus screen) (10) CAD (coronary artery disease) Assessment and Plan Stays in SR. Continue current program including anticoagulation with Xarelto. Increase activity, PT. Problem Qualifiers (1) Rib fractures: Qualified Code: S22.42XA - Closed fracture of multiple ribs of left side, initial encounter (2) Pneumothorax: Qualified Code: J93.9 - Pneumothorax, unspecified type (3) Altered mental status: Qualified Code: R41.0 - Delirium (4) CAD (coronary artery disease): Qualified Code: I25.10 - Coronary artery disease involving sun'aq coronary artery of sun'aq heart without angina pectoris Morgan Nelson MD Jan 29, 2017 15:53
--- NOTE | 2017-01-29 17:07 | HHI.HCPN ---
Reason for visit a. To assist with evaluation and management of symptoms including: Dyspnea, anxiety, pain, dysphasia, confusion b. To assist medical decision maker(s) with: better understanding of current medical conditions; weighing benefits/burdens of medical treatment options; making medical treatment decisions. Subjective/Interval History He is seen today to support family with medical updates, evaluate symptoms and revisit CODE STATUS. Family called for palliative care over the weekend to discuss CODE STATUS. Patient's daughter visited from [place] this weekend to support the . also remained supported by her daughter, Elizabeth, with whom I spoke today. He is currently being evaluated by [facility] for acute inpatient rehabilitation. Earlier today he became hypoxic and was found to be hypoglycemic with a blood sugar of 54 and oxygen saturation of 78. HALICAT was called and the patient was quickly stabilized with orange juice and increasing his oxygen to his home baseline of 5 L via nasal cannula. . Consultations * Infectious disease-has evaluated with antibiotic adjustment, adding Zosyn, stopping cefepime and clindamycin. Patient now having diarrhea, antibiotic related per ID. * Cardiovascular surgery-following for right dorsal foot and posterior calf ulcers recommending Santyl ointment to wounds with compression from toes to below the knee every other day. * Pulmonology-recommending supplemental O2, aerosol nebs and pain control. Family/friend interactions Spoke with Elizabeth, who is the legal decision maker per [place] statutes, on the phone and she informed me that she would like the patient's CODE STATUS to be made DO NOT RESUSCITATE. She had spoken with the patient's daughter from [place] this weekend and stated they both felt this would be the appropriate decision. I was then contacted by the Elizabeth's daughter, also named Elizabeth, who reiterated that this discussion was consistent with all the family's wishes. Due to the patient's baseline dementia and comorbidities, it was determined that he would not wish to be resuscitated due to his poor quality of life. Advance Directives Living Will: Completed, but not made available Health Care Surrogate: Completed, but not made available Advance Directive Specifics Documented care wishes: Details in the usual verbiage requesting to not have artificial prolonging measures in the event of a terminal or end-stage condition of which she would not make a reasonable recovery. It is dated 2009. Per my discussion with , Elizabeth, and Elizabeth's daughter, also named Elizabeth, a DO NOT RESUSCITATE status was entered for the patient. Objective Vital Signs Date Time Temp Pulse Resp B/P Pulse Ox O2 Delivery O2 Flow Rate FiO2 01/29/17 12:00 97.4 84 16 126/63 100 01/29/17 09:30 100 Nasal Cannula 5.00 01/29/17 08:20 97.4 99 20 134/59 79 01/29/17 06:32 97 Nasal Cannula 2.00 01/29/17 04:00 96.5 71 18 118/60 96 01/29/17 00:00 96.1 82 20 101/59 96 01/28/17 20:34 93 01/28/17 20:34 94 Nasal Cannula 2.00 Humidified 01/28/17 20:00 97.0 69 18 156/99 95 Intake & Output 01/29/17 01/29/17 07:00 19:00 Intake Total 1188 ml 860 ml Balance 1188 ml 860 ml Intake Oral 1188 ml 860 ml # Voids 3 3 # Bowel Movements 1 Physical Exam CONSTITUTIONAL/GENERAL: This is an adequately nourished patient, lethargic, no apparent distress TUBES/LINES/DRAINS: Peripheral IV right forearm, Solares catheter, NC 5L, SCD left lower extremity SKIN: No jaundice, rashes, or lesions. Multiple areas of ecchymosis lateral lower extremities, bilateral upper extremities. Dressing rt ankle/foot clean and dry. + chronic vascular changes BLE. CARDIOVASCULAR: Regular rate and rhythm. No JVD. Peripheral pulses symmetric- pedal pulses faint. RESPIRATORY/CHEST: Symmetric, unlabored respirations on 5 L nasal cannula. Clear to auscultation, diminished air movement throughout. Lt chest dressing clean and dry. NEUROLOGICAL: Awake at times, Oriented x2. Poor insight. Follows simple commands. Moves all 4 extremities. PSYCHIATRIC: No obvious anxiety/depression. Diagnostic Tests Laboratory Laboratory Tests Test 01/28/17 01/29/17 06:30 08:00 Sodium Level 146 MEQ/L 141 MEQ/L (136-145) (136-145) Potassium Level 3.7 MEQ/L 3.4 MEQ/L (3.5-5.1) (3.5-5.1) Chloride Level 106 MEQ/L 105 MEQ/L (98-107) (98-107) Carbon Dioxide Level 34.4 MEQ/L 29.9 MEQ/L (21.0-32.0) (21.0-32.0) Anion Gap 6 MEQ/L (5-15) 6 MEQ/L (5-15) Blood Urea Nitrogen 25 MG/DL (7-18) 32 MG/DL (7-18) Creatinine 0.98 MG/DL 1.34 MG/DL (0.60-1.30) (0.60-1.30) Estimat Glomerular Filtration 74 ML/MIN (>89) 51 ML/MIN (>89) Rate Random Glucose 164 MG/DL 167 MG/DL (74-106) (74-106) Calcium Level 9.8 MG/DL 9.6 MG/DL (8.5-10.1) (8.5-10.1) Result Diagram: 01/26/17 0539 01/29/17 0800 Microbiology Laboratory Tests Test 01/29/17 08:00 Sodium Level 141 Potassium Level 3.4 Chloride Level 105 Carbon Dioxide Level 29.9 Anion Gap 6 Blood Urea Nitrogen 32 Creatinine 1.34 Estimat Glomerular Filtration 51 Rate Random Glucose 167 Calcium Level 9.6 Imaging Last Impressions Chest X-Ray 01/25/17 0600 Signed Impressions: Service Date/Time: January 03:03 - CONCLUSION: Improving aeration Ben Avina MD Abdomen X-Ray 01/25/17 0600 Signed Impressions: Service Date/Time: January 03:05 - CONCLUSION: Moderate gaseous distention of bowel throughout Ben Avina MD Head CT 01/23/17 0000 Signed Impressions: Service Date/Time: Monday, January 23, 2017 15:33 - CONCLUSION: Stable examination compared to the prior study. No focal or acute intracranial hemorrhage. Brendan Marrero MD Abdomen/Pelvis CT 01/23/17 0000 Signed Impressions: Service Date/Time: Monday, January 23, 2017 19:58 - CONCLUSION: 1. Dilated small bowel which slowly tapers just proximal to the terminal ileum. No obstructing mass or lesion observed. No free air or free fluid. 2. Prior cholecystectomy. 3. Small left effusion with bibasilar atelectasis. 4. Umbilical hernia containing fat. Kishor Nj Jr., MD Pelvis X-Ray 01/18/171816 Signed Impressions: Service Date/Time: December 18:11 - CONCLUSION: Intact pelvis. Ben Gtz MD Maxillofacial CT 01/18/171816 Signed Impressions: Service Date/Time: , January 18, 2017 18:51 - CONCLUSION: Intact facial bones. Ben Gtz MD Chest CT 01/18/171816 Signed Impressions: Service Date/Time: December 19:03 - CONCLUSION: Minimally displaced displaced left rib fractures as above. There is a mild left pulmonary contusion, small left anterior/apical pneumothorax and small dependently layering hemothorax. Ben Gtz MD Cervical Spine CT 01/18/171816 Signed Impressions: Service Date/Time: December 18:51 - CONCLUSION: 1. No fracture or subluxation demonstrated of the cervical spine. 2. Multilevel degenerative changes, very severe at C5/C6 and C6/C7 and C7/T1. Ben Gtz MD Procedures 01/18/17 Central line placement right femoral vein. 01/18/17 chest tube thoracostomy Assessment and Plan Disease Oriented Problem List: (1) COPD (chronic obstructive pulmonary disease) (2) Pneumothorax (3) CKD (chronic kidney disease) stage 4, GFR 15-29 ml/min (4) Chest pain (5) CAD (coronary artery disease) (6) Altered mental status (7) Pulmonary contusion (8) SOB (shortness of breath) (9) Diabetes Symptom Scale: (1) Dyspnea 0-10 Scale: Unable to quantify (2) Pain 0-10 Scale: Unable to quantify (3) Anxiety 0-10 Scale: Unable to quantify (4) Confusion 0-10 Scale: Unable to quantify (5) Dysphasia 0-10 Scale: Unable to quantify Pertinent Non-Medical Issues Psychosocial:. originally from [facility]. 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 Retired to [place] 10+ yrs ago , has always traveled to area for racing events. Has 2 adult children, 1 stepchild. Spiritual: Legal:Mental status fluctuates this is likely multifactorial related to his multiple medical conditions. . Reported to have a living will but is not ready to provide copies. She would be appropriate legal proxy, family reports she is designated decision maker. Ethical issues impacting care: Important Contacts Elizabeth Calderon([phone]) . Prognosis This patient was admitted on 01/18 after reported mechanical fall with left rib pain. He had findings of multiple left-sided rib fractures as well as pneumothorax requiring chest tube placement. He has multiple chronic medical conditions, as well as family reports of a mild/early dementia diagnoses. He has had recent recurrent falls. Given advanced age, multiple chronic medical conditions, and now acute rib injury patient remains very high risk for further pulmonary and other complications and continued decline. If he is able to get through acute hospitalization will likely require rehabilitation and potentially long-term care placement. Code Status: Full Code Plan * Legal decision maker: Patient is intermittently confused, likely multifactorial due to his clinical condition. would be appropriate legal proxy, family reports she is designated decision maker. * Goals: Prev met w , dtr at length, + son in law. Today f/up with son in law ( sleeping at bedside) Patient has been overwhelmed staying at the hospital bedside for most of the day and night. Family has decided pt should remain full code for now, they are hopeful pt will improve enough to make his own decisions. Open to ongoing discussions pending clinical course. 01/29/2017 contacted by the and her daughter also named Elizabeth both of whom met with patient's daughter, Izabella, from [place] this weekend and per that discussion have decided to make the patient a DO NOT RESUSCITATE status. * CODE STATUS: DO NOT RESUSCITATE * SYMPTOMS: --Dyspnea-admitted with rib pain status post fall. + Initially required chest tubes has since been removed. Long history of COPD, O2 dependent in the home setting. CXR with improved aeration. Initially requiring simple mask now weaned to nasal cannula. 01/29/2017-Required HALICAT this morning due to hypoxia and hypoglycemia. Patient on 5 L nasal cannula O2 at home, had been weaned to 4 L in the hospital with resulting hypoxia. Required increase in O2 with stabilization of vital signs. Could potentially require intubation/ mechanical vent. --Pain-frequent fall history. Most recent fall resulting in multiple left rib fractures. Recent removal of chest tube. Last opiate use 01/24. Denies "much pain" today, says "a little" to sides, back. Does not want pain meds. --anxiety/confusion- possible dx early/mild dementia. + episodes agitation/ confusion during hospital course likely multifactorialpoor oxygenation, kidney disease, medications. Receiving Seroquel 25 mg by mouth twice a day. still confused at times, poor insight, Oriented to person and place. --Dysphasia- s/p ST eval, tolerated thin liq, mech soft food. Patient was evaluated by [facility] today and per that evaluation has been scheduled for discharge to [facility] to continue his rehabilitation. This was discussed with stepdaughter Elizabeth who states she and her mother are in agreement with continued rehabilitation but there is remaining concern that his will be unable to provide adequate care for him at home due to his multiple comorbidities, confusion and medical complexity. * Palliative care will continue to follow during hospital course as condition evolves, to assist patient/decision-maker with understanding of medical conditions, weighing benefits/burdens of treatment options, for clarification of goals of treatment. Additionally will assist with any symptoms of palliative concern . Perri Thorne Jan 29, 2017 17:07
[2017-02-05] MEDS ORDERED: GETGO ROLLING W1 MI1 (13:54)
[2017-02-05] MEDS ORDERED: WHEEMIS3 (13:54)
[2017-02-05] MEDS ORDERED: COMMODE 3-IN-11 MIS (13:54)
[2017-02-06] MEDS ORDERED: MAGN400T2 PO (09:06)
[2017-02-06] MEDS ORDERED: LANTINJ SQ (09:06)
[2017-02-06] MEDS ORDERED: ALLO300T2 PO (09:06)
[2017-02-06] MEDS ORDERED: PRED10 PO (09:06)
[2017-02-06] MEDS ORDERED: SPIR25TA PO (09:06)
[2017-02-06] MEDS ORDERED: LEVO.075 PO (09:06)
[2017-02-06] MEDS ORDERED: TAMS0.4C4 PO (09:06)
[2017-02-06] MEDS ORDERED: GABA100C4 PO (09:06)
[2017-02-06] MEDS ORDERED: HYDR-3533 PO (09:06)
[2017-02-06] MEDS ORDERED: IRBE75TA5 PO (09:06)
[2017-02-06] MEDS ORDERED: OMEP20TA PO (09:06)
[2017-02-06] MEDS ORDERED: QUET1TAB7 PO (09:06)
[2017-02-06] MEDS ORDERED: SENN1TAB PO (09:06)
[2017-02-06] MEDS ORDERED: GNP5TAB6 PO (09:06)
[2017-02-06] MEDS ORDERED: NAME5TAB2 PO (09:06)
[2017-02-06] MEDS ORDERED: FURO20TA PO (09:06)
[2017-02-06] MEDS ORDERED: ASPI-110 PO (09:06)
[2017-02-06] MEDS ORDERED: XARE15TA PO (09:06)
[2017-02-06] MEDS ORDERED: CARV6.252 PO (09:06)
== END 2017-01-29 16:16 | DRG 200 ==
LOC: NEPI 18:13 → MERGE 19:33 → NEDA 19:33 → EDBD 19:33 → N03A 19:39 → N07A 01-19 21:07 → N03B 01-23 20:19 → N06B 01-26 16:27 → N06A 01-26 19:49
PROVIDERS: ADMIT Surgery Trauma Surgery; ATTEND Surgery Trauma Surgery
PROC: 06HM33Z Insertion of Infusion Device into Right Femoral Vein, Percutaneous Approach (ICD-10-PCS; principal; 2017-01-18)
PROC: 0W9B30Z Drainage of Left Pleural Cavity with Drainage Device, Percutaneous Approach (ICD-10-PCS; 2017-01-18)
PROC: 30233N1 Transfusion of Nonautologous Red Blood Cells into Peripheral Vein, Percutaneous Approach (ICD-10-PCS; 2017-01-22)
DX: S27.2XXA Traumatic hemopneumothorax, initial encounter (principal); S22.42XA Multiple fractures of ribs, left side, initial encounter for closed fracture; E87.0 Hyperosmolality and hypernatremia; N18.4 Chronic kidney disease, stage 4 (severe); S27.321A Contusion of lung, unilateral, initial encounter; N17.9 Acute kidney failure, unspecified; E11.22 Type 2 diabetes mellitus with diabetic chronic kidney disease; E86.0 Dehydration; I48.91 Unspecified atrial fibrillation; F03.90 Unspecified dementia, unspecified severity, without behavioral disturbance, psychotic disturbance, mood disturbance, and anxiety; I12.9 Hypertensive chronic kidney disease with stage 1 through stage 4 chronic kidney disease, or unspecified chronic kidney disease; L97.819 Non-pressure chronic ulcer of other part of right lower leg with unspecified severity; K56.0 Paralytic ileus; R04.2 Hemoptysis; I49.5 Sick sinus syndrome; E11.621 Type 2 diabetes mellitus with foot ulcer; Z99.81 Dependence on supplemental oxygen; W18.30XA Fall on same level, unspecified, initial encounter; Y93.9 Activity, unspecified; Y99.9 Unspecified external cause status; Z91.041 Radiographic dye allergy status; I25.10 Atherosclerotic heart disease of native coronary artery without angina pectoris; E03.9 Hypothyroidism, unspecified; L97.519 Non-pressure chronic ulcer of other part of right foot with unspecified severity; K21.9 Gastro-esophageal reflux disease without esophagitis; J44.9 Chronic obstructive pulmonary disease, unspecified; Z96.653 Presence of artificial knee joint, bilateral; Z96.643 Presence of artificial hip joint, bilateral; I65.29 Occlusion and stenosis of unspecified carotid artery; Z96.612 Presence of left artificial shoulder joint; Z95.5 Presence of coronary angioplasty implant and graft; Z95.3 Presence of xenogenic heart valve; Z95.1 Presence of aortocoronary bypass graft; Z95.0 Presence of cardiac pacemaker; Z91.19 Patient's noncompliance with other medical treatment and regimen; Z87.891 Personal history of nicotine dependence; Z87.442 Personal history of urinary calculi; Z86.73 Personal history of transient ischemic attack (TIA), and cerebral infarction without residual deficits; Z85.820 Personal history of malignant melanoma of skin; Z86.718 Personal history of other venous thrombosis and embolism; Z91.013 Allergy to seafood; M19.90 Unspecified osteoarthritis, unspecified site; Y92.009 Unspecified place in unspecified non-institutional (private) residence as the place of occurrence of the external cause; E78.5 Hyperlipidemia, unspecified; M10.9 Gout, unspecified; Z79.4 Long term (current) use of insulin; E11.649 Type 2 diabetes mellitus with hypoglycemia without coma; D64.89 Other specified anemias; F41.9 Anxiety disorder, unspecified; K31.84 Gastroparesis; M06.9 Rheumatoid arthritis, unspecified; R09.02 Hypoxemia; R44.1 Visual hallucinations; Z51.5 Encounter for palliative care; Z66 Do not resuscitate; R47.02 Dysphasia
CPT/HCPCS: 32551; 36430; 36600; 70450; 70486; 71010; 71260; 72125; 72170; 74000; 74176; 74177; 76937; 80048; 80053; 81001; 82140; 82435; 82533; 82550; 82552; 82565; 82607; 82805; 82947; 82948; 83735; 84100; 84132; 84295; 84443; 84484; 84520; 85014; 85018; 85025; 85610; 85730; 86850; 86900; 86901; 86920; 87040; 87086; 87641; 93005; 93306; 94150; 94640; 94664; 94667; 94770; 96374; 96375; 99156; 99291; G0390; J0131; J0692; J1200; J1630; J1940; J2250; J2270; J2405; J2543; J2920; J3010; J7030; J7042; J7050; J7070; J7512; J7613; L0150; P9021; P9045; Q9967

== ENCOUNTER → 2017-02-21 | Outpatient (CLI) | payer MEDICARE ==
[~2017-02-21] MED LIST changes: +ASPI-110 PO; -ASPI81TA81; -CENTTAB PO; +COMMODE 3-IN-11 MIS; +FIBEPOW; -FURO1TAB60 PO; +FURO20TA PO; +GETGO ROLLING W1 MI1; +GNP5TAB6 PO; +L-ME1CAP2; +LANTINJ SQ; +NAME5TAB2 PO; -NIAC500T18 PO; +NIAC500T67; +POLY17S PO; +PRED10 PO; +QUET1TAB7 PO; +SENN1TAB PO; +TAMS0.4C4 PO; -TAMS5CAP PO; -TRAM50TA PO; +WHEEMIS3
[2017-02-21 12:31] LABS: BICARBONATE 34.8 MEQ/L (21.0-32.0); POTASSIUM 4.4 MEQ/L (3.5-5.1)
== END ==
LOC: CLAB 11:29
PROVIDERS: ATTEND Internal Medicine Nephrology
DX: R60.9 Edema, unspecified (principal)
CPT/HCPCS: 36415; 80048

== ENCOUNTER → 2017-03-13 | Outpatient (CLI) | payer MEDICARE ==
[2017-03-13 10:03] LABS: AUTOMATED NEUTROPHIL # 8.3 TH/MM3 (1.8-7.7); BASOPHIL # 0.1 TH/MM3 (0-0.2); BASOPHIL % 0.6 % (0.0-2.0); EOSINOPHIL # 0.1 TH/MM3 (0-0.4); EOSINOPHIL % 0.7 % (0.0-4.0); LYMPH % 17.3 % (9.0-44.0); LYMPHOCYTE # 1.9 TH/MM3 (1.0-4.8); MEAN CELL VOLUME 92.3 FL (80.0-100.0); MEAN CORPUSCULAR HEMOGLOBIN 29.7 PG (27.0-34.0); MEAN CORPUSCULAR HGB CONC 32.2 % (32.0-36.0); MONO % 7.2 % (0.0-8.0); NEUT % 74.2 % (16.0-70.0); PLATELET COUNT 164 TH/MM3 (150-450); RED BLOOD COUNT 3.58 MIL/MM3 (4.50-5.90); RED CELL DISTRIBUTION WIDTH 19.1 % (11.6-17.2); WHITE BLOOD COUNT 11.2 TH/MM3 (4.0-11.0)
[2017-03-13 10:07] LABS: HEMO FLAGS AUTO DIFF
[2017-03-13 10:21] LABS: ALT (GPT) 24 U/L (12-78); URIC ACID 6.9 MG/DL (2.6-7.2)
[2017-03-13 10:23] LABS: ALKALINE PHOSPHATASE 115 U/L (45-117); TOTAL BILIRUBIN ADULT 0.6 MG/DL (0.2-1.0)
[2017-03-13 10:24] LABS: ANION GAP 5 MEQ/L (5-15); AST (GOT) 20 U/L (15-37); BICARBONATE 34.5 MEQ/L (21.0-32.0); BLOOD UREA NITROGEN 45 MG/DL (7-18); CHLORIDE 99 MEQ/L (98-107); GLOMERULAR FILTRATION RATE 37 ML/MIN (>89); GLUCOSE,FASTING 158 MG/DL (74-99); POTASSIUM 4.1 MEQ/L (3.5-5.1); SODIUM (NA) 138 MEQ/L (136-145)
[2017-03-13 10:46] LABS: PLATELET ESTIMATE SMEAR NORMAL (NORMAL); PLATELET MORPHOLOGY NORMAL (NORMAL); SCAN/DIFF AUTO DIFF CONFIRMED; STOMATOCYTES 1+ (NORMAL)
== END ==
LOC: CLAB 09:10
PROVIDERS: ATTEND Allergy & Immunology
DX: M47.817 Spondylosis without myelopathy or radiculopathy, lumbosacral region (principal); I10 Essential (primary) hypertension; E03.9 Hypothyroidism, unspecified
CPT/HCPCS: 36415; 80053; 84443; 84550; 85025

== ENCOUNTER → 2017-03-21 | Outpatient (CLI) | payer MEDICARE ==
[2017-03-21 15:11] LABS: HEMATOCRIT 35.8 % (39.0-51.0); MEAN CELL VOLUME 94.6 FL (80.0-100.0); MEAN CORPUSCULAR HEMOGLOBIN 30.2 PG (27.0-34.0); PLATELET COUNT 156 TH/MM3 (150-450); RED BLOOD COUNT 3.79 MIL/MM3 (4.50-5.90); RED CELL DISTRIBUTION WIDTH 21.9 % (11.6-17.2); REVIEW FLAG FINAL; WHITE BLOOD COUNT 10.2 TH/MM3 (4.0-11.0)
[2017-03-21 15:11] LABS: BLOOD, URINE NEG (NEG); GLUCOSE,URINE NEG (NEG); KETONE, URINE NEG (NEG); NITRITE,URINE NEG (NEG); URINE COLOR YELLOW (YELLW/STRAW)
[2017-03-21 15:13] LABS: COMMENT (UR) CULT NOT INDICATED; CULTURE IF INDICATED CULT NOT INDICATED
[2017-03-21 15:28] LABS: BICARBONATE 26.5 MEQ/L (21.0-32.0); POTASSIUM 4.3 MEQ/L (3.5-5.1)
== END ==
LOC: CLAB 14:33
PROVIDERS: ATTEND Physician Assistant
DX: E83.52 Hypercalcemia (principal); N18.3 Chronic kidney disease, stage 3 (moderate)
CPT/HCPCS: 36415; 80069; 81001; 82570; 82652; 83970; 84156; 85027

== ENCOUNTER → 2017-04-02 | Outpatient (CLI) | payer MEDICARE ==
[2017-04-02 11:36] LABS: BICARBONATE 32.3 MEQ/L (21.0-32.0); POTASSIUM 4.7 MEQ/L (3.5-5.1)
== END ==
LOC: CLAB 10:10
PROVIDERS: ATTEND Internal Medicine Interventional Cardiology
DX: R60.9 Edema, unspecified (principal)
CPT/HCPCS: 36415; 80048

== ENCOUNTER → 2017-04-03 | Outpatient (CLI) | payer MEDICARE ==
[2017-04-03 14:15] LABS: ALT (GPT) 20 U/L (12-78); ANION GAP 9 MEQ/L (5-15); AST (GOT) 18 U/L (15-37); BICARBONATE 31.5 MEQ/L (21.0-32.0); BLOOD UREA NITROGEN 42 MG/DL (7-18); CHLORIDE 98 MEQ/L (98-107); GLOMERULAR FILTRATION RATE 35 ML/MIN (>89); GLUCOSE,FASTING 164 MG/DL (74-99); POTASSIUM 4.4 MEQ/L (3.5-5.1); SODIUM (NA) 138 MEQ/L (136-145)
[2017-04-03 14:25] LABS: ALKALINE PHOSPHATASE 89 U/L (45-117); FREE T3 2.48 PG/ML (2.18-3.98); FREE T4 1.11 NG/DL (0.76-1.46); TOTAL BILIRUBIN ADULT 0.8 MG/DL (0.2-1.0)
[2017-04-03 14:29] LABS: MICRO ALBUMIN RANDOM URINE RAW 43.8 MG/L (0.0-30.0)
== END ==
LOC: CLAB 13:11
DX: E03.9 Hypothyroidism, unspecified (principal); E11.9 Type 2 diabetes mellitus without complications
CPT/HCPCS: 36415; 80053; 82043; 84439; 84443; 84481

== ENCOUNTER → 2017-04-05 | Outpatient (CLI) | payer MEDICARE ==
[2017-04-05 12:45] LABS: BICARBONATE 33.8 MEQ/L (21.0-32.0); POTASSIUM 3.9 MEQ/L (3.5-5.1)
== END ==
LOC: CLAB 11:53
PROVIDERS: ATTEND Internal Medicine Interventional Cardiology
DX: R60.9 Edema, unspecified (principal)
CPT/HCPCS: 36415; 80048

== ENCOUNTER → 2017-04-16 | Outpatient (CLI) | payer MEDICARE ==
[2017-04-16 11:55] LABS: BICARBONATE 32.4 MEQ/L (21.0-32.0); POTASSIUM 4.5 MEQ/L (3.5-5.1)
== END ==
LOC: CLAB 11:08
PROVIDERS: ATTEND Internal Medicine Interventional Cardiology
DX: R60.9 Edema, unspecified (principal)
CPT/HCPCS: 36415; 80048

== ENCOUNTER → 2017-04-23 | Outpatient (CLI) | payer MEDICARE ==
[2017-04-23 12:31] LABS: BICARBONATE 30.4 MEQ/L (21.0-32.0)
== END ==
LOC: CLAB 11:39
PROVIDERS: ATTEND Internal Medicine Interventional Cardiology
DX: R60.9 Edema, unspecified (principal)
CPT/HCPCS: 36415; 80048

== ENCOUNTER → 2017-05-01 | Outpatient (CLI) | payer MEDICARE ==
[2017-05-01 13:49] LABS: BICARBONATE 32.7 MEQ/L (21.0-32.0); POTASSIUM 4.2 MEQ/L (3.5-5.1)
== END ==
LOC: CLAB 13:00
PROVIDERS: ATTEND Internal Medicine Interventional Cardiology
DX: E55.9 Vitamin D deficiency, unspecified (principal); R50.9 Fever, unspecified; N18.3 Chronic kidney disease, stage 3 (moderate)
CPT/HCPCS: 36415; 80069

== ENCOUNTER → 2017-05-09 | Outpatient (CLI) | payer MEDICARE ==
[2017-05-09 15:10] LABS: BICARBONATE 30.9 MEQ/L (21.0-32.0); POTASSIUM 4.4 MEQ/L (3.5-5.1)
== END ==
LOC: CLAB 14:18
PROVIDERS: ATTEND Internal Medicine Interventional Cardiology
DX: R60.9 Edema, unspecified (principal)
CPT/HCPCS: 36415; 80048

== ENCOUNTER → 2017-05-14 | Outpatient (CLI) | payer MEDICARE ==
[2017-05-14 16:10] LABS: BICARBONATE 30.8 MEQ/L (21.0-32.0); POTASSIUM 4.2 MEQ/L (3.5-5.1)
== END ==
LOC: CLAB 15:13
PROVIDERS: ATTEND Internal Medicine Interventional Cardiology
DX: R60.9 Edema, unspecified (principal); N18.3 Chronic kidney disease, stage 3 (moderate)
CPT/HCPCS: 36415; 80048

== ENCOUNTER → 2017-05-22 | Outpatient (CLI) | payer MEDICARE ==
[2017-05-22 15:37] LABS: BICARBONATE 30.4 MEQ/L (21.0-32.0); POTASSIUM 4.1 MEQ/L (3.5-5.1)
== END ==
LOC: CLAB 14:50
PROVIDERS: ATTEND Internal Medicine Nephrology
DX: R60.9 Edema, unspecified (principal)
CPT/HCPCS: 36415; 80048

== ENCOUNTER → 2017-05-28 | Outpatient (CLI) | payer MEDICARE ==
[2017-05-28 14:00] LABS: HEMATOCRIT 33.6 % (39.0-51.0); MEAN CELL VOLUME 91.4 FL (80.0-100.0); MEAN CORPUSCULAR HEMOGLOBIN 29.5 PG (27.0-34.0); MEAN CORPUSCULAR HGB CONC 32.2 % (32.0-36.0); PLATELET COUNT 214 TH/MM3 (150-450); RED BLOOD COUNT 3.67 MIL/MM3 (4.50-5.90); RED CELL DISTRIBUTION WIDTH 18.6 % (11.6-17.2); REVIEW FLAG FINAL; WHITE BLOOD COUNT 12.1 TH/MM3 (4.0-11.0)
[2017-05-28 14:24] LABS: ALT (GPT) 16 U/L (12-78); ANION GAP 8 MEQ/L (5-15); AST (GOT) 13 U/L (15-37); BICARBONATE 31.3 MEQ/L (21.0-32.0); BLOOD UREA NITROGEN 64 MG/DL (7-18); CHLORIDE 94 MEQ/L (98-107); GLOMERULAR FILTRATION RATE 31 ML/MIN (>89); GLUCOSE,FASTING 251 MG/DL (74-99); POTASSIUM 4.6 MEQ/L (3.5-5.1); SODIUM (NA) 133 MEQ/L (136-145)
[2017-05-28 14:31] LABS: BLOOD, URINE NEG (NEG); COMMENT (UR) CULT NOT INDICATED; CULTURE IF INDICATED CULT NOT INDICATED; GLUCOSE,URINE 70 mg/dL (NEG); HYALINE CAST, URINE 4 /lpf (RARE); KETONE, URINE NEG (NEG); MUCUS URINE FEW /lpf (OCC); NITRITE,URINE NEG (NEG); URINE COLOR LIGHT-YELLOW (YELLW/STRAW)
[2017-05-28 14:33] LABS: ALKALINE PHOSPHATASE 93 U/L (45-117); FREE T3 2.26 PG/ML (2.18-3.98); FREE T4 1.18 NG/DL (0.76-1.46); TOTAL BILIRUBIN ADULT 0.8 MG/DL (0.2-1.0)
[2017-05-28 16:32] LABS: HEMOGLOBIN A1a 0.9 %; HEMOGLOBIN A1b 2.6 %; HEMOGLOBIN LA1C 3.5 %; HEMOGLOBIN P3 7.6 %
== END ==
LOC: CLAB 13:16
PROVIDERS: ATTEND Internal Medicine Interventional Cardiology
DX: E21.1 Secondary hyperparathyroidism, not elsewhere classified (principal); R60.9 Edema, unspecified; E11.9 Type 2 diabetes mellitus without complications; E03.9 Hypothyroidism, unspecified; N18.3 Chronic kidney disease, stage 3 (moderate); E55.9 Vitamin D deficiency, unspecified
CPT/HCPCS: 36415; 80053; 81001; 82043; 82306; 82570; 83036; 83970; 84100; 84156; 84439; 84481; 85027

== ENCOUNTER → 2017-06-05 | Outpatient (CLI) | payer MEDICARE ==
[2017-06-05 14:49] LABS: BICARBONATE 31.5 MEQ/L (21.0-32.0); POTASSIUM 4.3 MEQ/L (3.5-5.1)
== END ==
LOC: CLAB 13:43
PROVIDERS: ATTEND Internal Medicine Interventional Cardiology
DX: R60.9 Edema, unspecified (principal)
CPT/HCPCS: 36415; 80048

== ENCOUNTER → 2017-06-11 | Outpatient (CLI) | payer MEDICARE ==
[2017-06-11 11:08] LABS: POTASSIUM 4.4 MEQ/L (3.5-5.1)
== END ==
LOC: CLAB 10:11
PROVIDERS: ATTEND Internal Medicine Interventional Cardiology
DX: R60.9 Edema, unspecified (principal)
CPT/HCPCS: 36415; 80048

== ENCOUNTER → 2017-06-18 | Outpatient (CLI) | payer MEDICARE ==
[2017-06-18 15:38] LABS: BICARBONATE 31.8 MEQ/L (21.0-32.0); POTASSIUM 4.5 MEQ/L (3.5-5.1)
== END ==
LOC: CLAB 14:42
PROVIDERS: ATTEND Internal Medicine Interventional Cardiology
DX: R60.9 Edema, unspecified (principal)
CPT/HCPCS: 36415; 80048

== ENCOUNTER → 2017-06-25 | Outpatient (CLI) | payer MEDICARE ==
[~2017-06-25] MED LIST changes: +FLUO.25%O RIGHT EYE
[2017-06-25 14:07] LABS: HEMATOCRIT 38.9 % (39.0-51.0); MEAN CELL VOLUME 91.3 FL (80.0-100.0); MEAN CORPUSCULAR HEMOGLOBIN 29.5 PG (27.0-34.0); MEAN CORPUSCULAR HGB CONC 32.3 % (32.0-36.0); PLATELET COUNT 158 TH/MM3 (150-450); RED BLOOD COUNT 4.25 MIL/MM3 (4.50-5.90); RED CELL DISTRIBUTION WIDTH 17.6 % (11.6-17.2); REVIEW FLAG FINAL; WHITE BLOOD COUNT 10.4 TH/MM3 (4.0-11.0)
== END ==
LOC: CLAB 13:39
PROVIDERS: ATTEND Internal Medicine Interventional Cardiology
DX: R60.9 Edema, unspecified (principal); E29.1 Testicular hypofunction; R78.89 Finding of other specified substances, not normally found in blood; R97.20 Elevated prostate specific antigen [PSA]
CPT/HCPCS: 36415; 82670; 84153; 84403; 84410; 85027

== ENCOUNTER → 2017-06-25 | Outpatient (CLI) | payer MEDICARE ==
--- NOTE | 2017-06-20 08:23 | MH ---
cc: RITA MEREDITH DATE OF ADMISSION 06/25/2017 ADMISSION DIAGNOSIS Cloudy posterior capsule right eye. HISTORY OF PRESENT ILLNESS This 81-year-old white male is coming through [facility] for the purpose of a YAG laser posterior capsulotomy of the right eye. He is status post bilateral cataract surgery with intraocular lens implants, as well as YAG laser posterior capsulotomy on the left eye. He has done well postoperatively, but notices decreasing vision in the left eye and elected to have decreasing vision in the right eye and has elected to have a YAG laser posterior capsulotomy of the right eye at this time. PAST MEDICAL HISTORY The patient has a history of: 1. Diabetes 2. Heart problems 3. Arthritis 4. Enlarged prostate 5. COPD 6. A mini stroke-TIA PAST SURGICAL HISTORY Includes: 1. Bilateral cataracts 2. YAG laser in the left eye 3. Bilateral knee surgery 4. Left shoulder surgery 5. Right wrist surgery 6. Aortic valve replacement 7. Pacemaker 8. Gallbladder surgery 9. Strabismus surgery in the left eye 10. Hematoma on the right foot and infection MEDICATIONS Daily medications include: 1. Tramadol 2. Prednisone 3. Xarelto 4. Carvedilol 5. Mag-Ox 6. Allopurinol 7. Tamsulosin 8. Niacin 9. Omeprazole 10. Furosemide 11. Irbesartan 12. Synthroid 13. Spironolactone 14. Gabapentin 15. Humalog 16. Lantus 17. Memantine 18. Centrum Silver 19. Baby aspirin ALLERGIES HE IS ALLERGIC TO IODINE. FAMILY HISTORY Positive for cataracts in the mother. SOCIAL HISTORY AND REVIEW OF SYSTEMS Noncontributory OCULAR EXAM On ocular exam, the patient's best corrected visual acuity is 20/30 in each eye. Visual lopez are full to confrontation testing. Extraocular muscle exam reveals full versions with exotropia at distance and near. Pupils are 1.5 mm equal, round, reactive to light without afferent defect. Anterior segment examination reveals a posterior chamber intraocular lens implant with a YAG laser posterior capsulotomy in the left eye and a cloudy posterior capsule in the right eye. The left eye is also amblyopic. The intraocular pressures is 18 in each eye by applanation tonometry. Dilated fundus exam reveals sharp disks with cup-to-disk ratio of 0.3 bilaterally. The macula is clear in the right eye and there are a few fine drusen in the left macula. A posterior vitreous detachment is present bilaterally. IMPRESSION 1. Cloudy posterior capsule right eye. 2. Pseudophakia both eyes. 3. Posterior vitreous detachment both eyes. 4. Amblyopia left eye PLAN The plan is YAG laser posterior capsulotomy of the right eye through [facility]. MD JAIMIE Bazzi/FOREIGN /7:59 AM /8:19 AM
--- NOTE | 2017-06-20 08:38 | MH ---
cc: [facility], RITA MEREDITH DATE OF ADMISSION: 06/25/2017 ADMISSION DIAGNOSIS Cloudy posterior capsule, right eye. HISTORY OF PRESENT ILLNESS This 81-year-old white male is coming through [facility] for the purpose of a YAG laser posterior capsulotomy of the right eye. He is status post bilateral cataract surgery with intraocular lens implants. He is also status post YAG laser posterior capsulotomy on the left eye. He has done well postoperatively but has a decreasing visual acuity in his right eye and elected to have a YAG laser posterior capsulotomy in the right eye when found to have a cloudy posterior capsule. He also has a history of amblyopia in the left eye and has exotropia. PAST MEDICAL HISTORY 1. Diabetes. 2. Heart problems. 3. Arthritis. 4. Enlarged prostate. 5. COPD. 6. Mini stroke/TIA. PAST SURGICAL HISTORY 1. Bilateral cataract surgery, left eye. 2. YAG laser posterior capsulotomy, left eye. 3. Strabismus surgery, left eye. 4. Bilateral knee surgery. 5. Left shoulder surgery. 6. Right wrist surgery. 7. Aortic valve replacement. 8. Pacemaker insertion. 9. Gallbladder surgery. 10. Surgery for hematoma on the right foot and infection. MEDICATIONS Daily medications include: 1. Tramadol. 2. Prednisone. 3. Xarelto. 4. Carvedilol. 5. Mag-Ox. 6. Allopurinol. 7. Tamsulosin. 8. Niacin. 9. Omeprazole. 10. Torsemide. 11. Irbesartan. 12. Synthroid. 13. Spironolactone. 14. Gabapentin. 15. Humalog. 16. Lantus. 17. Memantine. 18. Aspirin. 19. Centrum Silver. ALLERGIES HE IS ALLERGIC TO IODINE. SOCIAL HISTORY Noncontributory. FAMILY HISTORY Positive for mother with cataract. REVIEW OF SYSTEMS Noncontributory. OCULAR EXAMINATION On ocular exam the patient's best-corrected visual acuity is 20/30 in each eye. Visual lopez are full to confrontation testing. Extraocular muscle exam reveals full versions with exotropia at distance and near. Pupils are 1.5 mm, equal, round, and reactive to light without afferent defect. Anterior segment exam reveals a posterior chamber intraocular lens implant bilaterally with a YAG laser posterior capsulotomy in the left eye and a cloudy posterior capsule in the right. Intraocular pressure is 18 in each eye by applanation tonometry. Dilated fundus exam reveals sharp disks with cup-to-disk ratio of 0.3 bilaterally. The macula is okay in the right eye with a few fine drusen in the left. A posterior vitreous detachment is present bilaterally. IMPRESSION 1. Cloudy posterior capsule, right eye. 2. Pseudophakia, both eyes. 3. Amblyopia, left eye. 4. Posterior vitreous detachment, both eyes. PLAN YAG laser posterior capsulotomy of the right eye through [facility]. MD JAIMIE Bazzi/HARRY /8:07 AM /8:18 AM
[~2017-06-25] MED LIST changes: +BALANCED SALT SOLN OPHT IRRIG 15 ML BTL ONE; -FLUO.25%O RIGHT EYE; +FLUOROMETHOLONE 0.25% OPHT SUSP 5 ML BTL ONE; +HYPROMELLOSE 0.3 % OPTH GEL 10 GM (0.34 FL OZ) TUBE ONE; +PHENYLEPHRINE HCL 2.5% OPTH SOLN 2 ML BTL ONE; +PROPARACAINE HCL 0.5% OPHT SOLN 15 ML BTL ONE; +TROPICAMIDE 1% OPHT SOLN 15 ML BTL ONE
--- NOTE | 2017-06-25 13:39 | MP ---
cc: RITA MCKAY DATE OF SURGERY: 06/25/2017 PREOPERATIVE DIAGNOSIS Cloudy posterior capsule, right eye. POSTOPERATIVE DIAGNOSIS Cloudy posterior capsule, right eye. OPERATION YAG laser posterior capsulotomy, right eye. SURGEON Rita Mckay MD ANESTHESIA Topical. COMPLICATIONS None. INDICATIONS See history and physical previously dictated. PROCEDURE The patient arrived at [facility]. Blood pressure 131/45, pulse 100 respirations 18. A drop of Alphagan P and Mydriacyl were instilled in the right eye. The patient was seated at the YAG laser. A drop of Alcaine was instilled in the right eye and a YAG laser posterior capsulotomy lens was placed on the anterior surface of the right cornea. YAG laser posterior capsulotomy was carried out utilizing 27 exposures of 1.6 millijoules. An adequate opening was seen following the procedure. A drop of Alphagan P was instilled topically. The patient was given a prescription for a topical steroid to be used four times per day and has an appointment for follow-up on the first postoperative day in my office. The patient left the [facility] in satisfactory condition. Rita Mckay MD SALES APPLICATIONS ENGINEER/BT /1:10 PM /1:33 PM
== END ==
LOC: PHSDC 12:16
PROVIDERS: ATTEND Ophthalmology
DX: H26.491 Other secondary cataract, right eye (principal)

== ENCOUNTER 2017-06-29 23:12 | Inpatient (IN) | payer MEDICARE ==
[~2017-06-29] VITALS: Ht 170.2 cm; Wt 108.6 kg
[~2017-06-29 23:12] MED LIST changes: -ASPI-110 PO; +ASPI1TAB57 PO; -BALANCED SALT SOLN OPHT IRRIG 15 ML BTL ONE; -FLUOROMETHOLONE 0.25% OPHT SUSP 5 ML BTL ONE; -GNP5TAB6 PO; -HYPROMELLOSE 0.3 % OPTH GEL 10 GM (0.34 FL OZ) TUBE ONE; +MELA1TAB31 PO; -OMEP20TA PO; +OMEP20TA93 PO; -PHENYLEPHRINE HCL 2.5% OPTH SOLN 2 ML BTL ONE; -PROPARACAINE HCL 0.5% OPHT SOLN 15 ML BTL ONE; -TROPICAMIDE 1% OPHT SOLN 15 ML BTL ONE
[2017-06-29 23:22] VITALS: BP 97/58; PULSE 110; RESP 20; TEMP 97.8; O2SAT 95
[2017-06-30] VITALS (14 sets, daily range): BP systolic 74–120; BP diastolic 52–80; PULSE 75–115; RESP 18–20; TEMP 96–97.6; O2SAT 96–100
--- NOTE | 2017-06-30 00:24 | PD ---
HPI Chief Complaint: Injury Time Seen by Provider: 00:17 Travel History International Travel<30 days: No Contact w/Intl Traveler<30days: No Traveled to known affect area: No History of Present Illness HPI The patient is an 81-year-old male that fell at approximately 10:30 PM tonight, he tripped and fell. He states the lighting was good but he tripped over a threshold. There are no throw rugs in the area. He suffered thin skin tears right arm. His last tetanus shot was less than a year ago. He has thin skin lacerations on the right arm as well as left wrist. He denies any head trauma. He takes Xarelto for atrial fibrillation. PFSH Past Medical History Hx Anticoagulant Therapy: Yes Arthritis: Yes Asthma: No Blood Disorders: No Anxiety: No Depression: No Heart Rhythm Problems: Yes (PACER) Cancer: No Cardiac Catheterization: Yes Cardiovascular Problems: Yes (HTN, AoRTIC VALVE REPLACED) High Cholesterol: No Chemotherapy: No Chest Pain: No Congestive Heart Failure: No COPD: Yes Cerebrovascular Accident: Yes (TIA) Diabetes: Yes Patient Takes Glucophage: No Diminished Hearing: Yes Endocrine: Yes Gastrointestinal Disorders: Yes GERD: Yes Glaucoma: No Gout: Yes Genitourinary: Yes Hepatitis: Yes (HX OF) Hiatal Hernia: No Hypertension: Yes Immune Disorder: No Implanted Vascular Access Dvce: Yes (ST MAGY [id number]) Kidney Stones: Yes Musculoskeletal: Yes Neurologic: Yes Psychiatric: No Reproductive: No Respiratory: Yes (WEARS O2 at home) Integumentary: No Immunizations Current: Yes Migraines: No Radiation Therapy: No Renal Failure: Yes Seizures: No Sleep Apnea: Yes Thyroid Disease: No Ulcer: No Tetanus Vaccination: < 5 Years Influenza Vaccination: No Past Surgical History Abdominal Surgery: No AICD: No Appendectomy: Yes Arteriovenous Shunt: No Body Medical Devices: PACER Cardiac Surgery: No Cholecystectomy: Yes Coronary Artery Bypass Graft: Yes Ear Surgery: No Endocrine Surgery: No Eye Surgery: Yes (Cataracts) Genitourinary Surgery: Yes (TURP) Gynecologic Surgery: No Insulin Pump: No Joint Replacement: No Oral Surgery: No Pacemaker: Yes Thoracic Surgery: No Valve Replacement: Yes (AORTIC VALVE - BOVINE -2007) Other Surgery: Yes (LEFT SHOULDER RAFFI KNEES RAFFI HIPS CABG APPENDECTONSILLECT CHOLESTECTOMY) Social History Alcohol Use: No Tobacco Use: No Substance Use: No Allergies-Medications (Allergen,Severity, Reaction): Coded Allergies: diatrizoate meglumine (Unverified Allergy, Severe, SWELLING AND SHORTNESS OF BREATH, 06/29/17) gadobenic acid (Unverified Allergy, Severe, SWELLING AND SHORTNESS OF BREATH, 06/29/17) gadodiamide (Unverified Allergy, Severe, SWELLING AND SHORTNESS OF BREATH , 06/29/17) gadoteridol (Unverified Allergy, Severe, SWELLING AND SHORTNESS OF BREATH , 06/29/17) iodine (Unverified Allergy, Severe, SWELLING, 06/29/17) iodixanol (Unverified Allergy, Severe, SWELLING AND SHORTNESS OF BREATH, 06/29/17) iohexol (Unverified Allergy, Severe, SWELLING AND SHORTNESS OF BREATH, 06/29/17) potassium iodide (Unverified Allergy, Severe, SWELLING, 06/29/17) povidone-iodine (Unverified Allergy, Severe, SWELLING, 06/29/17) shellfish derived (Unverified Allergy, Severe, 06/29/17) sodium iodide (Unverified Allergy, Severe, SWELLING, 06/29/17) sodium iodide (Unverified Allergy, Severe, SWELLING, 06/29/17) Reported Meds & Prescriptions Reported Meds & Active Scripts Active Lantus Solostar Pen Inj (Insulin Glargine) 300 Unit/3 Ml Pen 20 Units SQ HS 30 Days Quetiapine (Quetiapine Fumarate) 25 Mg Tab 25 Mg PO BID Prednisone 10 Mg Tab 10 Mg PO DAILY Gnp Melatonin Maximum Str (Melatonin) 5 Mg Tab 5 Mg PO HS Furosemide 20 Mg Tab 20 Mg PO DAILY Gabapentin 100 Mg Cap 200 Mg PO HS Namenda (Memantine) 5 Mg Tab 5 Mg PO DAILY Senna Plus 8.6-50 mg (Sennosides-Docusate Sodium) 1 Tab Tab 1 Tab PO BID PRN Aspirin 81 (Aspirin) 81 Mg Tabdr 81 Mg PO DAILY Synthroid (Levothyroxine Sodium) 75 Mcg Tab 75 Mcg PO DAILY Irbesartan 75 Mg Tab 37.5 Mg PO DAILY Omeprazole 20 Mg Tab 20 Mg PO DAILY Tamsulosin (Tamsulosin HCl) 0.4 Mg Cap 0.4 Mg PO HS Allopurinol 300 Mg Tab 300 Mg PO DAILY Magnesium Oxide 400 Mg Tab 400 Mg PO DAILY Carvedilol 6.25 Mg Tab 6.25 Mg PO BID Lortab (Hydrocodone-Acetaminophen) 5-325 Mg Tab 1 Tab PO Q6H PRN Spironolactone 25 Mg Tab 25 Mg PO DAILY Xarelto (Rivaroxaban) 15 Mg Tab 15 Mg PO DAILY Wheelchair (Device) 1 Mis Mis 1 Ea .ROUTE DIRECTED Commode 3-in-1 (Device) 1 Mis Mis 1 Ea .ROUTE DIRECTED Walker Rolling/GetGo (Device) 1 Mis Mis 1 Ea .ROUTE DIRECTED Polyethylene Glycol 3350 Powder (Polyethylene Glycol) 17 Gm Pow 17 Gm PO DAILY 30 Days Reported Fml Forte Opth Drops (Fluorometholone) 0.25% Susp 1 Drop RIGHT EYE BID Lantus Inj (Insulin Glargine) 100 Unit/Ml Inj 50 SQ HS PRN Fiber 1 Pow Pow Metanx (v-Ehktyabkuctu-Edktk) 1 Cap Niacin (Niacinamide) 500 Mg Tablet 250 Mg DAILY Humalog Inj (Insulin Human Lispro) 1,000 Unit/10 Ml Vial 0 SQ ACHS Max dose at bedtime:( )units; sugars< 70,(0)units; sugars 150-199,(1)unit; sugars 200-249,(3)units; sugars 250-299,(5)units; sugars 300-349,(7)units; sugars more than 349,(9)units. Anastrozole 1 Mg Tab 1 Mg PO DAILY Review of Systems Except as stated in HPI: all other systems reviewed are Neg Physical Exam Narrative GENERAL: The patient is obese, alert, oriented 3 in moderate apparent distress with his right arm and left wrist discomfort. His vital signs show heart rate of 110 with blood pressure 97/58. SKIN: Focused skin assessment warm/dry. HEAD: Atraumatic. Normocephalic. EYES: Pupils equal and round. No scleral icterus. No injection or drainage. ENT: No nasal bleeding or discharge. Mucous membranes pink and moist. NECK: Trachea midline. No JVD. CARDIOVASCULAR: Regular rate and rhythm. No murmur appreciated. RESPIRATORY: No accessory muscle use. Clear to auscultation. Breath sounds equal bilaterally. GASTROINTESTINAL: Abdomen soft, non-tender, nondistended. Hepatic and splenic margins not palpable. MUSCULOSKELETAL: No obvious deformities. No clubbing. No cyanosis. No edema. NEUROLOGICAL: Awake and alert. No obvious cranial nerve deficits. Motor grossly within normal limits. Normal speech. PSYCHIATRIC: Appropriate mood and affect; insight and judgment normal. Data Data Last Documented VS Vital Signs Date Time Temp Pulse Resp B/P (MAP) Pulse Ox O2 Delivery O2 Flow Rate FiO2 06/30/17 01:02 98 Nasal Cannula 2.00 06/30/17 01:01 115 20 06/29/17 23:22 97.8 Orders Orders Electrocardiogram (06/29/17 23:36) Complete Blood Count With Diff (06/29/17 23:36) Comprehensive Metabolic Panel (06/29/17 23:36) Iv Access Insert/Monitor (06/29/17 23:36) Act Partial Throm Time (Ptt) (06/29/17 23:36) Coag Profile (06/29/17 23:36) Type And Screen (06/29/17 23:36) Ecg Monitoring (06/30/17 00:55) Oximetry (06/30/17 00:55) Admit Order (Ed Use Only) (06/30/17 01:09) Labs Laboratory Tests Test 06/30/17 00:30 White Blood Count 10.8 TH/MM3 Red Blood Count 3.90 MIL/MM3 Hemoglobin 11.0 GM/DL Hematocrit 35.1 % Mean Corpuscular Volume 90.0 FL Mean Corpuscular Hemoglobin 28.2 PG Mean Corpuscular Hemoglobin Concent 31.3 % Red Cell Distribution Width 16.7 % Platelet Count 195 TH/MM3 Mean Platelet Volume 7.2 FL Neutrophils (%) (Auto) 73.1 % Lymphocytes (%) (Auto) 17.3 % Monocytes (%) (Auto) 8.7 % Eosinophils (%) (Auto) 0.7 % Basophils (%) (Auto) 0.2 % Neutrophils # (Auto) 7.9 TH/MM3 Lymphocytes # (Auto) 1.9 TH/MM3 Monocytes # (Auto) 0.9 TH/MM3 Eosinophils # (Auto) 0.1 TH/MM3 Basophils # (Auto) 0.0 TH/MM3 CBC Comment DIFF FINAL Differential Comment Prothrombin Time 12.1 SEC Prothromb Time International Ratio 1.1 RATIO Activated Partial Thromboplast Time 33.8 SEC Blood Urea Nitrogen 64 MG/DL Creatinine 2.60 MG/DL Random Glucose 173 MG/DL Total Protein 6.2 GM/DL Albumin 3.3 GM/DL Calcium Level 9.5 MG/DL Alkaline Phosphatase 86 U/L Aspartate Amino Transf (AST/SGOT) 15 U/L Alanine Aminotransferase (ALT/SGPT) 26 U/L Total Bilirubin 0.5 MG/DL Sodium Level 136 MEQ/L Potassium Level 4.2 MEQ/L Chloride Level 97 MEQ/L Carbon Dioxide Level 33.2 MEQ/L Anion Gap 6 MEQ/L Estimat Glomerular Filtration Rate 24 ML/MIN MDM Medical Decision Making Medical Screen Exam Complete: Yes Emergency Medical Condition: Yes Medical Record Reviewed: Yes Differential Diagnosis Thin skin lacerations, anemia, active bleeding from lacerations, hypotension, electrolyte disorder, coagulopathy from Xarelto Narrative Course The patient has a thin skin laceration which is extensive. He actively bleeds at a fairly rapid rate without the compressive bandages. Furthermore, he is on Xarelto. The patient will be admitted for 23 hour observation to the [facility] service. This patient represents a significant risk for immediate at-home treatment. Diagnosis Primary Impression: Laceration of arm Admitting Information Admitting Physician Requests: Observation Disposition: DISCHARGE HOME Condition: Stable Tony Alex MD Jun 30, 2017 00:24
[2017-06-30 00:43] LABS: AUTOMATED NEUTROPHIL # 7.9 TH/MM3 (1.8-7.7); BASOPHIL % 0.2 % (0.0-2.0); EOSINOPHIL # 0.1 TH/MM3 (0-0.4); EOSINOPHIL % 0.7 % (0.0-4.0); HEMATOCRIT 35.1 % (39.0-51.0); LYMPH % 17.3 % (9.0-44.0); LYMPHOCYTE # 1.9 TH/MM3 (1.0-4.8); MEAN CORPUSCULAR HEMOGLOBIN 28.2 PG (27.0-34.0); MEAN CORPUSCULAR HGB CONC 31.3 % (32.0-36.0); MEAN PLATELET VOLUME 7.2 FL (7.0-11.0); MONO % 8.7 % (0.0-8.0); MONOCYTE # 0.9 TH/MM3 (0-0.9); NEUT % 73.1 % (16.0-70.0); PLATELET COUNT 195 TH/MM3 (150-450); RED CELL DISTRIBUTION WIDTH 16.7 % (11.6-17.2); WHITE BLOOD COUNT 10.8 TH/MM3 (4.0-11.0)
[2017-06-30 00:52] LABS: CHLORIDE 97 MEQ/L (98-107); SODIUM (NA) 136 MEQ/L (136-145)
[2017-06-30 00:55] LABS: CALCIUM 9.5 MG/DL (8.5-10.1)
[2017-06-30] MEDS ORDERED: SODIUM CHLOR 0.9% 1000 ML INJ 1,000 ML IV ONE ×3 (00:55→08:30)
[2017-06-30 00:56] LABS: ALBUMIN 3.3 GM/DL (3.4-5.0); BICARBONATE 33.2 MEQ/L (21.0-32.0); BLOOD UREA NITROGEN 64 MG/DL (7-18); GLUCOSE,RANDOM 173 MG/DL (74-106); INTERNATIONAL NORMALIZED RATIO 1.1 RATIO; PROTHROMBIN TIME - PATIENT 12.1 SEC (9.8-11.6)
[2017-06-30 00:59] LABS: ALT (GPT) 26 U/L (12-78); AST (GOT) 15 U/L (15-37); GLOMERULAR FILTRATION RATE 24 ML/MIN (>89)
[2017-06-30 01:00] LABS: TOTAL BILIRUBIN ADULT 0.5 MG/DL (0.2-1.0); TOTAL PROTEIN 6.2 GM/DL (6.4-8.2)
[2017-06-30] MEDS ORDERED: diphenhydrAMINE HCL 50 MG/ML VIAL IVP ONE (01:00)
[2017-06-30] MEDS ORDERED: PROCHLORPERAZINE INJ 10 MG/2 ML VIAL IVP ONE (01:00)
[2017-06-30] MEDS ORDERED: SODIUM CHLORIDE 0.9% FLUSH 10 ML FLUSH IVF PRN (01:00)
[2017-06-30 01:02] LABS: ALKALINE PHOSPHATASE 86 U/L (45-117)
[2017-06-30] MEDS ORDERED: NALOXONE HCL 0.4 MG/ML AMP IV PUSH PRN (01:15)
[2017-06-30] MEDS ORDERED: ACETAMINOPHEN 325 MG TAB PO PRN (01:15)
[2017-06-30] MEDS ORDERED: SODIUM CHLORIDE 0.9% FLUSH 10 ML FLUSH IV FLUSH PRN (01:15)
[2017-06-30] MEDS ORDERED: DEXTROSE 50% IN WATER 50 ML VIAL(D50) IV PUSH PRN (01:30)
[2017-06-30] MEDS ORDERED: GLUCAGON 1 MG/ML VIAL OTHER PRN (01:30)
[2017-06-30] MEDS ORDERED: ACETAMINOPHEN/HYDROcodone 325 MG/5 MG TAB PO PRN ×2 (03:00→12:00)
[2017-06-30] MEDS: INSULIN ASPART SUPPLEMENTAL SCALE SQ SCH ×4 (08:00→21:16)
[2017-06-30] MEDS: SODIUM CHLORIDE 0.9% FLUSH 10 ML FLUSH IV FLUSH SCH ×2 (08:41→21:00)
[2017-06-30 08:50] LABS: HEMATOCRIT 28.8 % (39.0-51.0); HEMOGLOBIN 9.6 GM/DL (13.0-17.0)
[2017-06-30] MEDS: SODIUM CHLOR 0.9% 1000 ML INJ 1,000 ML IV SCH ×2 (09:38→18:23)
[2017-06-30] MEDS ORDERED: DOCUSATE SODIUM 50 MG/SENNA 8.6 MG TAB PO PRN (12:00)
--- NOTE | 2017-06-30 12:35 | HHI.HP ---
[facility] Tristan Lopez, DO Admission Diagnosis lacerations left wrist and right arm, Xarelto coagulopathy. Diagnoses: (1) Skin tear of right upper extremity (2) Anticoagulated (3) Fall (4) JERRY (acute kidney injury) (5) CKD (chronic kidney disease) stage 4, GFR 15-29 ml/min (6) Skin tear of left upper extremity Travel History International Travel<30 Days: No Contact w/Intl Traveler <30 Da: No Traveled to Known Affected Are: No History of Present Illness This is a pleasant 81 year-old female with multiple medical comorbidities including diabetes, atrial fibrillation on Xarelto, aortic valve replacement, who presented to the ER last night after tripping and falling at home. He suffered skin tears on his right arm. He came to the ER for evaluation. Patient denied hitting his head or any loss of consciousness. Patient had pain in the arm. No difficulty moving the hand. Symptoms moderate. No provocative factors or palliative factors. In the emergency department he was found to have thin skin tears of his right arm and wrist and bandages were [place]. Overnight he started to develop bleeding and is been continuously losing blood. Nursing has applied multiple layers of gauze which she is bleeding through. His Xarelto was held. Blood pressure was running low this morning he was bolused 1 L normal saline. Hemoglobin decreased from 11- 9.3. Patient denies any other recent falls. Review of Systems Constitutional: DENIES: Fever, Chills Eyes: DENIES: Blurred vision, Diplopia Ears, nose, mouth, throat: DENIES: Throat pain, Hoarseness Respiratory: DENIES: Cough, Shortness of breath Cardiovascular: DENIES: Chest pain, Palpitations Gastrointestinal: DENIES: Abdominal pain, Vomiting Genitourinary: DENIES: Urgency, Dysuria Musculoskeletal: DENIES: Back pain, Neck pain Integumentary: DENIES: Pruritus, Rash Neurologic: DENIES: Abnormal gait, Headache Psychiatric: DENIES: Anxiety, Confusion Past Family Social History Past Medical History Atrial fibrillation Bovine aortic valve placement Permanent pacemaker TIA Type 2 diabetes BPH status post TURP Chronic kidney disease stage IV Chronic anemia Coronary artery disease with history of stent COPD Hypertension Neuropathy Melanoma skin cancer back Past Surgical History Open cholecystectomy Open appendectomy CABG TURP Pacemaker placement Aortic valve replacement Partial left shoulder replacement Bilateral total hip replacements Bilateral total knee replacements Right wrist fusion Laser surgery of eye Reported Medications Allergies Coded Allergies Type Severity Reaction Last Updated Verified diatrizoate meglumine Allergy Severe SWELLING AND SHORTNESS OF BREATH 06/29/17 No gadobenic acid Allergy Severe SWELLING AND SHORTNESS OF BREATH 06/29/17 No gadodiamide Allergy Severe SWELLING AND SHORTNESS OF BREATH 06/29/17 No gadoteridol Allergy Severe SWELLING AND SHORTNESS OF BREATH 06/29/17 No iodine Allergy Severe SWELLING 06/29/17 No iodixanol Allergy Severe SWELLING AND SHORTNESS OF BREATH 06/29/17 No iohexol Allergy Severe SWELLING AND SHORTNESS OF BREATH 06/29/17 No potassium iodide Allergy Severe SWELLING 06/29/17 No povidone-iodine Allergy Severe SWELLING 06/29/17 No shellfish derived Allergy Severe 06/29/17 No sodium iodide Allergy Severe SWELLING 06/29/17 No sodium iodide Allergy Severe SWELLING 06/29/17 No Active Scripts Medications Dose Route/Sig Max Daily Dose Days Date Category Dose Instructions Lantus Solostar Pen Inj (Insulin Glargine) 300 Unit/3 Ml Pen 20 Units SQ HS 30 02/06/17 Rx Quetiapine (Quetiapine Fumarate) 25 Mg Tab 25 Mg PO BID 02/06/17 Rx Prednisone 10 Mg Tab 10 Mg PO DAILY 02/06/17 Rx Gnp Melatonin Maximum Str (Melatonin) 5 Mg Tab 5 Mg PO HS 02/06/17 Rx Furosemide 20 Mg Tab 20 Mg PO DAILY 02/06/17 Rx Gabapentin 100 Mg Cap 200 Mg PO HS 02/06/17 Rx Namenda (Memantine) 5 Mg Tab 5 Mg PO DAILY 02/06/17 Rx Senna Plus 8.6-50 mg (Sennosides-Docusate Sodium) 1 Tab Tab 1 Tab PO BID PRN 02/06/17 Rx Aspirin 81 (Aspirin) 81 Mg Tabdr 81 Mg PO DAILY 02/06/17 Rx Synthroid (Levothyroxine Sodium) 75 Mcg Tab 75 Mcg PO DAILY 02/06/17 Rx Irbesartan 75 Mg Tab 37.5 Mg PO DAILY 02/06/17 Rx Omeprazole 20 Mg Tab 20 Mg PO DAILY 02/06/17 Rx Tamsulosin (Tamsulosin HCl) 0.4 Mg Cap 0.4 Mg PO HS 02/06/17 Rx Allopurinol 300 Mg Tab 300 Mg PO DAILY 02/06/17 Rx Magnesium Oxide 400 Mg Tab 400 Mg PO DAILY 02/06/17 Rx Carvedilol 6.25 Mg Tab 6.25 Mg PO BID 02/06/17 Rx Lortab (Hydrocodone-Acetaminophen) 5-325 Mg Tab 1 Tab PO Q6H PRN 02/06/17 Rx Spironolactone 25 Mg Tab 25 Mg PO DAILY 02/06/17 Rx Xarelto (Rivaroxaban) 15 Mg Tab 15 Mg PO DAILY 02/06/17 Rx Wheelchair (Device) 1 Mis Mis 1 Ea .ROUTE DIRECTED 02/05/17 Rx Commode 3-in-1 (Device) 1 Mis Mis 1 Ea .ROUTE DIRECTED 02/05/17 Rx Walker Rolling/GetGo (Device) 1 Mis Mis 1 Ea .ROUTE DIRECTED 02/05/17 Rx Polyethylene Glycol 3350 Powder (Polyethylene Glycol) 17 Gm Pow 17 Gm PO DAILY 30 01/29/17 Rx Lantus Inj (Insulin Glargine) 100 Unit/Ml Inj 50 SQ HS PRN 01/19/17 Reported Fiber 1 Pow Pow 01/19/17 Reported Metanx (l-[id number]) 1 Cap 01/19/17 Reported Niacin (Niacinamide) 500 Mg Tablet 250 Mg DAILY 01/19/17 Reported Humalog Inj (Insulin Human Lispro) 1,000 Unit/10 Ml Vial 0 SQ ACHS 08/15/16 Reported Max dose at bedtime:( )units; sugars< 70,(0)units; sugars 150-199,(1)unit; sugars 200-249,(3)units; sugars 250-299,(5)units; sugars 300-349,(7)units; sugars more than 349,(9)units. Anastrozole 1 Mg Tab 1 Mg PO DAILY 08/15/16 Reported Allergies: Coded Allergies: diatrizoate meglumine (Unverified Allergy, Severe, SWELLING AND SHORTNESS OF BREATH, 06/29/17) gadobenic acid (Unverified Allergy, Severe, SWELLING AND SHORTNESS OF BREATH, 06/29/17) gadodiamide (Unverified Allergy, Severe, SWELLING AND SHORTNESS OF BREATH , 06/29/17) gadoteridol (Unverified Allergy, Severe, SWELLING AND SHORTNESS OF BREATH , 06/29/17) iodine (Unverified Allergy, Severe, SWELLING, 06/29/17) iodixanol (Unverified Allergy, Severe, SWELLING AND SHORTNESS OF BREATH, 06/29/17) iohexol (Unverified Allergy, Severe, SWELLING AND SHORTNESS OF BREATH, 06/29/17) potassium iodide (Unverified Allergy, Severe, SWELLING, 06/29/17) povidone-iodine (Unverified Allergy, Severe, SWELLING, 06/29/17) shellfish derived (Unverified Allergy, Severe, 06/29/17) sodium iodide (Unverified Allergy, Severe, SWELLING, 06/29/17) sodium iodide (Unverified Allergy, Severe, SWELLING, 06/29/17) Family History Reviewed and noncontributory Social History He is . No current alcohol or tobacco use. Physical Exam Vital Signs Vital Signs Date Time Temp Pulse Resp B/P (MAP) Pulse Ox O2 Delivery O2 Flow Rate FiO2 06/30/17 09:30 104 18 110/60 (77) 96 06/30/17 08:30 96.0 75 18 80/60 (67) 96 06/30/17 08:00 104 06/30/17 08:00 96.4 103 18 74/52 (59) 97 88/60 (69) 06/30/17 04:00 96.0 110 20 102/68 (79) 98 06/30/17 02:50 97.6 113 20 87/59 (68) 98 06/30/17 02:30 112 06/30/17 02:04 115 104/63 (77) 97 Nasal Cannula 2.00 06/30/17 01:02 98 Nasal Cannula 2.00 06/30/17 01:01 115 20 109/57 (74) 97 Nasal Cannula 2.00 06/29/17 23:41 95 Nasal Cannula 2.00 06/29/17 23:22 97.8 110 20 97/58 (71) 95 Physical Exam GENERAL: Well-nourished, well-developed pleasant and jovial elderly male patient in no apparent distress. SKIN: Warm and dry. HEAD: Normocephalic. EYES: No scleral icterus. No injection or drainage. NECK: Supple, trachea midline. No JVD or lymphadenopathy. CARDIOVASCULAR: Regular rate and rhythm without murmurs, gallops, or rubs. RESPIRATORY: Breath sounds equal bilaterally. No accessory muscle use. GASTROINTESTINAL: Abdomen soft, non-tender, nondistended. EXTREMITIES: Patient has multiple superficial skin tears of right upper and lower arm and wrist. Bandage was removed from right arm. The upper arm skin tear is wheezing slightly. In the mid forearm he has small pulsatile bleeding blood vessel. I discussed with the ER physician Dr. Pineda who graciously came up and sutured it after which hemostasis was achieved. Patient has bandage on left wrist bandage was not removed to avoid bleeding. NEUROLOGICAL: Awake, alert, and oriented x 3. Non-focal. Laboratory Laboratory Tests Test 06/30/17 00:30 06/30/17 08:30 White Blood Count 10.8 Red Blood Count 3.90 Hemoglobin 11.0 9.6 Hematocrit 35.1 28.8 Mean Corpuscular Volume 90.0 Mean Corpuscular Hemoglobin 28.2 Mean Corpuscular Hemoglobin Concent 31.3 Red Cell Distribution Width 16.7 Platelet Count 195 Mean Platelet Volume 7.2 Neutrophils (%) (Auto) 73.1 Lymphocytes (%) (Auto) 17.3 Monocytes (%) (Auto) 8.7 Eosinophils (%) (Auto) 0.7 Basophils (%) (Auto) 0.2 Neutrophils # (Auto) 7.9 Lymphocytes # (Auto) 1.9 Monocytes # (Auto) 0.9 Eosinophils # (Auto) 0.1 Basophils # (Auto) 0.0 CBC Comment DIFF FINAL Differential Comment Prothrombin Time 12.1 Prothromb Time International Ratio 1.1 Activated Partial Thromboplast Time 33.8 Blood Urea Nitrogen 64 Creatinine 2.60 Random Glucose 173 Total Protein 6.2 Albumin 3.3 Calcium Level 9.5 Alkaline Phosphatase 86 Aspartate Amino Transf (AST/SGOT) 15 Alanine Aminotransferase (ALT/SGPT) 26 Total Bilirubin 0.5 Sodium Level 136 Potassium Level 4.2 Chloride Level 97 Carbon Dioxide Level 33.2 Anion Gap 6 Estimat Glomerular Filtration Rate 24 Result Diagram: 06/30/17 0830 06/30/17 0030 Caprini VTE Risk Assessment Caprini VTE Risk Assessment: Mod/High Risk (score >= 2) Caprini Risk Assessment Model Point Value = 1 Point Value = 2 Point Value = 3 Point Value = 5 Age 41-60 Minor surgery BMI > 25 kg/m2 Swollen legs Varicose veins or History of unexplained or recurrent spontaneous Oral contraceptives or hormone replacement Sepsis (< 1 month) Serious lung disease, including pneumonia (< 1 month) Abnormal pulmonary function Acute myocardial infarction Congestive heart failure (< 1 month) History of inflammatory bowel disease Medical patient at bed rest Age 61-74 Arthroscopic surgery Major open surgery (> 45 min) Laparoscopic surgery (> 45 min) Malignancy Confined to bed (> 72 hours) Immobilizing plaster cast Central venous access Age >= 75 History of VTE Family history of VTE Factor V Leiden Prothrombin [id number] Lupus anticoagulant Anticardiolipin antibodies Elevated serum homocysteine Heparin-induced thrombocytopenia Other congenital or acquired thrombophilia Stroke (< 1 month) Elective arthroplasty Hip, pelvis, or leg fracture Acute spinal cord injury (< 1 month) Prophylaxis Regimen Total Risk Factor Score Risk Level Prophylaxis Regimen 0-1 Low Early ambulation 2 Moderate Order ONE of the following: *Sequential Compression Device (SCD) *Heparin 5000 units SQ BID 3-4 Higher Order ONE of the following medications: *Heparin 5000 units SQ TID *Enoxaparin/Lovenox 40 mg SQ daily (WT < 150 kg, CrCl > 30 mL/min) *Enoxaparin/Lovenox 30 mg SQ daily (WT < 150 kg, CrCl > 10-29 mL/min) *Enoxaparin/Lovenox 30 mg SQ BID (WT < 150 kg, CrCl > 30 mL/min) AND/OR *Sequential Compression Device (SCD) 5 or more Highest Order ONE of the following medications: *Heparin 5000 units SQ TID (Preferred with Epidurals) *Enoxaparin/Lovenox 40 mg SQ daily (WT < 150 kg, CrCl > 30 mL/min) *Enoxaparin/Lovenox 30 mg SQ daily (WT < 150 kg, CrCl > 10-29 mL/min) *Enoxaparin/Lovenox 30 mg SQ BID (WT < 150 kg, CrCl > 30 mL/min) AND *Sequential Compression Device (SCD) Assessment and Plan Assessment and Plan -Mechanical fall at home with resultant right upper extremity skin tears and left wrist skin tear. He was having significant bruising and bleeding with a small arterial bleed in the right forearm which was sutured by the ER physician Dr. Pineda this morning with good hemostasis. Continue wound care, consult wound care nurse. Sutures to come out in 7-10 days. We'll hold Xarelto until no further oozing. Consult physical therapy. -Acute kidney injury on Chronic kidney disease stage IV - continue gentle IV fluids and repeat BMP in the morning. -Atrial fibrillation - hold Xarelto due to the bleeding. EKG showed paced rhythm. -Hypertension - hold blood pressure medications as he is hypotensive. -History of Bovine aortic valve placement, Permanent pacemaker -Type [address] diabetes - [address] on sliding scale insulin, Levemir 5 units subcutaneous twice a day. -Chronic anemia - hemoglobin was slight downturn but stable at around 9. We'll repeat CBC in the morning. -Coronary artery disease with history of stent - resume statin. No blood thinners secondary to the bleeding. -COPD - DuoNeb's when necessary. -Neuropathy - resume Neurontin -DVT prophylaxis with SCDs Traci Martin MD Jun 30, 2017 12:35
[2017-06-30] MEDS: ACETAMINOPHEN/HYDROcodone 325 MG/5 MG TAB PO PRN ×2 (12:40→18:23)
[2017-06-30] MEDS: MEMANTINE HCL 5 MG TAB PO SCH (12:40)
[2017-06-30] MEDS: PANTOPRAZOLE SOD 20 MG DELAYED RELEASE TAB PO SCH (12:40)
[2017-06-30 13:01] LABS: HEMATOCRIT 28.2 % (39.0-51.0); HEMOGLOBIN 9.3 GM/DL (13.0-17.0)
[2017-06-30] MEDS ORDERED: FLUO.25%O RIGHT EYE (16:12)
[2017-06-30] MEDS: QUEtiapine FUMARATE 25 MG TAB PO SCH (21:00)
[2017-06-30] MEDS: INSULIN DETEMIR 100 UNITS/ML VIAL SQ SCH (21:16)
[2017-06-30] MEDS: MELATONIN 5 MG TAB PO SCH (21:17)
[2017-06-30] MEDS: GABAPENTIN 100 MG CAP PO SCH (21:18)
[2017-06-30] MEDS: FLUOROMETHOLONE 0.25% OPHT SUSP 5 ML BTL RIGHT EYE SCH (21:22)
[2017-07-01] VITALS (8 sets, daily range): BP systolic 105–143; BP diastolic 55–77; PULSE 14–120; RESP 18–20; TEMP 95.8–98.2; O2SAT 92–100
[2017-07-01] MEDS: LEVOTHYROXINE SODIUM 75 MCG TAB PO SCH (05:32)
[2017-07-01] MEDS: SODIUM CHLOR 0.9% 1000 ML INJ 1,000 ML IV SCH ×2 (05:32→12:12)
[2017-07-01] MEDS: FLUOROMETHOLONE 0.25% OPHT SUSP 5 ML BTL RIGHT EYE SCH ×2 (08:35→20:33)
[2017-07-01] MEDS: FUROSEMIDE 20 MG TAB PO SCH (08:35)
[2017-07-01] MEDS: PANTOPRAZOLE SOD 20 MG DELAYED RELEASE TAB PO SCH (08:35)
[2017-07-01] MEDS: QUEtiapine FUMARATE 25 MG TAB PO SCH ×2 (08:35→20:32)
[2017-07-01] MEDS: MEMANTINE HCL 5 MG TAB PO SCH (08:36)
[2017-07-01] MEDS: SODIUM CHLORIDE 0.9% FLUSH 10 ML FLUSH IV FLUSH SCH ×2 (08:36→20:30)
[2017-07-01] MEDS: ACETAMINOPHEN/HYDROcodone 325 MG/5 MG TAB PO PRN ×2 (08:42→17:42)
[2017-07-01] MEDS: INSULIN DETEMIR 100 UNITS/ML VIAL SQ SCH ×2 (08:44→20:31)
[2017-07-01] MEDS: INSULIN ASPART SUPPLEMENTAL SCALE SQ SCH ×4 (08:46→20:32)
--- NOTE | 2017-07-01 08:56 | EKG ---
Date Performed: 06/30/2017 Time Performed: 01:05:32 PTAGE: 81 years EKG: ELECTRONIC VENTRICULAR PACEMAKER Compared to prior tracing no significant change ABNORMAL R HYTHM ECG PREVIOUS TRACING : 01/23/2017 19.43 DOCTOR: Derek Weathers Interpretating Date/Time 07/01/2017 08:55:56
--- NOTE | 2017-07-01 11:21 | HHI.PR ---
Subjective Remarks Patient received a Lortab several hours ago and is sleeping soundly. Discussed with at bedside. He has Been complaining of arm pain at the skin tear sites. No further bleeding. Blood pressure stable. Objective Vitals Vital Signs Date Time Temp Pulse Resp B/P (MAP) Pulse Ox O2 Delivery O2 Flow Rate FiO2 07/01/17 08:00 97.7 111 18 116/77 (90) 92 07/01/17 04:00 95.8 109 20 127/71 (89) 97 07/01/17 00:00 96.9 110 20 117/68 (84) 99 06/30/17 20:00 97.0 106 20 105/59 (74) 100 06/30/17 19:50 109 06/30/17 16:00 97.3 100 18 90/60 (70) 96 06/30/17 13:40 18 06/30/17 12:40 120/80 (93) 06/30/17 12:00 97.3 111 18 107/58 (74) 99 I/O 06/30/17 06/30/17 06/30/17 07/01/17 07/01/17 07/01/17 07:00 15:00 23:00 07:00 15:00 23:00 Intake Total 200 ml 1000 ml 1900 ml 580 ml Output Total 750 ml 650 ml Balance 200 ml 1000 ml 1900 ml -170 ml -650 ml Intake Oral 200 ml 900 ml 480 ml IV Total 1000 ml 1000 ml 100 ml Output Urine Total 750 ml 650 ml # Voids 0 3 # Bowel Movements 0 Result Diagram: 06/30/17 1245 06/30/17 0030 Objective Remarks GENERAL: Well-nourished, well-developed elderly male patient. SKIN: Warm and dry. HEAD: Normocephalic. EYES: No scleral icterus. No injection or drainage. NECK: Supple, trachea midline. No JVD or lymphadenopathy. CARDIOVASCULAR: Regular rate and rhythm without murmurs, gallops, or rubs. RESPIRATORY: Breath sounds equal bilaterally. No accessory muscle use. GASTROINTESTINAL: Abdomen soft, non-tender, nondistended. EXTREMITIES: Right arm wrapped in gauze with no blood strike through. Left wrist also wrapped in gauze no blood strike through. NEUROLOGICAL: Sleeping, refill becomes awake but then goes right back to sleep. 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 He was having significant bruising and bleeding with a small arterial bleed in the right forearm which was sutured by the ER physician Dr. Pineda this morning with good hemostasis. Continue wound care, use Jun non-adhesive dressing, change dressing to 3 days and use saline to soak dressing prior to removal. Sutures to come out in 7-10 days. -Acute kidney injury on Chronic kidney disease stage IV - continue gentle IV fluids -labs are pending this morning. -Atrial fibrillation -we'll resume Xarelto as he has not had any further bleeding. EKG showed paced rhythm. -Hypertension - hold blood pressure medications as he was hypotensive yesterday. Normotensive today. -History of Bovine aortic valve placement, Permanent pacemaker -Type [address] on sliding scale insulin, Levemir 5 units subcutaneous twice a day. -Chronic anemia - hemoglobin was slight downturn but stable at around 9. CBC pending this morning. -Coronary artery disease with history of stent - resume statin. -COPD - DuoNeb's when necessary. -Neuropathy - resume Neurontin -DVT prophylaxis with SCDs PT consult and labs are pending. We will see how he does with physical therapy and what his labs show. Possible discharge home today with home health care. Discussed with at bedside. Traci Martin MD Jul 01, 2017 11:21
--- NOTE | 2017-07-01 11:23 | HHI.FF ---
Face to Face Verification Diagnosis: (1) Fall (2) Anticoagulated (3) Debility (4) Skin tear of left upper extremity (5) Skin tear of right upper extremity Physical Therapy Order: Evaluate and Treat Home Health Nursing Order: Medical education Wound care and dressing changes Nursing assessment with vital signs Instructions: Change dressing every 3 day. Use Telfa secured with gauze. When changing dressings use normal saline or Water to soak the dressing prior to removal. Report redness or drainage to primary care physician. I have seen patient Kishor Calderon on 07/01/17. My clinical findings support the need for the requested home health care services because: Deconditioned w/ increased weakness Limited ability to care for self Need for psychosocial assistance I certify that my clinical findings support that this patient is homebound because: Unsteady gait/balance Need for psychosocial assistance Traci Martin MD Jul 01, 2017 11:23
[2017-07-01 12:23] LABS: AUTOMATED NEUTROPHIL # 7.3 TH/MM3 (1.8-7.7); BASOPHIL % 0.3 % (0.0-2.0); EOSINOPHIL # 0.1 TH/MM3 (0-0.4); EOSINOPHIL % 0.8 % (0.0-4.0); HEMATOCRIT 23.5 % (39.0-51.0); HEMOGLOBIN 7.5 GM/DL (13.0-17.0); LYMPH % 13.3 % (9.0-44.0); LYMPHOCYTE # 1.3 TH/MM3 (1.0-4.8); MEAN CELL VOLUME 90.4 FL (80.0-100.0); MEAN PLATELET VOLUME 7.3 FL (7.0-11.0); MONO % 7.6 % (0.0-8.0); MONOCYTE # 0.7 TH/MM3 (0-0.9); PLATELET COUNT 154 TH/MM3 (150-450); RED CELL DISTRIBUTION WIDTH 16.3 % (11.6-17.2); WHITE BLOOD COUNT 9.4 TH/MM3 (4.0-11.0)
[2017-07-01 12:32] LABS: CALCIUM 8.9 MG/DL (8.5-10.1)
[2017-07-01 12:33] LABS: BICARBONATE 29.8 MEQ/L (21.0-32.0)
[2017-07-01 12:36] LABS: CREATININE 1.8 MG/DL (0.60-1.30)
[2017-07-01] MEDS: CARVEDILOL 6.25 MG TAB PO SCH (20:32)
[2017-07-01] MEDS: MELATONIN 5 MG TAB PO SCH (20:32)
[2017-07-01] MEDS: GABAPENTIN 100 MG CAP PO SCH (20:32)
[2017-07-02] VITALS (13 sets, daily range): BP systolic 104–142; BP diastolic 57–71; PULSE 96–115; RESP 16–22; TEMP 97–98.7; O2SAT 91–99
[2017-07-02] MEDS: SODIUM CHLOR 0.9% 1000 ML INJ 1,000 ML IV SCH (00:40)
[2017-07-02] MEDS: LEVOTHYROXINE SODIUM 75 MCG TAB PO SCH (05:10)
[2017-07-02] MEDS: ACETAMINOPHEN/HYDROcodone 325 MG/5 MG TAB PO PRN ×3 (05:13→17:21)
[2017-07-02] MEDS: FLUOROMETHOLONE 0.25% OPHT SUSP 5 ML BTL RIGHT EYE SCH ×2 (08:13→20:35)
[2017-07-02] MEDS: ANASTROZOLE 1 MG TAB PO SCH (08:13)
[2017-07-02] MEDS: PANTOPRAZOLE SOD 20 MG DELAYED RELEASE TAB PO SCH (08:14)
[2017-07-02] MEDS: QUEtiapine FUMARATE 25 MG TAB PO SCH (08:14)
[2017-07-02] MEDS: FUROSEMIDE 20 MG TAB PO SCH (08:14)
[2017-07-02] MEDS: CARVEDILOL 6.25 MG TAB PO SCH ×2 (08:15→20:34)
[2017-07-02] MEDS: MEMANTINE HCL 5 MG TAB PO SCH (08:15)
[2017-07-02] MEDS: MAGNESIUM OXIDE 400 MG TAB PO SCH (08:15)
[2017-07-02] MEDS: SODIUM CHLORIDE 0.9% FLUSH 10 ML FLUSH IV FLUSH SCH ×2 (08:16→20:34)
[2017-07-02] MEDS: INSULIN ASPART SUPPLEMENTAL SCALE SQ SCH ×4 (08:26→20:35)
[2017-07-02] MEDS: INSULIN DETEMIR 100 UNITS/ML VIAL SQ SCH ×2 (08:26→20:35)
[2017-07-02] MEDS ORDERED: FUROSEMIDE 20 MG/2 ML VIAL IV PUSH ONE (08:45)
[2017-07-02] MEDS ORDERED: SODIUM CHLOR 0.9% 250 ML INJ 250 ML IV ONE (08:45)
--- NOTE | 2017-07-02 08:51 | HHI.PR ---
Subjective Remarks Patient is more awake today. He is complaining of moderate arm pain. Complains about the service he received from nursing staff last night. No shortness of breath. Hemoglobin is 7.5 this morning. No further bleeding from the arms. Objective Vitals Vital Signs Date Time Temp Pulse Resp B/P (MAP) Pulse Ox O2 Delivery O2 Flow Rate FiO2 07/02/17 04:34 97.8 96 21 120/68 (85) 98 07/02/17 00:32 98.2 98 20 116/57 (76) 97 07/01/17 21:11 97.1 99 20 114/55 (74) 100 07/01/17 20:00 120 07/01/17 16:00 98.2 120 18 143/76 (98) 95 07/01/17 12:00 97.7 14 18 105/67 (80) 95 07/01/17 08:53 114 I/O 07/01/17 07/01/17 07/01/17 07/02/17 07/02/17 07/02/17 07:00 15:00 23:00 07:00 15:00 23:00 Intake Total 580 ml 900 ml 600 ml 1480 ml Output Total 750 ml 650 ml 300 ml 600 ml Balance -170 ml 250 ml 300 ml 880 ml Intake Oral 480 ml 600 ml 480 ml IV Total 100 ml 900 ml 1000 ml Output Urine Total 750 ml 650 ml 300 ml 600 ml # Voids 2 Result Diagram: 07/01/17 1148 07/01/17 1148 Objective Remarks GENERAL: Well-nourished, well-developed elderly male patient. SKIN: Warm and dry. HEAD: Normocephalic. EYES: No scleral icterus. No injection or drainage. NECK: Supple, trachea midline. No JVD or lymphadenopathy. CARDIOVASCULAR: Regular rate and rhythm without murmurs, gallops, or rubs. RESPIRATORY: Breath sounds equal bilaterally. No accessory muscle use. GASTROINTESTINAL: Abdomen soft, non-tender, nondistended. EXTREMITIES: Right arm wrapped in gauze with no blood strike through. Left wrist also wrapped in gauze no blood strike through. NEUROLOGICAL: Sleeping, refill becomes awake but then goes right back to sleep. A/P Problem List: (1) Skin tear of right upper extremity ICD Code: S41.111A - Laceration without foreign body of right upper arm, initial encounter (2) Anticoagulated ICD Code: Z79.01 - long-term (current) use of anticoagulants Status: Acute (3) Fall ICD Code: W19.XXXA - Fall Status: Acute (4) JERRY (acute kidney injury) ICD Code: N17.9 - Acute kidney failure, unspecified (5) CKD (chronic kidney disease) stage 4, GFR 15-29 ml/min ICD Code: N18.4 - Chronic kidney disease, stage IV (severe) Status: Chronic (6) Skin tear of left upper extremity ICD Code: S41.112A - Laceration without foreign body of left upper arm, initial encounter Status: Acute (7) Anemia due to acute blood loss ICD Code: D62 - Acute posthemorrhagic anemia Assessment and Plan -Mechanical fall at home with resultant right upper extremity skin tears and left wrist skin tear. He was having significant bruising and bleeding with a small arterial bleed in the right forearm which was sutured by the ER physician Dr. Pineda on 07/01 with good hemostasis. Continue wound care, use Jun non- adhesive dressing, change dressing to 3 days and use saline to soak dressing prior to removal. Sutures to come out in 7-10 days. -Anemia of acute blood loss. He also has chronic iron deficiency anemia and receives iron infusions with Dr. Loya. Last colonoscopy 10 years ago. No history of GI bleeding. We'll transfuse 2 units packed red blood cells. Repeat CBC in the morning. I will check a Hemoccult and iron studies. -Acute kidney injury on Chronic kidney disease stage IV - improved, will Hep- Lock IV. -Atrial fibrillation -continue Xarelto renally dosed as he has not had any further bleeding. EKG showed paced rhythm. Continue Coreg. -Hypertension - hold blood pressure medications as he was hypotensive on admission. Normotensive today. -Deconditioning. He was too sedated to properly work with PT yesterday. We'll await PT evaluation today. -Sedation. Will decrease Lortab. Give Seroquel only at night. -History of Bovine aortic valve placement, Permanent pacemaker -Type [address] on sliding scale insulin, Levemir 5 units subcutaneous twice a day. -Coronary artery disease with history of stent - resume statin. -COPD - DuoNeb's when necessary. -Neuropathy -continue Neurontin -DVT prophylaxis with SCDs Discharge Planning Home health care versus alf facility. Traci Martin MD Jul 02, 2017 08:51
[2017-07-02] MEDS: RIVAROXABAN 15 MG TAB PO SCH (11:14)
[2017-07-02] MEDS: ASPIRIN EC 81 MG TABEC PO SCH (11:14)
[2017-07-02 13:17] LABS: % SATURATION IRON PROFILE 9.3 % (20-50); IRON (FE) 26 MCG/DL (65-175); TOTAL IRON BINDING CAPACITY 279 MCG/DL (250-450)
[2017-07-02 13:42] LABS: FERRITIN 64 NG/ML (26-388)
[2017-07-02 13:45] LABS: FOLATE GREATER THAN 20.0 NG/ML (3.1-17.5)
[2017-07-02 18:53] LABS: AUTOMATED NEUTROPHIL # 8.3 TH/MM3 (1.8-7.7); BASOPHIL % 0.2 % (0.0-2.0); EOSINOPHIL # 0.1 TH/MM3 (0-0.4); EOSINOPHIL % 1.2 % (0.0-4.0); HEMATOCRIT 26.8 % (39.0-51.0); HEMOGLOBIN 8.9 GM/DL (13.0-17.0); LYMPH % 10.7 % (9.0-44.0); LYMPHOCYTE # 1.1 TH/MM3 (1.0-4.8); MEAN CELL VOLUME 90.7 FL (80.0-100.0); MEAN CORPUSCULAR HEMOGLOBIN 30.2 PG (27.0-34.0); MEAN CORPUSCULAR HGB CONC 33.3 % (32.0-36.0); MEAN PLATELET VOLUME 6.9 FL (7.0-11.0); MONO % 7.1 % (0.0-8.0); MONOCYTE # 0.7 TH/MM3 (0-0.9); NEUT % 80.8 % (16.0-70.0); PLATELET COUNT 188 TH/MM3 (150-450); RED BLOOD COUNT 2.96 MIL/MM3 (4.50-5.90); WHITE BLOOD COUNT 10.2 TH/MM3 (4.0-11.0)
[2017-07-02 19:19] LABS: CALCIUM 9.3 MG/DL (8.5-10.1)
[2017-07-02 19:20] LABS: BICARBONATE 29.2 MEQ/L (21.0-32.0)
[2017-07-02 19:28] LABS: CREATININE 1.5 MG/DL (0.60-1.30)
[2017-07-02] MEDS: GABAPENTIN 100 MG CAP PO SCH (20:34)
[2017-07-02] MEDS: MELATONIN 5 MG TAB PO SCH (20:35)
[2017-07-02] MEDS ORDERED: QUEtiapine FUMARATE 25 MG TAB PO SCH (21:00)
[2017-07-03] VITALS: BP 138/60; PULSE 104; RESP 18; TEMP 97.6; O2SAT 93
[2017-07-03] MEDS: ACETAMINOPHEN/HYDROcodone 325 MG/5 MG TAB PO PRN (04:33)
[2017-07-03] MEDS: LEVOTHYROXINE SODIUM 75 MCG TAB PO SCH (05:22)
[2017-07-03 07:33] LABS: AUTOMATED NEUTROPHIL # 7.4 TH/MM3 (1.8-7.7); BASOPHIL % 0.4 % (0.0-2.0); EOSINOPHIL # 0.1 TH/MM3 (0-0.4); EOSINOPHIL % 1.1 % (0.0-4.0); HEMATOCRIT 26.8 % (39.0-51.0); LYMPH % 13.3 % (9.0-44.0); LYMPHOCYTE # 1.3 TH/MM3 (1.0-4.8); MEAN CELL VOLUME 91.4 FL (80.0-100.0); MEAN CORPUSCULAR HEMOGLOBIN 30.8 PG (27.0-34.0); MEAN CORPUSCULAR HGB CONC 33.7 % (32.0-36.0); MEAN PLATELET VOLUME 6.9 FL (7.0-11.0); MONO % 7.9 % (0.0-8.0); MONOCYTE # 0.7 TH/MM3 (0-0.9); NEUT % 77.3 % (16.0-70.0); PLATELET COUNT 175 TH/MM3 (150-450); RED BLOOD COUNT 2.94 MIL/MM3 (4.50-5.90); RED CELL DISTRIBUTION WIDTH 17.1 % (11.6-17.2); WHITE BLOOD COUNT 9.5 TH/MM3 (4.0-11.0)
[2017-07-03 07:51] LABS: CALCIUM 9.8 MG/DL (8.5-10.1)
[2017-07-03 07:52] LABS: BICARBONATE 30.4 MEQ/L (21.0-32.0)
[2017-07-03 08:00] VITALS: BP 145/88; PULSE 101; RESP 22; TEMP 97; O2SAT 93
[2017-07-03 08:05] LABS: CREATININE 1.2 MG/DL (0.60-1.30)
[2017-07-03] MEDS: INSULIN DETEMIR 100 UNITS/ML VIAL SQ SCH (08:06)
[2017-07-03] MEDS: INSULIN ASPART SUPPLEMENTAL SCALE SQ SCH (08:07)
[2017-07-03] MEDS: PANTOPRAZOLE SOD 20 MG DELAYED RELEASE TAB PO SCH (08:07)
[2017-07-03] MEDS: ANASTROZOLE 1 MG TAB PO SCH (08:07)
[2017-07-03] MEDS: CARVEDILOL 6.25 MG TAB PO SCH (08:08)
[2017-07-03] MEDS: MAGNESIUM OXIDE 400 MG TAB PO SCH (08:08)
[2017-07-03] MEDS: MEMANTINE HCL 5 MG TAB PO SCH (08:08)
[2017-07-03] MEDS: RIVAROXABAN 15 MG TAB PO SCH (08:09)
[2017-07-03] MEDS: FUROSEMIDE 20 MG TAB PO SCH (08:09)
[2017-07-03] MEDS: FLUOROMETHOLONE 0.25% OPHT SUSP 5 ML BTL RIGHT EYE SCH (08:09)
[2017-07-03] MEDS: SODIUM CHLORIDE 0.9% FLUSH 10 ML FLUSH IV FLUSH SCH (08:09)
[2017-07-03] MEDS: ASPIRIN EC 81 MG TABEC PO SCH (08:15)
--- NOTE | 2017-07-03 09:38 | HHI.DS ---
Discharge Summary Admission Date Jun 30, 2017 at 13:51 Discharge Date: Jul 03, 2017 Admitting Diagnosis lacerations left wrist and right arm, Xarelto coagulopathy. 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 Status: Acute (3) Fall ICD Code: W19.XXXA - Fall Status: Acute (4) JERRY (acute kidney injury) ICD Code: N17.9 - Acute kidney failure, unspecified (5) CKD (chronic kidney disease) stage 4, GFR 15-29 ml/min ICD Code: N18.4 - Chronic kidney disease, stage IV (severe) Status: Chronic (6) Skin tear of left upper extremity ICD Code: S41.112A - Laceration without foreign body of left upper arm, initial encounter Status: Acute (7) Anemia due to acute blood loss ICD Code: D62 - Acute posthemorrhagic anemia Procedures Suture of right arm skin tears/bleeding vessel Brief History - From Admission This is a pleasant 81 year-old female with multiple medical comorbidities including diabetes, atrial fibrillation on Xarelto, aortic valve replacement, who presented to the ER last night after tripping and falling at home. He suffered skin tears on his right arm. He came to the ER for evaluation. Patient denied hitting his head or any loss of consciousness. Patient had pain in the arm. No difficulty moving the hand. Symptoms moderate. No provocative factors or palliative factors. In the emergency department he was found to have thin skin tears of his right arm and wrist and bandages were applied. Overnight he started to develop bleeding and is been continuously losing blood. Nursing has applied multiple layers of gauze which she is bleeding through. His Xarelto was held. Blood pressure was running low this morning he was bolused 1 L normal saline. Hemoglobin decreased from 11- 9.3. Patient denies any other recent falls. CBC/BMP: 07/03/17 0720 07/03/17 0720 Significant Findings Laboratory Tests Test 06/30/17 12:45 11/5/17 11:48 07/02/17 18:35 07/03/17 07:20 Hemoglobin 9.3 GM/DL (13.0-17.0) 7.5 GM/DL (13.0-17.0) 8.9 GM/DL (13.0-17.0) 9.0 GM/DL (13.0-17.0) Hematocrit 28.2 % (39.0-51.0) 23.5 % (39.0-51.0) 26.8 % (39.0-51.0) 26.8 % (39.0-51.0) Red Blood Count 2.60 MIL/MM3 (4.50-5.90) 2.96 MIL/MM3 (4.50-5.90) 2.94 MIL/MM3 (4.50-5.90) Neutrophils (%) (Auto) 78.0 % (16.0-70.0) 80.8 % (16.0-70.0) 77.3 % (16.0-70.0) Blood Urea Nitrogen 58 MG/DL (7-18) 42 MG/DL (7-18) 34 MG/DL (7-18) Creatinine 1.80 MG/DL (0.60-1.30) 1.50 MG/DL (0.60-1.30) Random Glucose 216 MG/DL (74-106) 301 MG/DL (74-106) 188 MG/DL (74-106) Anion Gap 4 MEQ/L (5-15) Estimat Glomerular Filtration Rate 36 ML/MIN (>89) 45 ML/MIN (>89) 58 ML/MIN (>89) Iron Level 26 MCG/DL (65-175) Percent Iron Saturation 9.3 % (20-50) Folate GREATER THAN 20.0 NG/ML Mean Platelet Volume 6.9 FL (7.0-11.0) 6.9 FL (7.0-11.0) Neutrophils # (Auto) 8.3 TH/MM3 (1.8-7.7) PE at Discharge GENERAL: Well-nourished, well-developed elderly male patient. SKIN: Warm and dry. HEAD: Normocephalic. EYES: No scleral icterus. No injection or drainage. NECK: Supple, trachea midline. No JVD or lymphadenopathy. CARDIOVASCULAR: Regular rate and rhythm without murmurs, gallops, or rubs. RESPIRATORY: Breath sounds equal bilaterally. No accessory muscle use. GASTROINTESTINAL: Abdomen soft, non-tender, nondistended. EXTREMITIES: Patient has skin tears of right upper arm, right middle arm and right wrist, also has skin tear right wrist lower arm, flaps a reasonably approximated, no significant bleeding but there is some oozing of the right upper arm. NEUROLOGICAL: Alert and oriented. Pt update on day of discharge Patient is in good moods. He would like to go home today. Hospital Course The patient was initially placed in observation. Overnight he had significant bleeding from the right forearm. On examination he had a small arterial blood vessel that was bleeding. This was sutured by ER physician Dr. Pineda on July 01. Wound care consisted of Telfa secured with gauze. Sutures to come out in 10-14 days. Patient did have drop in hemoglobin and was transfused 2 units of packed red blood cells. Patient was also given gentle IV fluids for the acute kidney injury. Creatinine is within normal limits today. Patient does have known chronic iron deficiency anemia and receives iron infusions from his vocational rehab consultant Dr. Loya. Patient had no GI bleeding. Iron level was low. Patient was resumed on Xarelto. Patient was somewhat deconditioned but is ambulating with physical therapy today. He is independent in sitting to edge of bed and was able to ambulate 50 feet with contact guard. Patient adamantly declined senior living facility. He desires to go home with his . Patient does use home oxygen. He has a walker, bedside commode, bathroom bars and shower stool at home. We have arranged home health care with wound care. He is to follow-up with his primary care physician within one week. Plan of care including wound care was discussed with the patient and his in detail. Pt Condition on Discharge: Stable Discharge Disposition: Disch w/ Home Health Serv Discharge Time: > 30 minutes Discharge Instructions DIET: Follow Instructions for: Heart Healthy Diet, Diabetic Diet Activities you can perform: Regular-No Restrictions Follow up Referrals: PCP Follow-up - 1 Week Continued Medications: Allopurinol (Allopurinol) 300 Mg Tab 300 MG PO DAILY for Gout, #30 TAB 0 Refills Anastrozole (Anastrozole) 1 Mg Tab 1 MG PO DAILY for Breast Cancer, #30 TAB [address] (Aspirin 81) 81 Mg Tabdr 81 MG PO DAILY, #30 TAB 0 Refills Carvedilol (Carvedilol) 6.25 Mg Tab 6.25 MG PO BID, #60 TAB 0 Refills Fiber (Fiber) 1 Pow Pow Fluorometholone Opth Drops (Fml Forte Opth Drops) 0.25% Susp 1 DROP RIGHT EYE BID for Inflammation, BOTTLE 0 Refills Furosemide (Furosemide) 20 Mg Tab 20 MG PO DAILY for Blood Pressure Management, #30 TAB Gabapentin (Gabapentin) 100 Mg Cap 200 MG PO HS for Pain Management, #60 CAP Hydrocodone-Acetaminophen (Lortab) 5-325 Mg Tab 1 TAB PO Q6H PRN for PAIN, #60 TAB 0 Refills Insulin Glargine Inj (Lantus Inj) 100 Unit/Ml Inj 50 SQ HS PRN for BLOOD GLUCOSE < 70 MG/DL & NPO Insulin Glargine Inj (Lantus Solostar Pen Inj) 300 Unit/3 Ml Pen 20 UNITS SQ HS for Blood Sugar Management for 30 Days, PEN 0 Refills Insulin Lispro (Human) Inj (Humalog Inj) 1,000 Unit/10 Ml Vial 0 SQ ACHS for Blood Sugar Management, #1 VIAL 0 Refills Max dose at bedtime:( )units; sugars< 70,(0)units; sugars 150-199,(1)unit; sugars 200-249,(3)units; sugars 250-299,(5)units; sugars 300-349,(7)units; sugars more than 349,(9)units. Irbesartan (Irbesartan) 75 Mg Tab 37.5 MG PO DAILY for Blood Pressure Management, #30 TAB 0 Refills [id number] (Metanx) 1 Cap Levothyroxine (Synthroid) 75 Mcg Tab 75 MCG PO DAILY for Thyroid, #30 TAB 0 Refills Magnesium Oxide (Magnesium Oxide) 400 Mg Tab 400 MG PO DAILY for Nutritional Supplement, #30 TAB 0 Refills Melatonin (Gnp Melatonin Maximum Str) 5 Mg Tab 5 MG PO HS for Insomnia, #30 TAB Memantine (Namenda) 5 Mg Tab 5 MG PO DAILY, #30 TAB Niacinamide (Niacin) 500 Mg Tablet 250 MG DAILY Omeprazole (Omeprazole) 20 Mg Tab 20 MG PO DAILY, #30 TAB 0 Refills Polyethylene Glycol 3350 Powder (Polyethylene Glycol 3350 Powder) 17 Gm Pow 17 GM PO DAILY for Constipation for 30 Days, EA Prednisone (Prednisone) 10 Mg Tab 10 MG PO DAILY, #30 TAB Quetiapine (Quetiapine) 25 Mg Tab 25 MG PO BID, #60 TAB Rivaroxaban (Xarelto) 15 Mg Tab 15 MG PO DAILY for Blood Clot Prevention, #30 TAB 0 Refills Sennosides-Docusate Sodium (Senna Plus 8.6-50 mg) 1 Tab Tab 1 TAB PO BID PRN for Constipation, #60 TAB Spironolactone (Spironolactone) 25 Mg Tab 25 MG PO DAILY, #30 TAB 0 Refills Tamsulosin (Tamsulosin) 0.4 Mg Cap 0.4 MG PO HS for Manage Prostate Problems, #30 CAP 0 Refills Traci Martin MD Jul 03, 2017 09:38
[2017-07-03] MEDS ORDERED: HYDR-3533 PO (12:29)
== END 2017-07-03 11:14 | disposition home health service (06) | DRG 605 ==
LOC: PHED 23:12 → PHEDA 06-30 01:13 → PH3B 06-30 02:12 → OBSVTOIN 06-30 13:51
PROVIDERS: ADMIT Family Medicine; ATTEND Family Medicine
PROC: 0HQEXZZ Repair Left Lower Arm Skin, External Approach (ICD-10-PCS; principal; 2017-06-30)
PROC: 0HQDXZZ Repair Right Lower Arm Skin, External Approach (ICD-10-PCS; 2017-06-30)
PROC: 30233N1 Transfusion of Nonautologous Red Blood Cells into Peripheral Vein, Percutaneous Approach (ICD-10-PCS; 2017-07-02)
DX: S61.512A Laceration without foreign body of left wrist, initial encounter (principal); N18.4 Chronic kidney disease, stage 4 (severe); E11.22 Type 2 diabetes mellitus with diabetic chronic kidney disease; E11.42 Type 2 diabetes mellitus with diabetic polyneuropathy; N17.9 Acute kidney failure, unspecified; I95.9 Hypotension, unspecified; D62 Acute posthemorrhagic anemia; Z99.81 Dependence on supplemental oxygen; I48.91 Unspecified atrial fibrillation; D50.9 Iron deficiency anemia, unspecified; W01.0XXA Fall on same level from slipping, tripping and stumbling without subsequent striking against object, initial encounter; G47.30 Sleep apnea, unspecified; H91.90 Unspecified hearing loss, unspecified ear; I12.9 Hypertensive chronic kidney disease with stage 1 through stage 4 chronic kidney disease, or unspecified chronic kidney disease; I25.10 Atherosclerotic heart disease of native coronary artery without angina pectoris; Z96.612 Presence of left artificial shoulder joint; Z96.643 Presence of artificial hip joint, bilateral; J44.9 Chronic obstructive pulmonary disease, unspecified; K21.9 Gastro-esophageal reflux disease without esophagitis; M10.9 Gout, unspecified; Z96.653 Presence of artificial knee joint, bilateral; S41.111A Laceration without foreign body of right upper arm, initial encounter; M19.90 Unspecified osteoarthritis, unspecified site; R79.1 Abnormal coagulation profile; T45.515A Adverse effect of anticoagulants, initial encounter; Z85.820 Personal history of malignant melanoma of skin; Z86.73 Personal history of transient ischemic attack (TIA), and cerebral infarction without residual deficits; Z79.01 Long term (current) use of anticoagulants; Z95.0 Presence of cardiac pacemaker; Y92.009 Unspecified place in unspecified non-institutional (private) residence as the place of occurrence of the external cause; Z95.5 Presence of coronary angioplasty implant and graft; Z95.1 Presence of aortocoronary bypass graft; Z95.3 Presence of xenogenic heart valve; Z79.4 Long term (current) use of insulin
CPT/HCPCS: 36430; 76937; 80048; 80053; 82607; 82728; 82746; 82948; 83540; 83550; 85014; 85018; 85025; 85610; 85730; 86850; 86900; 86901; 86920; 93005; G8987-GP; G8988-GP; J1815; J1940; J7030; J7050; P9016

== ENCOUNTER → 2017-07-04 | Outpatient (CLI) | payer MEDICARE ==
[~2017-07-04] MED LIST changes: +FLUO.25%O RIGHT EYE
[2017-07-04 15:42] LABS: HEMATOCRIT 27.1 % (39.0-51.0); MEAN CELL VOLUME 95.1 FL (80.0-100.0); MEAN CORPUSCULAR HEMOGLOBIN 30.8 PG (27.0-34.0); MEAN CORPUSCULAR HGB CONC 32.4 % (32.0-36.0); PLATELET COUNT 207 TH/MM3 (150-450); RED BLOOD COUNT 2.85 MIL/MM3 (4.50-5.90); RED CELL DISTRIBUTION WIDTH 17.6 % (11.6-17.2); REVIEW FLAG FINAL; WHITE BLOOD COUNT 10.4 TH/MM3 (4.0-11.0)
[2017-07-04 15:46] LABS: BLOOD, URINE NEG (NEG); COMMENT (UR) CULT NOT INDICATED; CULTURE IF INDICATED CULT NOT INDICATED; GLUCOSE,URINE TRACE mg/dL (NEG); HYALINE CAST, URINE 44 /lpf (RARE); KETONE, URINE NEG (NEG); NITRITE,URINE NEG (NEG); PH, URINE 5.5 (5.0-8.5); URINE COLOR YELLOW (YELLW/STRAW)
[2017-07-04 15:47] LABS: BICARBONATE 29.9 MEQ/L (21.0-32.0); POTASSIUM 4.6 MEQ/L (3.5-5.1)
== END ==
LOC: CLAB 14:51
PROVIDERS: ATTEND Physician Assistant
DX: E55.9 Vitamin D deficiency, unspecified (principal); R60.9 Edema, unspecified; N18.3 Chronic kidney disease, stage 3 (moderate)
CPT/HCPCS: 36415; 80069; 81001; 82306; 82570; 83970; 84156; 85027

== ENCOUNTER → 2017-07-09 | Outpatient (CLI) | payer MEDICARE ==
[2017-07-09 13:15] LABS: BLOOD UREA NITROGEN 43 MG/DL (7-18); GLOMERULAR FILTRATION RATE 29 ML/MIN (>89)
[2017-07-09 13:16] LABS: GLUCOSE,FASTING 248 MG/DL (74-99)
[2017-07-09 13:17] LABS: ALKALINE PHOSPHATASE 79 U/L (45-117); ALT (GPT) 20 U/L (12-78); ANION GAP 7 MEQ/L (5-15); AST (GOT) 10 U/L (15-37); BICARBONATE 31.6 MEQ/L (21.0-32.0); CHLORIDE 93 MEQ/L (98-107); POTASSIUM 4.2 MEQ/L (3.5-5.1); SODIUM (NA) 132 MEQ/L (136-145); TOTAL BILIRUBIN ADULT 0.8 MG/DL (0.2-1.0)
[2017-07-09 13:29] LABS: MICRO ALBUMIN RANDOM URINE RAW 56.7 MG/L (0.0-30.0)
[2017-07-09 17:12] LABS: HEMOGLOBIN A1b 2.5 %; HEMOGLOBIN Ao 79.1 %; HEMOGLOBIN LA1C 3.3 %; HEMOGLOBIN P3 7.1 %
== END ==
LOC: CLAB 11:47
PROVIDERS: ATTEND Physician Assistant
DX: E55.9 Vitamin D deficiency, unspecified (principal); N18.3 Chronic kidney disease, stage 3 (moderate); D63.1 Anemia in chronic kidney disease; E13.9 Other specified diabetes mellitus without complications; R60.9 Edema, unspecified
CPT/HCPCS: 36415; 80053; 82043; 83036

== ENCOUNTER → 2017-07-23 | Outpatient (CLI) | payer MEDICARE ==
[2017-07-23 13:24] LABS: BICARBONATE 29.2 MEQ/L (21.0-32.0); POTASSIUM 4.2 MEQ/L (3.5-5.1)
== END ==
LOC: CLAB 12:37
PROVIDERS: ATTEND Internal Medicine Interventional Cardiology
DX: R60.9 Edema, unspecified (principal)
CPT/HCPCS: 36415; 80048

== ENCOUNTER → 2017-07-27 | Outpatient (CLI) | payer MEDICARE ==
[2017-07-27 10:54] LABS: AUTOMATED NEUTROPHIL # 5.4 TH/MM3 (1.8-7.7); BASOPHIL # 0.1 TH/MM3 (0-0.2); EOSINOPHIL # 0.1 TH/MM3 (0-0.4); EOSINOPHIL % 1.7 % (0.0-4.0); HEMATOCRIT 36.7 % (39.0-51.0); HEMO FLAGS DIFF FINAL; LYMPHOCYTE # 1.6 TH/MM3 (1.0-4.8); MEAN CELL VOLUME 91.2 FL (80.0-100.0); MEAN CORPUSCULAR HEMOGLOBIN 29.8 PG (27.0-34.0); MEAN CORPUSCULAR HGB CONC 32.7 % (32.0-36.0); MONO % 10.7 % (0.0-8.0); NEUT % 66.6 % (16.0-70.0); PLATELET COUNT 188 TH/MM3 (150-450); RED BLOOD COUNT 4.02 MIL/MM3 (4.50-5.90); RED CELL DISTRIBUTION WIDTH 18.8 % (11.6-17.2); WHITE BLOOD COUNT 8.1 TH/MM3 (4.0-11.0)
[2017-07-27 11:06] LABS: ALT (GPT) 21 U/L (12-78); ANION GAP 6 MEQ/L (5-15); AST (GOT) 18 U/L (15-37); BICARBONATE 31.8 MEQ/L (21.0-32.0); BLOOD UREA NITROGEN 30 MG/DL (7-18); CHLORIDE 97 MEQ/L (98-107); GLOMERULAR FILTRATION RATE 32 ML/MIN (>89); GLUCOSE,FASTING 129 MG/DL (74-99); POTASSIUM 3.9 MEQ/L (3.5-5.1); SODIUM (NA) 135 MEQ/L (136-145)
[2017-07-27 11:14] LABS: ALKALINE PHOSPHATASE 79 U/L (45-117); HDL CHOLESTEROL 63.5 MG/DL (40.0-60.0); LDL CHOLESTEROL 88 MG/DL (0-99); TOTAL BILIRUBIN ADULT 0.9 MG/DL (0.2-1.0)
[2017-07-27 12:55] LABS: HEMOGLOBIN Ao 82.4 %; HEMOGLOBIN LA1C 2.5 %
== END ==
LOC: CLAB 10:17
PROVIDERS: ATTEND Family Medicine
DX: I10 Essential (primary) hypertension (principal); E10.8 Type 1 diabetes mellitus with unspecified complications; E55.9 Vitamin D deficiency, unspecified; Z79.899 Other long term (current) drug therapy; Z12.5 Encounter for screening for malignant neoplasm of prostate
CPT/HCPCS: 36415; 80053; 80061; 82306; 83036; 84439; 84443; 85025

== ENCOUNTER → 2017-08-06 | Outpatient (CLI) | payer MEDICARE ==
[2017-08-07 12:22] LABS: BICARBONATE 30.3 MEQ/L (21.0-32.0); POTASSIUM 4.1 MEQ/L (3.5-5.1)
== END ==
LOC: CLAB 11:37
PROVIDERS: ATTEND Internal Medicine Interventional Cardiology
DX: R60.9 Edema, unspecified (principal)
CPT/HCPCS: 36415; 80048

== ENCOUNTER → 2017-08-13 | Outpatient (CLI) | payer MEDICARE ==
[2017-08-13 15:42] LABS: BICARBONATE 31.3 MEQ/L (21.0-32.0); POTASSIUM 3.9 MEQ/L (3.5-5.1)
== END ==
LOC: CLAB 14:55
PROVIDERS: ATTEND Internal Medicine Interventional Cardiology
DX: R60.9 Edema, unspecified (principal)
CPT/HCPCS: 36415; 80048

== ENCOUNTER → 2017-08-21 | Outpatient (CLI) | payer MEDICARE ==
[2017-08-21 14:58] LABS: BICARBONATE 32.9 MEQ/L (21.0-32.0)
== END ==
LOC: CLAB 14:23
PROVIDERS: ATTEND Internal Medicine Interventional Cardiology
DX: R60.9 Edema, unspecified (principal)
CPT/HCPCS: 36415; 80048

== ENCOUNTER → 2017-08-28 | Outpatient (CLI) | payer MEDICARE ==
[2017-08-28 16:04] LABS: BICARBONATE 34.3 MEQ/L (21.0-32.0); CALCIUM 10.7 MG/DL (8.5-10.1); CREATININE 2.14 MG/DL (0.60-1.30)
== END ==
LOC: CLAB 15:20
PROVIDERS: ATTEND Internal Medicine Interventional Cardiology
DX: R60.9 Edema, unspecified (principal)
CPT/HCPCS: 36415; 80048

== ENCOUNTER → 2017-09-03 | Outpatient (CLI) | payer MEDICARE ==
[2017-09-03 14:28] LABS: AUTOMATED NEUTROPHIL # 5.7 TH/MM3 (1.8-7.7); BASOPHIL % 0.4 % (0.0-2.0); EOSINOPHIL # 0.2 TH/MM3 (0-0.4); HEMATOCRIT 38.9 % (39.0-51.0); HEMOGLOBIN 13.2 GM/DL (13.0-17.0); LYMPHOCYTE # 1.9 TH/MM3 (1.0-4.8); MEAN CELL VOLUME 93.7 FL (80.0-100.0); MEAN CORPUSCULAR HEMOGLOBIN 31.9 PG (27.0-34.0); MEAN PLATELET VOLUME 7.5 FL (7.0-11.0); MONO % 7.5 % (0.0-8.0); MONOCYTE # 0.6 TH/MM3 (0-0.9); NEUT % 68.1 % (16.0-70.0); PLATELET COUNT 161 TH/MM3 (150-450); RED BLOOD COUNT 4.15 MIL/MM3 (4.50-5.90); RED CELL DISTRIBUTION WIDTH 19.7 % (11.6-17.2); WHITE BLOOD COUNT 8.5 TH/MM3 (4.0-11.0)
[2017-09-03 14:50] LABS: ALBUMIN 4.2 GM/DL (3.4-5.0); ALT (GPT) 28 U/L (12-78); AST (GOT) 22 U/L (15-37); BICARBONATE 34.3 MEQ/L (21.0-32.0); BLOOD UREA NITROGEN 49 MG/DL (7-18); CALCIUM 10.5 MG/DL (8.5-10.1); CHLORIDE 97 MEQ/L (98-107); CREATININE 1.76 MG/DL (0.60-1.30); GLOMERULAR FILTRATION RATE 37 ML/MIN (>89); GLUCOSE,FASTING 126 MG/DL (74-99); SODIUM (NA) 137 MEQ/L (136-145)
[2017-09-03 14:52] LABS: ALKALINE PHOSPHATASE 82 U/L (45-117); TOTAL PROTEIN 7.4 GM/DL (6.4-8.2)
== END ==
LOC: CLAB 13:46
PROVIDERS: ATTEND Internal Medicine Interventional Cardiology
DX: E21.1 Secondary hyperparathyroidism, not elsewhere classified (principal); N18.3 Chronic kidney disease, stage 3 (moderate); M19.041 Primary osteoarthritis, right hand
CPT/HCPCS: 36415; 80053; 83970; 84100; 84550; 85025

== ENCOUNTER → 2017-09-10 | Outpatient (CLI) | payer MEDICARE ==
[2017-09-10 14:50] LABS: BICARBONATE 32.6 MEQ/L (21.0-32.0); CALCIUM 10.6 MG/DL (8.5-10.1); CREATININE 2.15 MG/DL (0.60-1.30)
== END ==
LOC: CLAB 14:01
PROVIDERS: ATTEND Internal Medicine Interventional Cardiology
DX: R60.9 Edema, unspecified (principal)
CPT/HCPCS: 36415; 80048

== ENCOUNTER → 2017-09-17 | Outpatient (CLI) | payer MEDICARE ==
[2017-09-17 15:31] LABS: ANION GAP 6 MEQ/L (5-15); BICARBONATE 33.5 MEQ/L (21.0-32.0); BLOOD UREA NITROGEN 46 MG/DL (7-18); CALCIUM 10.7 MG/DL (8.5-10.1); CHLORIDE 100 MEQ/L (98-107); CREATININE 2.16 MG/DL (0.60-1.30); GLOMERULAR FILTRATION RATE 29 ML/MIN (>89); GLUCOSE,FASTING 159 MG/DL (74-99); POTASSIUM 4.1 MEQ/L (3.5-5.1); SODIUM (NA) 139 MEQ/L (136-145)
== END ==
LOC: CLAB 14:47
DX: R50.9 Fever, unspecified (principal)
CPT/HCPCS: 36415; 80048

== ENCOUNTER → 2017-09-24 | Outpatient (CLI) | payer MEDICARE ==
[2017-09-24 15:17] LABS: HEMATOCRIT 38.9 % (39.0-51.0); MEAN CELL VOLUME 94.1 FL (80.0-100.0); MEAN CORPUSCULAR HEMOGLOBIN 31.5 PG (27.0-34.0); MEAN CORPUSCULAR HGB CONC 33.4 % (32.0-36.0); MEAN PLATELET VOLUME 7.4 FL (7.0-11.0); PLATELET COUNT 177 TH/MM3 (150-450); RED BLOOD COUNT 4.13 MIL/MM3 (4.50-5.90); WHITE BLOOD COUNT 7.9 TH/MM3 (4.0-11.0)
[2017-09-24 15:27] LABS: BILIRUBIN, URINE NEG (NEG); BLOOD, URINE NEG (NEG); GLUCOSE,URINE NEG (NEG); HYALINE CAST, URINE 12 /lpf (RARE); KETONE, URINE NEG (NEG); MUCUS URINE FEW /lpf (OCC); NITRITE,URINE NEG (NEG); URINE COLOR YELLOW (YELLW/STRAW); URINE LEUKOCYTE ESTERASE NEG (NEG)
[2017-09-24 15:39] LABS: ALBUMIN 3.8 GM/DL (3.4-5.0); BICARBONATE 33.5 MEQ/L (21.0-32.0); CALCIUM 10.5 MG/DL (8.5-10.1); CREATININE 2.05 MG/DL (0.60-1.30)
== END ==
LOC: CLAB 14:16
PROVIDERS: ATTEND Internal Medicine Interventional Cardiology
DX: R60.9 Edema, unspecified (principal); N18.3 Chronic kidney disease, stage 3 (moderate); E83.52 Hypercalcemia; E55.9 Vitamin D deficiency, unspecified
CPT/HCPCS: 36415; 80069; 81001; 82306; 82570; 83970; 84156; 85027

== ENCOUNTER → 2017-10-01 | Outpatient (CLI) | payer MEDICARE ==
[2017-10-01 14:32] LABS: BICARBONATE 33.4 MEQ/L (21.0-32.0); CALCIUM 10.6 MG/DL (8.5-10.1); CREATININE 1.87 MG/DL (0.60-1.30)
== END ==
LOC: CLAB 13:50
PROVIDERS: ATTEND Internal Medicine Interventional Cardiology
DX: N28.9 Disorder of kidney and ureter, unspecified (principal); I10 Essential (primary) hypertension; Z79.899 Other long term (current) drug therapy
CPT/HCPCS: 36415; 80048

== ENCOUNTER → 2017-10-08 | Outpatient (CLI) | payer MEDICARE ==
[2017-10-08 11:52] LABS: BICARBONATE 31.6 MEQ/L (21.0-32.0); CALCIUM 10.7 MG/DL (8.5-10.1); CREATININE 1.86 MG/DL (0.60-1.30)
== END ==
LOC: CLAB 11:04
PROVIDERS: ATTEND Internal Medicine Interventional Cardiology
DX: N28.9 Disorder of kidney and ureter, unspecified (principal); I10 Essential (primary) hypertension; Z79.899 Other long term (current) drug therapy
CPT/HCPCS: 36415; 80048

== ENCOUNTER → 2017-10-15 | Outpatient (CLI) | payer MEDICARE ==
[2017-10-15 15:13] LABS: BICARBONATE 33.5 MEQ/L (21.0-32.0); CALCIUM 10.1 MG/DL (8.5-10.1); CREATININE 1.62 MG/DL (0.60-1.30)
== END ==
LOC: CLAB 14:28
PROVIDERS: ATTEND Internal Medicine Interventional Cardiology
DX: N28.9 Disorder of kidney and ureter, unspecified (principal); I10 Essential (primary) hypertension; Z79.899 Other long term (current) drug therapy
CPT/HCPCS: 36415; 80048

== ENCOUNTER → 2017-10-22 | Outpatient (CLI) | payer MEDICARE ==
[2017-10-22 11:27] LABS: AUTOMATED NEUTROPHIL # 5.1 TH/MM3 (1.8-7.7); BASOPHIL # 0.1 TH/MM3 (0-0.2); BASOPHIL % 0.8 % (0.0-2.0); EOSINOPHIL # 0.2 TH/MM3 (0-0.4); EOSINOPHIL % 2.6 % (0.0-4.0); HEMATOCRIT 38.6 % (39.0-51.0); LYMPH % 25.8 % (9.0-44.0); LYMPHOCYTE # 2.1 TH/MM3 (1.0-4.8); MEAN CELL VOLUME 95.7 FL (80.0-100.0); MEAN CORPUSCULAR HEMOGLOBIN 32.3 PG (27.0-34.0); MEAN CORPUSCULAR HGB CONC 33.7 % (32.0-36.0); MEAN PLATELET VOLUME 7.2 FL (7.0-11.0); MONO % 8.3 % (0.0-8.0); MONOCYTE # 0.7 TH/MM3 (0-0.9); NEUT % 62.5 % (16.0-70.0); PLATELET COUNT 163 TH/MM3 (150-450); RED BLOOD COUNT 4.03 MIL/MM3 (4.50-5.90); RED CELL DISTRIBUTION WIDTH 17.1 % (11.6-17.2); WHITE BLOOD COUNT 8.2 TH/MM3 (4.0-11.0)
[2017-10-22 11:33] LABS: BILIRUBIN, URINE NEG (NEG); BLOOD, URINE NEG (NEG); GLUCOSE,URINE NEG (NEG); HYALINE CAST, URINE 21 /lpf (RARE); KETONE, URINE NEG (NEG); MUCUS URINE FEW /lpf (OCC); NITRITE,URINE NEG (NEG); PH, URINE 5.5 (5.0-8.5); URINE COLOR YELLOW (YELLW/STRAW); URINE LEUKOCYTE ESTERASE TRACE (NEG)
[2017-10-22 11:49] LABS: ALBUMIN 3.5 GM/DL (3.4-5.0); ALT (GPT) 21 U/L (12-78); AST (GOT) 21 U/L (15-37); BICARBONATE 34.6 MEQ/L (21.0-32.0); BLOOD UREA NITROGEN 35 MG/DL (7-18); CALCIUM 10.5 MG/DL (8.5-10.1); CHLORIDE 99 MEQ/L (98-107); CHOLESTEROL 158 MG/DL (120-200); CREATININE 1.99 MG/DL (0.60-1.30); GLOMERULAR FILTRATION RATE 32 ML/MIN (>89); GLUCOSE,FASTING 121 MG/DL (74-99); SODIUM (NA) 139 MEQ/L (136-145)
[2017-10-22 11:58] LABS: ALKALINE PHOSPHATASE 103 U/L (45-117); CHOLESTEROL/ HDL RATIO 3.41 RATIO; FREE T4 1.19 NG/DL (0.76-1.46); HDL CHOLESTEROL 46.2 MG/DL (40.0-60.0); LDL CHOLESTEROL 76 MG/DL (0-99); TOTAL BILIRUBIN ADULT 0.7 MG/DL (0.2-1.0); TOTAL PROTEIN 6.7 GM/DL (6.4-8.2); TRIGLYCERIDES 177 MG/DL (42-150)
[2017-10-22 16:38] LABS: HEMOGLOBIN A1C 6.9 % (4.3-6.0)
== END ==
LOC: CLAB 10:13
PROVIDERS: ATTEND Internal Medicine Interventional Cardiology
DX: N28.9 Disorder of kidney and ureter, unspecified (principal); I12.9 Hypertensive chronic kidney disease with stage 1 through stage 4 chronic kidney disease, or unspecified chronic kidney disease; E10.22 Type 1 diabetes mellitus with diabetic chronic kidney disease; N18.3 Chronic kidney disease, stage 3 (moderate); E78.2 Mixed hyperlipidemia; E03.8 Other specified hypothyroidism; Z79.899 Other long term (current) drug therapy
CPT/HCPCS: 36415; 80053; 80061; 81001; 82570; 83036; 83970; 84100; 84156; 84439; 84443; 85025

== ENCOUNTER → 2017-10-30 | Outpatient (CLI) | payer MEDICARE ==
[2017-10-30 14:44] LABS: CALCIUM 10.3 MG/DL (8.5-10.1); CREATININE 2.31 MG/DL (0.60-1.30)
== END ==
LOC: CLAB 13:49
PROVIDERS: ATTEND Internal Medicine Interventional Cardiology
DX: I10 Essential (primary) hypertension (principal); N28.9 Disorder of kidney and ureter, unspecified; Z79.899 Other long term (current) drug therapy
CPT/HCPCS: 36415; 80048

== ENCOUNTER → 2017-11-05 | Outpatient (CLI) | payer MEDICARE ==
[2017-11-05 16:27] LABS: BICARBONATE 32.3 MEQ/L (21.0-32.0); CALCIUM 11.5 MG/DL (8.5-10.1); CREATININE 2.37 MG/DL (0.60-1.30)
== END ==
LOC: CLAB 15:05
PROVIDERS: ATTEND Internal Medicine Interventional Cardiology
DX: N28.9 Disorder of kidney and ureter, unspecified (principal); I10 Essential (primary) hypertension; Z79.899 Other long term (current) drug therapy
CPT/HCPCS: 36415; 80048

== ENCOUNTER → 2017-11-12 | Outpatient (CLI) | payer MEDICARE ==
[2017-11-12 15:17] LABS: ALBUMIN 3.4 GM/DL (3.4-5.0); BICARBONATE 30.7 MEQ/L (21.0-32.0); CALCIUM 10.3 MG/DL (8.5-10.1); CREATININE 2.08 MG/DL (0.60-1.30); PHOSPHORUS 2.8 MG/DL (2.5-4.9)
== END ==
LOC: CLAB 14:29
PROVIDERS: ATTEND Internal Medicine Interventional Cardiology
DX: N28.9 Disorder of kidney and ureter, unspecified (principal); N18.3 Chronic kidney disease, stage 3 (moderate); I12.9 Hypertensive chronic kidney disease with stage 1 through stage 4 chronic kidney disease, or unspecified chronic kidney disease; E83.52 Hypercalcemia; Z79.899 Other long term (current) drug therapy
CPT/HCPCS: 36415; 80069

== ENCOUNTER → 2017-11-19 | Outpatient (CLI) | payer MEDICARE ==
[2017-11-19 13:31] LABS: BICARBONATE 32.5 MEQ/L (21.0-32.0); CALCIUM 10.4 MG/DL (8.5-10.1); CREATININE 1.82 MG/DL (0.60-1.30)
== END ==
LOC: CLAB 12:21
PROVIDERS: ATTEND Internal Medicine Interventional Cardiology
DX: N28.9 Disorder of kidney and ureter, unspecified (principal); I10 Essential (primary) hypertension; Z79.899 Other long term (current) drug therapy
CPT/HCPCS: 36415; 80048

== ENCOUNTER → 2017-11-26 | Outpatient (CLI) | payer MEDICARE ==
[2017-11-26 14:16] LABS: BICARBONATE 31.4 MEQ/L (21.0-32.0); CALCIUM 10.4 MG/DL (8.5-10.1); CREATININE 1.93 MG/DL (0.60-1.30)
== END ==
LOC: CLAB 13:27
PROVIDERS: ATTEND Internal Medicine Interventional Cardiology
DX: N28.9 Disorder of kidney and ureter, unspecified (principal); I10 Essential (primary) hypertension; Z79.899 Other long term (current) drug therapy
CPT/HCPCS: 36415; 80048

== ENCOUNTER → 2017-12-03 | Outpatient (CLI) | payer MEDICARE ==
[2017-12-03 14:06] LABS: AUTOMATED NEUTROPHIL # 5.2 TH/MM3 (1.8-7.7); BASOPHIL % 0.5 % (0.0-2.0); EOSINOPHIL # 0.2 TH/MM3 (0-0.4); EOSINOPHIL % 1.8 % (0.0-4.0); HEMATOCRIT 35.7 % (39.0-51.0); LYMPH % 26.5 % (9.0-44.0); LYMPHOCYTE # 2.2 TH/MM3 (1.0-4.8); MEAN CORPUSCULAR HEMOGLOBIN 32.9 PG (27.0-34.0); MEAN CORPUSCULAR HGB CONC 33.5 % (32.0-36.0); MEAN PLATELET VOLUME 7.6 FL (7.0-11.0); MONO % 8.2 % (0.0-8.0); MONOCYTE # 0.7 TH/MM3 (0-0.9); PLATELET COUNT 168 TH/MM3 (150-450); RED BLOOD COUNT 3.64 MIL/MM3 (4.50-5.90); RED CELL DISTRIBUTION WIDTH 15.6 % (11.6-17.2); WHITE BLOOD COUNT 8.3 TH/MM3 (4.0-11.0)
[2017-12-03 14:40] LABS: ALBUMIN 3.8 GM/DL (3.4-5.0); AST (GOT) 16 U/L (15-37); BICARBONATE 31.2 MEQ/L (21.0-32.0); BLOOD UREA NITROGEN 43 MG/DL (7-18); CHLORIDE 100 MEQ/L (98-107); CREATININE 1.87 MG/DL (0.60-1.30); GLOMERULAR FILTRATION RATE 35 ML/MIN (>89); GLUCOSE,FASTING 124 MG/DL (74-99); SODIUM (NA) 138 MEQ/L (136-145)
[2017-12-03 14:41] LABS: ALT (GPT) 19 U/L (12-78)
[2017-12-03 14:47] LABS: ALKALINE PHOSPHATASE 92 U/L (45-117); TOTAL BILIRUBIN ADULT 0.7 MG/DL (0.2-1.0); TOTAL PROTEIN 6.6 GM/DL (6.4-8.2)
== END ==
LOC: CLAB 13:32
PROVIDERS: ATTEND Internal Medicine Interventional Cardiology
DX: N28.9 Disorder of kidney and ureter, unspecified (principal); I10 Essential (primary) hypertension; M06.4 Inflammatory polyarthropathy; Z79.899 Other long term (current) drug therapy
CPT/HCPCS: 36415; 80053; 84550; 85025

== ENCOUNTER → 2017-12-10 | Outpatient (CLI) | payer MEDICARE ==
[2017-12-10 13:11] LABS: ALBUMIN 3.8 GM/DL (3.4-5.0); BICARBONATE 31.7 MEQ/L (21.0-32.0); CALCIUM 10.2 MG/DL (8.5-10.1); CREATININE 1.57 MG/DL (0.60-1.30); PHOSPHORUS 2.8 MG/DL (2.5-4.9)
[2017-12-12 19:59] LABS: PTH RELATED PEPTIDE 0.9 pmol/L (<2.0)
[2017-12-13 22:24] LABS: ALB/GLOB RATIO (SPE) 2.22 (1.39-2.23)
== END ==
LOC: CLAB 12:20
PROVIDERS: ATTEND Internal Medicine Interventional Cardiology
DX: E83.52 Hypercalcemia (principal); I12.9 Hypertensive chronic kidney disease with stage 1 through stage 4 chronic kidney disease, or unspecified chronic kidney disease; N18.3 Chronic kidney disease, stage 3 (moderate); Z79.899 Other long term (current) drug therapy
CPT/HCPCS: 36415; 80069; 82397; 82652; 84165; 86335

== ENCOUNTER → 2017-12-17 | Outpatient (CLI) | payer MEDICARE ==
[2017-12-17 11:27] LABS: ALBUMIN 3.5 GM/DL (3.4-5.0); ALT (GPT) 21 U/L (12-78); AST (GOT) 15 U/L (15-37); BICARBONATE 29.8 MEQ/L (21.0-32.0); BLOOD UREA NITROGEN 35 MG/DL (7-18); CALCIUM 10.1 MG/DL (8.5-10.1); CHLORIDE 106 MEQ/L (98-107); CREATININE 1.53 MG/DL (0.60-1.30); GLOMERULAR FILTRATION RATE 44 ML/MIN (>89); GLUCOSE,FASTING 111 MG/DL (74-99); SODIUM (NA) 143 MEQ/L (136-145)
[2017-12-17 11:37] LABS: ALKALINE PHOSPHATASE 101 U/L (45-117); FREE T3 2.01 PG/ML (2.18-3.98); FREE T4 0.97 NG/DL (0.76-1.46); TOTAL BILIRUBIN ADULT 0.6 MG/DL (0.2-1.0); TOTAL PROTEIN 6.4 GM/DL (6.4-8.2)
[2017-12-17 11:43] LABS: CHOLESTEROL/ HDL RATIO 2.96 RATIO; HDL CHOLESTEROL 51.6 MG/DL (40.0-60.0)
[2017-12-17 17:22] LABS: HEMOGLOBIN A1C 6.8 % (4.3-6.0)
== END ==
LOC: CLAB 10:28
PROVIDERS: ATTEND Internal Medicine Interventional Cardiology
DX: N28.9 Disorder of kidney and ureter, unspecified (principal); E11.65 Type 2 diabetes mellitus with hyperglycemia; E03.9 Hypothyroidism, unspecified; I10 Essential (primary) hypertension; Z79.899 Other long term (current) drug therapy
CPT/HCPCS: 80053; 80061; 82043; 83036; 84439; 84443; 84481

== ENCOUNTER → 2017-12-24 | Outpatient (CLI) | payer MEDICARE ==
[2017-12-24 15:12] LABS: HEMATOCRIT 37.2 % (39.0-51.0); HEMOGLOBIN 12.6 GM/DL (13.0-17.0); MEAN CORPUSCULAR HEMOGLOBIN 32.8 PG (27.0-34.0); MEAN CORPUSCULAR HGB CONC 33.8 % (32.0-36.0); MEAN PLATELET VOLUME 7.9 FL (7.0-11.0); PLATELET COUNT 160 TH/MM3 (150-450); RED BLOOD COUNT 3.84 MIL/MM3 (4.50-5.90); RED CELL DISTRIBUTION WIDTH 15.6 % (11.6-17.2); WHITE BLOOD COUNT 8.4 TH/MM3 (4.0-11.0)
[2017-12-24 15:53] LABS: % SATURATION IRON PROFILE 26.6 % (20-50); ALBUMIN 3.8 GM/DL (3.4-5.0); ALKALINE PHOSPHATASE 102 U/L (45-117); ALT (GPT) 21 U/L (12-78); AST (GOT) 22 U/L (15-37); BICARBONATE 30.9 MEQ/L (21.0-32.0); BLOOD UREA NITROGEN 32 MG/DL (7-18); CALCIUM 10.2 MG/DL (8.5-10.1); CHLORIDE 104 MEQ/L (98-107); CREATININE 1.78 MG/DL (0.60-1.30); FERRITIN 443 NG/ML (26-388); GLOMERULAR FILTRATION RATE 37 ML/MIN (>89); GLUCOSE,FASTING 113 MG/DL (74-99); IRON (FE) 90 MCG/DL (65-175); SODIUM (NA) 141 MEQ/L (136-145); TOTAL BILIRUBIN ADULT 0.8 MG/DL (0.2-1.0); TOTAL IRON BINDING CAPACITY 339 MCG/DL (250-450); TOTAL PROTEIN 6.9 GM/DL (6.4-8.2)
== END ==
LOC: CLAB 14:47
PROVIDERS: ATTEND Internal Medicine Interventional Cardiology
DX: N28.9 Disorder of kidney and ureter, unspecified (principal); D50.9 Iron deficiency anemia, unspecified; I10 Essential (primary) hypertension; Z79.899 Other long term (current) drug therapy
CPT/HCPCS: 36415; 80053; 82728; 83540; 83550; 85027

== ENCOUNTER → 2017-12-31 | Outpatient (CLI) | payer MEDICARE ==
[2017-12-31 15:18] LABS: ANION GAP 7 MEQ/L (5-15); BICARBONATE 31.5 MEQ/L (21.0-32.0); BLOOD UREA NITROGEN 38 MG/DL (7-18); CALCIUM 9.9 MG/DL (8.5-10.1); CHLORIDE 103 MEQ/L (98-107); CREATININE 1.77 MG/DL (0.60-1.30); GLOMERULAR FILTRATION RATE 37 ML/MIN (>89); GLUCOSE,FASTING 115 MG/DL (74-99); POTASSIUM 4.5 MEQ/L (3.5-5.1); SODIUM (NA) 141 MEQ/L (136-145)
== END ==
LOC: CLAB 13:54
DX: N28.9 Disorder of kidney and ureter, unspecified (principal); I10 Essential (primary) hypertension; Z79.899 Other long term (current) drug therapy
CPT/HCPCS: 36415; 80048

== ENCOUNTER → 2018-01-07 | Outpatient (CLI) | payer MEDICARE ==
[2018-01-07 13:49] LABS: BICARBONATE 32.3 MEQ/L (21.0-32.0); CREATININE 1.81 MG/DL (0.60-1.30)
== END ==
LOC: CLAB 13:02
PROVIDERS: ATTEND Family Medicine
DX: N28.9 Disorder of kidney and ureter, unspecified (principal); I10 Essential (primary) hypertension; Z79.899 Other long term (current) drug therapy
CPT/HCPCS: 36415; 80048

== ENCOUNTER → 2018-01-14 | Outpatient (CLI) | payer MEDICARE ==
[2018-01-14 13:55] LABS: BICARBONATE 33.2 MEQ/L (21.0-32.0); CALCIUM 10.6 MG/DL (8.5-10.1); CREATININE 1.81 MG/DL (0.60-1.30)
[2018-01-14 14:05] LABS: FREE T3 2.73 PG/ML (2.18-3.98); FREE T4 0.89 NG/DL (0.76-1.46)
== END ==
LOC: CLAB 13:10
PROVIDERS: ATTEND Internal Medicine Interventional Cardiology
DX: N28.9 Disorder of kidney and ureter, unspecified (principal); I10 Essential (primary) hypertension; E03.8 Other specified hypothyroidism; R53.83 Other fatigue; Z79.899 Other long term (current) drug therapy
CPT/HCPCS: 36415; 80048; 84439; 84443; 84481; 84482

== ENCOUNTER → 2018-01-22 | Outpatient (CLI) | payer MEDICARE ==
[2018-01-22 15:44] LABS: BICARBONATE 27.8 MEQ/L (21.0-32.0); CALCIUM 10.6 MG/DL (8.5-10.1); CREATININE 2.18 MG/DL (0.60-1.30)
== END ==
LOC: CLAB 14:34
PROVIDERS: ATTEND Family Medicine
DX: N28.9 Disorder of kidney and ureter, unspecified (principal); I10 Essential (primary) hypertension; Z79.899 Other long term (current) drug therapy
CPT/HCPCS: 36415; 80048

== ENCOUNTER → 2018-01-28 | Outpatient (CLI) | payer MEDICARE ==
[2018-01-28 14:30] LABS: BICARBONATE 29.9 MEQ/L (21.0-32.0); CALCIUM 10.6 MG/DL (8.5-10.1); CREATININE 2.05 MG/DL (0.60-1.30)
== END ==
LOC: CLAB 13:31
PROVIDERS: ATTEND Internal Medicine Interventional Cardiology
DX: N28.9 Disorder of kidney and ureter, unspecified (principal); I10 Essential (primary) hypertension; Z79.899 Other long term (current) drug therapy
CPT/HCPCS: 36415; 80048

== ENCOUNTER → 2018-02-06 | Outpatient (CLI) | payer MEDICARE ==
[2018-02-06 15:03] LABS: BICARBONATE 25.7 MEQ/L (21.0-32.0); CALCIUM 10.6 MG/DL (8.5-10.1); CREATININE 2.28 MG/DL (0.60-1.30)
== END ==
LOC: CLAB 14:12
PROVIDERS: ATTEND Internal Medicine Interventional Cardiology
DX: I10 Essential (primary) hypertension (principal); N28.9 Disorder of kidney and ureter, unspecified; Z79.899 Other long term (current) drug therapy
CPT/HCPCS: 36415; 80048

== ENCOUNTER → 2018-02-11 | Outpatient (CLI) | payer MEDICARE ==
[2018-02-11 14:10] LABS: AUTOMATED NEUTROPHIL # 7.2 TH/MM3 (1.8-7.7); BASOPHIL % 0.3 % (0.0-2.0); EOSINOPHIL # 0.1 TH/MM3 (0-0.4); HEMATOCRIT 38.9 % (39.0-51.0); LYMPH % 17.6 % (9.0-44.0); LYMPHOCYTE # 1.8 TH/MM3 (1.0-4.8); MEAN CELL VOLUME 97.5 FL (80.0-100.0); MEAN CORPUSCULAR HEMOGLOBIN 32.6 PG (27.0-34.0); MEAN CORPUSCULAR HGB CONC 33.4 % (32.0-36.0); MONO % 8.3 % (0.0-8.0); MONOCYTE # 0.8 TH/MM3 (0-0.9); NEUT % 72.8 % (16.0-70.0); PLATELET COUNT 164 TH/MM3 (150-450); RED BLOOD COUNT 3.99 MIL/MM3 (4.50-5.90); RED CELL DISTRIBUTION WIDTH 14.7 % (11.6-17.2); WHITE BLOOD COUNT 9.9 TH/MM3 (4.0-11.0)
[2018-02-11 14:32] LABS: PHOSPHORUS 2.9 MG/DL (2.5-4.9)
[2018-02-11 14:33] LABS: % SATURATION IRON PROFILE 12.8 % (20-50); ALBUMIN 3.8 GM/DL (3.4-5.0); ALT (GPT) 22 U/L (12-78); AST (GOT) 14 U/L (15-37); BICARBONATE 28.8 MEQ/L (21.0-32.0); BLOOD UREA NITROGEN 34 MG/DL (7-18); CALCIUM 9.7 MG/DL (8.5-10.1); CHLORIDE 102 MEQ/L (98-107); CREATININE 1.75 MG/DL (0.60-1.30); GLOMERULAR FILTRATION RATE 38 ML/MIN (>89); GLUCOSE,FASTING 181 MG/DL (74-99); IRON (FE) 42 MCG/DL (65-175); SODIUM (NA) 139 MEQ/L (136-145); TOTAL IRON BINDING CAPACITY 328 MCG/DL (250-450)
[2018-02-11 14:36] LABS: ALKALINE PHOSPHATASE 119 U/L (45-117); FERRITIN 272 NG/ML (26-388); TOTAL BILIRUBIN ADULT 0.9 MG/DL (0.2-1.0); TOTAL PROTEIN 6.5 GM/DL (6.4-8.2)
[2018-02-11 14:42] LABS: BILIRUBIN, URINE NEG (NEG); BLOOD, URINE NEG (NEG); GLUCOSE,URINE >=500 mg/dL (NEG); HYALINE CAST, URINE 4 /lpf (RARE); KETONE, URINE NEG (NEG); MUCUS URINE FEW /lpf (OCC); NITRITE,URINE NEG (NEG); URINE COLOR YELLOW (YELLW/STRAW); URINE LEUKOCYTE ESTERASE NEG (NEG)
== END ==
LOC: CLAB 13:32
PROVIDERS: ATTEND Internal Medicine Interventional Cardiology
DX: N28.9 Disorder of kidney and ureter, unspecified (principal); I12.9 Hypertensive chronic kidney disease with stage 1 through stage 4 chronic kidney disease, or unspecified chronic kidney disease; N18.3 Chronic kidney disease, stage 3 (moderate); D63.1 Anemia in chronic kidney disease; D50.9 Iron deficiency anemia, unspecified; E55.9 Vitamin D deficiency, unspecified; Z79.899 Other long term (current) drug therapy
CPT/HCPCS: 36415; 80053; 81001; 82306; 82570; 82728; 83540; 83550; 83970; 84100; 84156; 85025

== ENCOUNTER → 2018-02-18 | Outpatient (CLI) | payer MEDICARE ==
[2018-02-18 13:55] LABS: BICARBONATE 28.6 MEQ/L (21.0-32.0); CALCIUM 10.1 MG/DL (8.5-10.1); CREATININE 1.99 MG/DL (0.60-1.30)
== END ==
LOC: CLAB 12:52
PROVIDERS: ATTEND Internal Medicine Interventional Cardiology
DX: N28.9 Disorder of kidney and ureter, unspecified (principal); I10 Essential (primary) hypertension; Z79.899 Other long term (current) drug therapy
CPT/HCPCS: 36415; 80048